=== PATIENT | female | born 1945 | race Caucasian/White ===

== ENCOUNTER 2016-08-13 15:52 | Emergency (ER) | payer OTHER ==
[~2016-08-13] VITALS: Ht 167.6 cm; Wt 83.5 kg
[~2016-08-13 15:52] MED LIST: LISI2.5T5 PO; MCRK20 PO; PLAVIX75 PO; SIMV20TA5 PO
[2016-08-13 15:58] VITALS: TEMP 37
[2016-08-13] MEDS ORDERED: SODIUM CHLORIDE 0.9% 500ML 500 ML IV STA (16:34)
[2016-08-13] MEDS ORDERED: SODIUM CHLORIDE 0.9% 1000ML 1,000 ML IV STA (16:34)
[2016-08-13 16:45] LABS: URINE APPEARANCE CLEAR (CLEAR); URINE BILIRUBIN NEG (NEG); URINE COLOR YELLOW; URINE NITRITE NEG (NEG); URINE PH 5.5 (4.5-7.5); URINE SPECIFIC GRAVITY 1.006 (1.000-1.030); UROBILINOGEN NEG (NEG)
[2016-08-13 16:49] LABS: MANUAL MICROSCOPIC REQUIRED? NO; REVIEW REQ? NO
[2016-08-13 16:52] LABS: BASO % 0.5 %; BASO ABS # 0.03 K/uL (0-0.2); COMPLETE YES; EOS % 2.2 %; HEMATOCRIT 41.4 % (37-47); IG% 0.2 %; LYMPH % 27.7 %; MEAN CELL VOLUME 88.5 fL (80-100); MEAN CORPUSCULAR HEMOGLOBIN 29.9 pg (25-34); MEAN CORPUSCULAR HGB CONC 33.8 g/dl (32-36); MEAN PLATELET VOLUME 9.2 fL (7.4-10.4); MONO % 5.5 %; NEUT % 63.9 %; PLATELET COUNT 216 K/uL (130-400); RED BLOOD COUNT 4.68 M/uL (4.2-5.4)
[2016-08-13 16:54] VITALS: O2SAT 95
[2016-08-13 17:09] LABS: CALCIUM 9.7 mg/dl (8.5-10.1)
[2016-08-13 17:34] LABS: ALT/SGPT 18 U/L (12-78); BLOOD UREA NITROGEN 13 mg/dl (7-18); BUN/CREATININE RATIO 13.5 (10-20); CARBON DIOXIDE 25 mmol/L (21-32); CHLORIDE 108 mmol/L (98-107); CREATININE 0.97 mg/dl (0.60-1.20); GLUCOSE 101 mg/dl (70-99); MAGNESIUM 1.9 mg/dl (1.8-2.4); SODIUM 142 mmol/L (136-145)
[2016-08-13 17:45] LABS: ALKALINE PHOSPHATASE 80 U/L (45-117); AST/SGOT 16 U/L (15-37)
--- NOTE | 2016-08-13 17:53 | DIAGNOSTIC IMAGING REPORT ---
HEAD CT NONCONTRAST CT DOSE: 1074.96 mGy.cm HISTORY: dizziness, right arm numbness TECHNIQUE: Multiaxial CT images of the head were performed without the use of intravenous contrast. Automated exposure control was utilized for this study. Comparison: Head CT 11/07/2015. Findings: The paranasal sinuses and mastoid air cells are clear. The calvarium and skull base are intact. There is no mass, hematoma, midline shift, acute infarct. White matter hypodensity is nonspecific but suggestive of advanced microvascular ischemic change. The ventricles and sulci demonstrate moderate age-related involutional changes. Impression: No significant change compared to the prior study. No acute intracranial abnormality. Atrophy and microvascular ischemic changes are again noted. Electronically signed by: Surjit Cortez M.D. 08/13/2016 5:52 PM Dictated Date/Time: 08/13/2016 5:49 PM
[2016-08-13 19:31] VITALS: Ht 167.6 cm; Wt 83.5 kg
[2016-08-13 21:21] VITALS: BP 183/129; PULSE 70; O2SAT 97
--- NOTE | 2016-08-13 21:29 | EMERGENCY ROOM VISIT NOTE ---
History Report prepared by Mimi: Jasmin Espinoza Under the Supervision of: Dr. Deo Rosas M.D. First contact with patient: 16:22 Chief Complaint: DIZZY Stated Complaint: CAN'T STAND UP-GETS DIZZY History of Present Illness The patient is a 71 year old female who presents to the Emergency Room with complaints of intermittent dizziness that started yesterday. The dizziness is worse when the patient goes from lying down to standing up. She has not taken anything to try to relieve the dizziness. She describes the dizziness as feeling like she is going to fall over and not like the room is spinning. Pt denies LOC, lightheadedness, headache, fevers, chills, trouble speaking, trouble understanding others, diaphoresis, visual changes or problems seeing, neck pain, chest pain, breathing difficulties, nausea, vomiting, abdominal pain , back pain, melena, hematochezia, urinary symptoms, numbness, new weakness, lymphadenopathy, rash, or other complaints. The patient's family states that the patient's speech is normal. 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 She has some residual right-sided weakness and numbness from that. The patient's states that when the patient had her previous episodes she was dizzy and experienced syncope. The patient had a pacemaker placed. Source of History: patient, family (son), spouse/significant other () Onset: yesterday Position: head Quality: other (dizziness) Timing: intermittent Modifying Factors (Worsening): movement (from lying down to standing up) Note: normal speech Review of Systems See HPI for pertinent positives and negatives. A total of ten systems were reviewed and were otherwise negative. Past Medical & Surgical Medical Problems: (1) Fx Gr Tuberos Humerus-Cl (2) Fx Humerus Nos-Closed (3) History of syncope (4) Hypertension Nos (5) Pacemaker (6) Symptomatic bradycardia (7) Vasovagal syncope Social History Problems: (1) History Of Tobacco Use Family History Hypertension Social History Smoking Status: Never Smoker Alcohol Use: occasionally Drug Use: none Marital Status: Housing Status: lives with significant other Occupation Status: retired Current/Historical Medications Scheduled Aspirin (Aspirin Ec), 81 MG PO HS Clopidogrel Bisulfate (Plavix), 1 TAB PO DAILY Lisinopril (Lisinopril), 2.5 MG PO DAILY Potassium Ext Rel (Klor-Con), 20 MEQ PO DAILY Simvastatin (Zocor), 20 MG PO QPM Scheduled PRN Acetaminophen Tab (Tylenol), 650 MG PO Q4H PRN for Pain Allergies Coded Allergies: No Known Allergies (Unverified , 08/13/16) Physical Exam Vital Signs Date Time Temp Pulse Resp B/P Pulse Ox O2 Delivery O2 Flow Rate FiO2 08/13/16 20:28 71 202/103 97 Room Air 78 198/111 70 183/129 08/13/16 18:46 70 20 161/88 96 Room Air 08/13/16 16:56 79 22 187/105 75 140/101 08/13/16 16:54 95 Room Air 08/13/16 16:16 79 08/13/16 15:58 37.0 79 16 194/106 94 Room Air Physical Exam GENERAL: Awake, alert, well appearing, no distress HENT: Normocephalic, atraumatic. TM's normal. Oropharynx unremarkable. EYES: PERRL. EOMI. No nystagmus. Normal conjunctiva. Sclera non-icteric. NECK: Supple. No nuchal rigidity. FROM. No JVD or bruit. RESPIRATORY: CTA CARDIAC: RRR. No murmur. ABDOMEN: Soft, non distended. No tenderness to palpation. No rebound or guarding. No masses. RECTAL: Deferred. MUSCULOSKELETAL: Unremarkable. No edema. No discoloration. Gross motor strength symmetric. NEURO: Cranial nerves 2-12 grossly intact. Normal sensorium. No sensory or motor deficits noted. Speech normal. Assessing drift in right arm is limited secondary to preexisting injury. Slight weakness appreciated in right leg ( which is chronic per patient and family). SKIN: No rash or jaundice noted. LYMPH: No adenopathy. Medical Decision & Procedures ER Provider Diagnostic Interpretation: Radiology results as stated below per my review and radiologist interpretation: HEAD CT NONCONTRAST Findings: The paranasal sinuses and mastoid air cells are clear. The calvarium and skull base are intact. There is no mass, hematoma, midline shift, acute infarct. White matter hypodensity is nonspecific but suggestive of advanced microvascular ischemic change. The ventricles and sulci demonstrate moderate age-related involutional changes. Impression: No significant change compared to the prior study. No acute intracranial abnormality. Atrophy and microvascular ischemic changes are again noted. Electronically signed by: Surjit Cortez M.D. 08/13/2016 5:52 PM Dictated Date/Time: 08/13/2016 5:49 PM Laboratory Results 08/13/16 16:40 Red Blood Count 4.68, Mean Corpuscular Volume 88.5, Mean Corpuscular Hemoglobin 29.9, Mean Corpuscular Hemoglobin Concent 33.8, Mean Platelet Volume 9.2, Neutrophils (%) (Auto) 63.9, Lymphocytes (%) (Auto) 27.7, Monocytes (%) (Auto) 5.5, Eosinophils (%) (Auto) 2.2, Basophils (%) (Auto) 0.5, Neutrophils # (Auto) 4.16, Lymphocytes # (Auto) 1.80, Monocytes # (Auto) 0.36, Eosinophils # (Auto) 0.14, Basophils # (Auto) 0.03 08/13/16 16:40 Test 08/13/16 16:29 08/13/16 16:40 Urine Color YELLOW Urine Appearance CLEAR (CLEAR) Urine pH 5.5 (4.5-7.5) Urine Specific Snook 1.006 (1.000-1.030) Urine Protein NEG (NEG) Urine Glucose (UA) NEG (NEG) Urine Ketones NEG (NEG) Urine Occult Blood NEG (NEG) Urine Nitrite NEG (NEG) Urine Bilirubin NEG (NEG) Urine Urobilinogen NEG (NEG) Urine Leukocyte Esterase NEG (NEG) White Blood Count 6.50 K/uL (4.8-10.8) Red Blood Count 4.68 M/uL (4.2-5.4) Hemoglobin 14.0 g/dL (12.0-16.0) Hematocrit 41.4 % (37-47) Mean Corpuscular Volume 88.5 fL (80-100) Mean Corpuscular Hemoglobin 29.9 pg (25-34) Mean Corpuscular Hemoglobin Concent 33.8 g/dl (32-36) Platelet Count 216 K/uL (130-400) Mean Platelet Volume 9.2 fL (7.4-10.4) Neutrophils (%) (Auto) 63.9 % Lymphocytes (%) (Auto) 27.7 % Monocytes (%) (Auto) 5.5 % Eosinophils (%) (Auto) 2.2 % Basophils (%) (Auto) 0.5 % Neutrophils # (Auto) 4.16 K/uL (1.4-6.5) Lymphocytes # (Auto) 1.80 K/uL (1.2-3.4) Monocytes # (Auto) 0.36 K/uL (0.11-0.59) Eosinophils # (Auto) 0.14 K/uL (0-0.5) Basophils # (Auto) 0.03 K/uL (0-0.2) RDW Standard Deviation 41.8 fL (36.4-46.3) RDW Coefficient of Variation 13.1 % (11.5-14.5) Immature Granulocyte % (Auto) 0.2 % Immature Granulocyte # (Auto) 0.01 K/uL (0.00-0.02) Prothrombin Time 11.0 SECONDS (9.0-12.0) Prothromb Time International Ratio 1.0 (0.9-1.1) Activated Partial Thromboplast Time 26.4 SECONDS (21.0-31.0) Partial Thromboplastin Ratio 1.0 Anion Gap 9.0 mmol/L (3-11) Estimated GFR () 68.6 Estimated GFR (Non- 59.2 BUN/Creatinine Ratio 13.5 (10-20) Calcium Level 9.7 mg/dl (8.5-10.1) Magnesium Level 1.9 mg/dl (1.8-2.4) Total Bilirubin 0.8 mg/dl (0.2-1) Direct Bilirubin 0.2 mg/dl (0-0.2) Aspartate Amino Transf (AST/SGOT) 16 U/L (15-37) Alanine Aminotransferase (ALT/SGPT) 18 U/L (12-78) Alkaline Phosphatase 80 U/L (45-117) Total Protein 7.4 gm/dl (6.4-8.2) Albumin 3.9 gm/dl (3.4-5.0) Lipase 138 U/L (73-393) Thyroid Stimulating Hormone (TSH) 2.510 uIu/ml (0.300-4.500) Laboratory results reviewed by me Medications Administered Medications (Trade) Dose Ordered Sig/Alysia Route Start Time Stop Time Status Last Admin Dose Admin Sodium Chloride 500 ml @ 999 mls/hr Q31M STAT IV 08/13/16 16:34 08/13/16 17:04 DC 08/13/16 16:34 999 MLS/HR Sodium Chloride (Nss 1000ml) 1,000 ml @ 125 mls/hr Q8H STAT IV 08/13/16 16:34 08/14/16 00:33 08/13/16 16:34 125 MLS/HR ECG Indication: weakness Rate (beats per minute): 75 Rhythm: normal sinus Findings: T-wave inversion (Lateral), no ectopy, other (LVH) Comparison ECG Date: 11/07/2015 Change: no significant change ED Course 1630: The patient was evaluated in room B11. A complete history and physical exam was performed. 1634: Ordered Sodium Chloride 1000 ml @ 125 mls/hr IV, Sodium Chloride 500 ml @ 999 mls/hr IV 2004: I reassessed the patient. She feels well and her CT was negative so we are going to do orthostatic testing on her. Medical Decision Prior records/ancillary studies reviewed. Triage Nursing notes reviewed and agree them. The patient's history was concerning for dizziness. Differential diagnosis: Etiologies such as benign positional vertigo, tumor, infection, hypoglycemia, electrolyte abnormalities, cardiac sources, intracerebral event, toxicologic, neurologic, as well as others were entertained. Physical examination: As above. No pathologic nystagmus. No focal findings. ER treatment provided: IV hydration On reassessment the patient felt well. Diagnostics interpretation by me: ECG: Normal sinus rhythm without ischemic change or evidence of dysrhythmia. Urinalysis is negative. The labs revealed a normal CBC and chemistry panel. The patient was evaluated. Initially she did not feel well to complete orthostatic testing but did not have any significant abnormalities of her vital signs. She has a history of lacunar infarcts. There is no pathologic nystagmus. She has no new weakness or numbness. She was hydrated and imaging was performed the patient felt well. She was able to get up without problems. Orthostatic testing only revealed hypertension. The patient was due to take her evening lisinopril. She did take this. The patient also had unremarkable imaging. She is taking aspirin and Plavix. There is no pathologic findings on physical examination. I had the patient ambulate and she did well. She feels well. I discussed conservative management and continuation of her aspirin and Plavix as well as blood pressure medications. The patient and family felt comfortable. The patient will record her blood pressure over the next few days and follow-up in the office. If she has any problems she will come back to the emergency Department immediately for reevaluation. At this point MRI was deferred. Her history doesn't point towards a clear vertigo either. It seems that she was simply weak but the exact etiology is not completely clear. By the evaluation outlined above emergent etiologies such as infection, hypoglycemia, electrolyte abnormalities, cardiac sources, intracerebral event, toxicologic, neurologic,as well as others were deemed relatively unlikely. The patient and family were informed about the findings as listed above. All questions were answered and they were very pleased with the treatment. Return instructions were outlined and the patient was discharged in stable condition. Outpatient prescription management: No change Referral: The patient was referred back to her primary care physician for follow-up in 3 days for a recheck of the current condition. The chart was completed utilizing [employer] Speech voice recognition software. Grammatical errors, random word insertions, pronoun errors, and incomplete sentences are an occasional consequence of this system due to software limitations, ambient noise, and hardware issues. Any formal questions or concerns about the content, text, or information contained within the body of this dictation should be directly addressed to the physician for clarification. Impression Primary Impression: Dizziness Scribe Attestation The scribe's documentation has been prepared under my direction and personally reviewed by me in its entirety. I confirm that the note above accurately reflects all work, treatment, procedures, and medical decision making performed by me. Departure Information Dispostion Home / Self-Care Referrals Shae Martinez M.D. (PCP) Patient Instructions My [facility]
[2016-10-02] MEDS ORDERED: AGG PO (13:54)
[2016-10-20] MEDS ORDERED: PLV75 PO (16:52)
[2016-10-20] MEDS ORDERED: ASPEC81 PO (16:54)
== END 2016-08-13 21:22 | disposition home or self-care (01) ==
LOC: C.EDB 15:54
DX: R42 Dizziness and giddiness (principal); I69.351 Hemiplegia and hemiparesis following cerebral infarction affecting right dominant side; Z95.0 Presence of cardiac pacemaker; I10 Essential (primary) hypertension; Z82.49 Family history of ischemic heart disease and other diseases of the circulatory system; Z79.82 Long term (current) use of aspirin; Z79.01 Long term (current) use of anticoagulants; Z79.899 Other long term (current) drug therapy

== ENCOUNTER 2016-09-30 15:14 | Inpatient (IN) | payer OTHER ==
[~2016-09-30] VITALS: Ht 162.6 cm; Wt 76.7 kg
[~2016-09-30 15:14] MED LIST changes: -MCRK20 PO
[2016-09-30] MEDS ORDERED: SODIUM CHLORIDE 0.9% 1000ML 1,000 ML IV SCH (15:26)
[2016-09-30 15:45] LABS: BASO % 0.6 %; BASO ABS # 0.04 K/uL (0-0.2); COMPLETE YES; EOS % 2.5 %; HEMATOCRIT 46.6 % (37-47); IG% 0.1 %; LYMPH % 28.1 %; LYMPH ABS # 1.91 K/uL (1.2-3.4); MEAN CELL VOLUME 87.4 fL (80-100); MEAN CORPUSCULAR HEMOGLOBIN 28.9 pg (25-34); MONO % 7.4 %; NEUT % 61.3 %; PLATELET COUNT 237 K/uL (130-400); RED BLOOD COUNT 5.33 M/uL (4.2-5.4)
--- NOTE | 2016-09-30 15:52 | EMERGENCY ROOM VISIT NOTE ---
History Report prepared by Mimi: Margy Cheek Under the Supervision of: Dr. Nikos Valles D.O. First contact with patient: 15:20 Chief Complaint: DIZZY Stated Complaint: RIGHT SIDE NUMB History of Present Illness The patient is a 71 year old female who presents to the Emergency Room with complaints of an episode of dizziness starting prior to arrival. She notes that the dizziness is worse when standing. The patient states that she was in the bathroom and couldn't make it out. She states that she is experiencing weakness and numbness in the right side and it has been worsening for the past month. She states that her had to bring in a wheel chair to get her out of the bathroom. The notes this occurred about an hour and a half to two hours ago. The states that she wasn't talking differently than normal. He states that prior to going into the bathroom she was fine, talking fine and walked into the bathroom on her own. She states she was in the ED with similar symptoms a month ago. The patient notes that she has had TIAs in the past. The patient denies having a full stroke that left her with weakness. The patient denies headache, nausea, and chest pain. The patient notes that she has a pacemaker. Source of History: patient Onset: prior to arrival Position: other (global) Quality: other (global) Timing: other (episode) Modifying Factors (Worsening): other (standing) Associated Symptoms: + weakness, + numbness, No headache, No chest pain, No nausea Note: The denies that the patient talked differently and the patient denies having a stroke that left her with weakness in the past. Review of Systems See HPI for pertinent positives & negatives. A total of 10 systems reviewed and were otherwise negative. Past Medical & Surgical Medical Problems: (1) CVA (cerebral vascular accident) (2) HLD (hyperlipidemia) (3) Leukoencephalopathy (4) Orthostatic hypotension (5) Pacemaker (6) Sinus node dysfunction Surgical Problems: (1) History of appendectomy (2) Hx of tonsillectomy Family History Hypertension Social History Smoking Status: Former Smoker Alcohol Use: occasionally Drug Use: none Marital Status: Housing Status: lives with significant other Occupation Status: retired Current/Historical Medications Scheduled Aspirin (Aspirin Ec), 81 MG PO HS Clopidogrel (Plavix), 75 MG PO DAILY Lisinopril (Lisinopril), 5 MG PO DAILY Potassium Ext Rel (Klor-Con), 20 MEQ PO DAILY Simvastatin (Zocor), 20 MG PO QPM Scheduled PRN Acetaminophen Tab (Tylenol), 650 MG PO Q4H PRN for Pain Allergies Coded Allergies: No Known Allergies (Unverified , 08/13/16) Physical Exam Vital Signs Date Time Temp Pulse Resp B/P (MAP) Pulse Ox O2 Delivery O2 Flow Rate FiO2 09/30/16 16:25 73 16 157/92 98 Room Air 09/30/16 15:51 77 20 182/110 99 Room Air 09/30/16 15:47 97 Room Air 09/30/16 15:28 76 09/30/16 15:16 36.9 83 18 121/72 94 Room Air Physical Exam GENERAL: Patient is awake, alert, and is mildly anxious, but comfortable. EYES: The conjunctivae are clear. The pupils are round and reactive. EARS, NOSE, MOUTH AND THROAT: The nose is without any evidence of any deformity. Mucous membranes are moist tongue is midline NECK: The neck is nontender and supple. No bruits noted to auscultation. RESPIRATORY: Normal respiratory effort is noted there is no evidence of wheezing rhonchi or rales CARDIOVASCULAR: Regular rate and rhythm noted there no murmurs rubs or gallops normal S1 normal S2 GASTROINTESTINAL: The abdomen is soft. Bowel sounds are present in all quadrants. Abdomen is nontender MUSCULOSKELETAL/EXTREMITIES: There is no evidence of gross deformity full range of motion is noted in the hips and shoulders SKIN: There is no obvious evidence of any rash. There are no petechiae, pallor or cyanosis noted. NEUROLOGIC: Patient is awake alert and oriented x3. GCS of 15. No facial droop noted. There was a drift in the right upper extremity, diminished merchandiser seasonal in the right upper extremity compared to the left. The patient was able to hold each leg off the bed for greater than 5 seconds, but could not hold right leg up against physician resistance. Medical Decision & Procedures ER Provider Diagnostic Interpretation: Radiology results as stated below per my review and radiologist interpretation: HEAD WITHOUT CONTRAST (CT) HISTORY: 71-year-old male presents with acute strokelike symptoms. TECHNIQUE: Multiple axial CT images of the head were obtained without contrast. COMPARISON: Head CT 08/13/2016. FINDINGS: No acute intracranial hemorrhage, midline shift, mass, large territorial ischemia or abnormal extra-axial collection. There is at least moderate diffuse cerebral edema with ex vacuo ventriculomegaly. Confluent areas of low-attenuation are present within the periventricular and deep white matter of the cerebral hemispheres bilaterally. Senescent calcifications are noted within the basal ganglia. Vascular calcifications are present at the level of the skull base. The calvarium is intact. The paranasal sinuses, mastoid air cells, and middle ear cavities are clear. IMPRESSION: 1. No acute intracranial abnormality. 2. Age-related changes of atrophy and chronic microvascular ischemic changes. Electronically signed by: Deondre Harman 09/30/2016 3:54 PM Dictated Date/Time: 09/30/2016 3:44 PM CHEST ONE VIEW PORTABLE CLINICAL HISTORY: Stroke COMPARISON STUDY: Chest radiograph November 07, 2015. FINDINGS: A dual lead left subclavian pacemaker is unchanged in position. Lung volumes are normal. Lungs are clear. There is no pneumothorax or pleural effusion. Cardiomediastinal silhouette is normal. Old deformity of the proximal right humerus is noted. IMPRESSION: No acute cardiopulmonary findings. Electronically signed by: Sreedhar Salas M.D. 09/30/2016 4:47 PM Dictated Date/Time: 09/30/2016 4:47 PM Laboratory Results 09/30/16 15:25 Red Blood Count 5.33, Mean Corpuscular Volume 87.4, Mean Corpuscular Hemoglobin 28.9, Mean Corpuscular Hemoglobin Concent 33.0, Mean Platelet Volume 9.0, Neutrophils (%) (Auto) 61.3, Lymphocytes (%) (Auto) 28.1, Monocytes (%) (Auto) 7.4, Eosinophils (%) (Auto) 2.5, Basophils (%) (Auto) 0.6, Neutrophils # (Auto) 4.17, Lymphocytes # (Auto) 1.91, Monocytes # (Auto) 0.50, Eosinophils # (Auto) 0.17, Basophils # (Auto) 0.04 09/30/16 15:25 Test 09/30/16 15:25 09/30/16 15:46 09/30/16 15:47 09/30/16 16:00 White Blood Count 6.80 K/uL (4.8-10.8) Red Blood Count 5.33 M/uL (4.2-5.4) Hemoglobin 15.4 g/dL (12.0-16.0) Hematocrit 46.6 % (37-47) Mean Corpuscular Volume 87.4 fL (80-100) Mean Corpuscular Hemoglobin 28.9 pg (25-34) Mean Corpuscular Hemoglobin Concent 33.0 g/dl (32-36) Platelet Count 237 K/uL (130-400) Mean Platelet Volume 9.0 fL (7.4-10.4) Neutrophils (%) (Auto) 61.3 % Lymphocytes (%) (Auto) 28.1 % Monocytes (%) (Auto) 7.4 % Eosinophils (%) (Auto) 2.5 % Basophils (%) (Auto) 0.6 % Neutrophils # (Auto) 4.17 K/uL (1.4-6.5) Lymphocytes # (Auto) 1.91 K/uL (1.2-3.4) Monocytes # (Auto) 0.50 K/uL (0.11-0.59) Eosinophils # (Auto) 0.17 K/uL (0-0.5) Basophils # (Auto) 0.04 K/uL (0-0.2) RDW Standard Deviation 42.0 fL (36.4-46.3) RDW Coefficient of Variation 13.0 % (11.5-14.5) Immature Granulocyte % (Auto) 0.1 % Immature Granulocyte # (Auto) 0.01 K/uL (0.00-0.02) Prothrombin Time 10.5 SECONDS (9.0-12.0) Prothromb Time International Ratio 1.0 (0.9-1.1) Activated Partial Thromboplast Time 27.7 SECONDS (21.0-31.0) Partial Thromboplastin Ratio 1.1 Anion Gap 5.0 mmol/L (3-11) Est Creatinine Clear Calc Drug Dose 57.3 ml/min Estimated GFR () 73.1 Estimated GFR (Non- 63.1 BUN/Creatinine Ratio 14.1 (10-20) Calcium Level 10.0 mg/dl (8.5-10.1) Total Bilirubin 0.6 mg/dl (0.2-1) Direct Bilirubin 0.2 mg/dl (0-0.2) Aspartate Amino Transf (AST/SGOT) 16 U/L (15-37) Alanine Aminotransferase (ALT/SGPT) 22 U/L (12-78) Alkaline Phosphatase 88 U/L (45-117) Total Creatine Kinase 140 U/L (26-192) Creatine Kinase MB 1.2 ng/ml (0.5-3.6) Creatine Kinase MB Ratio 0.9 (0-3.0) Troponin I < 0.015 ng/ml (0-0.045) Total Protein 8.2 gm/dl (6.4-8.2) Albumin 4.6 gm/dl (3.4-5.0) Bedside Prothrombin Time INR 1.0 (0.9-1.1) Bedside Glucose 90 mg/dl (70-90) Urine Color YELLOW Urine Appearance CLEAR (CLEAR) Urine pH 6.0 (4.5-7.5) Urine Specific [place] 1.010 (1.000-1.030) Urine Protein NEG (NEG) Urine Glucose (UA) NEG (NEG) Urine Ketones NEG (NEG) Urine Occult Blood NEG (NEG) Urine Nitrite NEG (NEG) Urine Bilirubin NEG (NEG) Urine Urobilinogen NEG (NEG) Urine Leukocyte Esterase NEG (NEG) Laboratory results per my review. Medications Administered Medications (Trade) Dose Ordered Sig/Alysia Route Start Time Stop Time Status Last Admin Dose Admin Sodium Chloride 1,000 ml @ 50 mls/hr Q20H IV 09/30/16 15:26 09/30/16 19:10 DC 09/30/16 15:55 50 MLS/HR ECG Indication: weakness Rate (beats per minute): 73 Rhythm: normal sinus Findings: T-wave inversion (diffuse), no ectopy Comparison ECG Date: 08/13/2016 Change: no significant change ED Course 1522: The patient was evaluated in room A9B. A complete history and physical examination were performed. 1526: Ordered NSS 1000 ml @ 50 mls/hr IV. 1603: I discussed the patient's case with Dr. Moise from [facility]. He states he will evaluate the patient. 1628: Dr. Moise called back after evaluating the patient's case and states that he agrees with a lunar infarct. He states that he agrees to not give TPA, but that she should be further evaluated for so many changes in her CT. 1643: I reevaluated the patient and discussed the results with her. 1645: I discussed the patient's case with Deborah. The patient will be evaluated for further management. Medical Decision Medication Reconciliation: I attest that I have personally reviewed the patient' s current medications list. Patient was found to have a slightly elevated blood pressure due to circumstances. I do not believe that the patient requires hypertension monitoring. Differential diagnosis: Etiologies such as metabolic, infection, hypo/hyperglycemia, electrolyte abnormalities, cardiac sources, intracerebral event, toxicologic, neurologic, as well as others were entertained. The patient is a 71-year-old female who presented to the emergency department for an evaluation of possible stroke. The patient had an episode which occurred prior to arrival where she was unable to move her right side. According to her family members she has a history of TIA. It sounds though her symptoms were very severe 1. but upon arrival to the hospital they appear to be significantly improved. This patient was made a stroke alert because of the acuity of presentation. The patient did not appear to have any acute hemorrhagic findings on CT the head but she was not a good candidate for TPA because of the degree of her symptoms at this time. I discussed his case with the stroke neurologist from [facility]. She was evaluated by them using the tele stroke camera. He made recommendations but agrees that the patient would not be a good candidate for TPA at this time. I discussed this case with the on-call [facility] hospitalist. They've agreed to evaluate the patient in the emergency department for further management and disposition. Consults Time Called: 1600 Consulting Physician: Dr. Moise- [facility] Returned Call: 1603 I discussed the patient's case with Dr. Moise from [facility]. He states he will evaluate the patient. Additional Consults: Time Called: 1631 Consulted Physician: Dr. Cabrera Returned Call: 1645 Additional Comments: I discussed the patient's case with Deborah. The patient will be evaluated for further management. Impression Primary Impression: CVA (cerebral vascular accident) Additional Impression: Right sided weakness Scribe Attestation The scribe's documentation has been prepared under my direction and personally reviewed by me in its entirety. I confirm that the note above accurately reflects all work, treatment, procedures, and medical decision making performed by me. Departure Information Dispostion Being Evaluated By Hospitalist Referrals No Doctor, Assigned (PCP) Patient Instructions [facility] Problem Qualifiers Primary Impression: CVA (cerebral vascular accident) CVA mechanism: unspecified Qualified Codes: I63.9 - Cerebral infarction, unspecified
--- NOTE | 2016-09-30 15:56 | DIAGNOSTIC IMAGING REPORT ---
HEAD WITHOUT CONTRAST (CT) HISTORY: 71-year-old male presents with acute strokelike symptoms. TECHNIQUE: Multiple axial CT images of the head were obtained without contrast. COMPARISON: Head CT 08/13/2016. FINDINGS: No acute intracranial hemorrhage, midline shift, mass, large territorial ischemia or abnormal extra-axial collection. There is at least moderate diffuse cerebral edema with ex vacuo ventriculomegaly. Confluent areas of low-attenuation are present within the periventricular and deep white matter of the cerebral hemispheres bilaterally. Senescent calcifications are noted within the basal ganglia. Vascular calcifications are present at the level of the skull base. The calvarium is intact. The paranasal sinuses, mastoid air cells, and middle ear cavities are clear. IMPRESSION: 1. No acute intracranial abnormality. 2. Age-related changes of atrophy and chronic microvascular ischemic changes. Electronically signed by: Deondre Harman 09/30/2016 3:54 PM Dictated Date/Time: 09/30/2016 3:44 PM
[2016-09-30 15:59] LABS: PARTIAL THROMBOPLASTIN RATIO 1.1; PROTHROMBIN TIME (PATIENT) 10.5 SECONDS (9.0-12.0)
[2016-09-30] MEDS ORDERED: CLOP1TAB15 PO (16:01)
[2016-09-30 16:05] LABS: BLOOD UREA NITROGEN 13 mg/dl (7-18); BUN/CREATININE RATIO 14.1 (10-20); CARBON DIOXIDE 29 mmol/L (21-32); CHLORIDE 105 mmol/L (98-107); CREATININE 0.92 mg/dl (0.60-1.20); GLUCOSE 92 mg/dl (70-99); POTASSIUM 4.1 mmol/L (3.5-5.1); SODIUM 139 mmol/L (136-145)
[2016-09-30 16:10] LABS: CKMB/CK RATIO 0.9 (0-3.0)
[2016-09-30] MEDS ORDERED: POTA20TA16 PO (16:43)
--- NOTE | 2016-09-30 16:48 | DIAGNOSTIC IMAGING REPORT ---
CHEST ONE VIEW PORTABLE CLINICAL HISTORY: Stroke COMPARISON STUDY: Chest radiograph November 07, 2015. FINDINGS: A dual lead left subclavian pacemaker is unchanged in position. Lung volumes are normal. Lungs are clear. There is no pneumothorax or pleural effusion. Cardiomediastinal silhouette is normal. Old deformity of the proximal right humerus is noted. IMPRESSION: No acute cardiopulmonary findings. Electronically signed by: Sreedhar Salas M.D. 09/30/2016 4:47 PM Dictated Date/Time: 09/30/2016 4:47 PM
[2016-09-30 16:59] LABS: MANUAL MICROSCOPIC REQUIRED? NO; REVIEW REQ? NO; URINE APPEARANCE CLEAR (CLEAR); URINE BILIRUBIN NEG (NEG); URINE COLOR YELLOW; URINE NITRITE NEG (NEG); UROBILINOGEN NEG (NEG); ZZURINE CULT IF INDIC CATH NO
[2016-09-30] MEDS ORDERED: ACETAMINOPHEN 325 MG TAB PO PRN (17:30)
[2016-09-30] MEDS ORDERED: ONDANSETRON INJ 2 MG/ML 2 ML VIAL IV PRN (17:30)
[2016-09-30] MEDS ORDERED: PHARMACIST DISCHARGE MED REC CONSULT PRN (17:30)
--- NOTE | 2016-09-30 18:05 | History and Physical ---
History & Physical Date & Time of Service: Sep 30, 2016 ~ 17:00 Chief Complaint: Dizziness Primary Care Physician: Shae Martinez M.D. History of Present Illness 71 year old female who presents to the ER with dizziness. Patient reports she was in the bathroom and when she stood up she felt very dizzy. She called for her for help. She reports the symptoms lasted for about 2 minutes and resolved on its own. There is also some questions whether or not patient said the right side of her body was numb but now she denies this. She has chronic right arm weakness from a shoulder injury and has chronic right leg weakness for the past few years. She was placed on Plavix 10/2015 for questionable TIA with the progressive right leg weakness. Patient reports the right leg weakness has continued to progress. She reports she barely walks. Family reports she does not like to participate in therapy. Patient denies acute worsening of the weakness today but rather a slow decline over the past several months. Patient denies lightheadedness, headache, or blurred vision. No speech or swallowing difficulties, denies facial droop. She denies chest pain and shortness of breath. No abdominal pain, nausea, vomiting, or diarrhea. She denies fever and chills. No urinary symptoms. In the ER, stroke alert was called. Patient was deemed not a candidate for TPA. [place] recommended switching patient to Aggrenox. Vitals are stable and labs are unremarkable. Past Medical/Surgical History Medical Problems: (1) CVA (cerebral vascular accident) Status: Chronic (2) HLD (hyperlipidemia) Status: Chronic (3) Leukoencephalopathy Status: Chronic (4) Orthostatic hypotension Status: Chronic (5) Pacemaker Status: Chronic (6) Sinus node dysfunction Status: Chronic Surgical Problems: (1) History of appendectomy Status: Chronic (2) Hx of tonsillectomy Status: Chronic Family History Hypertension Social History Smoking Status: Former Smoker Alcohol Use: none Marital Status: Allergies Coded Allergies: No Known Allergies (Unverified , 08/13/16) Home Medications Scheduled Aspirin (Aspirin Ec), 81 MG PO HS Clopidogrel (Plavix), 75 MG PO DAILY Lisinopril (Lisinopril), 5 MG PO DAILY Potassium Ext Rel (Klor-Con), 20 MEQ PO DAILY Simvastatin (Zocor), 20 MG PO QPM Scheduled PRN Acetaminophen Tab (Tylenol), 650 MG PO Q4H PRN for Pain Review of Systems ROS per HPI, all other systems reviewed and negative Physical Exam Vital Signs Date Time Temp Pulse Resp B/P (MAP) Pulse Ox O2 Delivery O2 Flow Rate FiO2 09/30/16 16:25 73 16 157/92 98 Room Air 09/30/16 15:51 77 20 182/110 99 Room Air 09/30/16 15:47 97 Room Air 09/30/16 15:28 76 09/30/16 15:16 36.9 83 18 121/72 94 Room Air General Appearance: no apparent distress Head: normocephalic Eyes: normal inspection, PERRL ENT: hearing grossly normal Neck: supple, no JVD Respiratory/Chest: lungs clear, normal breath sounds, no respiratory distress Cardiovascular: regular rate, rhythm, no edema, normal peripheral pulses Abdomen/GI: normal bowel sounds, non tender, soft Extremities/Musculoskelatal: normal inspection, no calf tenderness Neurologic/Psych: alert, normal mood/affect, oriented x 3, + pertinent finding (has some difficulty lifting left arm - patient reports this is from a shoudler injury; no other focal deficits noted) Skin: normal color, warm/dry Diagnostics Laboratory Results Results Past 24 Hours Test 09/30/16 15:25 09/30/16 15:46 09/30/16 15:47 09/30/16 16:00 Range/Units White Blood Count 6.80 4.8-10.8 K/uL Red Blood Count 5.33 4.2-5.4 M/uL Hemoglobin 15.4 12.0-16.0 g/dL Hematocrit 46.6 37-47 % Mean Corpuscular Volume 87.4 80-100 fL Mean Corpuscular Hemoglobin 28.9 25-34 pg Mean Corpuscular Hemoglobin Concent 33.0 32-36 g/dl Platelet Count 237 130-400 K/uL Mean Platelet Volume 9.0 7.4-10.4 fL Neutrophils (%) (Auto) 61.3 % Lymphocytes (%) (Auto) 28.1 % Monocytes (%) (Auto) 7.4 % Eosinophils (%) (Auto) 2.5 % Basophils (%) (Auto) 0.6 % Neutrophils # (Auto) 4.17 1.4-6.5 K/uL Lymphocytes # (Auto) 1.91 1.2-3.4 K/uL Monocytes # (Auto) 0.50 0.11-0.59 K/uL Eosinophils # (Auto) 0.17 0-0.5 K/uL Basophils # (Auto) 0.04 0-0.2 K/uL RDW Standard Deviation 42.0 36.4-46.3 fL RDW Coefficient of Variation 13.0 11.5-14.5 % Immature Granulocyte % (Auto) 0.1 % Immature Granulocyte # (Auto) 0.01 0.00-0.02 K/uL Prothrombin Time 10.5 9.0-12.0 SECONDS Prothromb Time International Ratio 1.0 0.9-1.1 Activated Partial Thromboplast Time 27.7 21.0-31.0 SECONDS Partial Thromboplastin Ratio 1.1 Sodium Level 139 136-145 mmol/L Potassium Level 4.1 3.5-5.1 mmol/L Chloride Level 105 98-107 mmol/L Carbon Dioxide Level 29 21-32 mmol/L Anion Gap 5.0 3-11 mmol/L Blood Urea Nitrogen 13 7-18 mg/dl Creatinine 0.92 0.60-1.20 mg/dl Est Creatinine Clear Calc Drug Dose 57.3 ml/min Estimated GFR () 73.1 Estimated GFR (Non- 63.1 BUN/Creatinine Ratio 14.1 10-20 Random Glucose 92 70-99 mg/dl Calcium Level 10.0 8.5-10.1 mg/dl Total Bilirubin 0.6 0.2-1 mg/dl Direct Bilirubin 0.2 0-0.2 mg/dl Aspartate Amino Transf (AST/SGOT) 16 15-37 U/L Alanine Aminotransferase (ALT/SGPT) 22 12-78 U/L Alkaline Phosphatase 88 45-117 U/L Total Creatine Kinase 140 26-192 U/L Creatine Kinase MB 1.2 0.5-3.6 ng/ml Creatine Kinase MB Ratio 0.9 0-3.0 Troponin I < 0.015 0-0.045 ng/ml Total Protein 8.2 6.4-8.2 gm/dl Albumin 4.6 3.4-5.0 gm/dl Bedside Prothrombin Time INR 1.0 0.9-1.1 Bedside Glucose 90 70-90 mg/dl Urine Color YELLOW Urine Appearance CLEAR CLEAR Urine pH 6.0 4.5-7.5 Urine Specific [place] 1.010 1.000-1.030 Urine Protein NEG NEG Urine Glucose (UA) NEG NEG Urine Ketones NEG NEG Urine Occult Blood NEG NEG Urine Nitrite NEG NEG Urine Bilirubin NEG NEG Urine Urobilinogen NEG NEG Urine Leukocyte Esterase NEG NEG Test 09/30/16 17:24 Range/Units Diagnostic Radiology HEAD CT IMPRESSION: 1. No acute intracranial abnormality. 2. Age-related changes of atrophy and chronic microvascular ischemic changes. CXR IMPRESSION: No acute cardiopulmonary findings. Impression Assessment and Plan DIZZINESS, RIGHT LEG WEAKNESS - admit to tele - patient presenting with dizziness after standing from toilet, resolved on its own after about 2 minutes; patient also has some right arm weakness that she reports is from a shoulder injury - weakness is unchanged from baseline; also has had progressive right leg weakness over the past several months - was placed on Plavix 10/2015 for ? TIA - stroke alert called - patient deemed not to be a candidate for TPA - dizziness seems to be orthostatic in nature - will check orthostatic BPs - ? CVA for right leg weakness however has been going on for the past several months and patient is not active - suspect rather due to deconditioning that CVA - if it is a CVA, would be considered ASA and Plavix failure so for now will change to Aggrenox - increase statin to Lipitor 80mg - brain MRI/MRA, neck MRA - if pacer is compatible - echo, carotid doppler - neuro checks - PT/OT - neuro consult, case discussed with Dr. Brooks HTN - will hold lisinopril to allow for permissive HTN due to possible CVA - may need to make adjustments pending orthostatic BPs SINUS NODE DYSFUNCTION, S/P PACER - pacer interrogation due to dizziness DVT PROPHYLAXIS - SCDs until CVA ruled out CODE STATUS - Patient is a full code as per my discussion with her. DISPO - In my clinical judgment this beneficiary meets acute admission criteria, established by [facility], that includes being hospitalized through two midnights. - PT/OT, patient may need short term placement for rehab Attending Note: Patient is a 71 yr female who presented for evaluation after having a transient episode of dizziness which she describes as "Room spinning". Denies fall, head trauma, headache, blurry vision. Reports chronic right sided weakness. Denies any new weakness. Denies chest pain, SOB, headache, blurry vision, speech problems, facial deformity. Physical Exam: Vitals signs as noted above General Appearance:Moderately built and nourished, no apparent distress Head: normocephalic, Atraumatic Eyes: normal inspection, EOMI, PERRL Neck: supple, Trachea midline Respiratory/Chest: Normal breath sounds, CTA Cardiovascular: S1, S2, No murmur Abdomen/GI:Soft, Non tender, Bowel sounds present Extremities/Musculoskelatal:normal inspection, decreased ROM of R arm. B/L LE 4/ 5 Neurologic/Psych:AAOX3, decreased ROM of R arm. B/L LE 4/5 Skin:normal color,warm Assessment and Plan: Dizziness:Likely vasovagal New CVA less likely CT head: no acute pathology Has a pacemaker. Plan for MRI if compatible Continue Aggrenox per [facility] input Neurology consulted Stroke work up as above I personally reviewed the record. Patient is interviewed and examined at bedside. Patient's care is coordinated with Ivett Valentine [employer]ING [employer]. Please refer to the documentation above for details of patient's presentation and for discussion of other issues. VTE Prophylaxis VTE Risk Assessment Done? Y/N: Yes Risk Level: Moderate
[2016-09-30 18:29] VITALS: BP 183/129; PULSE 74; TEMP 36.6; Ht 162.6 cm; Wt 76.7 kg
--- NOTE | 2016-09-30 21:07 | DIAGNOSTIC IMAGING REPORT ---
ULTRASOUND OF THE CAROTID ARTERIES CLINICAL HISTORY: Stroke COMPARISON STUDY: 06/27/2013 TECHNIQUE: Real-time, grayscale, and color Doppler sonography of the carotid arteries was performed. Imaging reviewed in the transverse and longitudinal planes. NASCET criteria was utilized for stenosis calcification. FINDINGS: There is marked atherosclerotic plaque present most pronounced on the right. The peak systolic velocity within the right internal carotid artery is 420 cm/sec. The systolic velocity ratio of right internal to common carotid artery is 9.3. The peak systolic velocity within the left internal carotid artery is 68 cm/sec. The systolic velocity ratio left internal to common carotid artery is 1. Antegrade flow is seen in the vertebral arteries. The external carotid arteries are patent. The examination was very difficult from a technical standpoint with poor visualization of the carotid bifurcations. IMPRESSION: 1. Very difficult study from a technical standpoint 2. Greater than 70% stenosis of the right internal carotid artery. Correlation with CT or MR angiography is recommended in follow-up. Electronically signed by: Michael Cavanaugh M.D. 09/30/2016 9:06 PM Dictated Date/Time: 09/30/2016 9:02 PM
[2016-09-30] MEDS ORDERED: ASPI81TA28 PO (21:18)
[2016-09-30] MEDS ORDERED: ACET325T96 PO (21:18)
[2016-09-30] MEDS: ATORVASTATIN 40 MG TAB PO SCH (21:30)
[2016-09-30] MEDS: DIPYRIDAMOLE/ASPIRIN CAP PO SCH (21:31)
[2016-10-01] VITALS (8 sets, daily range): BP systolic 116–174; BP diastolic 79–111; PULSE 61–88; TEMP 36.5–37; O2SAT 95–98
[2016-10-01 06:10] LABS: BASO % 0.4 %; BASO ABS # 0.03 K/uL (0-0.2); COMPLETE YES; EOS % 3.5 %; HEMATOCRIT 41.1 % (37-47); IG% 0.1 %; LYMPH % 42.1 %; LYMPH ABS # 2.86 K/uL (1.2-3.4); MEAN CELL VOLUME 87.8 fL (80-100); MEAN CORPUSCULAR HEMOGLOBIN 29.7 pg (25-34); MEAN CORPUSCULAR HGB CONC 33.8 g/dl (32-36); MEAN PLATELET VOLUME 9.3 fL (7.4-10.4); MONO % 8.4 %; NEUT % 45.5 %; PLATELET COUNT 206 K/uL (130-400); RED BLOOD COUNT 4.68 M/uL (4.2-5.4); WHITE BLOOD COUNT 6.79 K/uL (4.8-10.8)
[2016-10-01 06:30] LABS: ESTIMATED AVERAGE GLUCOSE 114 mg/dl; HA1C FLAG Normal (Normal)
--- NOTE | 2016-10-01 06:33 | Clinical Documentation Query ---
CLINICAL DOCUMENTATION QUERY 71 year old female who presents to the Emergency Room with complaints of an episode of dizziness. In your clinical opinion is this patient being managed for: ( ) Dizziness and progressive right leg weakness in setting of late effect of old CVA ( ) Dizziness due to Vasovagal attack ( ) Other explanation of clinical findings (Please Explain) ( ) Unable to determine (Please Define) ( ) Need to Discuss ( ) Not Agree The medical record reflects the following clinical findings, treatment, and risk factors. Clinical Indicators: Head CT negative for acute findings. Carotid US showed greater than 70% stenosis of the right internal carotid artery. Has hx of CVA per H&P. Treatment: Aggrenox, PT consult, Risk Factors: Hx of CVA, Please clarify and document your clinical opinion in the progress notes and discharge summary. Terms such as "probable", "suspected", "likely", "questionable", "possible", or "still to be ruled out" are acceptable. IF IN AGREEMENT, YOU MUST DOCUMENT ABOVE DIAGNOSTIC STATEMENT IN DAILY PROGRESS NOTES AND DISCHARGE SUMMARY. This document is not part of the patient's record. Thank You, Kvng Sanchez, JOVITA [phone]
[2016-10-01 06:42] LABS: BUN/CREATININE RATIO 15.3 (10-20); CALCIUM 9.6 mg/dl (8.5-10.1); CREATININE 0.92 mg/dl (0.60-1.20); POTASSIUM 3.7 mmol/L (3.5-5.1)
[2016-10-01 06:45] LABS: CHOLESTEROL/HDL RATIO 2.2
[2016-10-01] MEDS: DIPYRIDAMOLE/ASPIRIN CAP PO SCH ×2 (07:58→20:57)
[2016-10-01] MEDS: POTASSIUM CHLORIDE 20 MEQ TABCR PO SCH (07:58)
[2016-10-01] MEDS: ATORVASTATIN 40 MG TAB PO SCH (07:59)
[2016-10-01] MEDS ORDERED: GADAVIST IV PRN (13:00)
--- NOTE | 2016-10-01 13:07 | DIAGNOSTIC IMAGING REPORT ---
MRI OF THE BRAIN WITHOUT AND WITH IV CONTRAST CLINICAL HISTORY: CVA DIZZINESS, RIGHT ARM AND LEG NUMBNESS. COMPARISON STUDY: 06/26/2013 TECHNIQUE: MRI of the brain was performed from the vertex to the skull base utilizing various T1 and T2 weighted sequences. Following the IV administration of 7.5 mL of Gadavist contrast, additional enhanced images were obtained. FINDINGS: Sagittal T1, axial diffusion, proton density and T2 weighted axial, coronal FLAIR, and pre and post axial T1-weighted images were acquired. These were supplemented with post gadolinium coronal T1 weighted images. No intra or extra-axial mass lesions are visualized. Axial diffusion-weighted images reveal no evidence of acute or subacute infarction. There is mild ventricular dilatation, likely secondary to volume loss. Proton density T2-weighted and FLAIR images reveal extensive foci of increased T2 signal within the white matter, similar to the preceding study. Scattered tiny lacunar infarcts are again evident. There are no abnormal flow voids. There is no evidence of pathologic enhancement. IMPRESSION: 1. No evidence of intracranial mass 2. No evidence of acute or subacute infarction 3. Extensive foci of increased T2 signal within the white matter with scattered lacunar infarcts, likely a small vessel basis. 4. Ventricular dilatation, likely secondary to volume loss Electronically signed by: Michael Cavanaugh M.D. 10/01/2016 1:06 PM Dictated Date/Time: 10/01/2016 1:03 PM
--- NOTE | 2016-10-01 13:09 | DIAGNOSTIC IMAGING REPORT ---
MRA HEAD WITHOUT CONTRAST HISTORY:71 yearsFemalepresents with acute stroke like symptoms. Dizziness with right arm and leg numbness. Greater than 70% stenosis of the right ICA discussed on comparison Doppler study. COMPARISON: Carotid Doppler 09/30/2016. CT head 09/30/2016, CTA 06/27/2013. TECHNIQUE: MRA of the head was obtained without contrast utilizing 3-D [id number] sequencing with MIPS reformats. FINDINGS: The bilateral imaged internal carotid arteries are patent and terminate into normal and patent appearing M1 and A1 segments. The anterior commuting artery is also within normal limits. The left vertebral artery is congenitally diminutive. Basilar artery terminates into normal and patent appearing P1 segments. There is mild narrowing of the mid basilar artery which may be secondary to underlying atherosclerotic plaquing. There is no high-grade stenosis, aneurysm or proximal branch occlusion. IMPRESSION: 1. No high-grade stenosis, aneurysm or proximal branch occlusion identified within the intracranial arteries. 2. Mild low-grade narrowing of the mid basilar artery may be secondary to underlying atherosclerotic disease. The above report was generated using voice recognition software. It may contain grammatical, syntax or spelling errors. Electronically signed by: Deondre Harman 10/01/2016 1:07 PM Dictated Date/Time: 10/01/2016 12:57 PM
--- NOTE | 2016-10-01 13:17 | DIAGNOSTIC IMAGING REPORT ---
MRA NECK COMBO HISTORY:71 yearsFemalepresents with strokelike symptoms of right arm and right leg numbness. COMPARISON: MRA head and MRI brain of same day, carotid Doppler, 09/30/2016, CTA of the neck 06/27/2013. TECHNIQUE: MRA of the neck was obtained both with and without the use of 7.5 mL Gadavist IV contrast. FINDINGS: Band Presser localizer images demonstrate no gross abnormality of the thorax. Violation of the common carotid and proximal internal carotid arteries is mildly limited secondary to patient motion. There is medial retropharyngeal course of the bilateral common carotid arteries. There is high-grade approximate 70% narrowing of the origin of the right internal carotid artery (for example seen on image 77 of the axial [id number] images). There is approximately 50 % narrowing of the proximal left ICA, likely secondary to underlying atherosclerotic vascular disease. The right vertebral artery is dominant. Bilateral vertebral arteries are patent. IMPRESSION: 1. High-grade approximately 70% narrowing at the origin of the right internal carotid artery is likely secondary to underlying atherosclerotic vascular disease. Similar findings were seen on CTA of the neck dated 06/27/2013. 2. Approximately 50% narrowing at the origin of the left internal carotid artery. 3. Vertebrobasilar system appears to be within normal limits. The above report was generated using voice recognition software. It may contain grammatical, syntax or spelling errors. Electronically signed by: Deondre Harman 10/01/2016 1:16 PM Dictated Date/Time: 10/01/2016 1:07 PM
--- NOTE | 2016-10-01 13:46 | ECHOCARDIOGRAM REPORT ---
*NOTICE TO RECEIVING [employer] This information is strictly Confidential and protected under [place] law. [place] law prohibits you from making any further disclosure of this information unless further disclosure is expressly permitted by the written consent of the person to whom it pertains or is authorized by law. A general authorization for the release of medical or other information is not sufficient for this purpose. Hospital accepts no responsibility if the information is made available to any other person, INCLUDING THE PATIENT. Interpretation Summary * Name: KRYSTINA SCHNEIDER Study Date: 10/01/2016 08:12 AM BP: 172/96 mmHg * Patient Location: C.2E\S\E201\S\1 HR: 77 * : 1945 (M/d/yyyy) Gender: Female Height: 64 in * Age: 71 yrs Ethnicity: CA Weight: 170 lb * Ordering Physician: Ivett Valentine * Referring Physician: Self, Referred * Performed By: Sherly Trejo RDCS * * Reason For Study: CVA * BSA: 1.8 m2 * -- Conclusions -- * Left ventricular systolic function is normal. * Ejection Fraction = 65-70%. * The right ventricular systolic function is normal. * The left atrial size is normal. * Right atrial size is normal. * Grade I diastolic dysfunction, (abnormal relaxation pattern). * No significant valvular pathology Procedure Details * A complete two-dimensional transthoracic echocardiogram was performed (2D, M-mode, Doppler and color flow Doppler). Left Ventricle * The left ventricle is normal in size. * There is normal left ventricular wall thickness. * Ejection Fraction = 65-70%. * Left ventricular systolic function is normal. Right Ventricle * The right ventricle is normal size. * The right ventricular systolic function is normal. Atria * The left atrial size is normal. * Right atrial size is normal. Mitral Valve * The mitral valve is grossly normal. * Significant mitral regurgitation is absent. Tricuspid Valve * The tricuspid valve is not well visualized, but is grossly normal. * Significant tricuspid regurgitation is absent. Aortic Valve * The aortic valve is not well visualized. * The aortic valve opens well. * There is no significant aortic regurgitation. Pulmonic Valve * The pulmonic valve is not well visualized. Great Vessels * The aortic root and proximal ascending aorta are normal sized. Pericardium/Pleural * There is no pericardial effusion. Left Ventricular Diastolic Function * Grade I diastolic dysfunction, (abnormal relaxation pattern). MMode 2D Measurements and Calculations IVSd 1.1 cm LVIDd 3.1 cm LVIDs 1.9 cm LVPWd 1.2 cm IVS/LVPW 0.91 FS 39.2 % EDV(Teich) 37.1 ml ESV(Teich) 10.7 ml EF(Teich) 71.2 % EDV(cubed) 29.0 ml ESV(cubed) 6.5 ml EF(cubed) 77.6 % LV mass(C)d 107.0 grams LV mass(C)dI 58.6 grams/m\S\2 SV(Teich) 26.4 ml SI(Teich) 14.5 ml/m\S\2 SV(cubed) 22.5 ml SI(cubed) 12.3 ml/m\S\2 Ao root diam 3.1 cm Ao root area 7.6 cm\S\2 ACS 1.9 cm LA dimension 2.2 cm asc Aorta Diam 4.0 cm LA/Ao 0.71 LVOT diam 2.0 cm LVOT area 3.1 cm\S\2 LVAd ap4 23.3 cm\S\2 LVLd ap4 8.3 cm EDV(MOD-sp4) 53.1 ml EDV(sp4-el) 55.4 ml LVAs ap4 11.1 cm\S\2 LVLs ap4 6.5 cm ESV(MOD-sp4) 16.5 ml ESV(sp4-el) 16.0 ml EF(MOD-sp4) 69.0 % EF(sp4-el) 71.1 % LVAd ap2 19.7 cm\S\2 LVLd ap2 7.4 cm EDV(MOD-sp2) 45.5 ml EDV(sp2-el) 44.3 ml LVAs ap2 9.9 cm\S\2 LVLs ap2 5.4 cm ESV(MOD-sp2) 17.5 ml ESV(sp2-el) 15.4 ml EF(MOD-sp2) 61.4 % EF(sp2-el) 65.3 % LVLd %diff -12.24 % EDV(MOD-bp) 51.5 ml LVLs %diff -19.42 % ESV(MOD-bp) 18.1 ml EF(MOD-bp) 64.9 % SV(MOD-sp4) 36.6 ml SI(MOD-sp4) 20.1 ml/m\S\2 SV(MOD-sp2) 27.9 ml SI(MOD-sp2) 15.3 ml/m\S\2 SV(MOD-bp) 33.4 ml SI(MOD-bp) 18.3 ml/m\S\2 SV(sp4-el) 39.3 ml SI(sp4-el) 21.6 ml/m\S\2 SV(sp2-el) 29.0 ml SI(sp2-el) 15.9 ml/m\S\2 Doppler Measurements and Calculations MV E max jie 58.7 cm/sec MV A max jie 98.0 cm/sec MV E/A 0.60 MV dec time 0.35 sec Ao V2 max 154.7 cm/sec Ao max PG 9.6 mmHg Ao max PG (full) 4.0 mmHg CHAU(V,A) 2.4 cm\S\2 CHAU(V,D) 2.4 cm\S\2 LV V1 max PG 5.6 mmHg LV V1 max 118.1 cm/sec PA V2 max 67.9 cm/sec PA max PG 1.8 mmHg PA acc slope 577.7 cm/sec\S\2 PA acc time 0.11 sec TR max jie 243.0 cm/sec PA pr(Accel) 29.9 mmHg
--- NOTE | 2016-10-01 14:23 | Neurology Consultation ---
Neurology Consultation Date of Consultation: Oct 01, 2016. Attending Physician: Amelie Mcginnis M.D. Primary Care Physician: Shae Martinez M.D. Reason for Consultation: ?TIA History of Present Illness Source: patient, spouse Desi is a 71 year old female PMH orthostatic hypotension, pacemaker, sinus node dysfunction, DL, CVA who presents to the ER complaining of lightheaded with standing. She was in the bathroom and when she stood up she felt very dizzy her came in to help her and by the time she got to the bed she was at her baseline. He thinks it lasted about 2 minutes. He thinks she had right side of her body was numb and weak but she does not thinks so. She has chronic right arm weakness from a shoulder injury and has chronic right leg weakness for the past few years. She was placed on Plavix 10/2015 for questionable TIA with the progressive right leg weakness She was also taking aspirin. She has ongoing right leg weakness and does not ambulate much. She does want physical therapy. In the ER, stroke alert was called. Patient was deemed not a candidate for TPA. Lindsey recommended switching patient to Aggrenox. Vitals are stable and labs are unremarkable. Currently she is doing well and her thinks she is back to her baseline. She is sitting up in bed eating her lunch with no swallow difficulties. denies CP, SOB, abdominal pain, weakness, numbness tingling, increased right sided weakness, N, V, bowel or bladder issues. Past Medical/Surgical History Medical Problems: (1) Dizziness Status: Acute (2) TIA (transient ischemic attack) Status: Acute Social History Smoking Status: Former smoker Alcohol Use: none Marital Status: Housing Status: lives with significant other Allergies Coded Allergies: No Known Allergies (Unverified , 08/13/16) Current Inpatient Medications Current Inpatient Medications Medications (Trade) Dose Ordered Sig/Alysia Route Start Time Stop Time Status Last Admin Dose Admin Acetaminophen (Tylenol Tab) 650 mg Q4H PRN PO 09/30/16 17:30 10/30/16 17:29 Ondansetron HCl (Zofran Inj) 4 mg Q6H PRN IV 09/30/16 17:30 10/30/16 17:29 Miscellaneous Information (Pharmacist Discharge Med Rec Consult) 1 ea UD PRN N/A 09/30/16 17:30 10/30/16 17:29 Dipyridamole/ Aspirin (Aggrenox 200MG/ 25MG Cap) 1 cap BID PO 09/30/16 19:30 10/30/16 19:29 10/01/16 07:58 1 CAP Atorvastatin Calcium (Lipitor Tab) 80 mg QAM PO 09/30/16 19:30 10/30/16 19:29 10/01/16 07:59 80 MG Potassium Chloride (Klor-Con Tab) 20 meq DAILY PO 10/01/16 09:00 10/31/16 08:59 10/01/16 07:58 20 MEQ Gadobutrol (Gadavist) 7.5 mmol UD PRN IV 10/01/16 13:00 10/05/16 12:59 Physical Exam Vital Signs (Past 24 Hrs): Date Time Temp Pulse Resp B/P (MAP) Pulse Ox O2 Delivery O2 Flow Rate FiO2 10/01/16 12:00 Room Air 10/01/16 11:37 36.5 76 18 161/79 (106) 95 10/01/16 08:00 Room Air 10/01/16 07:38 37.0 77 18 172/96 (121) 96 10/01/16 04:31 36.6 63 18 157/103 (121) 98 Room Air 10/01/16 04:00 Room Air 10/01/16 00:02 37.0 61 18 167/93 (117) 95 Room Air 68 174/111 (132) 72 152/94 (113) 10/01/16 00:00 Room Air 09/30/16 20:00 Room Air 09/30/16 18:29 36.6 74 20 183/129 09/30/16 17:54 71 17 151/113 97 Room Air 09/30/16 16:25 73 16 157/92 98 Room Air 09/30/16 15:51 77 20 182/110 99 Room Air 09/30/16 15:47 97 Room Air 09/30/16 15:28 76 09/30/16 15:16 36.9 83 18 121/72 94 Room Air Physical Exam: Constitutional: appearance nourished, healthy and obese Ears, Nose, Mouth and Throat: mucous membranes moist, no injection and skin normal, eyes normal Cardiovascular: normal S-1 and S-2 and regular rate and rhythm Respiratory: clear to auscultation (CTA) and no rales, rhonchi or wheeze Musculoskeletal: no peripheral edema and good distal pulses Skin: no stigmata of neurocutaneous disease noted and normal and intact Eyes: extraocular muscles intact (EOMI) and pupils equal, round and reactive to light (PERRL) NEUROLOGIC EXAMINATION: Mental status: Alert and interactive Oriented to [place] [facility], lives in [facility] just 7. can say no ifs ands or buts, can not follow close eyes, stick out point to ceiling with right hand Oriented to person Speech fluent with no evidence of aphasia Cranial Nerves smile eye brow raise symmetric, tongue midline Reflexes: Deep tendon reflexes were symmetrical and graded 2/5. Plantar responses were flexor. Sensory: no deficit to cool, or vibration Coordination: finger to nose with out bipass Gait/Stance: Posture normal. Gait normal: with steady with steps, base, slow walking and tandem gait with a walker, able to walk backwards to bed. 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 triceps 4/5 right, unable to lift shoulder , hand beam press operator biceps triceps 5/5 left, hip flex 4+/5 R, 5/5 L Laboratory Results Past 24 Hours: 10/01/16 05:19 Red Blood Count 4.68, Mean Corpuscular Volume 87.8, Mean Corpuscular Hemoglobin 29.7, Mean Corpuscular Hemoglobin Concent 33.8, Mean Platelet Volume 9.3, Neutrophils (%) (Auto) 45.5, Lymphocytes (%) (Auto) 42.1, Monocytes (%) (Auto) 8.4, Eosinophils (%) (Auto) 3.5, Basophils (%) (Auto) 0.4, Neutrophils # (Auto) 3.08, Lymphocytes # (Auto) 2.86, Monocytes # (Auto) 0.57, Eosinophils # (Auto) 0.24, Basophils # (Auto) 0.03 10/01/16 05:19 Test 09/30/16 15:25 09/30/16 15:46 09/30/16 15:47 09/30/16 16:00 Prothrombin Time 10.5 SECONDS (9.0-12.0) Prothromb Time International Ratio 1.0 (0.9-1.1) Activated Partial Thromboplast Time 27.7 SECONDS (21.0-31.0) Partial Thromboplastin Ratio 1.1 Estimated Average Glucose 114 mg/dl Hemoglobin A1c 5.6 % (4.5-5.6) Total Bilirubin 0.6 mg/dl (0.2-1) Direct Bilirubin 0.2 mg/dl (0-0.2) Aspartate Amino Transf (AST/SGOT) 16 U/L (15-37) Alanine Aminotransferase (ALT/SGPT) 22 U/L (12-78) Alkaline Phosphatase 88 U/L (45-117) Total Creatine Kinase 140 U/L (26-192) Creatine Kinase MB 1.2 ng/ml (0.5-3.6) Creatine Kinase MB Ratio 0.9 (0-3.0) Troponin I < 0.015 ng/ml (0-0.045) Total Protein 8.2 gm/dl (6.4-8.2) Albumin 4.6 gm/dl (3.4-5.0) Bedside Prothrombin Time INR 1.0 (0.9-1.1) Bedside Glucose 90 mg/dl (70-90) Urine Color YELLOW Urine Appearance CLEAR (CLEAR) Urine pH 6.0 (4.5-7.5) Urine Specific [place] 1.010 (1.000-1.030) Urine Protein NEG (NEG) Urine Glucose (UA) NEG (NEG) Urine Ketones NEG (NEG) Urine Occult Blood NEG (NEG) Urine Nitrite NEG (NEG) Urine Bilirubin NEG (NEG) Urine Urobilinogen NEG (NEG) Urine Leukocyte Esterase NEG (NEG) Test 10/01/16 05:19 White Blood Count 6.79 K/uL (4.8-10.8) Red Blood Count 4.68 M/uL (4.2-5.4) Hemoglobin 13.9 g/dL (12.0-16.0) Hematocrit 41.1 % (37-47) Mean Corpuscular Volume 87.8 fL (80-100) Mean Corpuscular Hemoglobin 29.7 pg (25-34) Mean Corpuscular Hemoglobin Concent 33.8 g/dl (32-36) Platelet Count 206 K/uL (130-400) Mean Platelet Volume 9.3 fL (7.4-10.4) Neutrophils (%) (Auto) 45.5 % Lymphocytes (%) (Auto) 42.1 % Monocytes (%) (Auto) 8.4 % Eosinophils (%) (Auto) 3.5 % Basophils (%) (Auto) 0.4 % Neutrophils # (Auto) 3.08 K/uL (1.4-6.5) Lymphocytes # (Auto) 2.86 K/uL (1.2-3.4) Monocytes # (Auto) 0.57 K/uL (0.11-0.59) Eosinophils # (Auto) 0.24 K/uL (0-0.5) Basophils # (Auto) 0.03 K/uL (0-0.2) RDW Standard Deviation 42.0 fL (36.4-46.3) RDW Coefficient of Variation 13.1 % (11.5-14.5) Immature Granulocyte % (Auto) 0.1 % Immature Granulocyte # (Auto) 0.01 K/uL (0.00-0.02) Anion Gap 8.0 mmol/L (3-11) Est Creatinine Clear Calc Drug Dose 57.1 ml/min Estimated GFR () 73.1 Estimated GFR (Non- 63.1 BUN/Creatinine Ratio 15.3 (10-20) Calcium Level 9.6 mg/dl (8.5-10.1) Triglycerides Level 92 mg/dl (0-150) Cholesterol Level 166 mg/dl (0-200) HDL Cholesterol 75 mg/dl LDL Cholesterol, Calculated 73 mg/dl VLDL Cholesterol, Calculated 18 mg/dl Cholesterol/HDL Ratio 2.2 Imaging MRI brain with and without- No evidence of intracranial mass No evidence of acute or subacute infarction Extensive foci of increased T2 signal within the white matter with scattered lacunar infarcts, likely a small vessel basis. Ventricular dilatation, likely secondary to volume loss MRA brain -. No high-grade stenosis, aneurysm or proximal branch occlusion identified within the intracranial arteries. Mild low-grade narrowing of the mid basilar artery may be secondary to underlying atherosclerotic disease. MRA neck combo- . High-grade approximately 70% narrowing at the origin of the right internal carotid artery is likely secondary to underlying atherosclerotic vascular disease. Similar findings were seen on CTA of the neck dated 06/27/2013. Approximately 50% narrowing at the origin of the left internal carotid artery. Vertebrobasilar system appears to be within normal limits. carotid doppler- Very difficult study from a technical standpoint Greater than 70% stenosis of the right internal carotid artery. Correlation with CT or MR angiography is recommended in follow-up. Impression 71 year old light headed and increase in right sided weakness Plan 1. MRI brain - no new acute of subacute findings 2. carotid doppler 70 % right ICA which would not cause symptoms 3. orthostatic blood pressures in process 4 .PT/OT/ speech- she would benefit from PT as outpatient 5. ok to switch to aggrenox 250 mg BID but if insurance will not cover would stay on Plavix 75 mg and double the aspirin 81 mg which would be 162 mg. should check and be aware prior to switch 6. LDL <70 optimize HTN, DM 7. pacemaker interrogation done 8. possible TIA due to transient nature of the symptoms and evidence on imaging follow up in neurology in 2-3 weeks Nikia Stokes, DAN[facility] neurology I have seen and discussed above patient with Dr Deo Brooks, neurology I know this woman and agree wit the above assessment and plan She has a significant vascular dementia and now has a transient vertiginous event with transient less than one hour weakness of the right leg now resolved with a normal mri save for the chronic extensive leukoencephalopthy and an incidental and stable carotid stenosis ipsilateral to her deficits and thus of no significance I frankl doubt this was more than a minor tia and agree with a change of antiplatelet rx to aggrenox as long as this is economically defensible and there is no development of significant headaches or orthostasis If either issue emerges would simply raise her current asa dose to 162 mg of asa and combine it with plavis and stop the aggrenox Would advise that you give an rx to be filled for tuesday for the aggrenox at 225 bid and if not covered go with the double asa and plavix aas above Reviewed with Nikia Brooks MD
--- NOTE | 2016-10-01 17:04 | Progress Note ---
Medicine Progress Note Date & Time of Visit: Oct 01, 2016 at 16:38. Subjective Pt was seen and examined Lying in bed comfortable with no distress Pt said that she feels good she said that she is back to normal denies any chest pain, palpitation, dizziness and sob Objective Last 8 Hrs Date Time Temp Pulse Resp B/P (MAP) Pulse Ox O2 Delivery O2 Flow Rate FiO2 10/01/16 15:42 36.9 71 18 116/88 (97) 96 10/01/16 12:00 Room Air 10/01/16 11:37 36.5 76 18 161/79 (106) 95 Physical Exam: General- No acute distress Head- atraumatic Eyes- PERRL, EOMI ENT- oropharynx clear Neck- supple, no JVD Lungs- clear to auscultation Heart- regular rhythm Abdomen- normal bowel sounds, soft Extremities- no calf tenderness, hand strength and conditioning coach slightly decrease in the right side Neuro- alert, oriented x 3; PERRL, EOMI Skin- warm & dry Laboratory Results: Last 24 Hours Test 10/01/16 05:19 White Blood Count 6.79 K/uL Red Blood Count 4.68 M/uL Hemoglobin 13.9 g/dL Hematocrit 41.1 % Mean Corpuscular Volume 87.8 fL Mean Corpuscular Hemoglobin 29.7 pg Mean Corpuscular Hemoglobin Concent 33.8 g/dl Platelet Count 206 K/uL Mean Platelet Volume 9.3 fL Neutrophils (%) (Auto) 45.5 % Lymphocytes (%) (Auto) 42.1 % Monocytes (%) (Auto) 8.4 % Eosinophils (%) (Auto) 3.5 % Basophils (%) (Auto) 0.4 % Neutrophils # (Auto) 3.08 K/uL Lymphocytes # (Auto) 2.86 K/uL Monocytes # (Auto) 0.57 K/uL Eosinophils # (Auto) 0.24 K/uL Basophils # (Auto) 0.03 K/uL RDW Standard Deviation 42.0 fL RDW Coefficient of Variation 13.1 % Immature Granulocyte % (Auto) 0.1 % Immature Granulocyte # (Auto) 0.01 K/uL Sodium Level 143 mmol/L Potassium Level 3.7 mmol/L Chloride Level 109 mmol/L Carbon Dioxide Level 26 mmol/L Anion Gap 8.0 mmol/L Blood Urea Nitrogen 14 mg/dl Creatinine 0.92 mg/dl Est Creatinine Clear Calc Drug Dose 57.1 ml/min Estimated GFR () 73.1 Estimated GFR (Non- 63.1 BUN/Creatinine Ratio 15.3 Random Glucose 90 mg/dl Calcium Level 9.6 mg/dl Triglycerides Level 92 mg/dl Cholesterol Level 166 mg/dl HDL Cholesterol 75 mg/dl LDL Cholesterol, Calculated 73 mg/dl VLDL Cholesterol, Calculated 18 mg/dl Cholesterol/HDL Ratio 2.2 Assessment & Plan DIZZINESS, RIGHT LEG WEAKNESS - patient presenting with dizziness after standing from toilet, resolved after 2 minutes and progressive right leg weakness over the past several months - stroke alert called - patient deemed not to be a candidate for TPA - dizziness seems to be orthostatic in nature - CT head was negative - MRI of the head showed no evidence of intracranial mass. No evidence of acute or subacute infarction - MRA of brain showed no high-grade stenosis, aneurysm or proximal branch occlusion. Mild low-grade narrowing of the mid basilar artery - MRA of the neck showed high-grade approximately 70% narrowing in the right internal carotid artery and 50% narrowing in left internal carotid artery. --Echo showed: * Left ventricular systolic function is normal. * Ejection Fraction = 65-70%. * The right ventricular systolic function is normal. * The left atrial size is normal. * Right atrial size is normal. * Grade I diastolic dysfunction, (abnormal relaxation pattern). * No significant valvular pathology [facility] changed the plavix to aggrenox Neuro consulted and agreed with the recommendation to change the plavix to aggrenox 250 mg BID but if insurance will not cover would stay on Plavix 75 mg and increase the asa 81mg to 162 by taking 2 tabs. Follow up with neurology in 2 to 3 weeks as an outpatient Waiting insurance approval for placement HTN - continue holding lisinopril to allow for permissive HTN - Continue monitor BP SINUS NODE DYSFUNCTION, S/P PACER - pacer interrogation done DVT PROPHYLAXIS - On SCDs - Will add heparin subq CODE STATUS FULL CODE DISPO Waiting for approval for inpatient rehab Consultants: Neurology Current Inpatient Medications: Current Inpatient Medications Medications (Trade) Dose Ordered Sig/Alysia Route Start Time Stop Time Status Last Admin Dose Admin Acetaminophen (Tylenol Tab) 650 mg Q4H PRN PO 09/30/16 17:30 10/30/16 17:29 Ondansetron HCl (Zofran Inj) 4 mg Q6H PRN IV 09/30/16 17:30 10/30/16 17:29 Miscellaneous Information (Pharmacist Discharge Med Rec Consult) 1 ea UD PRN N/A 09/30/16 17:30 10/30/16 17:29 Dipyridamole/ Aspirin (Aggrenox 200MG/ 25MG Cap) 1 cap BID PO 09/30/16 19:30 10/30/16 19:29 10/01/16 07:58 1 CAP Atorvastatin Calcium (Lipitor Tab) 80 mg QAM PO 09/30/16 19:30 10/30/16 19:29 10/01/16 07:59 80 MG Potassium Chloride (Klor-Con Tab) 20 meq DAILY PO 10/01/16 09:00 10/31/16 08:59 10/01/16 07:58 20 MEQ Gadobutrol (Gadavist) 7.5 mmol UD PRN IV 10/01/16 13:00 10/05/16 12:59
[2016-10-02] VITALS (7 sets, daily range): BP systolic 110–182; BP diastolic 69–108; PULSE 63–81; TEMP 36.4–36.9; O2SAT 96–98
[2016-10-02] MEDS: ATORVASTATIN 40 MG TAB PO SCH (07:56)
[2016-10-02] MEDS: DIPYRIDAMOLE/ASPIRIN CAP PO SCH (07:56)
[2016-10-02] MEDS: POTASSIUM CHLORIDE 20 MEQ TABCR PO SCH (07:57)
--- NOTE | 2016-10-02 10:57 | Neurology Progress Notes ---
Neurology Progress Note Date of Service Oct 02, 2016. 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 Her BP however has been surgina bit and discharge has been held for observation and improvement in Bp control Objective Date Time Temp Pulse Resp B/P (MAP) Pulse Ox O2 Delivery O2 Flow Rate FiO2 10/02/16 08:16 36.9 63 18 177/108 (131) 96 10/02/16 08:00 72 150/102 (118) 73 141/80 (100) 81 113/69 (84) 10/02/16 08:00 Room Air 10/02/16 04:05 98 Room Air 10/02/16 03:00 36.6 68 18 182/108 (132) 98 Room Air 10/02/16 00:03 98 Room Air 10/01/16 22:55 36.5 79 20 153/105 (121) 96 Room Air 84 160/102 (121) 88 124/103 (110) 10/01/16 20:00 98 Room Air 10/01/16 18:57 36.9 69 18 169/103 (125) 98 Room Air 157/90 (112) 10/01/16 16:00 Room Air 10/01/16 15:42 36.9 71 18 116/88 (97) 96 10/01/16 12:00 Room Air 10/01/16 11:37 36.5 76 18 161/79 (106) 95 Exam: above exam show intact cranial nerves clear speech somewhat dull mentation ( baseline ) the mechanical weakness of the right shoulder and a broad based walker dependent gait with some truncal instablity when seated with hypoactive dtrs and downgoing toes good strength save for the right shoulder [proximally and at most mild distal leg and foot reduced vibratory sense not out of keeping for age Current Inpatient Medications Medications (Trade) Dose Ordered Sig/Alysia Route Start Time Stop Time Status Last Admin Dose Admin Acetaminophen (Tylenol Tab) 650 mg Q4H PRN PO 09/30/16 17:30 10/30/16 17:29 Ondansetron HCl (Zofran Inj) 4 mg Q6H PRN IV 09/30/16 17:30 10/30/16 17:29 Miscellaneous Information (Pharmacist Discharge Med Rec Consult) 1 ea UD PRN N/A 09/30/16 17:30 10/30/16 17:29 Dipyridamole/ Aspirin (Aggrenox 200MG/ 25MG Cap) 1 cap BID PO 09/30/16 19:30 10/30/16 19:29 10/02/16 07:56 1 CAP Atorvastatin Calcium (Lipitor Tab) 80 mg QAM PO 09/30/16 19:30 10/30/16 19:29 10/02/16 07:56 80 MG Potassium Chloride (Klor-Con Tab) 20 meq DAILY PO 10/01/16 09:00 10/31/16 08:59 10/02/16 07:57 20 MEQ Gadobutrol (Gadavist) 7.5 mmol UD PRN IV 10/01/16 13:00 10/05/16 12:59 Impression Possible very transient tia involving deep left hemisphere or possibly vb system in setting of 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 I have no issues with this as long as the medcation is covered adequately by insurance and it is not associated with significant induction of headaches or potentially some hypotension The alternative is to simply doube the asa and continue this with the plavix Discussed with Dr Mcginnis today and neurology will sign off Plan As noted above She may actually be going to [facility] emergency room but really her status to me seems baseline we can see back in neurlogy clinic in about a month for flollow up
--- NOTE | 2016-10-02 13:51 | Progress Note ---
Medicine Progress Note Date & Time of Visit: Oct 02, 2016 at 13:48. Subjective Pt was seen and examined Sitting at the edge of the bed with at bedside Pt said that she feels fine denies any chest pain, palpitation, dizziness and SOB Objective Last 8 Hrs Date Time Temp Pulse Resp B/P (MAP) Pulse Ox O2 Delivery O2 Flow Rate FiO2 10/02/16 12:00 Room Air 10/02/16 11:32 36.4 75 16 110/82 (91) 97 Room Air 10/02/16 08:16 36.9 63 18 177/108 (131) 96 10/02/16 08:00 72 150/102 (118) 73 141/80 (100) 81 113/69 (84) 10/02/16 08:00 Room Air Physical Exam: General- No acute distress Head- atraumatic Eyes- PERRL, EOMI ENT- oropharynx clear Neck- supple, no JVD Lungs- clear to auscultation Heart- regular rhythm Abdomen- normal bowel sounds, soft Extremities- no calf tenderness, hand occupational therapist home based slightly decrease in the right side Neuro- alert, oriented x 3; PERRL, EOMI Skin- warm & dry Assessment & Plan DIZZINESS, RIGHT LEG WEAKNESS - patient presenting with dizziness after standing from toilet, resolved after 2 minutes and progressive right leg weakness over the past several months - stroke alert called - patient deemed not to be a candidate for TPA - dizziness seems to be orthostatic in nature - CT head was negative - MRI of the head showed no evidence of intracranial mass. No evidence of acute or subacute infarction - MRA of brain showed no high-grade stenosis, aneurysm or proximal branch occlusion. Mild low-grade narrowing of the mid basilar artery - MRA of the neck showed high-grade approximately 70% narrowing in the right internal carotid artery and 50% narrowing in left internal carotid artery. --Echo showed: * Left ventricular systolic function is normal. * Ejection Fraction = 65-70%. * The right ventricular systolic function is normal. * The left atrial size is normal. * Right atrial size is normal. * Grade I diastolic dysfunction, (abnormal relaxation pattern). * No significant valvular pathology [facility] changed the plavix to aggrenox Neuro consulted and agreed with the recommendation to change the plavix to aggrenox 250 mg BID but if insurance will not cover would stay on Plavix 75 mg and increase the asa 81mg to 162 by taking 2 tabs. Follow up with neurology in 1 month as an outpatient Will go to rehab for inpatient therapy HTN - continue holding lisinopril to allow for permissive HTN - Continue monitor BP - resume BP med SINUS NODE DYSFUNCTION, S/P PACER - pacer interrogation done DVT PROPHYLAXIS - On SCDs - Will add heparin subq CODE STATUS FULL CODE DISPO Transfer today to rehab Consultants: Neurology Current Inpatient Medications: Current Inpatient Medications Medications (Trade) Dose Ordered Sig/Alysia Route Start Time Stop Time Status Last Admin Dose Admin Acetaminophen (Tylenol Tab) 650 mg Q4H PRN PO 09/30/16 17:30 10/30/16 17:29 Ondansetron HCl (Zofran Inj) 4 mg Q6H PRN IV 09/30/16 17:30 10/30/16 17:29 Miscellaneous Information (Pharmacist Discharge Med Rec Consult) 1 ea UD PRN N/A 09/30/16 17:30 10/30/16 17:29 Dipyridamole/ Aspirin (Aggrenox 200MG/ 25MG Cap) 1 cap BID PO 09/30/16 19:30 10/30/16 19:29 10/02/16 07:56 1 CAP Atorvastatin Calcium (Lipitor Tab) 80 mg QAM PO 09/30/16 19:30 10/30/16 19:29 10/02/16 07:56 80 MG Potassium Chloride (Klor-Con Tab) 20 meq DAILY PO 10/01/16 09:00 10/31/16 08:59 10/02/16 07:57 20 MEQ Gadobutrol (Gadavist) 7.5 mmol UD PRN IV 10/01/16 13:00 10/05/16 12:59
[2016-10-02] MEDS ORDERED: AGG PO (13:54)
--- NOTE | 2016-10-02 14:04 | Discharge Instructions ---
Discharge Instructions Date of Service Oct 02, 2016. Admission Reason for Admission: Dizziness Discharge Discharge Diagnosis / Problem: DIZZINESS, RIGHT LEG WEAKNESS POSSIBLE TIA, HYPERTENSION Discharge Goals Goal(s): Decrease discomfort, Improve function, Improve disease control Activity Recommendations Activity Limitations: resume your previous activity ( TOLERATED) . Instructions / Follow-Up Instructions / Follow-Up Discharge to [facility] for inpatient rehab Continue physical therapy Fall precaution Follow up with your physician once discharge from rehab Follow up with neurology once discharge from rehab Plavix changed to Aggrenox twice a day, but if insurance will not cover for it, stay on Plavix 75 mg and increase the aspirin 81mg to 162 by taking 2 tabs. Current Hospital Diet Patient's current hospital diet: AHA Diet (Heart Healthy) Discharge Diet Recommended Diet: AHA Diet (Heart Healthy) Pending Studies Studies pending at discharge: no Laboratory Results Hemoglobin A1c Test 09/30/16 15:25 Range/Units Estimated Average Glucose 114 mg/dl Hemoglobin A1c 5.6 4.5-5.6 % Lipid Panel Test 10/01/16 05:19 Range/Units Triglycerides Level 92 0-150 mg/dl Cholesterol Level 166 0-200 mg/dl HDL Cholesterol 75 mg/dl Cholesterol/HDL Ratio 2.2 LDL Cholesterol, Calculated 73 mg/dl Medical Emergencies . Who to Call and When: Medical Emergencies: If at any time you feel your situation is an emergency, please call 911 immediately. . Non-Emergent Contact Non-Emergency issues call your: Primary Care Provider Call Non-Emergent contact if: you have any medication questions . . "Provider Documentation" section prepared by Amelie Mcginnis. . VTE Core Measure Inpt VTE Proph given/why not?: SCD's
--- NOTE | 2016-10-05 23:59 | Discharge Summary ---
Discharge Summary Date of Service Oct 05, 2016. Discharge Summary Admission Date: Sep 30, 2016 at 17:20 Discharge Date: Oct 02, 2016 Discharge Disposition: Rehab Principal Diagnosis: RIGHT LEG WEAKNESS POSSIBLE TIA Secondary Diagnoses/Problems: Dizziness HTN SINUS NODE DYSFUNCTION, S/P PACER Procedures: MRI OF THE BRAIN WITHOUT AND WITH IV CONTRAST CLINICAL HISTORY: CVA DIZZINESS, RIGHT ARM AND LEG NUMBNESS. COMPARISON STUDY: 06/26/2013 TECHNIQUE: MRI of the brain was performed from the vertex to the skull base utilizing various T1 and T2 weighted sequences. Following the IV administration of 7.5 mL of Gadavist contrast, additional enhanced images were obtained. FINDINGS: Sagittal T1, axial diffusion, proton density and T2 weighted axial, coronal FLAIR, and pre and post axial T1-weighted images were acquired. These were supplemented with post gadolinium coronal T1 weighted images. No intra or extra-axial mass lesions are visualized. Axial diffusion-weighted images reveal no evidence of acute or subacute infarction. There is mild ventricular dilatation, likely secondary to volume loss. Proton density T2-weighted and FLAIR images reveal extensive foci of increased T2 signal within the white matter, similar to the preceding study. Scattered tiny lacunar infarcts are again evident. There are no abnormal flow voids. There is no evidence of pathologic enhancement. IMPRESSION: 1. No evidence of intracranial mass 2. No evidence of acute or subacute infarction 3. Extensive foci of increased T2 signal within the white matter with scattered lacunar infarcts, likely a small vessel basis. 4. Ventricular dilatation, likely secondary to volume loss Electronically signed by: Michael Cavanaugh M.D. 10/01/2016 1:06 PM Dictated Date/Time: 10/01/2016 1:03 PM MRA HEAD WITHOUT CONTRAST HISTORY:71 yearsFemalepresents with acute stroke like symptoms. Dizziness with right arm and leg numbness. Greater than 70% stenosis of the right ICA discussed on comparison Doppler study. COMPARISON: Carotid Doppler 09/30/2016. CT head 09/30/2016, CTA 06/27/2013. TECHNIQUE: MRA of the head was obtained without contrast utilizing 3-D [id number] sequencing with MIPS reformats. FINDINGS: The bilateral imaged internal carotid arteries are patent and terminate into normal and patent appearing M1 and A1 segments. The anterior commuting artery is also within normal limits. The left vertebral artery is congenitally diminutive. Basilar artery terminates into normal and patent appearing P1 segments. There is mild narrowing of the mid basilar artery which may be secondary to underlying atherosclerotic plaquing. There is no high-grade stenosis, aneurysm or proximal branch occlusion. IMPRESSION: 1. No high-grade stenosis, aneurysm or proximal branch occlusion identified within the intracranial arteries. 2. Mild low-grade narrowing of the mid basilar artery may be secondary to underlying atherosclerotic disease. The above report was generated using voice recognition software. It may contain grammatical, syntax or spelling errors. Electronically signed by: Deondre Harman 10/01/2016 1:07 PM Dictated Date/Time: 10/01/2016 12:57 PM MRA NECK COMBO HISTORY:71 yearsFemalepresents with strokelike symptoms of right arm and right leg numbness. COMPARISON: MRA head and MRI brain of same day, carotid Doppler, 09/30/2016, CTA of the neck 06/27/2013. TECHNIQUE: MRA of the neck was obtained both with and without the use of 7.5 mL Gadavist IV contrast. FINDINGS: Project Account Manager localizer images demonstrate no gross abnormality of the thorax. Violation of the common carotid and proximal internal carotid arteries is mildly limited secondary to patient motion. There is medial retropharyngeal course of the bilateral common carotid arteries. There is high-grade approximate 70% narrowing of the origin of the right internal carotid artery (for example seen on image 77 of the axial [id number] images). There is approximately 50 % narrowing of the proximal left ICA, likely secondary to underlying atherosclerotic vascular disease. The right vertebral artery is dominant. Bilateral vertebral arteries are patent. IMPRESSION: 1. High-grade approximately 70% narrowing at the origin of the right internal carotid artery is likely secondary to underlying atherosclerotic vascular disease. Similar findings were seen on CTA of the neck dated 06/27/2013. 2. Approximately 50% narrowing at the origin of the left internal carotid artery. 3. Vertebrobasilar system appears to be within normal limits. The above report was generated using voice recognition software. It may contain grammatical, syntax or spelling errors. Electronically signed by: Deondre Harman 10/01/2016 1:16 PM Dictated Date/Time: 10/01 [~ rep ct add3]] ULTRASOUND OF THE CAROTID ARTERIES CLINICAL HISTORY: Stroke COMPARISON STUDY: 06/27/2013 TECHNIQUE: Real-time, grayscale, and color Doppler sonography of the carotid arteries was performed. Imaging reviewed in the transverse and longitudinal planes. NASCET criteria was utilized for stenosis calcification. FINDINGS: There is marked atherosclerotic plaque present most pronounced on the right. The peak systolic velocity within the right internal carotid artery is 420 cm/sec. The systolic velocity ratio of right internal to common carotid artery is 9.3. The peak systolic velocity within the left internal carotid artery is 68 cm/sec. The systolic velocity ratio left internal to common carotid artery is 1. Antegrade flow is seen in the vertebral arteries. The external carotid arteries are patent. The examination was very difficult from a technical standpoint with poor visualization of the carotid bifurcations. IMPRESSION: 1. Very difficult study from a technical standpoint 2. Greater than 70% stenosis of the right internal carotid artery. Correlation with CT or MR angiography is recommended in follow-up. Electronically signed by: Michael Cavanaugh M.D. 09/30/2016 9:06 PM Dictated Date/Time: 09/30/2016 9:02 PM HEAD WITHOUT CONTRAST (CT) HISTORY: 71-year-old male presents with acute strokelike symptoms. TECHNIQUE: Multiple axial CT images of the head were obtained without contrast. COMPARISON: Head CT 08/13/2016. FINDINGS: No acute intracranial hemorrhage, midline shift, mass, large territorial ischemia or abnormal extra-axial collection. There is at least moderate diffuse cerebral edema with ex vacuo ventriculomegaly. Confluent areas of low-attenuation are present within the periventricular and deep white matter of the cerebral hemispheres bilaterally. Senescent calcifications are noted within the basal ganglia. Vascular calcifications are present at the level of the skull base. The calvarium is intact. The paranasal sinuses, mastoid air cells, and middle ear cavities are clear. IMPRESSION: 1. No acute intracranial abnormality. 2. Age-related changes of atrophy and chronic microvascular ischemic changes. Electronically signed by: Deondre Harman 09/30/2016 3:54 PM Dictated Date/Time: 09/30/2016 3:44 PM Consultations: Neurology Medication Reconciliation New Medications: Dipyridamole/Aspirin (Aggrenox 25-200 mg) 1 Cap Cap 1 CAP PO BID for 30 Days, #60 CAP Continued Medications: Acetaminophen Tab (Tylenol) 325 Mg Tab 650 MG PO Q4H PRN for Pain, TAB Aspirin (Aspirin Ec) 81 Mg Tab 81 MG PO HS Lisinopril (Lisinopril) 2.5 Mg Tab 5 MG PO DAILY, TAB Potassium Ext Rel (Klor-Con) 20 Meq Tabcr 20 MEQ PO DAILY, TAB Simvastatin (Zocor) 20 Mg Tab 20 MG PO QPM, TAB Discontinued Medications: Clopidogrel (Plavix) 75 Mg Tab 75 MG PO DAILY, TAB Admission Information HPI (per Admitting provider): 71 year old female who presents to the ER with dizziness. Patient reports she was in the bathroom and when she stood up she felt very dizzy. She called for her for help. She reports the symptoms lasted for about 2 minutes and resolved on its own. There is also some questions whether or not patient said the right side of her body was numb but now she denies this. She has chronic right arm weakness from a shoulder injury and has chronic right leg weakness for the past few years. She was placed on Plavix 10/2015 for questionable TIA with the progressive right leg weakness. Patient reports the right leg weakness has continued to progress. She reports she barely walks. Family reports she does not like to participate in therapy. Patient denies acute worsening of the weakness today but rather a slow decline over the past several months. Patient denies lightheadedness, headache, or blurred vision. No speech or swallowing difficulties, denies facial droop. She denies chest pain and shortness of breath. No abdominal pain, nausea, vomiting, or diarrhea. She denies fever and chills. No urinary symptoms. In the ER, stroke alert was called. Patient was deemed not a candidate for TPA. Lindsey recommended switching patient to Aggrenox. Vitals are stable and labs are unremarkable. Physical Exam (per Admitting): General Appearance: no apparent distress Head: normocephalic Eyes: normal inspection, PERRL ENT: hearing grossly normal Neck: supple, no JVD Respiratory/Chest: lungs clear, normal breath sounds, no respiratory distress Cardiovascular: regular rate, rhythm, no edema, normal peripheral pulses Abdomen/GI: normal bowel sounds, non tender, soft Extremities/Musculoskelatal: normal inspection, no calf tenderness Neurologic/Psych: alert, normal mood/affect, oriented x 3, + pertinent finding (has some difficulty lifting left arm - patient reports this is from a shoudler injury; no other focal deficits noted) Skin: normal color, warm/dry Hospital Course DIZZINESS, RIGHT LEG WEAKNESS - patient presenting with dizziness after standing from toilet, resolved after 2 minutes and progressive right leg weakness over the past several months - stroke alert called - patient deemed not to be a candidate for TPA - dizziness seems to be orthostatic in nature - CT head was negative - MRI of the head showed no evidence of intracranial mass. No evidence of acute or subacute infarction - MRA of brain showed no high-grade stenosis, aneurysm or proximal branch occlusion. Mild low-grade narrowing of the mid basilar artery - MRA of the neck showed high-grade approximately 70% narrowing in the right internal carotid artery and 50% narrowing in left internal carotid artery. --Echo showed: * Left ventricular systolic function is normal. * Ejection Fraction = 65-70%. * The right ventricular systolic function is normal. * The left atrial size is normal. * Right atrial size is normal. * Grade I diastolic dysfunction, (abnormal relaxation pattern). * No significant valvular pathology [facility] neurology changed the plavix to aggrenox Neuro consulted and agreed with the recommendation to change the plavix to aggrenox 250 mg BID but if insurance will not cover would stay on Plavix 75 mg and increase the asa 81mg to 162 by taking 2 tabs. Follow up with neurology in 1 month as an outpatient Will go to rehab for inpatient therapy HTN - continue holding lisinopril to allow for permissive HTN - Continue monitor BP - resume BP med SINUS NODE DYSFUNCTION, S/P PACER - pacer interrogation done DVT PROPHYLAXIS - On SCDs - Will add heparin subq CODE STATUS FULL CODE DISPO Transfer today to rehab Total time spent on discharge = 35 minutes This includes examination of the patient, discharge planning, medication reconciliation, and communication with other providers. Discharge Instructions Discharge Instructions Date of Service Oct 02, 2016. Admission Reason for Admission: Dizziness Discharge Discharge Diagnosis / Problem: DIZZINESS, RIGHT LEG WEAKNESS POSSIBLE TIA, HYPERTENSION Discharge Goals Goal(s): Decrease discomfort, Improve function, Improve disease control Activity Recommendations Activity Limitations: resume your previous activity ( TOLERATED) . Instructions / Follow-Up Instructions / Follow-Up Discharge to [facility] for inpatient rehab Continue physical therapy Fall precaution Follow up with your physician once discharge from rehab Follow up with neurology once discharge from rehab Plavix changed to Aggrenox twice a day, but if insurance will not cover for it, stay on Plavix 75 mg and increase the aspirin 81mg to 162 by taking 2 tabs. Current Hospital Diet Patient's current hospital diet: AHA Diet (Heart Healthy) Discharge Diet Recommended Diet: AHA Diet (Heart Healthy) Pending Studies Studies pending at discharge: no Laboratory Results Hemoglobin A1c Test 09/30/16 15:25 Range/Units Estimated Average Glucose 114 mg/dl Hemoglobin A1c 5.6 4.5-5.6 % Lipid Panel Test 10/01/16 05:19 Range/Units Triglycerides Level 92 0-150 mg/dl Cholesterol Level 166 0-200 mg/dl HDL Cholesterol 75 mg/dl Cholesterol/HDL Ratio 2.2 LDL Cholesterol, Calculated 73 mg/dl Medical Emergencies . Who to Call and When: Medical Emergencies: If at any time you feel your situation is an emergency, please call 911 immediately. . Non-Emergent Contact Non-Emergency issues call your: Primary Care Provider Call Non-Emergent contact if: you have any medication questions . . "Provider Documentation" section prepared by Amelie Mcginnis. . VTE Core Measure Inpt VTE Proph given/why not?: SCD's Additional Copies To Shae Martinez M.D. [facility]
[2016-10-20] MEDS ORDERED: PLV75 PO (16:52)
[2016-10-20] MEDS ORDERED: ASPEC81 PO (16:54)
== END 2016-10-02 15:26 | DRG 69 ==
LOC: C.EDB 15:17 → C.2E 17:20 → ENRESERV 17:29
PROVIDERS: ADMIT Internal Medicine; ATTEND Internal Medicine
DX: G45.9 Transient cerebral ischemic attack, unspecified (principal); I95.1 Orthostatic hypotension; I49.5 Sick sinus syndrome; E78.5 Hyperlipidemia, unspecified; I10 Essential (primary) hypertension; F01.50 Vascular dementia, unspecified severity, without behavioral disturbance, psychotic disturbance, mood disturbance, and anxiety; Z79.02 Long term (current) use of antithrombotics/antiplatelets; Z79.82 Long term (current) use of aspirin; Z79.899 Other long term (current) drug therapy; Z86.73 Personal history of transient ischemic attack (TIA), and cerebral infarction without residual deficits; Z95.0 Presence of cardiac pacemaker

== ENCOUNTER 2016-10-19 15:07 | Observation (INO) | payer OTHER ==
[~2016-10-19] VITALS: Ht 160 cm; Wt 76.5 kg
[~2016-10-19 15:07] MED LIST changes: +ACET325T96 PO; +AGG PO; +ASPI81TA28 PO; -PLAVIX75 PO; +POTA20TA16 PO
[2016-10-19] MEDS ORDERED: DIPYRIDAMOLE/ASPIRIN CAP PO STA (15:17)
[2016-10-19] MEDS ORDERED: SODIUM CHLORIDE 0.9% 1000ML 1,000 ML IV SCH (15:17)
--- NOTE | 2016-10-19 15:29 | EMERGENCY ROOM VISIT NOTE ---
History Report prepared by Mimi: Margy Cheek Under the Supervision of: Dr. Blaine Escamilla M.D. First contact with patient: 15:11 Stated Complaint: AMS History of Present Illness The patient is a 71 year old female who presents to the Emergency Room with complaints of an episode of altered mental status prior to arrival. The patient states she had a stroke 3 weeks ago and was sent to [facility] for rehabilitation. Per the nurse, the patient went home and today was found on the commode with a blank stare. The nurse states that she was unresponsive. The patient is reported to be at baseline and denies remembering what happened today. The patient notes that she did eat today. Source of History: patient, nursing staff Onset: prior to arrival Position: other (global) Quality: other (global) Timing: other (episode) Note: The patient denies remembering anything. Review of Systems See HPI for pertinent positives & negatives. A total of 10 systems reviewed and were otherwise negative. Past Medical & Surgical Medical Problems: (1) CVA (cerebral vascular accident) (2) HLD (hyperlipidemia) (3) Leukoencephalopathy (4) Orthostatic hypotension (5) Pacemaker (6) Sinus node dysfunction (7) Syncope Surgical Problems: (1) History of appendectomy (2) Hx of tonsillectomy Family History Hypertension Social History Smoking Status: Former Smoker Alcohol Use: occasionally Marital Status: Housing Status: lives with significant other Current/Historical Medications Scheduled Dipyridamole/Aspirin (Aggrenox 25-200 mg), 1 CAP PO BID Lisinopril (Lisinopril), 5 MG PO DAILY Potassium Ext Rel (Klor-Con), 20 MEQ PO DAILY Simvastatin (Zocor), 20 MG PO QPM Scheduled PRN Docusate Sodium (Docusate Sodium), 100 MG PO BID PRN for Constipation Magnesium Hydroxide (Milk of Magnesia 400 mg/5Ml), 30 ML PO DAILY PRN for Constipation Polyethylene (Miralax), 17 GM PO DAILY PRN for Constipation Sennosides-Docusate Sodium (Senna S), 1 TAB PO DAILY PRN for Constipation Allergies Coded Allergies: No Known Allergies (Unverified , 10/19/16) Physical Exam Vital Signs Date Time Temp Pulse Resp B/P (MAP) Pulse Ox O2 Delivery O2 Flow Rate FiO2 10/19/16 16:55 76 18 172/102 96 Room Air 10/19/16 15:40 37.2 86 16 162/100 96 Room Air 10/19/16 15:31 99 Room Air 10/19/16 15:21 80 Physical Exam GENERAL: Patient is a healthy-appearing well-nourished HEAD: Normocephalic atraumatic EYES: Ocular movements intact pupils equal and react to light OROPHARYNX mucous membranes are moist no exudates present no erythema or edema present NECK: Supple no nuchal rigidity CHEST: Good equal expansion LUNGS: Clear and equal to auscultation CARDIAC: Normal S1 and S2 ABDOMEN: Soft nontender no guarding BACK: No CVA tenderness EXTREMITIES: No pain upon palpation normal muscle strength in all groups no clubbing cyanosis or edema NEURO: Patient is following commands and answering questions appropriately. Alert and oriented x3 Cranial Nerves 2-12 grossly intact, 4/5 strength in right arm which is apparently her baseline Medical Decision & Procedures ER Provider Diagnostic Interpretation: Radiology results as stated below per my review and radiologist interpretation: CT SCAN OF THE BRAIN WITHOUT IV CONTRAST CLINICAL HISTORY: Strokelike symptoms. COMPARISON STUDY: CT of the brain dated 09/30/2016. MRI of the brain dated 10/01/2016. TECHNIQUE: Unenhanced axial CT scan of the brain is performed from the vertex to the skull base. The examination is degraded by suboptimal positioning within the CT gantry. CT DOSE: 1074.96 mGy.cm FINDINGS: Brain parenchyma: There are age-related involutional changes noting advanced confluent subcortical and periventricular microangiopathic change. There is no hemorrhage, mass effect, or evidence of acute territorial ischemia by CT criteria. Chronic lacunar infarcts are identified in the right thalamus and the left caudate head. Montes-white matter is preserved. No extra-axial fluid collection is seen. Ventricles, sulci, cisterns: Prominent secondary to involutional change. Intracranial vasculature: There is atherosclerotic calcification of the cavernous carotid and vertebral arteries. Calvarium: Unremarkable. Sinuses and mastoids: The visualized paranasal sinuses are clear. The mastoid air cells are well pneumatized. Orbits: The bony orbits are grossly intact. IMPRESSION: Senescent changes as above with no hemorrhage, mass effect, or evidence of acute territorial ischemia by CT criteria. Electronically signed by: Francisco Thacker M.D. 10/19/2016 4:04 PM Dictated Date/Time: 10/19/2016 4:02 PM SINGLE VIEW CHEST CLINICAL HISTORY: Strokelike symptoms. FINDINGS: An AP, portable, upright chest radiograph is compared to study dated 09/30/2016. The examination is degraded by portable technique and patient rotation. A 2-lead cardiac pacemaker is unchanged in position and partially obscures the left upper chest. The heart is top normal in size and there is atherosclerotic calcification of the thoracic aorta. The pulmonary vasculature is noncongested. There is mild chronic elevation of the right hemidiaphragm. Chronic interstitial thickening is noted. No airspace consolidation, large pleural effusion, or pneumothorax is seen. The skeletal structures are osteopenic. The bony thorax is grossly intact. IMPRESSION: No acute cardiopulmonary abnormality. Electronically signed by: Francisco Thcaker M.D. 10/19/2016 3:34 PM Dictated Date/Time: 10/19/2016 3:33 PM Laboratory Results 10/19/16 15:25 Red Blood Count 4.86, Mean Corpuscular Volume 88.7, Mean Corpuscular Hemoglobin 30.7, Mean Corpuscular Hemoglobin Concent 34.6, Mean Platelet Volume 9.0, Neutrophils (%) (Auto) 82.0, Lymphocytes (%) (Auto) 9.7, Monocytes (%) (Auto) 7.7, Eosinophils (%) (Auto) 0.2, Basophils (%) (Auto) 0.2, Neutrophils # (Auto) 6.62, Lymphocytes # (Auto) 0.78, Monocytes # (Auto) 0.62, Eosinophils # (Auto) 0.02, Basophils # (Auto) 0.02 10/19/16 15:25 Test 10/19/16 15:25 10/19/16 15:39 10/19/16 16:30 10/19/16 16:45 White Blood Count 8.08 K/uL (4.8-10.8) Red Blood Count 4.86 M/uL (4.2-5.4) Hemoglobin 14.9 g/dL (12.0-16.0) Hematocrit 43.1 % (37-47) Mean Corpuscular Volume 88.7 fL (80-100) Mean Corpuscular Hemoglobin 30.7 pg (25-34) Mean Corpuscular Hemoglobin Concent 34.6 g/dl (32-36) Platelet Count 206 K/uL (130-400) Mean Platelet Volume 9.0 fL (7.4-10.4) Neutrophils (%) (Auto) 82.0 % Lymphocytes (%) (Auto) 9.7 % Monocytes (%) (Auto) 7.7 % Eosinophils (%) (Auto) 0.2 % Basophils (%) (Auto) 0.2 % Neutrophils # (Auto) 6.62 K/uL (1.4-6.5) Lymphocytes # (Auto) 0.78 K/uL (1.2-3.4) Monocytes # (Auto) 0.62 K/uL (0.11-0.59) Eosinophils # (Auto) 0.02 K/uL (0-0.5) Basophils # (Auto) 0.02 K/uL (0-0.2) RDW Standard Deviation 43.0 fL (36.4-46.3) RDW Coefficient of Variation 13.2 % (11.5-14.5) Immature Granulocyte % (Auto) 0.2 % Immature Granulocyte # (Auto) 0.02 K/uL (0.00-0.02) Prothrombin Time 11.2 SECONDS (9.0-12.0) Prothromb Time International Ratio 1.0 (0.9-1.1) Activated Partial Thromboplast Time 26.5 SECONDS (21.0-31.0) Partial Thromboplastin Ratio 1.0 Anion Gap 6.0 mmol/L (3-11) Est Creatinine Clear Calc Drug Dose 52.0 ml/min Estimated GFR () 66.9 Estimated GFR (Non- 57.7 BUN/Creatinine Ratio 11.8 (10-20) Calcium Level 9.5 mg/dl (8.5-10.1) Total Creatine Kinase 147 U/L (26-192) Creatine Kinase MB 1.1 ng/ml (0.5-3.6) Creatine Kinase MB Ratio 0.7 (0-3.0) Troponin I < 0.015 ng/ml (0-0.045) Bedside Prothrombin Time INR 1.2 (0.9-1.1) Bedside Glucose 110 mg/dl (70-90) Urine WBC (Auto) 0 /hpf (0-5) Urine RBC (Auto) 0-4 /hpf (0-4) Urine Hyaline Casts (Auto) 1-5 /lpf (0-5) Urine Epithelial Cells (Auto) 10-20 /lpf (0-5) Urine Bacteria (Auto) NEG (NEG) Labs reviewed by ED physician. Medications Administered Medications (Trade) Dose Ordered Sig/Alysia Route Start Time Stop Time Status Last Admin Dose Admin Sodium Chloride 1,000 ml @ 50 mls/hr Q20H IV 10/19/16 15:17 11/18/16 15:16 10/19/16 16:30 50 MLS/HR ECG Indication: altered mental status Rate (beats per minute): 81 Rhythm: normal sinus Findings: T-wave inversion (Lateral), no acute ischemic change, no ectopy ED Course 1514: Past medical records reviewed. The patient was evaluated in room C4. A complete history and physical examination was performed. 151: Ordered NSS 1000 ml @ 50 mls/hr IV, Dipyridamole/ Aspirin 1 cap PO. 1644: Ordered Zofran Inj 4 mg IV. 1647: I discussed the patient's case with Dr. Martinez, he has agreed to evaluate the patient for further management and care. Medical Decision Differential diagnosis: Etiologies such as metabolic, infection, hypo/hyperglycemia, electrolyte abnormalities, cardiac sources, intracerebral event, toxicologic, neurologic, as well as others were entertained. This is a 71-year-old female who presents emergency department complaining of altered mental status. Patient's and son the patient was unresponsive home and unable to ambulate from the bathroom. Upon arrival to the emergency department the patient's symptoms had totally improved and she was now aware of her surroundings and where she was. For this reason a stroke alert was not initiated. The patient has no evidence of meningitis encephalitis on examination and is well in appearance. She was sent for CAT scan of the head which did not show any acute process. The patient does have a GCS of 14 and she is pleasantly confused. The patient was given normal saline bolus. I did discuss the case with the hospitalist service who agreed to admit the patient. Patient was in agreement with the treatment plan. Medication Reconcilliation Current Medication List: was personally reviewed by me Blood Pressure Screening Patient's blood pressure: Elevated blood pressure Blood pressure disposition: Referred to PCP Consults Time Called: 1644 Consulting Physician: Dr. Martinez Returned Call: 1647 I discussed the patient's case with Dr. Martinez, he has agreed to evaluate the patient for further management and care. Impression Primary Impression: Altered mental status Scribe Attestation The scribe's documentation has been prepared under my direction and personally reviewed by me in its entirety. I confirm that the note above accurately reflects all work, treatment, procedures, and medical decision making performed by me. Departure Information Dispostion Being Evaluated By Hospitalist Referrals Shae Martinez M.D. (PCP) Problem Qualifiers Primary Impression: Altered mental status Altered mental status type: transient alteration of awareness Qualified Codes : R40.4 - Transient alteration of awareness
[2016-10-19 15:32] LABS: BASO % 0.2 %; BASO ABS # 0.02 K/uL (0-0.2); COMPLETE YES; EOS % 0.2 %; HEMATOCRIT 43.1 % (37-47); IG% 0.2 %; LYMPH % 9.7 %; LYMPH ABS # 0.78 K/uL (1.2-3.4); MEAN CELL VOLUME 88.7 fL (80-100); MEAN CORPUSCULAR HEMOGLOBIN 30.7 pg (25-34); MEAN CORPUSCULAR HGB CONC 34.6 g/dl (32-36); MONO % 7.7 %; PLATELET COUNT 206 K/uL (130-400); RED BLOOD COUNT 4.86 M/uL (4.2-5.4); WHITE BLOOD COUNT 8.08 K/uL (4.8-10.8)
--- NOTE | 2016-10-19 15:35 | DIAGNOSTIC IMAGING REPORT ---
SINGLE VIEW CHEST CLINICAL HISTORY: Strokelike symptoms. FINDINGS: An AP, portable, upright chest radiograph is compared to study dated 09/30/2016. The examination is degraded by portable technique and patient rotation. A 2-lead cardiac pacemaker is unchanged in position and partially obscures the left upper chest. The heart is top normal in size and there is atherosclerotic calcification of the thoracic aorta. The pulmonary vasculature is noncongested. There is mild chronic elevation of the right hemidiaphragm. Chronic interstitial thickening is noted. No airspace consolidation, large pleural effusion, or pneumothorax is seen. The skeletal structures are osteopenic. The bony thorax is grossly intact. IMPRESSION: No acute cardiopulmonary abnormality. Electronically signed by: Francisco Thacker M.D. 10/19/2016 3:34 PM Dictated Date/Time: 10/19/2016 3:33 PM
[2016-10-19 15:40] LABS: PROTHROMBIN TIME (PATIENT) 11.2 SECONDS (9.0-12.0)
[2016-10-19 15:49] LABS: BLOOD UREA NITROGEN 12 mg/dl (7-18); BUN/CREATININE RATIO 11.8 (10-20); CALCIUM 9.5 mg/dl (8.5-10.1); CARBON DIOXIDE 27 mmol/L (21-32); CHLORIDE 103 mmol/L (98-107); CREATININE 0.99 mg/dl (0.60-1.20); GLUCOSE 119 mg/dl (70-99); POTASSIUM 4.2 mmol/L (3.5-5.1); SODIUM 136 mmol/L (136-145)
[2016-10-19 15:53] LABS: CKMB/CK RATIO 0.7 (0-3.0)
[2016-10-19] MEDS ORDERED: DOCU100C31 PO (15:54)
--- NOTE | 2016-10-19 16:05 | DIAGNOSTIC IMAGING REPORT ---
CT SCAN OF THE BRAIN WITHOUT IV CONTRAST CLINICAL HISTORY: Strokelike symptoms. COMPARISON STUDY: CT of the brain dated 09/30/2016. MRI of the brain dated 10/01/2016. TECHNIQUE: Unenhanced axial CT scan of the brain is performed from the vertex to the skull base. The examination is degraded by suboptimal positioning within the CT gantry. CT DOSE: 1074.96 mGy.cm FINDINGS: Brain parenchyma: There are age-related involutional changes noting advanced confluent subcortical and periventricular microangiopathic change. There is no hemorrhage, mass effect, or evidence of acute territorial ischemia by CT criteria. Chronic lacunar infarcts are identified in the right thalamus and the left caudate head. Montes-white matter is preserved. No extra-axial fluid collection is seen. Ventricles, sulci, cisterns: Prominent secondary to involutional change. Intracranial vasculature: There is atherosclerotic calcification of the cavernous carotid and vertebral arteries. Calvarium: Unremarkable. Sinuses and mastoids: The visualized paranasal sinuses are clear. The mastoid air cells are well pneumatized. Orbits: The bony orbits are grossly intact. IMPRESSION: Senescent changes as above with no hemorrhage, mass effect, or evidence of acute territorial ischemia by CT criteria. Electronically signed by: Francisco Thacker M.D. 10/19/2016 4:04 PM Dictated Date/Time: 10/19/2016 4:02 PM
[2016-10-19] MEDS ORDERED: ONDANSETRON INJ 2 MG/ML 2 ML VIAL IV STA (16:45)
[2016-10-19 16:54] LABS: URINE APPEARANCE CLEAR (CLEAR); URINE BILIRUBIN NEG (NEG); URINE COLOR YELLOW; URINE NITRITE NEG (NEG); URINE PH 5.5 (4.5-7.5); UROBILINOGEN NEG (NEG); ZZUR CULT IF INDIC CLEAN CATCH NO
[2016-10-19 16:57] LABS: MANUAL MICROSCOPIC REQUIRED? NO; REVIEW REQ? NO
[2016-10-19] MEDS ORDERED: ACETAMINOPHEN 325 MG TAB PO PRN (17:45)
[2016-10-19] MEDS ORDERED: ONDANSETRON INJ 2 MG/ML 2 ML VIAL IV PRN (17:45)
[2016-10-19] MEDS ORDERED: SENN-91 PO (17:51)
[2016-10-19] MEDS ORDERED: MRLP17X PO (17:51)
[2016-10-19] MEDS ORDERED: MAGNSUS73 PO (17:51)
--- NOTE | 2016-10-19 18:27 | History and Physical ---
History & Physical Date & Time of Service: Oct 19, 2016 at 17:52 Chief Complaint: [facility] [address] Primary Care Physician: Shae Martinez M.D. History of Present Illness Source: patient, family, hospital records This is a 71 y/o female with PMH of possible TIA's, hypertension, sinus node dysfunction s/p pacemaker, dyslipidemia, who presents to the ED with unresponsive episode. Back in 10/2015 patient was placed on Plavix for questionable TIA with progressive right leg weakness. Patient was recently hospitalized at [facility] from September 30- for right leg weakness/ possible TIA. Pt had presented with episode of dizziness upon standing which was thought to be orthostatic, and several months of progressive R leg weakness. Stroke alert done - was not tPA candidate. CT head and MRI were unremarkable. MRA brain showed no high grade stenosis, aneurysm, or proximal branch occlusion, did show mild low grade narrowing of mid basilar artery. MRA neck showed high grade approximately 70% narrowing of HEMANT and 50% narrowing in LICA. Echo showed EF 65-70%, grade 1 diastolic dysfunction, no significant valvular pathology. [facility] changed Plavix to Aggrenox 250 mg BID. Pt was seen by Dr. Brooks who agreed w/ the plan. Pt was d/c to [facility] then returned home 4 days ago. at bedside states patient was having more difficulty ambulating w/ her walker this morning, but was conversing normally. Had coffee only for breakfast which is typical for her. Then around 1:30 this afternoon patient was on chair in the restroom and her son was trying to get her up, but she was not grasping his arms and her eyes started to glaze over and close and she started slumping in the chair. Son thought she was passing out and laid her on the floor. She awoke after 1-2 minutes. She slowly began speaking and speech was slurred when she was first waking up. Son states her foot was twitching as she was waking up. He thinks this was because she did not want to be on the floor. No incontinence. 911 was called and patient was almost back to baseline when EMS arrived. The patient has no recollection of the event. She is oriented to person and place but not to date. Son states patient has baseline forgetfulness / disorientation to date, but this lack of recall is abnormal for her. Son feels that she is still slightly off from baseline. Patient's baseline right arm weakness (attributed to shoulder injury) and right leg weakness x 3.5 years (attributed to possible TIA) are unchanged from baseline. Son states she had prior syncopal episodes approximately 3 years ago before her pacemaker was placed. Pt reports dry cough which she states is relatively new. Family is unaware of cough but reports c/o sore throat yesterday. Patient denies fever, chills, VILLA, rhinorrhea, ear ache, dizziness, vision change, swallowing difficulty, no facial droop per her family, chest pain, palpitations, SOB, N/V/D , dysuria, frequency. states aspirin 81 mg was given over weekend as he could not get Aggrenox until yesterday, but pt did receive Aggrenox last night and this AM. Past Medical/Surgical History Medical Problems: (1) H/o possible TIA's Status: Chronic (2) HLD (hyperlipidemia) Status: Chronic (3) HTN (hypertension) Status: Chronic (4) Leukoencephalopathy Status: Chronic (5) Orthostatic hypotension Status: Chronic (6) Pacemaker Status: Chronic (7) Sinus node dysfunction Status: Chronic Surgical Problems: (1) History of appendectomy Status: Chronic (2) Hx of tonsillectomy Status: Chronic Family History Hypertension Social History Smoking Status: Former Smoker Alcohol Use: none Drug Use: none Marital Status: Housing status: lives with family ( and son ) Allergies Coded Allergies: No Known Allergies (Unverified , 10/19/16) Home Medications Scheduled Dipyridamole/Aspirin (Aggrenox 25-200 mg), 1 CAP PO BID Lisinopril (Lisinopril), 5 MG PO DAILY Potassium Ext Rel (Klor-Con), 20 MEQ PO DAILY Simvastatin (Zocor), 20 MG PO QPM Scheduled PRN Docusate Sodium (Docusate Sodium), 100 MG PO BID PRN for Constipation Magnesium Hydroxide (Milk of Magnesia 400 mg/5Ml), 30 ML PO DAILY PRN for Constipation Polyethylene (Miralax), 17 GM PO DAILY PRN for Constipation Sennosides-Docusate Sodium (Senna S), 1 TAB PO DAILY PRN for Constipation Review of Systems Ten systems reviewed and negative except as noted in HPI. Physical Exam Vital Signs Date Time Temp Pulse Resp B/P (MAP) Pulse Ox O2 Delivery O2 Flow Rate FiO2 10/19/16 16:55 76 18 172/102 96 Room Air 10/19/16 15:40 37.2 86 16 162/100 96 Room Air 10/19/16 15:31 99 Room Air 10/19/16 15:21 80 General Appearance: WD/WN, no apparent distress Head: normocephalic, atraumatic Eyes: normal inspection, PERRL, EOMI ENT: normal ENT inspection, hearing grossly normal, pharynx normal Neck: supple, trachea midline Respiratory/Chest: lungs clear, normal breath sounds, no respiratory distress, no accessory muscle use Cardiovascular: regular rate, rhythm, no murmur Abdomen/GI: normal bowel sounds, non tender, soft Extremities/Musculoskelatal: no calf tenderness, no pedal edema Neurologic/Psych: superintendent seed mill II-XII nml as tested, alert, normal mood/affect, + pertinent finding (oriented to person and place, disoriented to date. unable to recall today's events. chronic weakness right arm (motor 4/5) and leg (motor 4/5 ), no other motor or sensory deficit. no pronator drift. finger to nose intact bilaterally.) Skin: normal color, warm/dry Diagnostics Laboratory Results Results Past 24 Hours Test 10/19/16 15:25 10/19/16 15:39 10/19/16 16:30 10/19/16 16:45 Range/Units White Blood Count 8.08 4.8-10.8 K/uL Red Blood Count 4.86 4.2-5.4 M/uL Hemoglobin 14.9 12.0-16.0 g/dL Hematocrit 43.1 37-47 % Mean Corpuscular Volume 88.7 80-100 fL Mean Corpuscular Hemoglobin 30.7 25-34 pg Mean Corpuscular Hemoglobin Concent 34.6 32-36 g/dl Platelet Count 206 130-400 K/uL Mean Platelet Volume 9.0 7.4-10.4 fL Neutrophils (%) (Auto) 82.0 % Lymphocytes (%) (Auto) 9.7 % Monocytes (%) (Auto) 7.7 % Eosinophils (%) (Auto) 0.2 % Basophils (%) (Auto) 0.2 % Neutrophils # (Auto) 6.62 1.4-6.5 K/uL Lymphocytes # (Auto) 0.78 1.2-3.4 K/uL Monocytes # (Auto) 0.62 0.11-0.59 K/uL Eosinophils # (Auto) 0.02 0-0.5 K/uL Basophils # (Auto) 0.02 0-0.2 K/uL RDW Standard Deviation 43.0 36.4-46.3 fL RDW Coefficient of Variation 13.2 11.5-14.5 % Immature Granulocyte % (Auto) 0.2 % Immature Granulocyte # (Auto) 0.02 0.00-0.02 K/uL Prothrombin Time 11.2 9.0-12.0 SECONDS Prothromb Time International Ratio 1.0 0.9-1.1 Activated Partial Thromboplast Time 26.5 21.0-31.0 SECONDS Partial Thromboplastin Ratio 1.0 Sodium Level 136 136-145 mmol/L Potassium Level 4.2 3.5-5.1 mmol/L Chloride Level 103 98-107 mmol/L Carbon Dioxide Level 27 21-32 mmol/L Anion Gap 6.0 3-11 mmol/L Blood Urea Nitrogen 12 7-18 mg/dl Creatinine 0.99 0.60-1.20 mg/dl Est Creatinine Clear Calc Drug Dose 52.0 ml/min Estimated GFR () 66.9 Estimated GFR (Non- 57.7 BUN/Creatinine Ratio 11.8 10-20 Random Glucose 119 70-99 mg/dl Calcium Level 9.5 8.5-10.1 mg/dl Total Creatine Kinase 147 26-192 U/L Creatine Kinase MB 1.1 0.5-3.6 ng/ml Creatine Kinase MB Ratio 0.7 0-3.0 Troponin I < 0.015 0-0.045 ng/ml Bedside Prothrombin Time INR 1.2 0.9-1.1 Bedside Glucose 110 70-90 mg/dl Urine Color YELLOW Urine Appearance CLEAR CLEAR Urine pH 5.5 4.5-7.5 Urine Specific [place] 1.010 1.000-1.030 Urine Protein NEG NEG Urine Glucose (UA) NEG NEG Urine Ketones NEG NEG Urine Occult Blood TRACE NEG Urine Nitrite NEG NEG Urine Bilirubin NEG NEG Urine Urobilinogen NEG NEG Urine Leukocyte Esterase NEG NEG Urine WBC (Auto) 0 0-5 /hpf Urine RBC (Auto) 0-4 0-4 /hpf Urine Hyaline Casts (Auto) 1-5 0-5 /lpf Urine Epithelial Cells (Auto) 10-20 0-5 /lpf Urine Bacteria (Auto) NEG NEG Diagnostic Radiology SINGLE VIEW CHEST- per radiology IMPRESSION: No acute cardiopulmonary abnormality. CT SCAN OF THE BRAIN WITHOUT IV CONTRAST- per radiology IMPRESSION: Senescent changes as above with no hemorrhage, mass effect, or evidence of acute territorial ischemia by CT criteria. EKG poor data quality, NSR, nonspecific T wave abnormality, when compared to prior EKG, nonspecific T wave abnormality now evident in inferior leads- as per cardiology read. On my interpretation appears to have nonspecific T wave abnormality in anterolateral leads Impression Assessment and Plan UNRESPONSIVE EPISODE Possible syncope? orthostatic hypotension? (reported poor PO intake today), r/o arrhythmia, r/o seizure CT head- no acute findings Check orthostatic vitals and give IVF's Interrogate pacemaker; monitor on telemetry Check EEG Consult neurology- patient known to Dr. Brooks HISTORY OF POSSIBLE TIA'S Changed from Plavix to Aggrenox on recent admission for progressive R leg weakness/ possible TIA Workup on recent admission- CT head and MRI- unremarkable. MRA brain showed no high grade stenosis, aneurysm, or proximal branch occlusion, did show mild low grade narrowing of mid basilar artery. MRA neck showed high grade approximately 70% narrowing of HEMANT and 50% narrowing in LICA. Echo showed EF 65-70%, grade 1 diastolic dysfunction, no significant valvular pathology. Continue Aggrenox and statin HYPERTENSION BP elevated in ER to 160s-170s systolic Continue lisinopril SINUS NODE DYSFUNCTION S/P PACEMAKER Interrogate pacemaker AMBULATORY DYSFUNCTION Fall precautions PT/ OT evaluations DVT PROPHYLAXIS Heparin SQ CODE STATUS Full code per preference on recent admission DISPOSITION Observation to telemetry Lives with and son; Discharge planning consult requested Follows with Dr. Shae Martinez for primary care Patient seen in collaboration with Dr. Lluvia Martinez. Please see her addendum. VTE Prophylaxis VTE Risk Assessment Done? Y/N: Yes Risk Level: Moderate
[2016-10-19] MEDS ORDERED: IV FLUIDS COMPLETED PRN (18:30)
--- NOTE | 2016-10-19 18:46 | Progress Note ---
Progress Note Date of Service Oct 19, 2016. Progress Note Patient was seen and evaluated with [facility]. Patient comes in with possible unresponsive episode- syncope vs near syncope, witnessed event by /son. Denies any complaints at the time of my evaluation- no chest pain, palpitations , SOB. EXAM: Gen- AAO2, no distress Neck- No JVD Lungs- AEBE decreased, no wheezing Heart- S1, S2 Normal Abd- soft, non tender, non distended, BS present Ext- No edema Neuro-AAOX2, Cranial nerves intact, Chronic right upper/lower extremity weakness - power 4/5, left- 5/5 Labs/Imaging reviewed ASSESSMENT AND PLAN: UNRESPONSIVE EPISODE: Likely syncope , r/o seizure/orthostatic hypotension -From HPI , seems less likely to be TIA. -Work up- Tele monitoring, Pacemaker interrogation, Orthostats, EEG, CT head- in ER - no sig abnormalities. Had a thorough investigative work up for TIA this month during last admission, Aspirin was increased to 162 mg and plavix was changed to Aggrenox. -Patient is known to neurology and family requesting to see Dr Brooks. Consult placed HISTORY OF POSSIBLE TIA'S Changed from Plavix to Aggrenox on recent admission for progressive R leg weakness/ possible TIA Workup on recent admission- CT head and MRI- unremarkable. MRA brain showed no high grade stenosis, aneurysm, or proximal branch occlusion, did show mild low grade narrowing of mid basilar artery. MRA neck showed high grade approximately 70% narrowing of HEMANT and 50% narrowing in LICA. Echo showed EF 65-70%, grade 1 diastolic dysfunction, no significant valvular pathology. -This time seems to be less likely TIA -Continue Aggrenox and statin HYPERTENSION -Continue lisinopril SINUS NODE DYSFUNCTION S/P PACEMAKER -Interrogate pacemaker DEMENTIA Diagnosed x 1 year. Family can also see signs of dementia AMBULATORY DYSFUNCTION -Fall precautions -PT/ OT evaluations DVT PROPHYLAXIS -Heparin SQ CODE STATUS -Full code per preference on recent admission DISPOSITION -Observation to telemetry -Lives with and son; Discharge planning consult requested -Follows with Dr. Shae Martinez for primary care
[2016-10-19 18:58] VITALS: BP 134/79; PULSE 81; TEMP 37.2; O2SAT 95; Ht 160 cm; Wt 76.5 kg
[2016-10-19] MEDS ORDERED: COUGH DROP (SUGAR FREE) LOZ 24 LOZ/1 BOX ONE (19:10)
[2016-10-19] MEDS: SODIUM CHLORIDE 0.9% 1000ML 1,000 ML IV SCH (19:30)
[2016-10-19] MEDS ORDERED: COUGH DROP (SUGAR FREE) LOZ 24 LOZ/1 BOX PO PRN (19:30)
[2016-10-19] MEDS ORDERED: SIMVASTATIN 20 MG TAB PO SCH (21:00)
[2016-10-19] MEDS: DIPYRIDAMOLE/ASPIRIN CAP PO SCH (21:01)
[2016-10-19] MEDS: HEPARIN SOD 5000 UNIT/0.5 ML CARP SQ SCH (21:02)
[2016-10-19 22:58] VITALS: BP 171/77; PULSE 77; TEMP 38; O2SAT 93
[2016-10-20 04:48] VITALS: BP 121/74; PULSE 90; TEMP 37.2; O2SAT 98
[2016-10-20] MEDS: HEPARIN SOD 5000 UNIT/0.5 ML CARP SQ SCH ×2 (05:09→14:00)
[2016-10-20] MEDS: SODIUM CHLORIDE 0.9% 1000ML 1,000 ML IV SCH ×2 (05:24→14:23)
[2016-10-20 08:13] VITALS: BP 136/75; PULSE 72; TEMP 37; O2SAT 98
[2016-10-20] MEDS ORDERED: POTASSIUM CHLORIDE 20 MEQ TABCR PO SCH (09:00)
[2016-10-20] MEDS ORDERED: LISINOPRIL 5 MG TAB PO SCH (09:00)
[2016-10-20] MEDS: DIPYRIDAMOLE/ASPIRIN CAP PO SCH (10:19)
[2016-10-20 12:26] VITALS: BP 131/63; PULSE 74; TEMP 37.1; O2SAT 95
--- NOTE | 2016-10-20 14:01 | ELECTROENCEPHALOGRAPH REPORT ---
CLINICAL DIAGNOSIS: Unresponsiveness, question partial seizures. REQUESTING PHYSICIAN: Dr. Brooks. ELECTROENCEPHALOGRAM DIAGNOSIS: Essentially normal during wakefulness. DESCRIPTION OF TRACING: This EEG was done as a bedside recording and was of good technical quality with few or no muscle movement artifacts. Simultaneous video analysis of patient movement and behavior was obtained. Photic stimulation was performed, but drowsiness and light sleep were not seen and no hyperventilation was performed. Under these conditions, there is evidence for what appears to be a normal background rhythm in the alpha range of up to 10 Hz of maximum frequency and 30 microvolts of maximum amplitude. This is maximum posterior head regions bilaterally symmetrical. Polymorphic mid frequency theta activity is seen over all head regions without clear focal or regional predominance. Anterior head region maximum bilaterally symmetrical low voltage fast activity in the beta range is present. Photic stimulation evoked some minimal driving response without a photomyogenic or photoparoxysmal component. At no time during the waking tracing is there evidence for potentially epileptogenic activity in the form of polyspike or spike wave bursts, focal sharp waves or focal spikes. INTERPRETATION: This EEG is essentially normal during wakefulness without evidence for focal or generalized encephalopathy and without evidence for potentially epileptogenic activity. MTDD
[2016-10-20 15:56] VITALS: BP 136/77; PULSE 67; TEMP 36.9; O2SAT 98
--- NOTE | 2016-10-20 16:21 | Neurology Consultation ---
Neurology Consultation Date of Consultation: Oct 20, 2016. Attending Physician: Bailee Dia DO Primary Care Physician: Shae Martinez M.D. Reason for Consultation: syncope episode History of Present Illness Source: patient, spouse states this am she was having difficulty with ambulation. she went into the bathroom and her legs locked and she couldn't move around 1:30pm. Her got her to the chair. He went to call 911 and the son thought she passed out so he lowered her to the floor. She awoke after 1-2 minutes. She states she does not remember the event but she does remember the ride in the ambulance. she was not sweaty and her blood sugar was normal but her blood pressure was a little high. She denies fever, chills, VILLA, dizziness, vision change, swallowing difficulty, no facial droop per her family, chest pain, palpitations, SOB, N/V/D, states aspirin 81 mg was given over weekend as he could not get Aggrenox until yesterday, but pt did receive Aggrenox last night and this AM. Past Medical/Surgical History Medical Problems: (1) Altered mental status Status: Acute (2) Dizziness Status: Acute (3) TIA (transient ischemic attack) Status: Acute Social History Smoking Status: Former smoker Alcohol Use: none Drug Use: none Marital Status: Housing Status: lives with significant other Allergies Coded Allergies: No Known Allergies (Unverified , 10/19/16) Current Inpatient Medications Current Inpatient Medications Medications (Trade) Dose Ordered Sig/Alysia Route Start Time Stop Time Status Last Admin Dose Admin Sodium Chloride 1,000 ml @ 100 mls/hr Q10H IV 10/19/16 19:30 11/18/16 19:29 10/20/16 14:23 100 MLS/HR Acetaminophen (Tylenol Tab) 650 mg Q4H PRN PO 10/19/16 17:45 11/18/16 17:44 10/19/16 23:01 650 MG Ondansetron HCl (Zofran Inj) 4 mg Q6H PRN IV 10/19/16 17:45 11/18/16 17:44 Heparin Sodium (Porcine) (Heparin Sq 5000 Unit/0.5ml) 5,000 unit Q8 SQ 10/19/16 22:00 11/18/16 21:59 Dipyridamole/ Aspirin (Aggrenox 200MG/ 25MG Cap) 1 cap BID PO 10/19/16 21:00 11/18/16 20:59 10/20/16 10:19 1 CAP Lisinopril (Zestril Tab) 5 mg DAILY PO 10/20/16 09:00 11/19/16 08:59 10/20/16 10:20 5 MG Potassium Chloride (Klor-Con Tab) 20 meq DAILY PO 10/20/16 09:00 11/19/16 08:59 10/20/16 10:19 20 MEQ Simvastatin (Zocor Tab) 20 mg QPM PO 10/19/16 21:00 11/18/16 20:59 10/19/16 21:01 20 MG Miscellaneous (Iv Fluids Completed) 1 ea PRN PRN N/A 10/19/16 18:30 10/19/17 18:29 Menthol (Nice Dane) 1 dane PRN PRN PO 10/19/16 19:30 11/18/16 19:29 Physical Exam Vital Signs (Past 24 Hrs): Date Time Temp Pulse Resp B/P (MAP) Pulse Ox O2 Delivery O2 Flow Rate FiO2 10/20/16 12:26 37.1 74 18 131/63 (85) 95 10/20/16 12:09 Room Air 10/20/16 08:13 37.0 72 18 136/75 (95) 98 10/20/16 08:00 Room Air 10/20/16 04:48 37.2 90 18 121/74 (90) 98 Room Air 10/20/16 04:00 Room Air 10/20/16 00:00 Room Air 10/19/16 22:58 38.0 77 18 171/77 (108) 93 10/19/16 18:58 37.2 81 18 134/79 95 Room Air 10/19/16 18:35 78 16 125/82 96 10/19/16 16:55 76 18 172/102 96 Room Air Physical Exam: Constitutional: appearance nourished, healthy and obese Ears, Nose, Mouth and Throat: mucous membranes moist, no injection and skin normal, eyes normal Cardiovascular: normal S-1 and S-2 and regular rate and rhythm Respiratory: clear to auscultation (CTA) and no rales, rhonchi or wheeze Musculoskeletal: no peripheral edema and good distal pulses Skin: no stigmata of neurocutaneous disease noted and normal and intact Eyes: extraocular muscles intact (EOMI) and pupils equal, round and reactive to light (PERRL) NEUROLOGIC EXAMINATION: Mental status: Alert and interactive Oriented to full date and location Oriented to person Speech fluent with no evidence of aphasia Cranial Nerves smile and eye brow raise symmetric, tongue midline Reflexes: Deep tendon reflexes were symmetrical and graded 2/5. Plantar responses were flexor. Sensory: no deficit to light touch Coordination: finger to nose without bi pass Gait/Stance: Posture normal sitting in bedside chair able to stand and ambulate with walker and minimal assistance Motor: Negative for pronator drift of out stretched arms with eyes closed. Strength: biceps triceps hand certified orthotic fitter bilaterally 5/5, right frozen shoulder, hip flex plantar flex ext 5/5 Laboratory Results Past 24 Hours: Test 10/19/16 16:30 Urine Color YELLOW Urine Appearance CLEAR (CLEAR) Urine pH 5.5 (4.5-7.5) Urine Specific [place] 1.010 (1.000-1.030) Urine Protein NEG (NEG) Urine Glucose (UA) NEG (NEG) Urine Ketones NEG (NEG) Urine Occult Blood TRACE (NEG) Urine Nitrite NEG (NEG) Urine Bilirubin NEG (NEG) Urine Urobilinogen NEG (NEG) Urine Leukocyte Esterase NEG (NEG) Urine WBC (Auto) 0 /hpf (0-5) Urine RBC (Auto) 0-4 /hpf (0-4) Urine Hyaline Casts (Auto) 1-5 /lpf (0-5) Urine Epithelial Cells (Auto) 10-20 /lpf (0-5) Urine Bacteria (Auto) NEG (NEG) Imaging CT head- : Senescent changes as above with no hemorrhage, mass effect, or evidence of acute territorial ischemia by CT criteria. EEG- This EEG is essentially normal during wakefulness without evidence for focal or generalized encephalopathy and without evidence for potentially epileptogenic activity. Impression 71 year old female with syncope episode Plan 1. EEG with no seizure event 2. may have been either drop in blood pressure or low sugar reportedly did not eat for 12 hours which could be a combination of both 3. aggrenox was recommended by [facility] stroke team however the expense to family is too high to maintain. once the 2 week of aggrenox is completed would switch back to plavix 75mg daily and aspirin 162 mg daily 4. will see back in our clinic in one month if the appointment has not already been establish after discharge from [facility] 5. continue to optimize blood pressure and LDL < 70 I have seen and discussed above patient with Dr Deo Brooks, neurology I have seen this paient today with Nikia King and reviewed he above history and findings along with the labs imaging and eeg The event occurred after a prolonged fast and after entering her bathroom much like the last one acn was characterized by a freezing f her motor activity followed by some pallor and then syndcope and collapse without any clear cut convulsive movements or post event confusion and no incontinence or buccal or lingual lacerations. EEG normal. I suspect this was a hypotensive event ( pacer would have prevented tachy or at least bradycardia ) perhaps coupled with hypoglycemia. Current aggrenox rx is too expensive and will stop after current supply is out and start combination of asa and plavix 162 mg and 75 mg daily OK for discharge tonight if hospitalist team has no pressing issues and her pacemaker interrogation and orthostatic bp checks are acceptable. We erikl se hussein in the ofice as scheduled Deo Brooks MD
[2016-10-20] MEDS ORDERED: PLV75 PO (16:52)
[2016-10-20] MEDS ORDERED: ASPEC81 PO (16:54)
--- NOTE | 2016-10-20 17:01 | Discharge Instructions ---
Discharge Instructions Date of Service Oct 20, 2016. Admission Reason for Admission: Syncope Discharge Discharge Diagnosis / Problem: Syncope Discharge Goals Goal(s): Prevent Disease Progression Activity Recommendations Activity Limitations: per Instructions/Follow-up section . Instructions / Follow-Up Instructions / Follow-Up Please take all medications as prescribed below. Please note, you may continue to take the AGGRENOX for the next two weeks to finish out your current prescription. However, after that, it is recommended to start back on the PLAVIX and ASPIRIN 162MG dosing as directed. You have a follow-up appointment from this hospitalization set for 10/25 @ 12:45pm with Dr. Clara Houston in your primary care office. Please bring all paperwork from this hospitalization in with you when you go. It is recommended that you continue physical and occupational therapy services at home through the current Home Health agency working with you. Please follow-up with Neurology as recommended. It was a pleasure taking care of you! Call if you have any questions or problems. You can reach a [facility] hospitalist on duty at [facility] 24 hours a day by calling [phone]. Take care of yourself. Bailee Dia DO [facility] Hospitalist Current Hospital Diet Patient's current hospital diet: [facility] Diet (Heart Healthy) Discharge Diet Recommended Diet: [facility] Diet (Heart Healthy) Procedures Procedures Performed: EEG (10/20): INTERPRETATION: This EEG is essentially normal during wakefulness without evidence for focal or generalized encephalopathy and without evidence for potentially epileptogenic activity Pending Studies Studies pending at discharge: no Laboratory Results Hemoglobin A1c Test 09/30/16 15:25 Range/Units Estimated Average Glucose 114 mg/dl Hemoglobin A1c 5.6 4.5-5.6 % Lipid Panel Test 10/01/16 05:19 Range/Units Triglycerides Level 92 0-150 mg/dl Cholesterol Level 166 0-200 mg/dl HDL Cholesterol 75 mg/dl Cholesterol/HDL Ratio 2.2 LDL Cholesterol, Calculated 73 mg/dl Medical Emergencies . Who to Call and When: Medical Emergencies: If at any time you feel your situation is an emergency, please call 911 immediately. . Non-Emergent Contact Non-Emergency issues call your: Primary Care Provider . . "Provider Documentation" section prepared by Bailee Dia. . VTE Core Measure Inpt VTE Proph given/why not?: Unfractionated heparin SQ
[2016-10-20 18:14] VITALS: BP 136/77; PULSE 67; TEMP 36.9; O2SAT 98
--- NOTE | 2016-10-21 08:44 | Discharge Summary ---
Discharge Summary Date of Service Oct 20, 2016. Discharge Summary Admission Date: Oct 19, 2016 at 17:42 Discharge Date: Oct 20, 2016 Discharge Disposition: Home with services Principal Diagnosis: Syncope likely 2/2 hypoglycemia or transient low blood pressure Cerebrovascular disease Hypertension Sinus node dysfunction s/p pacemaker Ambulatory Dysfunction Mild cognitive insufficiency Procedures: EEG (10/19): INTERPRETATION: This EEG is essentially normal during wakefulness without evidence for focal or generalized encephalopathy and without evidence for potentially epileptogenic activity. Vaccinations: None. Consultations: Neurology Pending Studies/Follow-Up: see instructions below. Medication Reconciliation New Medications: Aspirin (Aspirin EC Low Dose) 81 Mg Ectab 162 MG PO QAM for 30 Days, #60 TAB 3 Refills Clopidogrel Bisulfate (Clopidogrel) 75 Mg Tab 75 MG PO QAM for 30 Days, #30 TAB 3 Refills Continued Medications: Docusate Sodium (Docusate Sodium) 100 Mg Cap 100 MG PO BID PRN for Constipation, CAP Lisinopril (Lisinopril) 2.5 Mg Tab 5 MG PO DAILY, TAB Magnesium Hydroxide (Milk of Magnesia 400 mg/5Ml) 1 [place] 30 ML PO DAILY PRN for Constipation Polyethylene (Miralax) 17 Gm Pow 17 GM PO DAILY PRN for Constipation Potassium Ext Rel (Klor-Con) 20 Meq Tabcr 20 MEQ PO DAILY, TAB Sennosides-Docusate Sodium (Senna S) 1 Tab Tab 1 TAB PO DAILY PRN for Constipation Simvastatin (Zocor) 20 Mg Tab 20 MG PO QPM, TAB Discontinued Medications: Dipyridamole/Aspirin (Aggrenox 25-200 mg) 1 Cap Cap 1 CAP PO BID for 30 Days, #60 CAP Admission Information HPI (per Admitting provider): This is a 71 y/o female with PMH of possible TIA's, hypertension, sinus node dysfunction s/p pacemaker, dyslipidemia, who presents to the ED with unresponsive episode. Back in 10/2015 patient was placed on Plavix for questionable TIA with progressive right leg weakness. Patient was recently hospitalized at [facility] from September 30- for right leg weakness/ possible TIA. Pt had presented with episode of dizziness upon standing which was thought to be orthostatic, and several months of progressive R leg weakness. Stroke alert done - was not tPA candidate. CT head and MRI were unremarkable. MRA brain showed no high grade stenosis, aneurysm, or proximal branch occlusion, did show mild low grade narrowing of mid basilar artery. MRA neck showed high grade approximately 70% narrowing of HEMANT and 50% narrowing in LICA. Echo showed EF 65-70%, grade 1 diastolic dysfunction, no significant valvular pathology. [place] neurology changed Plavix to Aggrenox 250 mg BID. Pt was seen by Dr. Brooks who agreed w/ the plan. Pt was d/c to [facility] then returned home 4 days ago. at bedside states patient was having more difficulty ambulating w/ her walker this morning, but was conversing normally. Had coffee only for breakfast which is typical for her. Then around 1:30 this afternoon patient was on chair in the restroom and her son was trying to get her up, but she was not grasping his arms and her eyes started to glaze over and close and she started slumping in the chair. Son thought she was passing out and laid her on the floor. She awoke after 1-2 minutes. She slowly began speaking and speech was slurred when she was first waking up. Son states her foot was twitching as she was waking up. He thinks this was because she did not want to be on the floor. No incontinence. 911 was called and patient was almost back to baseline when EMS arrived. The patient has no recollection of the event. She is oriented to person and place but not to date. Son states patient has baseline forgetfulness / disorientation to date, but this lack of recall is abnormal for her. Son feels that she is still slightly off from baseline. Patient's baseline right arm weakness (attributed to shoulder injury) and right leg weakness x 3.5 years (attributed to possible TIA) are unchanged from baseline. Son states she had prior syncopal episodes approximately 3 years ago before her pacemaker was placed. Pt reports dry cough which she states is relatively new. Family is unaware of cough but reports c/o sore throat yesterday. Patient denies fever, chills, VILLA, rhinorrhea, ear ache, dizziness, vision change, swallowing difficulty, no facial droop per her family, chest pain, palpitations, SOB, N/V/D , dysuria, frequency. states aspirin 81 mg was given over weekend as he could not get Aggrenox until yesterday, but pt did receive Aggrenox last night and this AM. Physical Exam (per Admitting): General Appearance: WD/WN, no apparent distress Head: normocephalic, atraumatic Eyes: normal inspection, PERRL, EOMI ENT: normal ENT inspection, hearing grossly normal, pharynx normal Neck: supple, trachea midline Respiratory/Chest: lungs clear, normal breath sounds, no respiratory distress, no accessory muscle use Cardiovascular: regular rate, rhythm, no murmur Abdomen/GI: normal bowel sounds, non tender, soft Extremities/Musculoskelatal: no calf tenderness, no pedal edema Neurologic/Psych: credit review officer II-XII nml as tested, alert, normal mood/affect, + pertinent finding (oriented to person and place, disoriented to date. unable to recall today's events. chronic weakness right arm (motor 4/5) and leg (motor 4/5 ), no other motor or sensory deficit. no pronator drift. finger to nose intact bilaterally.) Skin: normal color, warm/dry Hospital Course 71 yo F presents to the ER via EMS after a short period of unresponsiveness at home. She was very weak for 15-30 minutes and was unable to stand or easily get up into her wheelchair for this time before she lost consciousness in the bathroom of her home with her son present. She had not eaten for 24 hours. Initial workup in the ER was unremarkable, and even when EMS arrived the patient was feeling better. She has been asymptomatic since being admitted and her pacemaker interrogation revealed no arrythmias. She has had no significant events on telemetry. Her labwork is within normal limits. Neurology was consulted and an EEG was performed and was essentially normal during wakefulness without evidence for focal or generalized encephalopathy and without evidence for potentially epileptogenic activity. She was evaluated by OT who recommended returning home. Although PT was not able to formally evaluate her, the patient had been ambulating at baseline and without lightheadedness with positional change, and she has Home Health for PT and OT at home currently based on last admission for stroke. It should be noted that she did have positive orthostatic vitals signs with her BP going from 170 systolic to 140 with sitting and standing, respectively. She was encouraged to stay hydrated and eat breakfast and enough food throughout the day. I also encouraged the family to assist with this and encourage her to wait for a moment after standing prior to walking. She has been mentating at baseline, tolerating PO and physical exam is unremarkable with no focal neurologic deficits. Based on discussion with Neurology, she states that she cannot afford the Aggrenox any longer, and was switched back to Plavix and ASA 162. She was instructed to cont the current Aggrenox script until it runs out in two weeks prior to starting the Plavix/ASA combination. She and verbalized understanding with intent to comply. She was discharged in stable condition to home with home health for PT/OT. Total time spent on discharge = 60 minutes This includes examination of the patient, discharge planning, medication reconciliation, and communication with other providers. Discharge Instructions Discharge Instructions Date of Service Oct 20, 2016. Admission Reason for Admission: Syncope Discharge Discharge Diagnosis / Problem: Syncope Discharge Goals Goal(s): Prevent Disease Progression Activity Recommendations Activity Limitations: per Instructions/Follow-up section . Instructions / Follow-Up Instructions / Follow-Up Please take all medications as prescribed below. Please note, you may continue to take the AGGRENOX for the next two weeks to finish out your current prescription. However, after that, it is recommended to start back on the PLAVIX and ASPIRIN 162MG dosing as directed. You have a follow-up appointment from this hospitalization set for 10/25 @ 12:45pm with Dr. Clara Houston in your primary care office. Please bring all paperwork from this hospitalization in with you when you go. It is recommended that you continue physical and occupational therapy services at home through the current Home Health agency working with you. Please follow-up with Neurology as recommended. It was a pleasure taking care of you! Call if you have any questions or problems. You can reach a [facility] hospitalist on duty at [facility] 24 hours a day by calling [phone]. Take care of yourself. Bailee Dia, DO [facility] Additional Copies To Shae Martinez M.D.; Clara HOUSTON M.D.
[2016-10-21] MEDS ORDERED: ASPIRIN 81 MG ECTAB PO SCH (09:00)
[2016-10-21] MEDS ORDERED: CLOPIDOGREL BISULFATE 75 MG TAB PO SCH (09:00)
== END 2016-10-20 19:29 | disposition home or self-care (01) ==
LOC: EDBD 15:07 → C.EDC 15:09 → C.2T 17:42 → ENRESERV 17:55
PROVIDERS: ADMIT Internal Medicine; ATTEND Hospitalist
DX: R55 Syncope and collapse (principal); I10 Essential (primary) hypertension; F03.90 Unspecified dementia, unspecified severity, without behavioral disturbance, psychotic disturbance, mood disturbance, and anxiety; R26.9 Unspecified abnormalities of gait and mobility; E78.5 Hyperlipidemia, unspecified; Z95.0 Presence of cardiac pacemaker; Z86.73 Personal history of transient ischemic attack (TIA), and cerebral infarction without residual deficits; Z90.49 Acquired absence of other specified parts of digestive tract; Z87.891 Personal history of nicotine dependence; Z82.49 Family history of ischemic heart disease and other diseases of the circulatory system

== ENCOUNTER 2017-03-20 21:53 | Observation (INO) | payer OTHER ==
[~2017-03-20] VITALS: Ht 160 cm; Wt 77.0 kg
[~2017-03-20 21:53] MED LIST changes: -ACET325T96 PO; -AGG PO; +ASPEC81 PO; -ASPI81TA28 PO; +DOCU100C31 PO; +MAGNSUS73 PO; +MRLP17X PO; +PLV75 PO; +SENN-91 PO
[2017-03-20] MEDS ORDERED: SODIUM CHLORIDE 0.9% 1000ML 1,000 ML IV STA (22:03)
[2017-03-20] MEDS ORDERED: ONDANSETRON INJ 2 MG/ML 2 ML VIAL IV STA (22:05)
--- NOTE | 2017-03-20 22:31 | DIAGNOSTIC IMAGING REPORT ---
CHEST ONE VIEW PORTABLE CLINICAL HISTORY: Weakness COMPARISON STUDY: 10/19/2016 FINDINGS: The cardiac and mediastinal contours remain stable. There is borderline elevation right hemidiaphragm. There is a left subclavian dual-chamber central venous pacemaker present. As no failure. There is no focal pulmonary consolidation. There are no pleural effusions. There is an old proximal right humeral deformity.[ IMPRESSION: No active disease in the chest. Electronically signed by: Michael Cavanaugh M.D. 03/20/2017 10:30 PM Dictated Date/Time: 03/20/2017 10:29 PM
[2017-03-20 22:41] LABS: BASO % 0.6 %; BASO ABS # 0.04 K/uL (0-0.2); EOS % 1.7 %; EOS ABS # 0.12 K/uL (0-0.5); HEMATOCRIT 40.8 % (37-47); IG# 0.03 K/uL (0.00-0.02); LYMPH % 26.9 %; LYMPH ABS # 1.88 K/uL (1.2-3.4); MEAN CELL VOLUME 89.1 fL (80-100); MEAN CORPUSCULAR HEMOGLOBIN 30.6 pg (25-34); MEAN CORPUSCULAR HGB CONC 34.3 g/dl (32-36); MEAN PLATELET VOLUME 9.3 fL (7.4-10.4); MONO % 7.3 %; MONO ABS # 0.51 K/uL (0.11-0.59); NEUT % 63.1 %; NEUT ABS # 4.42 K/uL (1.4-6.5); PLATELET COUNT 202 K/uL (130-400); RED CELL DISTRIBUTION WIDTH CV 13.2 % (11.5-14.5); RED CELL DISTRIBUTION WIDTH SD 42.8 fL (36.4-46.3)
[2017-03-20] MEDS ORDERED: ASPI81TA28 PO (22:45)
[2017-03-20] MEDS ORDERED: CLOP1TAB15 PO (22:45)
[2017-03-20 22:52] LABS: INR 1.1 (0.9-1.1); PTT PATIENT 25.2 SECONDS (21.0-31.0)
[2017-03-20 22:57] LABS: ALBUMIN 3.9 gm/dl (3.4-5.0); ALT/SGPT 18 U/L (12-78); AST/SGOT 15 U/L (15-37); BLOOD UREA NITROGEN 13 mg/dl (7-18); CALCIUM 9.1 mg/dl (8.5-10.1); CARBON DIOXIDE 30 mmol/L (21-32); CREATININE 0.88 mg/dl (0.60-1.20); GLUCOSE 127 mg/dl (70-99); LIPASE 76 U/L (73-393); POTASSIUM 3.7 mmol/L (3.5-5.1); SODIUM 141 mmol/L (136-145)
[2017-03-20 23:09] LABS: ALKALINE PHOSPHATASE 85 U/L (45-117); TOTAL PROTEIN 7.6 gm/dl (6.4-8.2)
[2017-03-21] MEDS ORDERED: PHARMACIST DISCHARGE MED REC CONSULT PRN (02:15)
[2017-03-21] MEDS ORDERED: POLYETHYLENE (MIRALAX) 17 GM PACK PO PRN (02:15)
[2017-03-21] MEDS ORDERED: DOCUSATE SODIUM 100 MG CAP PO PRN (02:15)
[2017-03-21] MEDS ORDERED: MAGNESIUM HYDROXIDE SUSP 30 ML UDC PO PRN (02:15)
[2017-03-21] MEDS ORDERED: DOCUSATE SODIUM/SENNA 50/8.6MG TAB PO PRN (02:15)
[2017-03-21] MEDS ORDERED: IV FLUIDS COMPLETED PRN (02:30)
[2017-03-21 02:45] VITALS: BP 154/87; PULSE 81; TEMP 36.9; O2SAT 94; Ht 160 cm; Wt 77.0 kg
--- NOTE | 2017-03-21 03:04 | EMERGENCY ROOM VISIT NOTE ---
History Report prepared by Mimi: Jesse Ahumada Under the Supervision of: Dr. Deo Rosas M.D. First contact with patient: 21:56 Stated Complaint: DIZZY/VOMIT History of Present Illness The patient is a 72 year old female who presents to the Emergency Room with complaints of an episode of dizziness occurring an hour ago. Per nurse, the patient became dizzy with dinner tonight. She notes that the daughter stated that the patient appeared pale, unresponsive, and had sluggish pupils following her episode. She reports that the daughter also noted that the patient has had previous episodes of dizziness. The patient states that her dizzy spell did not last more than 5 minutes, and that she did not lose consciousness. She reports that she did not feel like the room was spinning but "did not feel right." The patient states that she threw up once at home. She also complains of chills. She notes that she no longer feels dizzy, but still feels mildly nauseous. She reports that she has not had episodes of dizziness prior to tonight. The patient states that she has a history of hypertension and has had her appendix removed. Pt denies LOC, headache, fevers, chills, diaphoresis, visual changes, neck pain, chest pain, breathing difficulties, abdominal pain, back pain, melena , hematochezia, urinary symptoms, numbness, weakness, lymphadenopathy, rash, diarrhea, or other complaints. Source of History: patient Onset: an hour ago Position: other (global) Quality: other (dizziness) Timing: other (an episode) Associated Symptoms: + nausea, + vomiting Review of Systems See HPI for pertinent positives and negatives. A total of ten systems were reviewed and were otherwise negative. Past Medical & Surgical Medical Problems: (1) Dizziness (2) H/o possible TIA's (3) HLD (hyperlipidemia) (4) HTN (hypertension) (5) Leukoencephalopathy (6) Orthostatic hypotension (7) Pacemaker (8) Sinus node dysfunction (9) Syncope Surgical Problems: (1) History of appendectomy (2) Hx of tonsillectomy Family History Hypertension Social History Smoking Status: Former Smoker Alcohol Use: occasionally Drug Use: none Marital Status: Housing Status: lives with significant other Current/Historical Medications Scheduled Aspirin (Aspirin Ec), 2 TAB PO DAILY Clopidogrel (Plavix), 75 MG PO QAM Lisinopril (Lisinopril), 5 MG PO DAILY Potassium Ext Rel (Klor-Con), 20 MEQ PO DAILY Simvastatin (Zocor), 20 MG PO QPM Scheduled PRN Docusate Sodium (Docusate Sodium), 100 MG PO BID PRN for Constipation Magnesium Hydroxide (Milk of Magnesia 400 mg/5Ml), 30 ML PO DAILY PRN for Constipation Polyethylene (Miralax), 17 GM PO DAILY PRN for Constipation Sennosides-Docusate Sodium (Senna S), 1 TAB PO DAILY PRN for Constipation Allergies Coded Allergies: No Known Allergies (Unverified , 03/20/17) Physical Exam Vital Signs Date Time Temp Pulse Resp B/P (MAP) Pulse Ox O2 Delivery O2 Flow Rate FiO2 03/21/17 01:02 83 20 137/68 92 Room Air 03/20/17 23:39 53 16 138/76 100 Room Air 03/20/17 22:37 77 20 131/85 97 Room Air 03/20/17 22:24 67 20 165/123 97 Room Air 71 151/122 77 131/85 03/20/17 22:21 66 03/20/17 22:15 97 Room Air 03/20/17 21:58 36.4 86 18 153/105 94 Room Air Physical Exam GENERAL: Awake, alert, well appearing, no distress HENT: Normocephalic, atraumatic. TM's normal. Oropharynx unremarkable. EYES: PERRL. EOMI. Normal conjunctiva. Sclera non-icteric. NECK: Supple. No nuchal rigidity. FROM. No JVD or bruit. RESPIRATORY: CTA CARDIAC: RRR. No murmur. ABDOMEN: Soft, non distended. No tenderness to palpation. No rebound or guarding. No masses. RECTAL: Deferred. MUSCULOSKELETAL: Unremarkable. No edema. No discoloration. Gross motor strength symmetric. NEURO: Cranial nerves 2-12 grossly intact. Normal sensorium. No sensory or motor deficits noted. Speech normal. No pronator drift. SKIN: No rash or jaundice noted. LYMPH: No adenopathy. Medical Decision & Procedures ER Provider Diagnostic Interpretation: Radiology results as stated below per my review and radiologist interpretation: CHEST ONE VIEW PORTABLE CLINICAL HISTORY: Weakness COMPARISON STUDY: 10/19/2016 FINDINGS: The cardiac and mediastinal contours remain stable. There is borderline elevation right hemidiaphragm. There is a left subclavian dual-chamber central venous pacemaker present. As no failure. There is no focal pulmonary consolidation. There are no pleural effusions. There is an old proximal right humeral deformity.[ IMPRESSION: No active disease in the chest. Electronically signed by: Michael Cavanaugh M.D. 03/20/2017 10:[address] HEAD Comparison with CT from 10/19/2016 No ICH, mass effect or edema. No evidence of acute cortical stroke. Periventricular small vessel ischemic change. No midline shift. Dilated ventricles can be seen with central parenchymal atrophy or normal pressure hydrocephalus in the right clinical setting. Diffuse parenchymal atrophy. Dense carotid siphon atherosclerotic calcifications. Visualized sinuses and mastoid air cells are clear. Radiologist: Milad Nash M.D. Laboratory Results 03/20/17 22:24 Red Blood Count 4.58, Mean Corpuscular Volume 89.1, Mean Corpuscular Hemoglobin 30.6, Mean Corpuscular Hemoglobin Concent 34.3, Mean Platelet Volume 9.3, Neutrophils (%) (Auto) 63.1, Lymphocytes (%) (Auto) 26.9, Monocytes (%) (Auto) 7.3, Eosinophils (%) (Auto) 1.7, Basophils (%) (Auto) 0.6, Neutrophils # (Auto) 4.42, Lymphocytes # (Auto) 1.88, Monocytes # (Auto) 0.51, Eosinophils # (Auto) 0.12, Basophils # (Auto) 0.04 03/20/17 22:24 Test 03/20/17 22:24 03/20/17 23:55 03/21/17 02:07 White Blood Count 7.00 K/uL (4.8-10.8) Red Blood Count 4.58 M/uL (4.2-5.4) Hemoglobin 14.0 g/dL (12.0-16.0) Hematocrit 40.8 % (37-47) Mean Corpuscular Volume 89.1 fL (80-100) Mean Corpuscular Hemoglobin 30.6 pg (25-34) Mean Corpuscular Hemoglobin Concent 34.3 g/dl (32-36) Platelet Count 202 K/uL (130-400) Mean Platelet Volume 9.3 fL (7.4-10.4) Neutrophils (%) (Auto) 63.1 % Lymphocytes (%) (Auto) 26.9 % Monocytes (%) (Auto) 7.3 % Eosinophils (%) (Auto) 1.7 % Basophils (%) (Auto) 0.6 % Neutrophils # (Auto) 4.42 K/uL (1.4-6.5) Lymphocytes # (Auto) 1.88 K/uL (1.2-3.4) Monocytes # (Auto) 0.51 K/uL (0.11-0.59) Eosinophils # (Auto) 0.12 K/uL (0-0.5) Basophils # (Auto) 0.04 K/uL (0-0.2) RDW Standard Deviation 42.8 fL (36.4-46.3) RDW Coefficient of Variation 13.2 % (11.5-14.5) Immature Granulocyte % (Auto) 0.4 % Immature Granulocyte # (Auto) 0.03 K/uL (0.00-0.02) Prothrombin Time 11.1 SECONDS (9.0-12.0) Prothromb Time International Ratio 1.1 (0.9-1.1) Activated Partial Thromboplast Time 25.2 SECONDS (21.0-31.0) Partial Thromboplastin Ratio 1.0 Anion Gap 6.0 mmol/L (3-11) Estimated GFR () 76.6 Estimated GFR (Non- 66.1 BUN/Creatinine Ratio 15.0 (10-20) Calcium Level 9.1 mg/dl (8.5-10.1) Magnesium Level 2.2 mg/dl (1.8-2.4) Total Bilirubin 0.4 mg/dl (0.2-1) Direct Bilirubin 0.1 mg/dl (0-0.2) Aspartate Amino Transf (AST/SGOT) 15 U/L (15-37) Alanine Aminotransferase (ALT/SGPT) 18 U/L (12-78) Alkaline Phosphatase 85 U/L (45-117) Troponin I < 0.015 ng/ml (0-0.045) Total Protein 7.6 gm/dl (6.4-8.2) Albumin 3.9 gm/dl (3.4-5.0) Lipase 76 U/L (73-393) Thyroid Stimulating Hormone (TSH) 4.220 uIu/ml (0.300-4.500) Urine Color DK YELLOW Urine Appearance CLEAR (CLEAR) Urine pH 5.0 (4.5-7.5) Urine Specific [place] 1.027 (1.000-1.030) Urine Protein NEG (NEG) Urine Glucose (UA) NEG (NEG) Urine Ketones NEG (NEG) Urine Occult Blood TRACE (NEG) Urine Nitrite NEG (NEG) Urine Bilirubin NEG (NEG) Urine Urobilinogen NEG (NEG) Urine Leukocyte Esterase NEG (NEG) Urine WBC (Auto) 1-5 /hpf (0-5) Urine RBC (Auto) 5-10 /hpf (0-4) Urine Hyaline Casts (Auto) 5-10 /lpf (0-5) Urine Epithelial Cells (Auto) 20-30 /lpf (0-5) Urine Bacteria (Auto) NEG (NEG) Laboratory results reviewed by me Medications Administered Medications (Trade) Dose Ordered Sig/Alysia Route Start Time Stop Time Status Last Admin Dose Admin Sodium Chloride 1,000 ml @ 125 mls/hr Q8H STAT IV 03/20/17 22:03 03/21/17 02:27 DC 03/20/17 22:31 125 MLS/HR Ondansetron HCl (Zofran Inj) 4 mg NOW STAT IV 03/20/17 22:05 03/20/17 22:06 DC 03/20/17 22:31 4 MG ECG Indication: other (dizziness) Rate (beats per minute): 66 Rhythm: normal sinus Findings: other (LVH, anterior lateral T wave inversions) Comparison ECG Date: 10/19/2016 Change: no significant change ED Course 2158: The patient was evaluated in room A3. A complete history and physical exam was performed. 2205: Zofran Inj 4mg IV 0024: I reevaluated and updated the patient. The patient's family would like her to be admitted to [facility] even thought she has a [facility] physician. They would like to change services. I spoke to the hospitalist from [facility] and the hospitalist from the [facility], and the hospitalist from [facility] will see her. 0202: Upon reexamination, the patient was stable. I discussed the test results and treatment plan with her. The patient will be evaluated for further management. Medical Decision Prior records/ancillary studies reviewed and summarized above. Nursing notes reviewed and agree them. Additional history obtained from family. The patient's history was concerning for altered mental status/near syncope. Differential diagnosis: Etiologies such as dysrhythmia, seizure, infection, hypoglycemia, electrolyte abnormalities, cardiac sources, intracerebral event, toxicologic, neurologic, as well as others were entertained. Physical examination: As above. Nonfocal ER treatment provided: IV Lock Normal saline hydration at 125 an hour Zofran 4 mg IV On reassessment the patient felt better. Diagnostics interpretation by me: ECG: No change from prior. The labs revealed an unremarkable CBC and chem Panel. Trace blood noted on urinalysis. No bacteria. Imaging studies: X-ray and CT scan as above The patient had an episode that may be consistent with near syncope or possible seizure. Family requested that the patient be admitted to the [facility] hospitalist service as they were concerned about the significant duration and alteration in her mental state. It is possible that she had a brief seizure and was post ictal. The exact etiology is still unknown. Consultation: A consultation was placed with the hospitalist. The case was discussed and diagnostics were reviewed. The patient was evaluated in the ER for further treatment. Medication Reconcilliation Current Medication List: was personally reviewed by me Blood Pressure Screening Patient's blood pressure: Elevated blood pressure Referred to hospitalist. Consults Time Called: 0200 Consulting Physician: Dr. Hoffman - [facility]ist, [facility] Returned Call: [phone] Discussed the patient's case. The patient will be evaluated for further treatment and disposition. Impression Primary Impression: Altered mental status Additional Impression: Dizziness Scribe Attestation The scribe's documentation has been prepared under my direction and personally reviewed by me in its entirety. I confirm that the note above accurately reflects all work, treatment, procedures, and medical decision making performed by me. Departure Information Dispostion Being Evaluated By Hospitalist Referrals Shae Martinez M.D. (PCP) Problem Qualifiers
--- NOTE | 2017-03-21 05:40 | History and Physical ---
History & Physical Date & Time of Service: Mar 21, 2017 at 04:58 Chief Complaint: Dizziness Primary Care Physician: Shae Martinez M.D. History of Present Illness Source: patient This is a 72 y/o F who presents with an episode of dizziness/weakness. Her son and are with her tonight. They state that about 3 hours ago, while she was having dinner, she seem to get weak and dizzy, almost slumping over, but they were able to support her before to prevent any falls or injuries. These episodes have taken place a few times in the last few years. She has been evaluated multiple times for TIAs. She also has a pacemaker that was implanted with the thought of cardiac cause of dizziness. However, she has still had these episodes. She reports being unaware of the episode as its happening. This episode lasted about 15 mins. Family reports that she was slowly recovering over the last couple of hours and is now back to baseline. She was supposed to be on Aggrenox, however, due to cost is currently on ASA 162 and Plavix 75 mg She currently denies any dizziness or weakness. Denies any concurrent URI symptoms Denies symptoms of dizziness with positional changes Denies chest pain, shortness of breath She does have long standing Right arm weakness and RLE weakness (son describes this as her dragging her right foot while walking)- uses walker. Past Medical/Surgical History Medical Problems: (1) H/o possible TIA's Status: Chronic (2) HLD (hyperlipidemia) Status: Chronic (3) HTN (hypertension) Status: Chronic (4) Leukoencephalopathy Status: Chronic (5) Orthostatic hypotension Status: Chronic (6) Pacemaker Status: Chronic (7) Sinus node dysfunction Status: Chronic Surgical Problems: (1) History of appendectomy Status: Chronic (2) Hx of tonsillectomy Status: Chronic Family History Hypertension Social History Smoking Status: Former Smoker Drug Use: none Marital Status: Housing status: lives with family Allergies Coded Allergies: No Known Allergies (Unverified , 03/20/17) Home Medications Scheduled Aspirin (Aspirin Ec), 2 TAB PO DAILY Clopidogrel (Plavix), 75 MG PO QAM Lisinopril (Lisinopril), 5 MG PO DAILY Potassium Ext Rel (Klor-Con), 20 MEQ PO DAILY Simvastatin (Zocor), 20 MG PO QPM Scheduled PRN Docusate Sodium (Docusate Sodium), 100 MG PO BID PRN for Constipation Magnesium Hydroxide (Milk of Magnesia 400 mg/5Ml), 30 ML PO DAILY PRN for Constipation Polyethylene (Miralax), 17 GM PO DAILY PRN for Constipation Sennosides-Docusate Sodium (Senna S), 1 TAB PO DAILY PRN for Constipation Review of Systems Constitutional: No fever, No chills, No sweats Eyes: No worsening of vision ENT: No hearing loss Respiratory: No cough, No sputum, No wheezing, No shortness of breath, No dyspnea on exertion, No dyspnea at rest Cardiovascular: No chest pain, No edema Abdomen: No pain, No nausea, No vomiting Musculoskeletal: No joint pain, No muscle pain Genitourinary - Female: No dysuria, No urinary frequency, No urinary urgency Neurologic: + weakness, + balance problems Physical Exam Vital Signs Date Time Temp Pulse Resp B/P (MAP) Pulse Ox O2 Delivery O2 Flow Rate FiO2 03/21/17 04:00 Room Air 03/21/17 02:45 36.9 81 18 154/87 94 Room Air 03/21/17 02:17 70 20 156/74 95 Room Air 03/21/17 01:02 83 20 137/68 92 Room Air 03/20/17 23:39 53 16 138/76 100 Room Air 03/20/17 22:37 77 20 131/85 97 Room Air 03/20/17 22:24 67 20 165/123 97 Room Air 71 151/122 77 131/85 03/20/17 22:21 66 03/20/17 22:15 97 Room Air 03/20/17 21:58 36.4 86 18 153/105 94 Room Air General Appearance: no apparent distress Eyes: PERRL, EOMI ENT: hearing grossly normal Neck: supple, thyroid normal Respiratory/Chest: lungs clear, normal breath sounds, no respiratory distress, no accessory muscle use Cardiovascular: regular rate, rhythm, no edema, normal peripheral pulses Abdomen/GI: normal bowel sounds, non tender, soft Extremities/Musculoskelatal: no calf tenderness, no pedal edema Neurologic/Psych: blackener II-XII nml as tested, alert, oriented x 3, + motor weakness (RUE (preexisting, unable to abduct arm, strength 4/5, sensation intact )), + pertinent finding (no pronator drift, no nystagmus, normal [id number]) Diagnostics Laboratory Results Results Past 24 Hours Test 03/20/17 22:24 03/20/17 23:55 03/21/17 02:07 Range/Units White Blood Count 7.00 4.8-10.8 K/uL Red Blood Count 4.58 4.2-5.4 M/uL Hemoglobin 14.0 12.0-16.0 g/dL Hematocrit 40.8 37-47 % Mean Corpuscular Volume 89.1 80-100 fL Mean Corpuscular Hemoglobin 30.6 25-34 pg Mean Corpuscular Hemoglobin Concent 34.3 32-36 g/dl Platelet Count 202 130-400 K/uL Mean Platelet Volume 9.3 7.4-10.4 fL Neutrophils (%) (Auto) 63.1 % Lymphocytes (%) (Auto) 26.9 % Monocytes (%) (Auto) 7.3 % Eosinophils (%) (Auto) 1.7 % Basophils (%) (Auto) 0.6 % Neutrophils # (Auto) 4.42 1.4-6.5 K/uL Lymphocytes # (Auto) 1.88 1.2-3.4 K/uL Monocytes # (Auto) 0.51 0.11-0.59 K/uL Eosinophils # (Auto) 0.12 0-0.5 K/uL Basophils # (Auto) 0.04 0-0.2 K/uL RDW Standard Deviation 42.8 36.4-46.3 fL RDW Coefficient of Variation 13.2 11.5-14.5 % Immature Granulocyte % (Auto) 0.4 % Immature Granulocyte # (Auto) 0.03 0.00-0.02 K/uL Prothrombin Time 11.1 9.0-12.0 SECONDS Prothromb Time International Ratio 1.1 0.9-1.1 Activated Partial Thromboplast Time 25.2 21.0-31.0 SECONDS Partial Thromboplastin Ratio 1.0 Sodium Level 141 136-145 mmol/L Potassium Level 3.7 3.5-5.1 mmol/L Chloride Level 105 98-107 mmol/L Carbon Dioxide Level 30 21-32 mmol/L Anion Gap 6.0 3-11 mmol/L Blood Urea Nitrogen 13 7-18 mg/dl Creatinine 0.88 0.60-1.20 mg/dl Estimated GFR () 76.6 Estimated GFR (Non- 66.1 BUN/Creatinine Ratio 15.0 10-20 Random Glucose 127 70-99 mg/dl Calcium Level 9.1 8.5-10.1 mg/dl Magnesium Level 2.2 1.8-2.4 mg/dl Total Bilirubin 0.4 0.2-1 mg/dl Direct Bilirubin 0.1 0-0.2 mg/dl Aspartate Amino Transf (AST/SGOT) 15 15-37 U/L Alanine Aminotransferase (ALT/SGPT) 18 12-78 U/L Alkaline Phosphatase 85 45-117 U/L Troponin I < 0.015 0-0.045 ng/ml Total Protein 7.6 6.4-8.2 gm/dl Albumin 3.9 3.4-5.0 gm/dl Lipase 76 73-393 U/L Thyroid Stimulating Hormone (TSH) 4.220 0.300-4.500 uIu/ml Urine Color DK YELLOW Urine Appearance CLEAR CLEAR Urine pH 5.0 4.5-7.5 Urine Specific [place] 1.027 1.000-1.030 Urine Protein NEG NEG Urine Glucose (UA) NEG NEG Urine Ketones NEG NEG Urine Occult Blood TRACE NEG Urine Nitrite NEG NEG Urine Bilirubin NEG NEG Urine Urobilinogen NEG NEG Urine Leukocyte Esterase NEG NEG Urine WBC (Auto) 1-5 0-5 /hpf Urine RBC (Auto) 5-10 0-4 /hpf Urine Hyaline Casts (Auto) 5-10 0-5 /lpf Urine Epithelial Cells (Auto) 20-30 0-5 /lpf Urine Bacteria (Auto) NEG NEG Impression Assessment and Plan This is a a 71 y/o F with recurring episode of dizziness/weakness concerning for TIA vs. Seizure. Dizziness - TIA vs. Seizure Neuro Consult continue asa 162 mg, Simvastatin, Plavix 75 mg Orthostatic b/p- supposedly chronic, repeat EEG Pt/Ot Negative head CT this admission. MRI, MRA, Echo from previous admission in September : - MRI of the head showed no evidence of intracranial mass. No evidence of acute or subacute infarction. Extensive foci of increased T2 signal within the white matter with scattered lacunar infarcts, likely a small vessel basis. - MRA of brain showed no high-grade stenosis, aneurysm or proximal branch occlusion. Mild low-grade narrowing of the mid basilar artery - MRA of the neck showed high-grade approximately 70% narrowing in the right internal carotid artery and 50% narrowing in left internal carotid artery. - Echo showed: * Left ventricular systolic function is normal. * Ejection Fraction = 65-70%. * The right ventricular systolic function is normal. * The left atrial size is normal. * Right atrial size is normal. * Grade I diastolic dysfunction, (abnormal relaxation pattern). * No significant valvular pathology Given multiple evals recently, will defer to Neuro as to further imaging. No new deficits HTN Continue Lisinopril S/A node Dysfunction s/p Pacer - pacer interrogation DVT proph Lovenox 40 mg qam Code: Full Resident Physician Supervision Note: I was present with Dr. Coon during the history and exam. I discussed the case with the resident and agree with the findings and plan as documented in the note. Any exceptions or clarifications are listed here: 72 y/o F with recurrent episodes of dizziness - suffered additional episode and was near-syncopal - she has a known history of carotid stenosis - had full TIA workup a few months ago OE AAO x 2 S1,2 R CTAB NT, ND Pt has limited R arm mobility which is chronic but did not have any additional deficits P: Symptoms would be atypical for a TIA although this is a consideration considering imaging and carotid disease - seizure is also in differential as is an arrhythmia - unclear if her pacer was interrogated in the ER and the attending had departed - we may need to pursue this prior to DC We would defer to neuro on additional imaging considering recent workup She is already on ASA, Plavix, Statin Tx Documented By: Eddie Hoffman Level of Care Telemetry Advanced Directives Existing Living Will: No Existing Power of Propeller Layout Worker: No VTE Prophylaxis VTE Risk Assessment Done? Y/N: Yes Risk Level: Moderate
--- NOTE | 2017-03-21 05:42 | DIAGNOSTIC IMAGING REPORT ---
HEAD WITHOUT CONTRAST (CT) CLINICAL HISTORY: 72 years-old Female presenting with EVALUATE WEAKNESS. TECHNIQUE: Multidetector CT imaging of the head was performed without the use of intravenous contrast. IV contrast: None. A dose lowering technique was used consistent with the principles of ALARA (as low as reasonably achievable). COMPARISON: 10/19/2016. CT DOSE (mGy.cm): The estimated cumulative dose is 537.48 mGy.cm. 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 Proportional ventricular and sulcal prominence, likely age-related parenchymal volume loss. However, there is effacement of sulci with gyral crowding at the vertex. Slightly decreased callosal angle is noted, which measures 95 degrees. Periventricular and subcortical white matter hypoattenuation, nonspecific but likely indicative of chronic small vessel ischemic change. No mass effect or midline shift. No hemorrhage or acute territorial infarct. No extra-axial fluid collection. Paranasal sinuses and mastoid air cells clear. Calvarium intact. IMPRESSION: 1. Findings could suggest normal pressure hydrocephalus. 2. Chronic small vessel ischemic change. No acute intracranial abnormality. Electronically signed by: Brian Hoyt M.D. 03/21/2017 5:40 AM Dictated Date/Time: 03/21/2017 5:36 AM
[2017-03-21 07:19] VITALS: BP 114/78; PULSE 66; TEMP 37; O2SAT 96
[2017-03-21] MEDS: LISINOPRIL 5 MG TAB PO SCH (08:18)
[2017-03-21] MEDS: ASPIRIN 81 MG ECTAB PO SCH (08:18)
[2017-03-21] MEDS: CLOPIDOGREL BISULFATE 75 MG TAB PO SCH (08:18)
[2017-03-21] MEDS: ENOXAPARIN 40 MG/0.4 ML SYR SQ SCH (08:19)
[2017-03-21] MEDS: POTASSIUM CHLORIDE 20 MEQ TABCR PO SCH (08:19)
[2017-03-21 08:44] LABS: HEMOGLOBIN A1C 5.6 % (4.5-5.6)
[2017-03-21 12:27] VITALS: BP 95/64; PULSE 62; TEMP 36.9; O2SAT 96
--- NOTE | 2017-03-21 13:31 | Neurology Consultation ---
Neurology Consultation Date of Consultation: Mar 21, 2017. Attending Physician: Bismark Calvillo M.D. Primary Care Physician: Shae Martinez M.D. Reason for Consultation: Patient is a 72-year-old, who was asked to see the request of Dr. Hoffman, for neurologic consultation regarding near syncope, weakness, and lightheadedness. History of Present Illness Source: patient, family, caregiver, hospital records Patient had episode of syncope some more around 2012 and it was noted that she had a dysrhythmia and a pacemaker was placed. It was felt that she may have had a stroke around that time as well but I do not have any records for this. In June of 2013, the patient had an episode of syncope. She went to the ground and was found days in awake on the floor. There was no seizure activity. MRI of the brain showed extensive old small vessel ischemic disease and old bilateral lacunar type infarcts. She was diagnosed with syncope and felt that there was not a stroke. However she was on aspirin and Plavix. Aggrenox was attempted but she did not like this and insurance would not pay for it. In September of 2016, the patient had a couple of admissions for episodes. In early September she was dizzy for a couple of minutes. MRI of the brain was unremarkable and carotid ultrasound showed a 70% stenosis on the right. It was diagnosed as possible TIA versus other. In late September the patient had an episode where she had some difficulty walking and passed out. She had no recall of this incident. She was sweaty and there was a possible low BS G at the time. Her blood pressure was described as "slightly high". An EEG was unremarkable. MRI of the brain showed old extensive ischemia unchanged from the previous study of 2013. There was hydrocephalus ex vacuo noted. MR angiography of the head was unremarkable except for a mid basilar narrowing. MR angiography of the neck showed a 70% stenosis in the right internal carotid artery and 50% stenosis in the left internal carotid artery. Hypotension was considered the diagnosis plus or minus some mild hypoglycemia. The patient was doing fairly well until the evening of March 20. Around 5 or 530 in the afternoon, while eating dinner she was becoming less responsive feeling a little bit lightheaded and weak. She recalls this. She did not have vertigo or vision problems. She did not feel that she had any new weakness or numbness and had no vision or speech problems. They kept her upright instead of laying her down and she was taken to the emergency room when she was not getting better. She felt the worst of it lasted an hour so. She arrived at 2158 hours with a blood pressure of 153/105, pulse 86, respiratory rate 18, temperature 36.4, O2 saturation 94%. Neuro exam was described as unremarkable. She was much improved in the ER with her symptoms. Chest x-ray was unremarkable. CT scan of the head showed no acute changes but enlarged ventricles with possibility of ventricles out of proportion to the amount of atrophy (normal pressure hydrocephalus). CBC, Chem profile, lipid profile, TSH were unremarkable. In the emergency room, blood pressure supine was 165/123. Standing was 131/85. The patient has had no further spells or symptoms. She tells me that she has ongoing incontinence of urine, balance problems, or falls. She has no numbness of her limbs. Her right arm is chronically weak because of a shoulder injury. She feels the right leg is weak from a previous small stroke. Past Medical/Surgical History Medical Problems: (1) Altered mental status Status: Acute (2) Altered mental status Status: Acute (3) Dizziness Status: Acute (4) TIA (transient ischemic attack) Status: Acute Hypertension - patient tells me that she has had hypertension for a year. Her [id number], who is present today in the room, says she has had over 10 years but has not been treated. dyslipidemia Pacemaker for sinus node dysfunction Extensive chronic small vessel ischemic disease with possible mild vascular dementia. Internal Carotid stenosis bilaterally, 70% right and 50% left Midbasilar narrowing as well seen on MR angiography in the summer. Post appendectomy and tonsillectomy. Family History Mother in her 60s of possible stroke. Father age 91 of uncertain causes. Social History Patient quit cigarette smoking in her 30s. She does not consume alcohol. 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 Smoking Status: Former smoker Smokeless Tobacco Use: No Alcohol Use: none Drug Use: none Marital Status: Housing Status: lives with significant other Occupation Status: retired Allergies Coded Allergies: No Known Allergies (Unverified , 03/20/17) Current Inpatient Medications Current Inpatient Medications Medications (Trade) Dose Ordered Sig/Alysia Route Start Time Stop Time Status Last Admin Dose Admin Miscellaneous Information (Pharmacist Discharge Med Rec Consult) 1 ea UD PRN N/A 03/21/17 02:15 04/20/17 02:14 Aspirin (Ecotrin Tab) 162 mg DAILY PO 03/21/17 09:00 04/20/17 08:59 03/21/17 08:18 162 MG Clopidogrel Bisulfate (plAVix TAB) 75 mg QAM PO 03/21/17 09:00 04/20/17 08:59 03/21/17 08:18 75 MG Docusate Sodium (coLACE CAP) 100 mg BID PRN PO 03/21/17 02:15 04/20/17 02:14 Lisinopril (Zestril Tab) 5 mg DAILY PO 03/21/17 09:00 04/20/17 08:59 03/21/17 08:18 5 MG Magnesium Hydroxide (Milk Of Magnesia Susp) 30 ml DAILY PRN PO 03/21/17 02:15 04/20/17 02:14 Polyethylene (Miralax Powder Packet) 17 gm DAILY PRN PO 03/21/17 02:15 04/20/17 02:14 Potassium Chloride (Klor-Con Tab) 20 meq DAILY PO 03/21/17 09:00 04/20/17 08:59 03/21/17 08:19 20 MEQ Senna/Docusate Sodium (Senokot S Tab) 1 tab DAILY PRN PO 03/21/17 02:15 04/20/17 02:14 Simvastatin (Zocor Tab) 20 mg QPM PO 03/21/17 21:00 04/20/17 20:59 Miscellaneous (Iv Fluids Completed) 1 ea PRN PRN N/A 03/21/17 02:30 03/21/18 02:29 Enoxaparin Sodium (Lovenox Inj) 40 mg QAM SQ 03/21/17 09:00 04/20/17 08:59 03/21/17 08:19 40 MG Review of Systems Constitutional: No weakness, No fatigue Eyes: No worsening of vision, No diplopia ENT: No hearing loss, No tinnitus, No trouble swallowing Respiratory: No cough, No shortness of breath Cardiovascular: No chest pain, No palpitations Abdomen: No pain, No nausea Musculoskeletal: No joint pain, No muscle pain Genitourinary - Female: No dysuria, No urinary incontinence Neurologic: + memory loss, No weakness, No numbness/tingling, No vertigo, No balance problems Psychiatric: No depression symptoms, No anxiety Endocrine: No fatigue Hematologic / Lymphatic: No abnormal bleeding/bruising Integumentary: No rash Allergic / Immunologic: No hives Physical Exam Vital Signs (Past 24 Hrs): Date Time Temp Pulse Resp B/P (MAP) Pulse Ox O2 Delivery O2 Flow Rate FiO2 03/21/17 07:19 37.0 66 16 114/78 (90) 96 03/21/17 04:00 Room Air 03/21/17 02:45 36.9 81 18 154/87 94 Room Air 03/21/17 02:17 70 20 156/74 95 Room Air 03/21/17 01:02 83 20 137/68 92 Room Air 03/20/17 23:39 53 16 138/76 100 Room Air 03/20/17 22:37 77 20 131/85 97 Room Air 03/20/17 22:24 67 20 165/123 97 Room Air 71 151/122 77 131/85 03/20/17 22:21 66 03/20/17 22:15 97 Room Air 03/20/17 21:58 36.4 86 18 153/105 94 Room Air Patient is right-handed. The patient is awake and alert. Speech is normal without aphasia or dysarthria. Mentation and thought processes are reasonable although she does have some short and long-term memory problems of a mild nature. Mood is normal and affect is appropriate.. Some grooming is appropriate and she is pleasant and cooperative. The discs are sharp with positive venous pulsations. There are no exudates, hemorrhages, or blood vessel changes seen. Pupils are 4mm bilaterally and reactive to light. Extraocular eye muscles are intact without nystagmus. Visual acuity and visual levi seem normal grossly to confrontation. There are no deficits to sensation of the face bilaterally. Corneal reflexes are positive bilaterally. Facial strength and symmetry is normal bilaterally. Hearing seems intact grossly to voice and finger rub. Palate moves well without asymmetry. There is normal sternocleidomastoid and trapezius strength bilaterally. Tongue is midline with good strength bilaterally. Neck is with full range of motion without discomfort. There are no cervical bruits. There are no cranial or ocular bruits. Heart is without murmur. Cervical, thoracic, and lumbar spine are nontender to palpation. Gait is not tested but stance sitting up in bed is normal. With outstretched arms there is no drift, although she has shoulder weakness on the right. There are no resting, postural, or action tremors. There is no ataxia with [id number] testing. There is good facility in the hands. There are no abnormal involuntary movements noted. Motor strength is 5/5 diffusely in the arms bilaterally including biceps, brachioradialis, wrist flexors and extensors, education intern, and intrinsic hand muscles. The right deltoid is weak because of shoulder pain. Motor strength is 5/5 diffusely in the legs bilaterally including hip flexors, quadriceps, hamstring, gastrocnemius, tibialis anterior, tibialis posterior, and peroneii muscles bilaterally. Toe extensors are normal and there is good bulk in the extensor digitorum brevis muscle bilaterally. The limbs have good tone without rigidity or spasticity, and there is no atrophy noted. Muscle bulk is normal, there is no tenderness, no myotonia noted to percussion, and no fasciculations seen. Sensory examination is intact to pin and touch throughout all four limbs. Reflexes are 2/4 in the biceps, triceps, brachioradialis, quadriceps, and Achilles tendons bilaterally. Toes are downgoing with plantar stimulation bilaterally. Peripheral pulses are present and of normal quality distally in all four limbs. There is no peripheral edema noted. Laboratory Results Past 24 Hours: 03/20/17 22:24 Red Blood Count 4.58, Mean Corpuscular Volume 89.1, Mean Corpuscular Hemoglobin 30.6, Mean Corpuscular Hemoglobin Concent 34.3, Mean Platelet Volume 9.3, Neutrophils (%) (Auto) 63.1, Lymphocytes (%) (Auto) 26.9, Monocytes (%) (Auto) 7.3, Eosinophils (%) (Auto) 1.7, Basophils (%) (Auto) 0.6, Neutrophils # (Auto) 4.42, Lymphocytes # (Auto) 1.88, Monocytes # (Auto) 0.51, Eosinophils # (Auto) 0.12, Basophils # (Auto) 0.04 03/20/17 22:24 Test 03/20/17 22:24 03/20/17 23:55 03/21/17 06:47 White Blood Count 7.00 K/uL (4.8-10.8) Red Blood Count 4.58 M/uL (4.2-5.4) Hemoglobin 14.0 g/dL (12.0-16.0) Hematocrit 40.8 % (37-47) Mean Corpuscular Volume 89.1 fL (80-100) Mean Corpuscular Hemoglobin 30.6 pg (25-34) Mean Corpuscular Hemoglobin Concent 34.3 g/dl (32-36) Platelet Count 202 K/uL (130-400) Mean Platelet Volume 9.3 fL (7.4-10.4) Neutrophils (%) (Auto) 63.1 % Lymphocytes (%) (Auto) 26.9 % Monocytes (%) (Auto) 7.3 % Eosinophils (%) (Auto) 1.7 % Basophils (%) (Auto) 0.6 % Neutrophils # (Auto) 4.42 K/uL (1.4-6.5) Lymphocytes # (Auto) 1.88 K/uL (1.2-3.4) Monocytes # (Auto) 0.51 K/uL (0.11-0.59) Eosinophils # (Auto) 0.12 K/uL (0-0.5) Basophils # (Auto) 0.04 K/uL (0-0.2) RDW Standard Deviation 42.8 fL (36.4-46.3) RDW Coefficient of Variation 13.2 % (11.5-14.5) Immature Granulocyte % (Auto) 0.4 % Immature Granulocyte # (Auto) 0.03 K/uL (0.00-0.02) Prothrombin Time 11.1 SECONDS (9.0-12.0) Prothromb Time International Ratio 1.1 (0.9-1.1) Activated Partial Thromboplast Time 25.2 SECONDS (21.0-31.0) Partial Thromboplastin Ratio 1.0 Anion Gap 6.0 mmol/L (3-11) Estimated GFR () 76.6 Estimated GFR (Non- 66.1 BUN/Creatinine Ratio 15.0 (10-20) Calcium Level 9.1 mg/dl (8.5-10.1) Magnesium Level 2.2 mg/dl (1.8-2.4) Total Bilirubin 0.4 mg/dl (0.2-1) Direct Bilirubin 0.1 mg/dl (0-0.2) Aspartate Amino Transf (AST/SGOT) 15 U/L (15-37) Alanine Aminotransferase (ALT/SGPT) 18 U/L (12-78) Alkaline Phosphatase 85 U/L (45-117) Total Protein 7.6 gm/dl (6.4-8.2) Albumin 3.9 gm/dl (3.4-5.0) Lipase 76 U/L (73-393) Thyroid Stimulating Hormone (TSH) 4.220 uIu/ml (0.300-4.500) Urine Color DK YELLOW Urine Appearance CLEAR (CLEAR) Urine pH 5.0 (4.5-7.5) Urine Specific [place] 1.027 (1.000-1.030) Urine Protein NEG (NEG) Urine Glucose (UA) NEG (NEG) Urine Ketones NEG (NEG) Urine Occult Blood TRACE (NEG) Urine Nitrite NEG (NEG) Urine Bilirubin NEG (NEG) Urine Urobilinogen NEG (NEG) Urine Leukocyte Esterase NEG (NEG) Urine WBC (Auto) 1-5 /hpf (0-5) Urine RBC (Auto) 5-10 /hpf (0-4) Urine Hyaline Casts (Auto) 5-10 /lpf (0-5) Urine Epithelial Cells (Auto) 20-30 /lpf (0-5) Urine Bacteria (Auto) NEG (NEG) Estimated Average Glucose 114 mg/dl Hemoglobin A1c 5.6 % (4.5-5.6) Troponin I < 0.015 ng/ml (0-0.045) Triglycerides Level 71 mg/dl (0-150) Cholesterol Level 172 mg/dl (0-200) HDL Cholesterol 79 mg/dl LDL Cholesterol, Calculated 79 mg/dl VLDL Cholesterol, Calculated 14 mg/dl Cholesterol/HDL Ratio 2.2 Impression 1. Recent episode March 20 of near syncope as well as weakness, and episodes in the past of syncope I believe these episodes are most likely associated with orthostasis or hypotension in the central nervous system. She had significant orthostatic hypotension in the emergency room. This is on top of a background of chronic hypertension. She was hypertensive when she came into the emergency room. There is no evidence to suggest a stroke or TIA this admission. In addition there is no evidence to suggest a seizure either. 2. Chronic hypertension not adequately controlled. 3. Chronic cerebral ischemia This is extensive and associated with significant atrophy. This Is creating hydrocephalus ex vacuo. I do not believe this patient has normal pressure hydrocephalus. This ski me is due to her hypertension and she is being treated with aspirin and Plavix. 4. Bilateral carotid stenosis, right internal carotid artery at 70% and left internal carotid artery and 50%, by MR angiography 6 months ago. She also has a mid basilar stenosis. 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 Suspect mild vascular dementia. Plan 1. MRI of the brain and compared to the previous study 2. CT angiography of the head and neck , compared to the angiography 3. Focus on hydration to prevent orthostasis 4. At the same time adequately treat hypertension without over correction. This will be difficult in this patient. 5. Physical therapy 6. Continue with aspirin and Plavix for now. Additional recommendation will be made after the above tests I spoke with Dr. Calvillo regarding this case including differential diagnosis and treatment options. I spent a total of 90 minutes with the patient including record and failed review, discussion of the case with the patient and her family members at bedside and discussion with Dr. Calvillo.
--- NOTE | 2017-03-21 14:13 | Progress Note ---
Subjective Date of Service: Mar 21, 2017. Subjective pt states she feels back to her baseline, family was concerned due to the patient having syncope and some persistent symptoms. Neurology does not feel this is cardiogenic or seizures. There has been some concerns about cerebral artery insufficiency with carotid and basilar artery disease. Neurology is recommending re evaluation of cerebral circulation. Problem List Medical Problems: (1) Altered mental status Status: Acute (2) Altered mental status Status: Acute (3) Dizziness Status: Acute (4) TIA (transient ischemic attack) Status: Acute Review of Systems Constitutional: + weakness, No fever, No chills, No fatigue Respiratory: No cough, No shortness of breath Cardiac: No chest pain, No edema Abdomen: No pain, No nausea, No vomiting Musculoskeletal: No joint pain, No muscle pain Neurologic: + memory loss, No weakness, No numbness/tingling Psychiatric: No depression symptoms, No anxiety Objective Vital Signs Date Time Temp Pulse Resp B/P (MAP) Pulse Ox O2 Delivery O2 Flow Rate FiO2 03/21/17 12:27 36.9 62 16 95/64 (74) 96 Room Air 03/21/17 12:00 Room Air 03/21/17 08:00 Room Air 03/21/17 07:19 37.0 66 16 114/78 (90) 96 03/21/17 04:00 Room Air 03/21/17 02:45 36.9 81 18 154/87 94 Room Air 03/21/17 02:17 70 20 156/74 95 Room Air 03/21/17 01:02 83 20 137/68 92 Room Air 03/20/17 23:39 53 16 138/76 100 Room Air 03/20/17 22:37 77 20 131/85 97 Room Air 03/20/17 22:24 67 20 165/123 97 Room Air 71 151/122 77 131/85 03/20/17 22:21 66 03/20/17 22:15 97 Room Air 03/20/17 21:58 36.4 86 18 153/105 94 Room Air Physical Exam General Appearance: WD/WN, + mild distress Eyes: normal inspection, sclerae normal Respiratory/Chest: chest non-tender, lungs clear, normal breath sounds Cardiovascular: regular rate, rhythm, no murmur Abdomen: normal bowel sounds, non tender, soft Extremities: no pedal edema, no calf tenderness Neurologic/Psychiatric: alert, oriented x 3 Laboratory Results Last 24 Hours Test 03/20/17 22:24 03/20/17 23:55 03/21/17 06:47 White Blood Count 7.00 K/uL Red Blood Count 4.58 M/uL Hemoglobin 14.0 g/dL Hematocrit 40.8 % Mean Corpuscular Volume 89.1 fL Mean Corpuscular Hemoglobin 30.6 pg Mean Corpuscular Hemoglobin Concent 34.3 g/dl Platelet Count 202 K/uL Mean Platelet Volume 9.3 fL Neutrophils (%) (Auto) 63.1 % Lymphocytes (%) (Auto) 26.9 % Monocytes (%) (Auto) 7.3 % Eosinophils (%) (Auto) 1.7 % Basophils (%) (Auto) 0.6 % Neutrophils # (Auto) 4.42 K/uL Lymphocytes # (Auto) 1.88 K/uL Monocytes # (Auto) 0.51 K/uL Eosinophils # (Auto) 0.12 K/uL Basophils # (Auto) 0.04 K/uL RDW Standard Deviation 42.8 fL RDW Coefficient of Variation 13.2 % Immature Granulocyte % (Auto) 0.4 % Immature Granulocyte # (Auto) 0.03 K/uL Prothrombin Time 11.1 SECONDS Prothromb Time International Ratio 1.1 Activated Partial Thromboplast Time 25.2 SECONDS Partial Thromboplastin Ratio 1.0 Sodium Level 141 mmol/L Potassium Level 3.7 mmol/L Chloride Level 105 mmol/L Carbon Dioxide Level 30 mmol/L Anion Gap 6.0 mmol/L Blood Urea Nitrogen 13 mg/dl Creatinine 0.88 mg/dl Estimated GFR () 76.6 Estimated GFR (Non- 66.1 BUN/Creatinine Ratio 15.0 Random Glucose 127 mg/dl Calcium Level 9.1 mg/dl Magnesium Level 2.2 mg/dl Total Bilirubin 0.4 mg/dl Direct Bilirubin 0.1 mg/dl Aspartate Amino Transf (AST/SGOT) 15 U/L Alanine Aminotransferase (ALT/SGPT) 18 U/L Alkaline Phosphatase 85 U/L Troponin I < 0.015 ng/ml < 0.015 ng/ml Total Protein 7.6 gm/dl Albumin 3.9 gm/dl Lipase 76 U/L Thyroid Stimulating Hormone (TSH) 4.220 uIu/ml Urine Color DK YELLOW Urine Appearance CLEAR Urine pH 5.0 Urine Specific [place] 1.027 Urine Protein NEG Urine Glucose (UA) NEG Urine Ketones NEG Urine Occult Blood TRACE Urine Nitrite NEG Urine Bilirubin NEG Urine Urobilinogen NEG Urine Leukocyte Esterase NEG Urine WBC (Auto) 1-5 /hpf Urine RBC (Auto) 5-10 /hpf Urine Hyaline Casts (Auto) 5-10 /lpf Urine Epithelial Cells (Auto) 20-30 /lpf Urine Bacteria (Auto) NEG Estimated Average Glucose 114 mg/dl Hemoglobin A1c 5.6 % Triglycerides Level 71 mg/dl Cholesterol Level 172 mg/dl HDL Cholesterol 79 mg/dl LDL Cholesterol, Calculated 79 mg/dl VLDL Cholesterol, Calculated 14 mg/dl Cholesterol/HDL Ratio 2.2 Assessment and Plan This is a a 71 y/o F with recurring episode of dizziness/weakness/syncope now with concern for vertebrobasilar artery insufficiency Dizziness - hypoperfusion Neuro Consult recommends re imaging with CTA and MRI continue asa 162 mg, Simvastatin, Plavix 75 mg, did not tolerate Aggrenox in the past Orthostatic b/p- supposedly chronic, makes targeted bp control difficult Pt/Ot, Negative head CT this admission. previosu MRA of the neck showed high-grade approximately 70% narrowing in the right internal carotid artery and 50% narrowing in left internal carotid artery. previous Echo systolic function is normal, no valve issues no foramen HTN , very labile, will continue Lisinopril may need some permissive hypertension to avoid orthostasis hypoperfusion S/A node Dysfunction s/p Pacer, pacer interrogation no significant issues with pacemaker or recorded arrhythmia DVT proph Lovenox 40 mg qam Full code
--- NOTE | 2017-03-21 15:25 | DIAGNOSTIC IMAGING REPORT ---
NECK ANGIO WITH CONTRAST CLINICAL HISTORY: 72 years-old Female presenting with dizziness, concern for basilar artery insufficiency. TECHNIQUE: Multidetector CT angiography of the neck was performed after the administration of intravenous contrast. 3-D volumetric and/or maximum intensity projection (MIP) images were subsequently reconstructed for review. IV contrast: 120 mL of Optiray 320. A dose lowering technique was used consistent with the principles of ALARA (as low as reasonably achievable). Stenosis measurements were based on NASCET-like criteria. COMPARISON: CTA neck from 06/27/2013, carotid Doppler ultrasound from 09/30/2016, and MRA neck from 10/01/2016. CT DOSE (mGy.cm): The estimated cumulative dose is 490.19 mGy.cm. FINDINGS: Heating Unit Mechanic topogram: Left subclavian pacer with leads to the right atrium and right ventricular apex. Three-vessel aortic arch with atherosclerosis. Major branch vessels remain patent. Atherosclerosis of the bilateral common carotid arteries, which takes a retropharyngeal course. Calcified and noncalcified plaque narrows the lumens of the common carotid arteries less than 25%. More significant atherosclerotic plaque is evident at the bilateral carotid bulbs, right greater than left. 1.7 mm minimum diameter at the proximal right internal carotid artery in comparison to normal distal diameter of 3.9 mm (over 50% stenosis). The remainder of the course of the right internal carotid artery is tortuous with atherosclerotic plaque without a second site of significant narrowing. The proximal left ICA demonstrates less than 50% stenosis of the lumen. The remainder the course of the left ICA is tortuous though patent. Calcified atherosclerotic plaque of the bilateral cavernous segments of the internal carotid arteries, which does not significantly narrow the lumina. Evaluation of the origin of the left vertebral artery is limited given adjacent collateral venous opacification. Right vertebral artery origin widely patent. Dominant right vertebral artery. Bilateral posterior inferior cerebellar arteries patent. Basilar artery patent. Anterior inferior cerebellar arteries poorly visualized. Right superior cerebellar artery and bilateral posterior cerebral arteries patent. Left superior cerebellar artery either hypoplastic or with a variant proximal origin (series 2 image 294). Evaluation of posterior commuting artery is limited due to early venous opacification. Limited intracranial evaluation within normal limits. Lung apices clear. Soft tissues of the neck grossly normal. IMPRESSION: 1. No significant evidence to suggest basilar insufficiency. Vertebrobasilar system widely patent. 2. Extensive atherosclerotic disease with over 50% stenosis of the proximal right internal carotid artery at the carotid bulb origin. Less significant sites of stenosis as above. This has not significantly changed from prior exams. Electronically signed by: Brian Hoyt M.D. 03/21/2017 3:24 PM Dictated Date/Time: 03/21/2017 3:16 PM
[2017-03-21 15:38] VITALS: BP 119/82; PULSE 68; TEMP 36.7; O2SAT 96
[2017-03-21 19:12] VITALS: BP_SYST 114; BP_SYST 116; BP_SYST 93; BP_DIAS 62; BP_DIAS 66; BP_DIAS 72; PULSE 68; TEMP 36.7; O2SAT 97
[2017-03-22 00:06] VITALS: BP 145/84; PULSE 60; TEMP 37.1; O2SAT 93
[2017-03-22 04:00] VITALS: BP_SYST 123; BP_SYST 127; BP_SYST 142; BP_DIAS 82; BP_DIAS 83; BP_DIAS 88; PULSE 62; PULSE 72; PULSE 73; TEMP 36.8; O2SAT 97
[2017-03-22] MEDS: SIMVASTATIN 20 MG TAB PO SCH ×2 (04:01→20:17)
[2017-03-22 06:47] LABS: BASO % 0.4 %; BASO ABS # 0.02 K/uL (0-0.2); EOS % 4.1 %; EOS ABS # 0.22 K/uL (0-0.5); HEMATOCRIT 38.5 % (37-47); HEMOGLOBIN 13.1 g/dL (12.0-16.0); IG# 0.01 K/uL (0.00-0.02); LYMPH % 39.9 %; LYMPH ABS # 2.14 K/uL (1.2-3.4); MEAN CELL VOLUME 88.9 fL (80-100); MEAN CORPUSCULAR HEMOGLOBIN 30.3 pg (25-34); MEAN PLATELET VOLUME 9.1 fL (7.4-10.4); MONO % 9.7 %; MONO ABS # 0.52 K/uL (0.11-0.59); NEUT % 45.7 %; NEUT ABS # 2.45 K/uL (1.4-6.5); PLATELET COUNT 183 K/uL (130-400); RED CELL DISTRIBUTION WIDTH CV 13.2 % (11.5-14.5); WHITE BLOOD COUNT 5.36 K/uL (4.8-10.8)
[2017-03-22 07:18] LABS: CALCIUM 8.7 mg/dl (8.5-10.1); CREATININE 0.81 mg/dl (0.60-1.20); POTASSIUM 3.5 mmol/L (3.5-5.1)
[2017-03-22 08:00] VITALS: BP 126/79; PULSE 60; TEMP 36.5; O2SAT 94
[2017-03-22] MEDS: CLOPIDOGREL BISULFATE 75 MG TAB PO SCH (08:34)
[2017-03-22] MEDS: ASPIRIN 81 MG ECTAB PO SCH (08:34)
[2017-03-22] MEDS: POTASSIUM CHLORIDE 20 MEQ TABCR PO SCH (08:34)
[2017-03-22] MEDS: ENOXAPARIN 40 MG/0.4 ML SYR SQ SCH (08:34)
[2017-03-22] MEDS: LISINOPRIL 5 MG TAB PO SCH (08:34)
[2017-03-22 11:05] VITALS: BP_SYST 108; BP_SYST 117; BP_SYST 118; BP_DIAS 73; BP_DIAS 76; BP_DIAS 78; PULSE 68; PULSE 72; PULSE 76; TEMP 36.7; O2SAT 98
--- NOTE | 2017-03-22 12:30 | EEG Procedure Note ---
EEG Procedure Note Date of Service Mar 22, 2017. Start / End Times Start Time: 9:45 AM End Time: 10:05 AM Referring Physician Pricila Keenan MD History This is a 72-year-old female who presents with syncope. EEG for further evaluation of possible seizure etiology. Home Medication List Scheduled Aspirin (Aspirin Ec), 2 TAB PO DAILY Clopidogrel (Plavix), 75 MG PO QAM Lisinopril (Lisinopril), 5 MG PO DAILY Potassium Ext Rel (Klor-Con), 20 MEQ PO DAILY Simvastatin (Zocor), 20 MG PO QPM Scheduled PRN Docusate Sodium (Docusate Sodium), 100 MG PO BID PRN for Constipation Magnesium Hydroxide (Milk of Magnesia 400 mg/5Ml), 30 ML PO DAILY PRN for Constipation Polyethylene (Miralax), 17 GM PO DAILY PRN for Constipation Sennosides-Docusate Sodium (Senna S), 1 TAB PO DAILY PRN for Constipation Inpatient Medication List Current Inpatient Medications Medications (Trade) Dose Ordered Sig/Alysia Route Start Time Stop Time Status Last Admin Dose Admin Miscellaneous Information (Pharmacist Discharge Med Rec Consult) 1 ea UD PRN N/A 03/21/17 02:15 04/20/17 02:14 Aspirin (Ecotrin Tab) 162 mg DAILY PO 03/21/17 09:00 04/20/17 08:59 03/22/17 08:34 162 MG Clopidogrel Bisulfate (plAVix TAB) 75 mg QAM PO 03/21/17 09:00 04/20/17 08:59 03/22/17 08:34 75 MG Docusate Sodium (coLACE CAP) 100 mg BID PRN PO 03/21/17 02:15 04/20/17 02:14 Lisinopril (Zestril Tab) 5 mg DAILY PO 03/21/17 09:00 04/20/17 08:59 03/22/17 08:34 5 MG Magnesium Hydroxide (Milk Of Magnesia Susp) 30 ml DAILY PRN PO 03/21/17 02:15 04/20/17 02:14 Polyethylene (Miralax Powder Packet) 17 gm DAILY PRN PO 03/21/17 02:15 04/20/17 02:14 Potassium Chloride (Klor-Con Tab) 20 meq DAILY PO 03/21/17 09:00 04/20/17 08:59 03/22/17 08:34 20 MEQ Senna/Docusate Sodium (Senokot S Tab) 1 tab DAILY PRN PO 03/21/17 02:15 04/20/17 02:14 Simvastatin (Zocor Tab) 20 mg QPM PO 03/21/17 21:00 04/20/17 20:59 03/22/17 04:01 20 MG Miscellaneous (Iv Fluids Completed) 1 ea PRN PRN N/A 03/21/17 02:30 03/21/18 02:29 Enoxaparin Sodium (Lovenox Inj) 40 mg QAM SQ 03/21/17 09:00 04/20/17 08:59 03/22/17 08:34 40 MG Description This is a 21 electrode EEG with a single channel dedicated to limited EKG. The electrodes were placed in accordance with the International 10-20 system. At the start of the recording the patient was in an awake state. Background was well organized and composed of symmetric mixed alpha and beta frequencies. There was a symmetric well-formed moderate amplitude 8-9 Hz posterior dominant rhythm that was reactive to eye opening and closure. Hyperventilation was not done. Intermittent photic stimulation at various frequencies produced no abnormalities. There was no state changes or sleep transients. Interpretation This is a normal awake only routine EEG. There was no electrographic seizures or epileptiform discharges. Clinical Correlation A normal EEG does not rule out epilepsy if there is a strong clinical suspicion.
--- NOTE | 2017-03-22 14:37 | DIAGNOSTIC IMAGING REPORT ---
MRI OF THE BRAIN WITHOUT IV CONTRAST CLINICAL HISTORY: Dizziness. COMPARISON STUDY: CT of the brain dated 03/20/2017. TECHNIQUE: MRI of the brain was performed utilizing various T1 and T2-weighted sequences in the axial, sagittal, and coronal planes. IV contrast was not administered for this examination. The Examination is degraded by motion artifact. 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 There is no hemorrhage or mass effect. There is no restricted diffusion to suggest acute ischemia. Montes-white matter differentiation is preserved. No extra-axial fluid collection is seen. The cerebellar tonsils are normal in configuration. Ventricles, sulci, and cisterns: Prominent secondary to involutional change. Pituitary and sella: Unremarkable. Intracranial vasculature: Normal flow voids are maintained at the skull base. Orbits: The bony orbits are grossly intact. Orbital contents are normal in appearance. Sinuses and mastoids: Clear. Calvarium: Unremarkable. Cervical cord: Partially visualized cervical spinal cord is normal in morphology and signal intensity. IMPRESSION: Senescent changes as above with no acute intracranial abnormality. Electronically signed by: Francisco Thacker M.D. 03/22/2017 2:36 PM Dictated Date/Time: 03/22/2017 2:33 PM
[2017-03-22 15:24] VITALS: BP 127/84; PULSE 83; TEMP 36.6; O2SAT 96
--- NOTE | 2017-03-22 16:03 | Hospitalist Progress Note ---
Hospitalist Progress Note Date of Service Mar 22, 2017. (Chela Haines ., LESLIE-C) Subjective Pt evaluation today including: conversation w/ patient, conversation w/ family (at bedside), physical exam, chart review, lab review, review of inpatient medication list Pain: None PO Intake: Tolerating PO diet Voiding: no voiding problems The patient reports feeling well. She has not has had any dizziness or lightheadedness yet today but has not been up much. She does admit that she felt very unsteady while walking with PT yesterday. The patient denies fevers, chills, sweats, chest pain, palpitations, claudication, cough, wheezing, shortness of breath, nausea, vomiting, abdominal pain, dysuria, hematuria, urinary retention, paralysis, weakness, numbness and tingling. Additional Comments: See HPI for pertinent positives and negatives. All other systems reviewed and negative. (Chela Haines ., PA-C) Objective Vital Signs Date Time Temp Pulse Resp B/P (MAP) Pulse Ox O2 Delivery O2 Flow Rate FiO2 03/22/17 15:24 36.6 83 20 127/84 (98) 96 Room Air 03/22/17 11:05 36.7 76 20 117/78 (91) 98 Room Air 68 108/73 (85) 72 118/76 (90) 03/22/17 08:00 36.5 60 18 126/79 (95) 94 Room Air 03/22/17 08:00 Room Air 03/22/17 04:00 Room Air 03/22/17 04:00 36.8 62 18 142/83 (102) 97 Room Air 72 123/82 (96) 73 127/88 (101) 03/22/17 00:06 37.1 60 19 145/84 (104) 93 Room Air 03/22/17 00:00 Room Air 03/21/17 20:00 Room Air 03/21/17 19:12 36.7 68 18 116/66 (83) 97 Room Air 114/72 (86) 93/62 (72) 03/21/17 16:00 Room Air (Chela Haines ., LESLIE-C) Physical Exam Notes: General appearance: Well-developed, well-nourished, no apparent distress Head: Normocephalic, atraumatic Eyes: Normal inspection, PERRL, EOMI ENT: Normal ENT inspection, hearing grossly normal, pharynx normal Neck: Supple, no JVD, trachea midline Respiratory/Chest: Lungs clear to auscultation, normal breath sounds, no respiratory distress Cardiovascular: Regular rate & rhythm, no gallop, no murmur Abdomen/GI: Normal bowel sounds, non-tender, soft Extremities/Musculoskeletal: Normal inspection, no calf tenderness, no pedal edema Neurological/Psych: Alert, normal mood/affect, oriented x 3 Skin: Normal color, warm/dry, no rash (Chela Haines ., DANNYC) Laboratory Results Last 24 Hours Test 03/21/17 15:48 03/22/17 06:20 Troponin I < 0.015 ng/ml White Blood Count 5.36 K/uL Red Blood Count 4.33 M/uL Hemoglobin 13.1 g/dL Hematocrit 38.5 % Mean Corpuscular Volume 88.9 fL Mean Corpuscular Hemoglobin 30.3 pg Mean Corpuscular Hemoglobin Concent 34.0 g/dl Platelet Count 183 K/uL Mean Platelet Volume 9.1 fL Neutrophils (%) (Auto) 45.7 % Lymphocytes (%) (Auto) 39.9 % Monocytes (%) (Auto) 9.7 % Eosinophils (%) (Auto) 4.1 % Basophils (%) (Auto) 0.4 % Neutrophils # (Auto) 2.45 K/uL Lymphocytes # (Auto) 2.14 K/uL Monocytes # (Auto) 0.52 K/uL Eosinophils # (Auto) 0.22 K/uL Basophils # (Auto) 0.02 K/uL RDW Standard Deviation 43.0 fL RDW Coefficient of Variation 13.2 % Immature Granulocyte % (Auto) 0.2 % Immature Granulocyte # (Auto) 0.01 K/uL Sodium Level 139 mmol/L Potassium Level 3.5 mmol/L Chloride Level 108 mmol/L Carbon Dioxide Level 26 mmol/L Anion Gap 5.0 mmol/L Blood Urea Nitrogen 15 mg/dl Creatinine 0.81 mg/dl Est Creatinine Clear Calc Drug Dose 62.3 ml/min Estimated GFR () 84.7 Estimated GFR (Non- 73.1 BUN/Creatinine Ratio 18.4 Random Glucose 90 mg/dl Calcium Level 8.7 mg/dl (Chela Haines PA-C) Assessment and Plan 72 y/o female with a history of CAD, HTN, HLD who presents with near syncope, dizziness and lightheadedness. Dizziness/lightheadedness, near syncope--ongoing. Pt has h/o intermittent syncope and near syncopal episodes -Admitted to telemetry. No acute events overnight. Pt in paced rhythm with HR in 60s. -Neuro consulted, appreciate recs: Reimage head and neck with MRI and CTA. -MRI negative for acute abnormalities -Neck CTA stable from previous study. No evidence of basilar insufficiency. More than 50% stenosis of proximal right ICA. -Head CT negative -EEG negative for seizure activity -Pt w/orthostatic hypotension, most likely cause of dizziness given other negative neuro workup CAD -Continue ASA 162 mg PO qd, Plavix 75 mg PO qd, lisinopril and Zocor HTN--stable for now although has been very labile this admission and w/ orthostasis -Continue lisinopril 5 mg PO qd HLD -Continue Zocor 20 mg PO qd SA node Dysfunction s/p Pacer--stable -Pacer interrogation shows no significant issues with pacemaker or recorded arrhythmia DVT prophylaxis -Enoxaparin 40 mg SC q24h Code Status -Level I, FULL RESUSCITATION STATUS Dispo -PT/OT evaluate and treat. Recommend rehab -Case management following (Chela Haines ., PA-C) LESLIE Physician Supervision Note: I interviewed and examined the patient. Discussed with Chela Haines PAC and agree with findings and plan as documented in the note. Any exceptions or clarifications are listed here: None Patient remains in her usual state since time of admission however she performed poorly with physical therapy evaluation and recommendations for rehabilitation is being made repeat imaging of her brain does not show any progression of stenosis of her carotid system and no comment on stenosis of her basilic artery system. Neurology still feels this is likely a perfusion related problem due to changes in blood pressure. Her blood pressure remains in the 110 120/80-90 range she is alone longer orthostatic. Her neurology exam shows her to have slight memory impairment otherwise is nonfocal her cardiac exam is regular her lungs are clear Syncopal event of undetermined origin but now with need for rehabilitation. The best. From neurology is this is a orthostatic blood pressure issue related to hypoperfusion she's had no evidence of seizure no progression of MRI changes no progression of angiography changes therefore we would recommend continued control for blood pressure good hydration and once regressed to rehabilitation to return home if stable Documented By: Bismark Calvillo (Bismark Calvillo M.D.)
[2017-03-22 19:50] VITALS: BP_SYST 108; BP_SYST 139; BP_SYST 147; BP_DIAS 73; BP_DIAS 84; BP_DIAS 85; PULSE 62; PULSE 75; PULSE 80; TEMP 36.7; O2SAT 98
[2017-03-23] VITALS (9 sets, daily range): BP systolic 112–155; BP diastolic 68–87; PULSE 63–89; TEMP 36.4–36.8; O2SAT 94–100
[2017-03-23 07:03] LABS: BASO % 0.9 %; BASO ABS # 0.05 K/uL (0-0.2); EOS % 4.7 %; EOS ABS # 0.26 K/uL (0-0.5); HEMATOCRIT 36.6 % (37-47); HEMOGLOBIN 12.3 g/dL (12.0-16.0); IG# 0.01 K/uL (0.00-0.02); LYMPH % 43.7 %; MEAN CELL VOLUME 89.1 fL (80-100); MEAN CORPUSCULAR HEMOGLOBIN 29.9 pg (25-34); MEAN CORPUSCULAR HGB CONC 33.6 g/dl (32-36); MONO % 8.6 %; MONO ABS # 0.47 K/uL (0.11-0.59); NEUT % 41.9 %; PLATELET COUNT 174 K/uL (130-400); RED CELL DISTRIBUTION WIDTH CV 13.1 % (11.5-14.5); RED CELL DISTRIBUTION WIDTH SD 42.2 fL (36.4-46.3); WHITE BLOOD COUNT 5.49 K/uL (4.8-10.8)
[2017-03-23 07:38] LABS: CALCIUM 8.8 mg/dl (8.5-10.1); CREATININE 0.79 mg/dl (0.60-1.20); POTASSIUM 3.6 mmol/L (3.5-5.1)
[2017-03-23] MEDS: LISINOPRIL 5 MG TAB PO SCH (08:47)
[2017-03-23] MEDS: POTASSIUM CHLORIDE 20 MEQ TABCR PO SCH (08:47)
[2017-03-23] MEDS: ENOXAPARIN 40 MG/0.4 ML SYR SQ SCH (08:47)
[2017-03-23] MEDS: CLOPIDOGREL BISULFATE 75 MG TAB PO SCH (08:47)
[2017-03-23] MEDS: ASPIRIN 81 MG ECTAB PO SCH (08:47)
--- NOTE | 2017-03-23 14:24 | Hospitalist Progress Note ---
Hospitalist Progress Note Date of Service Mar 23, 2017. (Chela Haines .[place]) Subjective Pt evaluation today including: conversation w/ patient, physical exam, chart review, lab review, review of inpatient medication list Pain: None PO Intake: Tolerating PO diet Voiding: incontinence The patient reports feeling well. She denies any dizziness or lightheadedness today. She does complain of urinary incontinence today but is otherwise feeling well and denies other complaints. The patient denies fevers, chills, sweats, chest pain, palpitations, claudication, cough, wheezing, shortness of breath, nausea, vomiting, abdominal pain, dysuria, hematuria, urinary retention, paralysis, weakness, numbness and tingling. Additional Comments: See HPI for pertinent positives and negatives. All other systems reviewed and negative. (Chela Haines PA-C) Objective Vital Signs Date Time Temp Pulse Resp B/P (MAP) Pulse Ox O2 Delivery O2 Flow Rate FiO2 03/23/17 12:00 Room Air 03/23/17 11:39 36.4 69 16 130/83 (99) 100 Room Air 03/23/17 08:00 Room Air 03/23/17 07:57 36.8 63 20 139/85 (103) 94 Room Air 73 140/87 (104) 82 124/85 (98) 03/23/17 04:00 Room Air 03/23/17 03:15 36.7 68 18 153/84 (107) 95 Room Air 74 155/83 (107) 83 122/79 (93) 03/23/17 00:41 36.8 68 18 128/79 (95) 96 Room Air 03/23/17 00:01 Room Air 03/22/17 19:50 36.7 62 22 108/73 (85) 98 Room Air 75 147/85 (105) 80 139/84 (102) 03/22/17 15:24 36.6 83 20 127/84 (98) 96 Room Air (Chela Haines PA-C) Physical Exam Notes: General appearance: Well-developed, well-nourished, no apparent distress Head: Normocephalic, atraumatic Eyes: Normal inspection, PERRL, EOMI ENT: Normal ENT inspection, hearing grossly normal, pharynx normal Neck: Supple, no JVD, trachea midline Respiratory/Chest: Lungs clear to auscultation, normal breath sounds, no respiratory distress Cardiovascular: Regular rate & rhythm, no gallop, no murmur Abdomen/GI: Normal bowel sounds, non-tender, soft Extremities/Musculoskeletal: Normal inspection, no calf tenderness, no pedal edema Neurological/Psych: Alert, normal mood/affect, oriented x 3 Skin: Normal color, warm/dry, no rash (Chela Haines .LESLIE-C) Laboratory Results Last 24 Hours Test 03/23/17 06:47 White Blood Count 5.49 K/uL Red Blood Count 4.11 M/uL Hemoglobin 12.3 g/dL Hematocrit 36.6 % Mean Corpuscular Volume 89.1 fL Mean Corpuscular Hemoglobin 29.9 pg Mean Corpuscular Hemoglobin Concent 33.6 g/dl Platelet Count 174 K/uL Mean Platelet Volume 9.0 fL Neutrophils (%) (Auto) 41.9 % Lymphocytes (%) (Auto) 43.7 % Monocytes (%) (Auto) 8.6 % Eosinophils (%) (Auto) 4.7 % Basophils (%) (Auto) 0.9 % Neutrophils # (Auto) 2.30 K/uL Lymphocytes # (Auto) 2.40 K/uL Monocytes # (Auto) 0.47 K/uL Eosinophils # (Auto) 0.26 K/uL Basophils # (Auto) 0.05 K/uL RDW Standard Deviation 42.2 fL RDW Coefficient of Variation 13.1 % Immature Granulocyte % (Auto) 0.2 % Immature Granulocyte # (Auto) 0.01 K/uL Sodium Level 141 mmol/L Potassium Level 3.6 mmol/L Chloride Level 108 mmol/L Carbon Dioxide Level 27 mmol/L Anion Gap 6.0 mmol/L Blood Urea Nitrogen 15 mg/dl Creatinine 0.79 mg/dl Est Creatinine Clear Calc Drug Dose 64.0 ml/min Estimated GFR () 87.3 Estimated GFR (Non- 75.3 BUN/Creatinine Ratio 19.0 Random Glucose 84 mg/dl Calcium Level 8.8 mg/dl (Chela Haines ., PA-C) Assessment and Plan 72 y/o female with a history of CAD, HTN, HLD who presents with near syncope, dizziness and lightheadedness. Dizziness/lightheadedness, near syncope--ongoing. Pt has h/o intermittent syncope and near syncopal episodes -Admitted to telemetry. No acute events overnight. Pt in paced rhythm with HR in 60s. -Neuro consulted, appreciate recs: Reimage head and neck with MRI and CTA. -MRI negative for acute abnormalities -Neck CTA stable from previous study. No evidence of basilar insufficiency. More than 50% stenosis of proximal right ICA. -Head CT negative -EEG negative for seizure activity -Pt w/orthostatic hypotension, most likely cause of dizziness given other negative neuro workup CAD -Continue ASA 162 mg PO qd, Plavix 75 mg PO qd, lisinopril and Zocor HTN--stable, currently with orthostatic changes but no hypotension -Continue lisinopril 5 mg PO qd HLD -Continue Zocor 20 mg PO qd SA node Dysfunction s/p Pacer--stable -Pacer interrogation shows no significant issues with pacemaker or recorded arrhythmia DVT prophylaxis -Enoxaparin 40 mg SC q24h Code Status -Level I, FULL RESUSCITATION STATUS Dispo -PT/OT evaluate and treat. Recommend rehab -Case management following. No insurance auth needed, medically stable for discharge. Awaiting [facility] acceptance Continued [facility] stay due to: home environment unsafe for pt (awaiting placement) (Chela Haines ., PA-C) PA Physician Supervision Note: I interviewed and examined the patient. Discussed with Chela Haines PAC and agree with findings and plan as documented in the note. Any exceptions or clarifications are listed here: None Patient feels back to baseline but performed poorly with physical therapyand recommendations for rehabilitation is underway Neurology still feels this is likely a perfusion related problem due to changes in blood pressure, no new issues seen on MRI or CTA BP is 130's over 80's cardiac exam is regular her lungs are clear Syncopal event of undetermined origin but now with need for rehabilitation. neurology feels is this is a blood pressure issue related to hypoperfusion she' s had no evidence of seizure no progression of MRI changes no progression of angiography changes. Recommend continued control for blood pressure good hydration and rehabilitation Documented By: Bismark Calvillo (Bismark Calvillo M.D.) (Bismark Calvillo M.D.)
[2017-03-23] MEDS: SIMVASTATIN 20 MG TAB PO SCH (19:35)
[2017-03-24 00:21] VITALS: BP_SYST 142; BP_SYST 145; BP_SYST 149; BP_DIAS 107; BP_DIAS 86; BP_DIAS 89; PULSE 67; PULSE 76; TEMP 36.9; O2SAT 96
[2017-03-24 03:49] VITALS: BP 130/81; PULSE 65; TEMP 36.7; O2SAT 94
[2017-03-24 06:10] LABS: BASO % 0.8 %; BASO ABS # 0.05 K/uL (0-0.2); EOS % 3.8 %; EOS ABS # 0.24 K/uL (0-0.5); HEMOGLOBIN 12.6 g/dL (12.0-16.0); IG# 0.02 K/uL (0.00-0.02); LYMPH % 39.4 %; LYMPH ABS # 2.52 K/uL (1.2-3.4); MEAN CELL VOLUME 88.7 fL (80-100); MEAN CORPUSCULAR HEMOGLOBIN 30.2 pg (25-34); MEAN CORPUSCULAR HGB CONC 34.1 g/dl (32-36); MEAN PLATELET VOLUME 9.1 fL (7.4-10.4); MONO % 7.8 %; NEUT % 47.9 %; NEUT ABS # 3.06 K/uL (1.4-6.5); PLATELET COUNT 179 K/uL (130-400); RED CELL DISTRIBUTION WIDTH CV 13.1 % (11.5-14.5); RED CELL DISTRIBUTION WIDTH SD 42.4 fL (36.4-46.3); WHITE BLOOD COUNT 6.39 K/uL (4.8-10.8)
[2017-03-24 06:49] LABS: CALCIUM 8.9 mg/dl (8.5-10.1); CREATININE 0.8 mg/dl (0.60-1.20)
[2017-03-24] MEDS: CLOPIDOGREL BISULFATE 75 MG TAB PO SCH (07:20)
[2017-03-24] MEDS: ASPIRIN 81 MG ECTAB PO SCH (07:20)
[2017-03-24] MEDS: POTASSIUM CHLORIDE 20 MEQ TABCR PO SCH (07:21)
[2017-03-24] MEDS: ENOXAPARIN 40 MG/0.4 ML SYR SQ SCH (07:21)
[2017-03-24] MEDS: LISINOPRIL 5 MG TAB PO SCH (07:21)
[2017-03-24 07:59] VITALS: BP 130/83; PULSE 66; TEMP 36.7; O2SAT 93
--- NOTE | 2017-03-24 08:49 | Neurology Progress Notes ---
Neurology Progress Note Date of Service Mar 24, 2017. Subjective Patient feels well, with no further issues. She has no headache, dizziness, vision problems, or weakness. Nursing reports no further spells. MRI of the brain showed no acute changes. There is extensive small vessel ischemic disease and significant atrophy in general. There is likely hydrocephalus ex vacuo and no evidence to suggest normal pressure hydrocephalus. I have reviewed this with Dr. Salas, radiologist. CT angiography showed less than 50 percent stenosis in the left internal carotid artery origin and slightly greater than 50 percent stenosis in the right internal carotid artery. There was no basilar system narrowing. EEG was normal during the wakeful state. Blood pressure is somewhat better since admission and she is not orthostatic today. Objective Date Time Temp Pulse Resp B/P (MAP) Pulse Ox O2 Delivery O2 Flow Rate FiO2 03/24/17 07:59 36.7 66 18 130/83 (99) 93 Room Air 03/24/17 04:00 Room Air 03/24/17 03:49 36.7 65 17 130/81 (97) 94 Room Air 03/24/17 00:21 36.9 67 18 142/89 (106) 96 Room Air 76 149/86 (107) 76 145/107 (120) 03/24/17 00:00 Room Air 03/23/17 20:00 Room Air 03/23/17 18:42 112/76 (88) 03/23/17 18:40 116/83 (94) 03/23/17 18:38 36.4 65 20 137/78 (97) 98 Room Air 03/23/17 16:00 Room Air 03/23/17 15:07 36.4 64 22 113/75 (88) 98 Room Air 03/23/17 12:00 Room Air 03/23/17 11:39 36.4 69 16 130/83 (99) 100 Room Air Last 24 Hours Test 03/24/17 05:48 03/24/17 07:07 White Blood Count 6.39 K/uL Red Blood Count 4.17 M/uL Hemoglobin 12.6 g/dL Hematocrit 37.0 % Mean Corpuscular Volume 88.7 fL Mean Corpuscular Hemoglobin 30.2 pg Mean Corpuscular Hemoglobin Concent 34.1 g/dl Platelet Count 179 K/uL Mean Platelet Volume 9.1 fL Neutrophils (%) (Auto) 47.9 % Lymphocytes (%) (Auto) 39.4 % Monocytes (%) (Auto) 7.8 % Eosinophils (%) (Auto) 3.8 % Basophils (%) (Auto) 0.8 % Neutrophils # (Auto) 3.06 K/uL Lymphocytes # (Auto) 2.52 K/uL Monocytes # (Auto) 0.50 K/uL Eosinophils # (Auto) 0.24 K/uL Basophils # (Auto) 0.05 K/uL RDW Standard Deviation 42.4 fL RDW Coefficient of Variation 13.1 % Immature Granulocyte % (Auto) 0.3 % Immature Granulocyte # (Auto) 0.02 K/uL Sodium Level 139 mmol/L Potassium Level mmol/L 3.7 mmol/L Chloride Level 106 mmol/L Carbon Dioxide Level 27 mmol/L Anion Gap 6.0 mmol/L Blood Urea Nitrogen 18 mg/dl Creatinine 0.80 mg/dl Est Creatinine Clear Calc Drug Dose 63.2 ml/min Estimated GFR () 86.0 Estimated GFR (Non- 74.2 BUN/Creatinine Ratio 22.3 Random Glucose 86 mg/dl Calcium Level 8.9 mg/dl Imaging: MRI OF THE BRAIN WITHOUT IV CONTRAST CLINICAL HISTORY: Dizziness. COMPARISON STUDY: CT of the brain dated 03/20/2017. TECHNIQUE: MRI of the brain was performed utilizing various T1 and T2-weighted sequences in the axial, sagittal, and coronal planes. IV contrast was not administered for this examination. The Examination is degraded by motion artifact. 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 There is no hemorrhage or mass effect. There is no restricted diffusion to suggest acute ischemia. Montes-white matter differentiation is preserved. No extra-axial fluid collection is seen. The cerebellar tonsils are normal in configuration. Ventricles, sulci, and cisterns: Prominent secondary to involutional change. Pituitary and sella: Unremarkable. Intracranial vasculature: Normal flow voids are maintained at the skull base. Orbits: The bony orbits are grossly intact. Orbital contents are normal in appearance. Sinuses and mastoids: Clear. Calvarium: Unremarkable. Cervical cord: Partially visualized cervical spinal cord is normal in morphology and signal intensity. IMPRESSION: Senescent changes as above with no acute intracranial abnormality. Electronically signed by: Francisco Thacker M.D. 03/22/2017 2:36 PM NECK ANGIO WITH CONTRAST CLINICAL HISTORY: 72 years-old Female presenting with dizziness, concern for basilar artery insufficiency. TECHNIQUE: Multidetector CT angiography of the neck was performed after the administration of intravenous contrast. 3-D volumetric and/or maximum intensity projection (MIP) images were subsequently reconstructed for review. IV contrast: 120 mL of Optiray 320. A dose lowering technique was used consistent with the principles of ALARA (as low as reasonably achievable). Stenosis measurements were based on NASCET-like criteria. COMPARISON: CTA neck from 06/27/2013, carotid Doppler ultrasound from 09/30/2016, and MRA neck from 10/01/2016. CT DOSE (mGy.cm): The estimated cumulative dose is 490.19 mGy.cm. FINDINGS: [employer] topogram: Left subclavian pacer with leads to the right atrium and right ventricular apex. Three-vessel aortic arch with atherosclerosis. Major branch vessels remain patent. Atherosclerosis of the bilateral common carotid arteries, which takes a retropharyngeal course. Calcified and noncalcified plaque narrows the lumens of the common carotid arteries less than 25%. More significant atherosclerotic plaque is evident at the bilateral carotid bulbs, right greater than left. 1.7 mm minimum diameter at the proximal right internal carotid artery in comparison to normal distal diameter of 3.9 mm (over 50% stenosis). The remainder of the course of the right internal carotid artery is tortuous with atherosclerotic plaque without a second site of significant narrowing. The proximal left ICA demonstrates less than 50% stenosis of the lumen. The remainder the course of the left ICA is tortuous though patent. Calcified atherosclerotic plaque of the bilateral cavernous segments of the internal carotid arteries, which does not significantly narrow the lumina. Evaluation of the origin of the left vertebral artery is limited given adjacent collateral venous opacification. Right vertebral artery origin widely patent. Dominant right vertebral artery. Bilateral posterior inferior cerebellar arteries patent. Basilar artery patent. Anterior inferior cerebellar arteries poorly visualized. Right superior cerebellar artery and bilateral posterior cerebral arteries patent. Left superior cerebellar artery either hypoplastic or with a variant proximal origin (series 2 image 294). Evaluation of posterior commuting artery is limited due to early venous opacification. Limited intracranial evaluation within normal limits. Lung apices clear. Soft tissues of the neck grossly normal. IMPRESSION: 1. No significant evidence to suggest basilar insufficiency. Vertebrobasilar system widely patent. 2. Extensive atherosclerotic disease with over 50% stenosis of the proximal right internal carotid artery at the carotid bulb origin. Less significant sites of stenosis as above. This has not significantly changed from prior exams. Electronically signed by: Brian Hoyt M.D. 03/21/2017 3:24 PM Exam: She is awake and alert. Speech is without aphasia dysarthric. Mood and affect seem normal appropriate. Thought processes are as per usual. She is moving her limbs well her stance is normal sitting in the chair. There are no abnormal involuntary movements. Extraocular eye muscles are intact without nystagmus. There is no facial droop. Current Inpatient Medications Medications (Trade) Dose Ordered Sig/Alysia Route Start Time Stop Time Status Last Admin Dose Admin Aspirin (Ecotrin Tab) 162 mg DAILY PO 03/21/17 09:00 04/20/17 08:59 03/24/17 07:20 162 MG Clopidogrel Bisulfate (plAVix TAB) 75 mg QAM PO 03/21/17 09:00 04/20/17 08:59 03/24/17 07:20 75 MG Docusate Sodium (coLACE CAP) 100 mg BID PRN PO 03/21/17 02:15 04/20/17 02:14 Lisinopril (Zestril Tab) 5 mg DAILY PO 03/21/17 09:00 04/20/17 08:59 03/24/17 07:21 5 MG Magnesium Hydroxide (Milk Of Magnesia Susp) 30 ml DAILY PRN PO 03/21/17 02:15 04/20/17 02:14 Polyethylene (Miralax Powder Packet) 17 gm DAILY PRN PO 03/21/17 02:15 04/20/17 02:14 Potassium Chloride (Klor-Con Tab) 20 meq DAILY PO 03/21/17 09:00 04/20/17 08:59 03/24/17 07:21 20 MEQ Senna/Docusate Sodium (Senokot S Tab) 1 tab DAILY PRN PO 03/21/17 02:15 04/20/17 02:14 Simvastatin (Zocor Tab) 20 mg QPM PO 03/21/17 21:00 04/20/17 20:59 03/23/17 19:35 20 MG Miscellaneous (Iv Fluids Completed) 1 ea PRN PRN N/A 03/21/17 02:30 03/21/18 02:29 Enoxaparin Sodium (Lovenox Inj) 40 mg QAM SQ 03/21/17 09:00 04/20/17 08:59 03/24/17 07:21 40 MG Amlodipine Besylate (Norvasc Tab) 5 mg QAM PO 03/24/17 09:00 04/23/17 08:59 UNV Impression 1. Recent episode March 20 of near syncope as well as weakness, and episodes in the past of syncope I believe these episodes are most likely associated with orthostasis or hypotension in the central nervous system. She had significant orthostatic hypotension in the emergency room. This is on top of a background of chronic hypertension. She was hypertensive when she came into the emergency room. There is no evidence to suggest a stroke or TIA this admission clinically or by MRI. In addition there is no evidence to suggest a seizure either. 2. Chronic hypertension not adequately controlled. 3. Chronic cerebral ischemia This is extensive and associated with significant atrophy. This Is creating hydrocephalus ex vacuo. I do not believe this patient has normal pressure hydrocephalus. The chronic cerebral ischemia is due to her hypertension and she is being treated with aspirin and Plavix. 4. Bilateral carotid stenosis. By CT angiography, right internal carotid artery at >50% and left internal carotid artery <50% Unlike previous studies, current CT angiography shows no significant basilar artery stenosis. I still believe that vertebral basilar insufficiency is responsible for her symptoms 5. Suspect mild vascular dementia. Plan 1. Focus on hydration to prevent orthostasis 2. At the same time adequately treat hypertension without over correction. This will be difficult in this patient. 3. Physical therapy. I agree with rehabilitation hospital stay. 4. Continue with aspirin and Plavix for now. I have no further neurologic testing or treatment recommendations to make in this patient. Please contact me if I can be of further assistance. Otherwise I could follow her as an outpatient, if desired.
[2017-03-24] MEDS ORDERED: AMLODIPINE BESYLATE 5 MG TAB PO SCH (09:00)
[2017-03-24] MEDS ORDERED: NRV5 PO (09:20)
--- NOTE | 2017-03-24 09:30 | Discharge Instructions ---
Discharge Instructions Date of Service Mar 24, 2017. Admission Reason for Admission: Dizziness Discharge Discharge Diagnosis / Problem: Orthostasis Discharge Goals Goal(s): Decrease discomfort, Improve function, Increase independence, Improve disease control Activity Recommendations Activity Level: Assistance Required (with walker) Therapies: Physical Therapy, Occupational Therapy Lifting Limitations: none Exercise/Sports Limitations: none Shower/Bathe: no limitations (with assistance) . Additional Information Patient informed of condition: Yes Advance Directives: No DNR: No Level of Care: Acute Rehab Communicable Disease: No Prognosis: Stable Fried Catheter: No Instructions / Follow-Up Instructions / Follow-Up You were admitted to [facility] with orthostasis and diagnosed with the same. During your stay here you were treated with intravenous fluids, seen by cardiology and your pacemaker was checked which was functioning as it should be. An MRI of the brain was completed which did not show any new findings. An EEG (electroencephalogram) was done to make sure you were not having any seizure like activity and this was negative. You were started on a new antihypertensives medication called Norvasc 5 mg daily. Continue to drink plenty of water daily to prevent dehydration which will cause your blood pressure to decrease too much. Medications: Continue taking your medications as above. Continue taking Norvasc 5 mg daily as directed for blood pressure along with your other antihypertensives Therapy: Continue physical and occupational therapy. Use a walker with ambulation Follow up: Follow up with your Primary Care Provider within 1 week. Follow up with cardiology within 2 weeks. Current Hospital Diet Patient's current hospital diet: AHA Diet (Heart Healthy) Discharge Diet Recommended Diet: AHA Diet (Heart Healthy) Procedures Procedures Performed: MRI brain EEG Pending Studies Studies pending at discharge: no Laboratory Results Hemoglobin A1c Test 03/21/17 06:47 Range/Units Estimated Average Glucose 114 mg/dl Hemoglobin A1c 5.6 4.5-5.6 % Lipid Panel Test 03/21/17 06:47 Range/Units Triglycerides Level 71 0-150 mg/dl Cholesterol Level 172 0-200 mg/dl HDL Cholesterol 79 mg/dl Cholesterol/HDL Ratio 2.2 LDL Cholesterol, Calculated 79 mg/dl Medical Emergencies . Who to Call and When: Medical Emergencies: If at any time you feel your situation is an emergency, please call 911 immediately. . Non-Emergent Contact Non-Emergency issues call your: Primary Care Provider Call Non-Emergent contact if: you have a fever, temperature is above 100.5, your pain is not controlled, your pain is worsening, your pain is unusual for you, your pain is concerning you, you have any medication questions other concerns with your health. Call 911 or go directly to the Emergency Department if you experience any of the following: Chest pain, chest tightness, shortness of breath, abdominal pain , lightheadedness, dizziness, gastrointestinal bleeding, or have any other concerns regarding your health. . Past History Medical & Surgical History: (1) Dizziness (2) Orthostatic hypotension (3) Pacemaker (4) HTN (hypertension) (5) HLD (hyperlipidemia) . "Provider Documentation" section prepared by Rashmi Busch. . Core Measure Problem Core Measures: None
--- NOTE | 2017-03-24 09:31 | Discharge Summary ---
Discharge Summary Date of Service Mar 24, 2017. Discharge Summary Admission Date: Mar 21, 2017 at 02:13 Discharge Date: Mar 24, 2017 Discharge Disposition: Rehab Principal Diagnosis: Orthostasis due to dehydration Problems/Secondary Diagnoses: CAD HTN HLD Dizziness/lightheadedness, near syncope SA node Dysfunction s/p Pacer--stable Procedures: HEAD WITHOUT CONTRAST (CT) 03/20/17 IMPRESSION: 1. Findings could suggest normal pressure hydrocephalus. 2. Chronic small vessel ischemic change. No acute intracranial abnormality. CHEST ONE VIEW PORTABLE 03/20/17 IMPRESSION: No active disease in the chest. NECK ANGIO WITH CONTRAST 03/21/17 IMPRESSION: 1. No significant evidence to suggest basilar insufficiency. Vertebrobasilar system widely patent. 2. Extensive atherosclerotic disease with over 50% stenosis of the proximal right internal carotid artery at the carotid bulb origin. Less significant sites of stenosis as above. This has not significantly changed from prior exams. MRI OF THE BRAIN WITHOUT IV CONTRAST 03/22/17 FINDINGS: Brain parenchyma: There are age-related involutional changes noting advanced confluent subcortical and periventricular microangiopathic disease. There is no hemorrhage or mass effect. There is no restricted diffusion to suggest acute ischemia. Montes-white matter differentiation is preserved. No extra-axial fluid collection is seen. The cerebellar tonsils are normal in configuration. Ventricles, sulci, and cisterns: Prominent secondary to involutional change. Pituitary and sella: Unremarkable. Intracranial vasculature: Normal flow voids are maintained at the skull base. Orbits: The bony orbits are grossly intact. Orbital contents are normal in appearance. Sinuses and mastoids: Clear. Calvarium: Unremarkable. Cervical cord: Partially visualized cervical spinal cord is normal in morphology and signal intensity. IMPRESSION: Senescent changes as above with no acute intracranial abnormality. Consultations: Neurology Medication Reconciliation New Medications: Amlodipine Besylate (Amlodipine Besylate) 5 Mg Tab 5 MG PO QAM for 30 Days, #30 TAB Continued Medications: Aspirin (Aspirin Ec) 81 Mg Tab 2 TAB PO DAILY Clopidogrel (Plavix) 75 Mg Tab 75 MG PO QAM, TAB Docusate Sodium (Docusate Sodium) 100 Mg Cap 100 MG PO BID PRN for Constipation, CAP Lisinopril (Lisinopril) 2.5 Mg Tab 5 MG PO DAILY, TAB Magnesium Hydroxide (Milk of Magnesia 400 mg/5Ml) 1 Terra Terra 30 ML PO DAILY PRN for Constipation Polyethylene (Miralax) 17 Gm Pow 17 GM PO DAILY PRN for Constipation Potassium Ext Rel (Klor-Con) 20 Meq Tabcr 20 MEQ PO DAILY, TAB Sennosides-Docusate Sodium (Senna S) 1 Tab Tab 1 TAB PO DAILY PRN for Constipation Simvastatin (Zocor) 20 Mg Tab 20 MG PO QPM, TAB Discharge Exam The patient was seen and examined this morning. Patient reports feeling well. She denies any acute complaints. Patient is planned discharge later today. She reports sleeping well overnight with holding, last bowel movement was yesterday. ROS: Constitutional: No fever, sweats or chills Eyes: No diplopia, no worsening or blurred vision ENT: normal hearing, no trouble swallowing Respiratory: No cough, sputum, dyspnea at rest or on exertion Cardiovascular: No chest pain, tightness or palpitations Abdomen: No pain, nausea, vomiting, diarrhea or constipation Musculoskeletal: No joint pain, calf pain, swelling Neurologic: No weakness, numbness/tingling, or balance problems Skin: No rash or itch PE: General: awake, alert, no apparent distress Head: Normocephalic, atraumatic ENT: PERRL, EOMI, no pharyngeal exudate, mucous membranes moist Chest: Clear to auscultation, on room air, no adventitious breath sounds Cardiac: Regular rate and rhythm, no murmur, no JVD, normal peripheral pulses, good capillary refill Abdominal: NABS x 4 quadrants, soft, nontender to palpation, no rebound, guarding or tenderness Extremities: Normal inspection, no peripheral edema or erythema, calfs nontender to palpation Psych: Normal mood and affect Neuro: AAO x 3, speech is clear, no peripheral sensory deficits Hospital Course History of Present Illness Source: patient This is a 72 y/o F who presents with an episode of dizziness/weakness. Her son and are with her tonight. They state that about 3 hours ago, while she was having dinner, she seem to get weak and dizzy, almost slumping over, but they were able to support her before to prevent any falls or injuries. These episodes have taken place a few times in the last few years. She has been evaluated multiple times for TIAs. She also has a pacemaker that was implanted with the thought of cardiac cause of dizziness. However, she has still had these episodes. She reports being unaware of the episode as its happening. This episode lasted about 15 mins. Family reports that she was slowly recovering over the last couple of hours and is now back to baseline. She was supposed to be on Aggrenox, however, due to cost is currently on ASA 162 and Plavix 75 mg She currently denies any dizziness or weakness. Denies any concurrent URI symptoms Denies symptoms of dizziness with positional changes Denies chest pain, shortness of breath She does have long standing Right arm weakness and RLE weakness (son describes this as her dragging her right foot while walking)- uses walker. Physical Exam General Appearance: no apparent distress Eyes: PERRL, EOMI ENT: hearing grossly normal Neck: supple, thyroid normal Respiratory/Chest: lungs clear, normal breath sounds, no respiratory distress, no accessory muscle use Cardiovascular: regular rate, rhythm, no edema, normal peripheral pulses Abdomen/GI: normal bowel sounds, non tender, soft Extremities/Musculoskelatal: no calf tenderness, no pedal edema Neurologic/Psych: resource efficiency manager II-XII nml as tested, alert, oriented x 3, + motor weakness (RUE (preexisting, unable to abduct arm, strength 4/5, sensation intact )), + pertinent finding (no pronator drift, no nystagmus, normal [id number]) Hospital course: 72 y/o female with a history of CAD, HTN, HLD who presents with near syncope, dizziness and lightheadedness. Dizziness/lightheadedness, near syncope- resolved - Pt has h/o intermittent syncope and near syncopal episodes - Admitted to telemetry. No acute events overnight. Pt in paced rhythm with HR in 60s. - Neuro consulted, appreciate recs: Reimage head and neck with MRI and CTA: - MRI negative for acute abnormalities - Neck CTA stable from previous study. No evidence of basilar insufficiency. More than 50% stenosis of proximal right ICA. - Head CT negative - EEG negative for seizure activity - Pt w/orthostatic hypotension, most likely cause of dizziness given other negative neuro workup - Pacemaker interrogation did not demonstrate dysfunction CAD - Continue ASA 162 mg PO qd, Plavix 75 mg PO qd, lisinopril and Zocor HTN--stable - Orthostatics improved with hydration - Continue lisinopril 5 mg PO qd - Added Norvasc 5 mg daily for improvement in blood pressure HLD - Continue Zocor 20 mg PO qd SA node Dysfunction s/p Pacer--stable - Pacer interrogation shows no dysfunction of the device itself or recorded arrhythmia DVT ppx: lovenox subq Code Status: FULL Dispo: From home, discharge to [facility] today PA Physician Supervision Note: I interviewed and examined the patient. Discussed with Shlely Busch PAC and agree with findings and plan as documented in the note. Any exceptions or clarifications are listed here: None Patient presented with syncope which has previously been worked up significantly without cough. Her pacemaker was interrogated she had cerebral imaging and vascular imaging neurology consultation. All showed no new problems or malfunctions. Her events are attributed to orthostatic hypotension. Patient was encouraged to remain hydrated, she however required assistance in ambulation and qualified for rehabilitation Her vital signs are slight elevation of blood pressure, her heart was regular lungs were clear and neurology exam is nonfocal with the exception of some pre- existing weakness of her right shoulder. Patient is transferred to [facility] with attention to her orthostasis as amlodipine was added to her antihypertensive regimen here she will follow-up with Dr. Morgan as the family is switching healthcare providers from the [facility] service Documented By: Bismark Calvillo Total Time Spent: Greater than 30 minutes This includes examination of the patient, discharge planning, medication reconciliation, and communication with other providers. Discharge Instructions Please refer to the electronic Patient Visit Report (Discharge Instructions) for additional information. Follow-Up Follow up with your Primary Care Provider within 1 week. Follow up with cardiology within 2 weeks. Additional Copies To Shahid Ken M.D.
[2017-03-24 10:33] VITALS: BP 130/83; PULSE 66; TEMP 36.7; O2SAT 93
== END 2017-03-24 12:05 ==
LOC: EDBD 21:53 → C.EDA 21:54 → INTOOBSV 03-21 02:13 → C.2T 03-21 02:13 → ENRESERV 03-21 02:18
PROVIDERS: ADMIT Student in an Organized Health Care Education/Training Program; ATTEND Internal Medicine
DX: I95.1 Orthostatic hypotension (principal); E86.0 Dehydration; I25.10 Atherosclerotic heart disease of native coronary artery without angina pectoris; E78.5 Hyperlipidemia, unspecified; I10 Essential (primary) hypertension; Z95.0 Presence of cardiac pacemaker; Z87.891 Personal history of nicotine dependence; I65.23 Occlusion and stenosis of bilateral carotid arteries; Z79.82 Long term (current) use of aspirin; Z79.02 Long term (current) use of antithrombotics/antiplatelets; Z79.899 Other long term (current) drug therapy; F01.50 Vascular dementia, unspecified severity, without behavioral disturbance, psychotic disturbance, mood disturbance, and anxiety; Z86.73 Personal history of transient ischemic attack (TIA), and cerebral infarction without residual deficits

== ENCOUNTER → 2017-07-25 | Outpatient (CLI) | payer OTHER ==
[~2017-07-25] MED LIST changes: -ASPEC81 PO; +ASPI81TA28 PO; +CLOP1TAB15 PO; +LISI-1116 PO; -LISI2.5T5 PO; +NRV5 PO; -PLV75 PO; +POTA-639 PO; -POTA20TA16 PO
--- NOTE | 2017-07-25 16:36 | DIAGNOSTIC IMAGING REPORT ---
R HUMERUS MIN 2 VIEWS ROUTINE CLINICAL HISTORY: PAIN IN JOINT pain COMPARISON: Right shoulder images obtained on the chest film dated 03/20/2017 images obtained on a chest DISCUSSION: Old fracture right humeral neck. Moderate degenerative change acromioclavicular joint. No additional acute abnormality of the humerus. There is no evidence for soft tissue swelling. IMPRESSION: No acute process. Old fracture right humeral neck. The above report was generated using voice recognition software. It may contain grammatical, syntax or spelling errors. Electronically signed by: Oscar Lauren M.D. 07/25/2017 4:35 PM Dictated Date/Time: 07/25/2017 4:34 PM
--- NOTE | 2017-07-25 16:37 | DIAGNOSTIC IMAGING REPORT ---
R SHOULDER MIN 2 VIEWS ROUTINE CLINICAL HISTORY: PAIN IN JOINT pain COMPARISON: Chest series 03/20/2017 DISCUSSION: Old fracture right humeral neck. Moderate degenerative change, clinically joint. Several benign soft tissue calcifications. There is no evidence for soft tissue swelling. IMPRESSION: Old fracture right humeral neck. No acute bony abnormality. The above report was generated using voice recognition software. It may contain grammatical, syntax or spelling errors. Electronically signed by: Oscar Lauren M.D. 07/25/2017 4:36 PM Dictated Date/Time: 07/25/2017 4:35 PM
--- NOTE | 2017-07-25 16:39 | DIAGNOSTIC IMAGING REPORT ---
R PELVIS/UNILATERAL HIP 2-3VIEWS CLINICAL HISTORY: RIGHT SIDE HIP PAIN pain COMPARISON: None. DISCUSSION: Examination of the pelvis and right hip shows presence of moderate degenerative change of the hips bilaterally. There is mild calcific trochanteric bursitis bilaterally. There is no evidence for fracture or dislocation. There is no evidence for soft tissue swelling. IMPRESSION: Moderate degenerative changes bilaterally including mild calcific trochanteric bursitis. The above report was generated using voice recognition software. It may contain grammatical, syntax or spelling errors. Electronically signed by: Oscar Lauren M.D. 07/25/2017 4:38 PM Dictated Date/Time: 07/25/2017 4:37 PM
--- NOTE | 2017-07-25 16:42 | DIAGNOSTIC IMAGING REPORT ---
R KNEE 1 OR 2 VIEWS ROUTINE CLINICAL HISTORY: PAIN IN JOINT pain COMPARISON: None. DISCUSSION: Mild degenerative change medial joint compartment. The lateral joint compartments and patellofemoral joints are generally unremarkable. No significant soft tissue edema. IMPRESSION: Mild degenerative narrowing medial joint compartment right knee. The above report was generated using voice recognition software. It may contain grammatical, syntax or spelling errors. Electronically signed by: Oscar Lauren M.D. 07/25/2017 4:41 PM Dictated Date/Time: 07/25/2017 4:41 PM
== END | disposition home or self-care (01) ==
LOC: C.RAD 15:35
PROVIDERS: ATTEND Physician Assistant Medical
DX: M25.561 Pain in right knee (principal); M25.511 Pain in right shoulder

== ENCOUNTER 2018-06-07 19:36 | Inpatient (IN) ==
[2018-06-07 20:19] LABS: Basophils # (auto) 0.02 K/uL (0-0.2); Basophils % (auto) 0.2 %; Eosinophils # (auto) 0.17 K/uL (0-0.5); Eosinophils % (auto) 1.9 %; Hematocrit (blood only) 44.6 % (37-47); Hemoglobin 15.4 g/dL (12.0-16.0); Immature Granulocytes # (auto) 0.01 K/uL (0.00-0.02); Immature Granulocytes % (auto) 0.1 %; Lymphocytes # (auto) 1.28 K/uL (1.2-3.4); Lymphocytes % (auto) 14.3 %; Mean Corpuscular Hgb Conc 34.5 g/dL (32-36); Mean Corpuscular Volume 88.3 fL (80-100); Mean Platelet Volume 9.4 fL (7.4-10.4); Monocytes # (auto) 0.49 K/uL (0.11-0.59); Monocytes % (auto) 5.5 %; Neutrophils # (auto) 6.97 K/uL (1.4-6.5); Platelet Count 215 K/uL (130-400); RDW Coefficient of Variation 13.1 % (11.5-14.5); RDW Standard Deviation 42.3 fL (36.4-46.3); Red Blood Count 5.05 M/uL (4.2-5.4); White Blood Count 8.94 K/uL (4.8-10.8)
[2018-06-07 20:32] LABS: Partial Thromboplastin Time 27.9 Seconds (21.0-31.0); Prothrombin Time 10.5 Seconds (9.0-12.0)
--- NOTE | 2018-06-07 20:35 | Emergency Department Note ---
Entered by Miko Pillai acting as a scribe for Nikos Valles DO History of Present Illness General Chief complaint: Leg Weakness, Bilateral Time Seen by Provider: 06/07/18 19:38 Source: patient and EMS History of Present Illness Provider complaint: Weakness Onset (ago): day(s) 1 Location: lower extremity and right Pain Consistency: + constant Relieved By: + none Exacerbated By: + none Associated symptoms: + other (No abdominal pain); no chest pain, no headaches a nd no shortness of breath The patient is a 73 year old female who presents to the Emergency Room with complaints of constant right sided lower extremity weakness that she noticed yesterday when she tried to get out of bed. Nothing makes the symptoms worse nor does anything make it better. Since this time she has not tried walking and denies any chest pain, headaches, shortness of breath, abdominal pain, nausea, vomiting, or diarrhea. She does have a history of a stroke, for which she was treated here for, that occurred 5-6 years ago. She has not done any exertional activity recently. Home Medications Home Medications Medication Instructions Recorded Confirmed Type amlodipine 5 mg PO QAM 06/07/18 06/07/18 History aspirin 162 mg PO QAM 06/07/18 06/07/18 History atorvastatin 40 mg PO HS 06/07/18 06/07/18 History clopidogrel 75 mg PO QAM 06/07/18 06/07/18 History losartan 12.5 mg PO QAM 06/07/18 06/07/18 History potassium chloride 20 meq PO QAM 06/07/18 06/07/18 History sennosides-docusate sodium [Senna 1 tab PO BID PRN 06/07/18 06/07/18 History with Docusate Sodium] Allergies Allergy/AdvReac Type Severity Reaction Status Date / Time No Known Allergies Allergy Unverified 06/07/18 23:43 Past Med/Surg History Medical History Orthostatic hypotension (Chronic) Sinus node dysfunction (Chronic) Pacemaker (Chronic) Leukoencephalopathy (Chronic) HLD (hyperlipidemia) (Chronic) HTN (hypertension) (Chronic) Syncope Dizziness CVA (cerebral vascular accident) Surgical History History of appendectomy (Chronic) Hx of tonsillectomy (Chronic) Family History Other Family history non-contributory Social History Preferred Language: Nigerien Feels Safe at Home: Yes Smoking Status: Former smoker Review of Systems See HPI for pertinent positives & negatives. and A total of 10 systems reviewed and were otherwise negative Physical Exam Vital Signs Vital Signs - 24 hr 06/07/18 19:36 06/07/18 21:46 06/07/18 22:00 Temperature 36.9 C Temperature Source Oral Sepsis Recent Fever Within 48 Hours No Sepsis New/Unexplained Change in Mental Status No Sepsis Action Taken by Nursing No Action Required Pulse Rate 92 H 80 80 Pulse Rate [Left Radial] Pulse Rhythm Regular Respiratory Rate 18 22 18 Respiratory Effort / Characteristics Non-Labored Spontaneous Respiratory Depth Normal Respiratory Pattern Regular Blood Pressure 170/108 H 144/77 H 145/86 H Blood Pressure [Left Arm] Blood Pressure Mean 128 99 105 Blood Pressure Mean [Left Arm] Blood Pressure Position [Left Arm] Pulse Oximetry 97 95 95 Oxygen Delivery Method Room Air Room Air Room Air 06/07/18 22:31 06/08/18 00:00 Temperature Temperature Source Sepsis Recent Fever Within 48 Hours Sepsis New/Unexplained Change in Mental Status Sepsis Action Taken by Nursing Pulse Rate 78 Pulse Rate [Left Radial] 78 Pulse Rhythm Respiratory Rate 22 18 Respiratory Effort / Characteristics Respiratory Depth Normal Respiratory Pattern Blood Pressure 140/99 Blood Pressure [Left Arm] 140/89 Blood Pressure Mean 112 Blood Pressure Mean [Left Arm] 106 Blood Pressure Position [Left Arm] Lying Pulse Oximetry 95 96 Oxygen Delivery Method Room Air Room Air GENERAL: Patient is awake and alert. She is somewhat anxious appearing but appears to be comfortable. EYES: The conjunctivae are clear. The pupils are round and reactive. EARS, NOSE, MOUTH AND THROAT: The nose is without any evidence of any deformity. Mucous membranes are moist tongue is midline NECK: The neck is nontender and supple. RESPIRATORY: Normal respiratory effort is noted there is no evidence of wheezing rhonchi or rales CARDIOVASCULAR: Regular rate and rhythm noted there no murmurs rubs or gallops normal S1 normal S2 GASTROINTESTINAL: The abdomen is soft. Bowel sounds are present in all quadrants. Abdomen is nontender MUSCULOSKELETAL/EXTREMITIES: There is no evidence of gross deformity full range of motion is noted in the hips and shoulders SKIN: There is no obvious evidence of any rash. Pedal edema was noted bilaterally. NEUROLOGIC: Patient is awake alert and oriented to person place but not time. Strength was symmetric but diminished. There is no drift in the upper extremities. No facial droop is noted. Course 194: Past medical records reviewed. The patient was evaluated in room C02B, and a complete history and physical examination were performed. 2023: I spoke to the patient's family to find out more information on the patient. They told me that they think she is having more generalized weakness rather than it being localized to just the right side. 2057: I reevaluated the patient and went over the plan moving forward. She refused a CT scan. 2331: I updated the patient and she is going to try to ambulate. 8: I spoke to Dr. Grey Perrin [facility] Hospitalist about the patient's case and she is going to accept her for further evaluation. Consultations Consultation #1: I spoke to Dr. Grey Perrin [facility] Hospitalist about the patient's case and she is going to accept her for further evaluation. Time: 00:38 Medical Decision Making Differential Diagnosis Differential Diagnosis includes but is not limited to dehydration, stroke, anemia, hypoglycemia, hyponatremia, hypernatremia, urinary tract infection, pneumonia, bronchitis, sepsis, gastroenteritis, additional abdominal pathology, metabolic abnormalities and infections. Medical Records Attestation: I reviewed the patient's medical records. Home Medications Current Medication List: was personally reviewed by me Laboratory Data Attestation: I reviewed the patient's lab results. Result diagrams: 06/07/18 20:05 06/07/18 20:05 Lab Results 06/07/18 06/07/18 06/07/18 Range/Units 20:05 20:05 20:05 WBC 8.94 (4.8-10.8) K/uL RBC 5.05 (4.2-5.4) M/uL Hgb 15.4 (12.0-16.0) g/dL Hct 44.6 (37-47) % MCV 88.3 (80-100) fL MCH 30.5 (25-34) pg MCHC 34.5 (32-36) g/dL RDW Std Deviation 42.3 (36.4-46.3) fL RDW Coeff of [place] 13.1 (11.5-14.5) % Plt Count 215 (130-400) K/uL MPV 9.4 (7.4-10.4) fL Immature Gran % (Auto) 0.1 % Neut % (Auto) 78.0 % Lymph % (Auto) 14.3 % [place] % (Auto) 5.5 % Eos % (Auto) 1.9 % Baso % (Auto) 0.2 % Immature Gran # (Auto) 0.01 (0.00-0.02) K/uL Neut # (Auto) 6.97 H (1.4-6.5) K/uL Lymph # (Auto) 1.28 (1.2-3.4) K/uL [place] # (Auto) 0.49 (0.11-0.59) K/uL Eos # (Auto) 0.17 (0-0.5) K/uL Baso # (Auto) 0.02 (0-0.2) K/uL PT 10.5 (9.0-12.0) Seconds INR 1.0 (0.9-1.1) APTT 27.9 (21.0-31.0) Seconds PTT Ratio 1.0 Sodium 137 (136-145) mmol/L Potassium 3.6 (3.5-5.1) mmol/L Chloride 103 (98-107) mmol/L Carbon Dioxide 27 (21-32) mmol/L Anion Gap 7.0 (3-11) BUN 13 (7-18) mg/dl Creatinine 0.93 (0.6-1.2) mg/dl Est Cr Clr Drug Dosing 57.3 ml/min Est GFR ( Amer) 71.2 Est GFR (Non-Af Amer) 61.4 BUN/Creatinine Ratio 14.3 (10-20) Glucose 143 H (70-99) mg/dl Calcium 9.5 (8.5-10.1) mg/dl Magnesium 1.8 (1.8-2.4) mg/dl Total Bilirubin 1.1 H (0.2-1) mg/dl AST 20 (15-37) U/L ALT 23 (12-78) U/L Alkaline Phosphatase 133 H (45-117) U/L Troponin I < 0.015 (0-0.045) ng/ml Total Protein 8.5 H (6.4-8.2) gm/dl Albumin 4.0 (3.4-5.0) gm/dl Globulin 4.4 H (2.5-4.0) gm/dl Albumin/Globulin Ratio 0.9 (0.9-2) Urine Color Urine Appearance (Clear) Urine pH (4.5-7.5) Ur Specific [place] (1.000-1.030) Urine Protein (Negative) Urine Glucose (UA) (Negative) Urine Ketones (Negative) Urine Blood (Negative) Urine Nitrite (Negative) Urine Bilirubin (Negative) Urine Urobilinogen (Negative) Ur Leukocyte Esterase (Negative) Urine WBC (Auto) (0-5) /hpf Urine RBC (Auto) (0-4) /hpf U Hyaline Cast (Auto) (0-5) /lpf U Epithel Cells (Auto) (0-5) /lpf Urine Bacteria (Auto) (Negative) 06/07/18 Range/Units 23:00 WBC (4.8-10.8) K/uL RBC (4.2-5.4) M/uL Hgb (12.0-16.0) g/dL Hct (37-47) % MCV (80-100) fL MCH (25-34) pg MCHC (32-36) g/dL RDW Std Deviation (36.4-46.3) fL RDW Coeff of [place] (11.5-14.5) % Plt Count (130-400) K/uL MPV (7.4-10.4) fL Immature Gran % (Auto) % Neut % (Auto) % Lymph % (Auto) % [place] % (Auto) % Eos % (Auto) % Baso % (Auto) % Immature Gran # (Auto) (0.00-0.02) K/uL Neut # (Auto) (1.4-6.5) K/uL Lymph # (Auto) (1.2-3.4) K/uL [place] # (Auto) (0.11-0.59) K/uL Eos # (Auto) (0-0.5) K/uL Baso # (Auto) (0-0.2) K/uL PT (9.0-12.0) Seconds INR (0.9-1.1) APTT (21.0-31.0) Seconds PTT Ratio Sodium (136-145) mmol/L Potassium (3.5-5.1) mmol/L Chloride (98-107) mmol/L Carbon Dioxide (21-32) mmol/L Anion Gap (3-11) BUN (7-18) mg/dl Creatinine (0.6-1.2) mg/dl Est Cr Clr Drug Dosing ml/min Est GFR ( Amer) Est GFR (Non-Af Amer) BUN/Creatinine Ratio (10-20) Glucose (70-99) mg/dl Calcium (8.5-10.1) mg/dl Magnesium (1.8-2.4) mg/dl Total Bilirubin (0.2-1) mg/dl AST (15-37) U/L ALT (12-78) U/L Alkaline Phosphatase (45-117) U/L Troponin I (0-0.045) ng/ml Total Protein (6.4-8.2) gm/dl Albumin (3.4-5.0) gm/dl Globulin (2.5-4.0) gm/dl Albumin/Globulin Ratio (0.9-2) Urine Color Yellow Urine Appearance Clear (Clear) Urine pH 5.0 (4.5-7.5) Ur Specific [place] 1.012 (1.000-1.030) Urine Protein Negative (Negative) Urine Glucose (UA) Negative (Negative) Urine Ketones Negative (Negative) Urine Blood 1+ H (Negative) Urine Nitrite Negative (Negative) Urine Bilirubin Negative (Negative) Urine Urobilinogen Negative (Negative) Ur Leukocyte Esterase Negative (Negative) Urine WBC (Auto) 0 (0-5) /hpf Urine RBC (Auto) 0-4 (0-4) /hpf U Hyaline Cast (Auto) 1-5 (0-5) /lpf U Epithel Cells (Auto) 20-30 H (0-5) /lpf Urine Bacteria (Auto) Negative (Negative) Imaging Data Radiologist's Impression: Radiology results as stated below per my review and the radiologist's interpretation: XR chest 1V portable CLINICAL HISTORY: 73 years-old Female presenting with weakness. TECHNIQUE: Portable upright AP view of the chest was obtained. COMPARISON: 08/22/2017. FINDINGS: Left subclavian pacer with leads to the right atrium and right ventricular apex. Coronary artery calcification may be present. Atherosclerosis of aortic arch. Cardiac silhouette mildly enlarged, unchanged. Pulmonary vasculature unchanged. No focal opacity. No large effusion or pneumothorax. Degenerative changes of the thoracic spine. Chronic fracture deformity of the right humeral neck. IMPRESSION: 1. Cardiomegaly. No other convincing evidence of acute cardiopulmonary disease. Electronically signed by: Brian Hoyt M.D. 06/07/2018 9:[address] head/brain wo con CLINICAL HISTORY: 73 years-old Female presenting with Stroke evaluation . TECHNIQUE: Multidetector CT imaging of the head was performed without the use of intravenous contrast. IV contrast: None. One or more dose lowering techniques were used consistent with the principles of ALARA (as low as reasonably achievable), including automatic exposure control, mA or kV adjustment to individual patient size, and/or use of iterative reconstruction. COMPARISON: 03/20/2017. CT DOSE (mGy.cm): The estimated cumulative dose is 537.48 mGy.cm. FINDINGS: Acquisition Manager topogram: Unremarkable. Proportional ventricular and sulcal prominence with the exception of the vertex, where there is persistent sulcal effacement and gyral crowding. This is unchanged in severity. No hemorrhage. Periventricular and subcortical white matter hypoattenuation, nonspecific but likely indicative of chronic small vessel ischemic change. No acute territorial infarct. No mass effect or midline shift. No extra-axial fluid collection. Paranasal sinuses and mastoid air cells clear. Calvarium intact. IMPRESSION: 1. Unchanged sulcal effacement and gyral crowding at the vertex since the prior exam in 2017. This pattern can be seen in the setting of normal pressure hy drocephalus. 2. Chronic small vessel ischemic change. No acute intracranial pathology. Electronically signed by: Brian Hoyt M.D. 06/07/2018 8:51 PM ECG Data Attestation: I personally reviewed and interpreted this ECG as follows: Indication: weakness Rate (beats per minute): 82 Rhythm: normal sinus Findings: + T-wave inversion (Diffuse); no PAC and no PVC Comparison ECG Date: from (08/22/17) Change: no significant change Blood Pressure Blood Pressure Findings: Elevated blood pressure Blood Pressure Disposition: further management by hospitalist MORGAN Barrow The patient is a 73-year-old female who presented to the emergency department for an evaluation of weakness. Additional history is obtained from the prehospital personnel. They state that the patient's symptoms began approximately 24 hours ago. The patient reportedly had a drift in her right upper and right lower extremity for prehospital personnel however the patient appears to have symmetric strength on my evaluation. Her gait is very tenuous and she does appear to have right-sided weakness in her lower extremity when trying to ambulate. I discussed the patient's laboratory and radiographic studies with her and her family members. She was reevaluated multiple times. At this time no definite source for her weakness could be found however the patient's significant other feels that she is not safe for discharge at this [facility]. For this reason I discussed her case with the emergency department classification case manager. We are not able to have the patient placed for inpatient rehab at this time. Given the patient's overall condition I did discuss her case with the on- call [facility] hospitalist. They have agreed to evaluate patient in the emergency department for further management and disposition. Impression & Plan Weakness Discharge Plan Visit Data Chief Complaint: Leg Weakness, Bilateral ED Provider: Nikos Valles Discharge Problem: Weakness Patient Disposition: Being Evaluated by Hospitalist Forms Stand Alone Forms: My [facility] Prescriptions Prescriptions: No Action atorvastatin 40 mg tablet 40 mg PO HS RF: 0 clopidogrel 75 mg tablet 75 mg PO QAM RF: 0 amlodipine 5 mg tablet 5 mg PO QAM RF: 0 potassium chloride 20 mEq tablet,ER particles/crystals 20 meq PO QAM RF: 0 losartan 25 mg tablet 12.5 mg PO QAM RF: 0 aspirin 81 mg Tablet,Delayed Release (Dr/Ec) 162 mg PO QAM RF: 0 sennosides-docusate sodium [Senna with Docusate Sodium] 8.6-50 mg Tablet 1 tab PO BID PRN (Reason: Constipation) RF: 0 Referrals Referrals: Ignacio Ken MD [Primary Care Provider] - The scribe's documentation has been prepared under my direction and personally reviewed by me in its entirety. I confirm that the note above accurately reflects all work, treatment, procedures, and medical decision making performed by me.
[2018-06-07 20:46] LABS: Alanine Aminotransferase 23 U/L (12-78); Aspartate Aminotransferase 20 U/L (15-37); BUN Creatinine Ratio 14.3 (10-20); Blood Urea Nitrogen 13 mg/dl (7-18); Calcium 9.5 mg/dl (8.5-10.1); Carbon Dioxide 27 mmol/L (21-32); Chloride 103 mmol/L (98-107); Creatinine Clr Calc Pharmacy 57.3 ml/min; Est GFR (African American) 71.2; Est GFR (Non-African American) 61.4; Glucose 143 mg/dl (70-99); Magnesium 1.8 mg/dl (1.8-2.4); Potassium 3.6 mmol/L (3.5-5.1); Sodium 137 mmol/L (136-145)
[2018-06-07 20:50] LABS: Albumin Globulin Ratio 0.9 (0.9-2); Alkaline Phosphatase 133 U/L (45-117); Bilirubin,Total 1.1 mg/dl (0.2-1); Globulin 4.4 gm/dl (2.5-4.0); Total Protein 8.5 gm/dl (6.4-8.2); Troponin I < 0.015 ng/ml (0-0.045)
--- NOTE | 2018-06-07 20:52 | CT Scan Report ---
CT head/brain wo con CLINICAL HISTORY: 73 years-old Female presenting with Stroke evaluation . TECHNIQUE: Multidetector CT imaging of the head was performed without the use of intravenous contrast . IV contrast: None. One or more dose lowering techniques were used consistent with the principles of ALARA (as low as reasonably achievable), including automatic exposure control, mA or kV adjustment t o individual patient size, and/or use of iterative reconstruction. COMPARISON: 03/20/2017. CT DOSE (mGy.cm): The estimated cumulative dose is 537.48 mGy.cm. FINDINGS: Ski Top Trimmer topogram: Unremarkable. Proportional ventricular and sulcal prominence with the exception of the vertex, where there is persi stent sulcal effacement and gyral crowding. This is unchanged in severity. No hemorrhage. Periventric ular and subcortical white matter hypoattenuation, nonspecific but likely indicative of chronic small vessel ischemic change. No acute territorial infarct. No mass effect or midline shift. No extra-axia l fluid collection. Paranasal sinuses and mastoid air cells clear. Calvarium intact. IMPRESSION: 1. Unchanged sulcal effacement and gyral crowding at the vertex since the prior exam in 2017. This p attern can be seen in the setting of normal pressure hydrocephalus. 2. Chronic small vessel ischemic change. No acute intracranial pathology. Electronically signed by: Brian Hoyt M.D. 06/07/2018 8:51 PM
--- NOTE | 2018-06-07 21:17 | XRay Report ---
XR chest 1V portable CLINICAL HISTORY: 73 years-old Female presenting with weakness. TECHNIQUE: Portable upright AP view of the chest was obtained. COMPARISON: 08/22/2017. FINDINGS: Left subclavian pacer with leads to the right atrium and right ventricular apex. Coronary artery calc ification may be present. Atherosclerosis of aortic arch. Cardiac silhouette mildly enlarged, unchang ed. Pulmonary vasculature unchanged. No focal opacity. No large effusion or pneumothorax. Degenerativ e changes of the thoracic spine. Chronic fracture deformity of the right humeral neck. IMPRESSION: 1. Cardiomegaly. No other convincing evidence of acute cardiopulmonary disease. Electronically signed by: Brian Hoyt M.D. 06/07/2018 9:16 PM
[2018-06-07 23:13] LABS: Bacteria Urine Automated Negative (Negative); Bilirubin Urine Negative (Negative); Blood Urine 1+ (Negative); Color Urine Yellow; Epithelial Cell Urine Auto 20-30 /lpf (0-5); Glucose Urine UA Negative (Negative); Ketones Urine Negative (Negative); Leukocyte Esterase Urine Negative (Negative); Nitrite Urine Negative (Negative); Protein Urine Negative (Negative); RBC Urine Automated 0-4 /hpf (0-4); Specific Gravity Urine 1.012 (1.000-1.030); Urobilinogen Urine Negative (Negative); WBC Urine Automated 0 /hpf (0-5)
[2018-06-07 23:18] LABS: Appearance Urine Clear (Clear)
[2018-06-08] MEDS ORDERED: DOCUSATE SODIUM/SENNA 50/8.6MG TAB PO PRN (03:38)
[2018-06-08] MEDS ORDERED: ACETAMINOPHEN 325 MG TAB PO PRN (03:38)
--- NOTE | 2018-06-08 03:54 | History & Physical Report ---
Date of Service June 08, 2018 Assessment & Plan (1) Weakness: Unclear etiology of bilateral LE weakness. Presently with weakness and drift in RUE which patient reports to be at baseline. Weakness in LLE mild. ?CT findings suggestive of NPH - patient with ambulatory dysfunction and some co nfusion. No bowel or bladder involvement, no reported incontinence. -Admit to medical floor with telemetry -Neuro checks per protocol -Check CTA head and neck -Neurology consultation - assistance appreciated. ?Additional workup for possible NPH? -PT/OT and case management consult. Placement at a rehabilitation facility is requested by family -Continue ASA, Plavix, Atorvastatin (2) HTN (hypertension): Blood pressure well controlled at present -Continue Amlodipine daily -Continue Losartan -Monitor (3) HLD (hyperlipidemia): Chronic -Continue Atorvastatin 40mg po daily (4) Abnormal LFTs: Mildly elevated bili and AP -Check RUQUS for possible obstruction -Repeat LFTs in AM (5) H/O: CVA (cerebrovascular accident): Residual deficit in RUE -Continue ASA, Plavix and Statin -PT/OT and Case management for possible placement F/E/N- [place]. Electrolytes WNL. Heart healthy diet as tolerated. Ppx - SCDs. Code - Full Dispo - Obs to medical floor History of Present Illness Chief Complaint: weakness Primary Care Provider: Shahid Ken MD Patient is a 73yo female with history of prior CVA with right sided deficit, HTN, HLP, Sinus node dysfunction s/p pacemaker placement presenting with weakness. She reports that yesterday AM her "legs didn't work". She was unable to walk. Symptoms lasted all day. Both legs felt clumsy and heavy. Denies VILLA, visual changes, neck pain, dizziness, syncope, numbness, tingling, focal weakness, facial droop, slurred speech. Presently she feels well with no complaints CT Head performed in the ER unchanged from 2017. ?sucal effacement and gyral crowding possibly suggestive of NPH Allergies Allergy/AdvReac Type Severity Reaction Status Date / Time No Known Allergies Allergy Unverified 06/07/18 23:43 Home Medications Home Medications Medication Instructions Recorded Confirmed Type amlodipine 5 mg PO QAM 06/07/18 06/07/18 History aspirin 162 mg PO QAM 06/07/18 06/07/18 History atorvastatin 40 mg PO HS 06/07/18 06/07/18 History clopidogrel 75 mg PO QAM 06/07/18 06/07/18 History losartan 12.5 mg PO QAM 06/07/18 06/07/18 History potassium chloride 20 meq PO QAM 06/07/18 06/07/18 History sennosides-docusate sodium [Senna 1 tab PO BID PRN 06/07/18 06/07/18 History with Docusate Sodium] Past Med/Surg History Medical History Orthostatic hypotension (Chronic) Sinus node dysfunction (Chronic) Pacemaker (Chronic) Leukoencephalopathy (Chronic) HLD (hyperlipidemia) (Chronic) HTN (hypertension) (Chronic) Syncope Dizziness CVA (cerebral vascular accident) Surgical History History of appendectomy (Chronic) Hx of tonsillectomy (Chronic) Family History Other Family history non-contributory Social History Preferred Language: Lebanese Feels Safe at Home: Yes Smoking Status: Former smoker Hx Alcohol Use: No Hx Substance Use: No Review of Systems All systems reviewed & are unremarkable except as noted in HPI & below Physical Exam Vital Signs (Past 24 Hours): Last Vital Signs Temp 37.2 C 06/08/18 03:51 Pulse 89 06/08/18 03:51 Resp 20 06/08/18 03:51 BP 148/91 H 06/08/18 03:51 Pulse Ox 95 06/08/18 03:51 Physical Exam: General: patient resting comfortably, NAD, non-toxic in appearance, AA&O to self and situation, unclear on location (stated we were in [facility] and unclear on date) Skin: warm, dry, intact, no rashes or lesions HEENT: NC/AT, PERRL, EOMI, anicteric sclera, conjunctiva without injection, external ear normal to inspection and nontender, nares patent, moist mucus membranes, dentition intact, no oropharyngeal lesions, neck supple, trachea midline, no LAD, no thyromegaly, no JVD Heart: +S1/S2, regular, no m/r/g Lungs: equal air entry bilaterally, no rales/rhonchi/wheezes Abd: +BS, soft, NT/ND, no masses/organomegaly/ascites Ext: warm, 2+ pulses in UE/LE bilaterally, no clubbing/cyanosis or edema Neuro: AA&O to self and situation, speech clear and fluent, no facial droop, CN II-XII grossly intact, sensation to light touch intact in UE/LE bilaterally, MS diminished in RUE 3+, mildly diminished in LLE, 4/5, gait reported to be unsteady (i did not personally assess gait) Results & Data Laboratory Results Lab Results 06/07/18 06/07/18 06/07/18 Range/Units 20:05 20:05 20:05 WBC 8.94 (4.8-10.8) K/uL RBC 5.05 (4.2-5.4) M/uL Hgb 15.4 (12.0-16.0) g/dL Hct 44.6 (37-47) % MCV 88.3 (80-100) fL MCH 30.5 (25-34) pg MCHC 34.5 (32-36) g/dL RDW Std Deviation 42.3 (36.4-46.3) fL RDW Coeff of [place] 13.1 (11.5-14.5) % Plt Count 215 (130-400) K/uL MPV 9.4 (7.4-10.4) fL Immature Gran % (Auto) 0.1 % Neut % (Auto) 78.0 % Lymph % (Auto) 14.3 % [place] % (Auto) 5.5 % Eos % (Auto) 1.9 % Baso % (Auto) 0.2 % Immature Gran # (Auto) 0.01 (0.00-0.02) K/uL Neut # (Auto) 6.97 H (1.4-6.5) K/uL Lymph # (Auto) 1.28 (1.2-3.4) K/uL [place] # (Auto) 0.49 (0.11-0.59) K/uL Eos # (Auto) 0.17 (0-0.5) K/uL Baso # (Auto) 0.02 (0-0.2) K/uL PT 10.5 (9.0-12.0) Seconds INR 1.0 (0.9-1.1) APTT 27.9 (21.0-31.0) Seconds PTT Ratio 1.0 Sodium 137 (136-145) mmol/L Potassium 3.6 (3.5-5.1) mmol/L Chloride 103 (98-107) mmol/L Carbon Dioxide 27 (21-32) mmol/L Anion Gap 7.0 (3-11) BUN 13 (7-18) mg/dl Creatinine 0.93 (0.6-1.2) mg/dl Est Cr Clr Drug Dosing 57.3 ml/min Est GFR ( Amer) 71.2 Est GFR (Non-Af Amer) 61.4 BUN/Creatinine Ratio 14.3 (10-20) Glucose 143 H (70-99) mg/dl Calcium 9.5 (8.5-10.1) mg/dl Magnesium 1.8 (1.8-2.4) mg/dl Total Bilirubin 1.1 H (0.2-1) mg/dl AST 20 (15-37) U/L ALT 23 (12-78) U/L Alkaline Phosphatase 133 H (45-117) U/L Troponin I < 0.015 (0-0.045) ng/ml Total Protein 8.5 H (6.4-8.2) gm/dl Albumin 4.0 (3.4-5.0) gm/dl Globulin 4.4 H (2.5-4.0) gm/dl Albumin/Globulin Ratio 0.9 (0.9-2) Urine Color Urine Appearance (Clear) Urine pH (4.5-7.5) Ur Specific [place] (1.000-1.030) Urine Protein (Negative) Urine Glucose (UA) (Negative) Urine Ketones (Negative) Urine Blood (Negative) Urine Nitrite (Negative) Urine Bilirubin (Negative) Urine Urobilinogen (Negative) Ur Leukocyte Esterase (Negative) Urine WBC (Auto) (0-5) /hpf Urine RBC (Auto) (0-4) /hpf U Hyaline Cast (Auto) (0-5) /lpf U Epithel Cells (Auto) (0-5) /lpf Urine Bacteria (Auto) (Negative) 06/07/18 Range/Units 23:00 WBC (4.8-10.8) K/uL RBC (4.2-5.4) M/uL Hgb (12.0-16.0) g/dL Hct (37-47) % MCV (80-100) fL MCH (25-34) pg MCHC (32-36) g/dL RDW Std Deviation (36.4-46.3) fL RDW Coeff of [place] (11.5-14.5) % Plt Count (130-400) K/uL MPV (7.4-10.4) fL Immature Gran % (Auto) % Neut % (Auto) % Lymph % (Auto) % [place] % (Auto) % Eos % (Auto) % Baso % (Auto) % Immature Gran # (Auto) (0.00-0.02) K/uL Neut # (Auto) (1.4-6.5) K/uL Lymph # (Auto) (1.2-3.4) K/uL [place] # (Auto) (0.11-0.59) K/uL Eos # (Auto) (0-0.5) K/uL Baso # (Auto) (0-0.2) K/uL PT (9.0-12.0) Seconds INR (0.9-1.1) APTT (21.0-31.0) Seconds PTT Ratio Sodium (136-145) mmol/L Potassium (3.5-5.1) mmol/L Chloride (98-107) mmol/L Carbon Dioxide (21-32) mmol/L Anion Gap (3-11) BUN (7-18) mg/dl Creatinine (0.6-1.2) mg/dl Est Cr Clr Drug Dosing ml/min Est GFR ( Amer) Est GFR (Non-Af Amer) BUN/Creatinine Ratio (10-20) Glucose (70-99) mg/dl Calcium (8.5-10.1) mg/dl Magnesium (1.8-2.4) mg/dl Total Bilirubin (0.2-1) mg/dl AST (15-37) U/L ALT (12-78) U/L Alkaline Phosphatase (45-117) U/L Troponin I (0-0.045) ng/ml Total Protein (6.4-8.2) gm/dl Albumin (3.4-5.0) gm/dl Globulin (2.5-4.0) gm/dl Albumin/Globulin Ratio (0.9-2) Urine Color Yellow Urine Appearance Clear (Clear) Urine pH 5.0 (4.5-7.5) Ur Specific [place] 1.012 (1.000-1.030) Urine Protein Negative (Negative) Urine Glucose (UA) Negative (Negative) Urine Ketones Negative (Negative) Urine Blood 1+ H (Negative) Urine Nitrite Negative (Negative) Urine Bilirubin Negative (Negative) Urine Urobilinogen Negative (Negative) Ur Leukocyte Esterase Negative (Negative) Urine WBC (Auto) 0 (0-5) /hpf Urine RBC (Auto) 0-4 (0-4) /hpf U Hyaline Cast (Auto) 1-5 (0-5) /lpf U Epithel Cells (Auto) 20-30 H (0-5) /lpf Urine Bacteria (Auto) Negative (Negative) Diagnostic Findings CT head/brain wo con CLINICAL HISTORY: 73 years-old Female presenting with Stroke evaluation . TECHNIQUE: Multidetector CT imaging of the head was performed without the use of intravenous contrast. IV contrast: None. One or more dose lowering techniques were used consistent with the principles of ALARA (as low as reasonably achievable), including automatic exposure control, mA or kV adjustment to individual patient size, and/or use of iterative reconstruction. COMPARISON: 03/20/2017. CT DOSE (mGy.cm): The estimated cumulative dose is 537.48 mGy.cm. FINDINGS: [place] Cutter topogram: Unremarkable. Proportional ventricular and sulcal prominence with the exception of the vertex, where there is persistent sulcal effacement and gyral crowding. This is unchanged in severity. No hemorrhage. Periventricular and subcortical white matter hypoattenuation, nonspecific but likely indicative of chronic small vessel ischemic change. No acute territorial infarct. No mass effect or midline shift. No extra-axial fluid collection. Paranasal sinuses and mastoid air cells clear. Calvarium intact. IMPRESSION: 1. Unchanged sulcal effacement and gyral crowding at the vertex since the prior exam in 2016. This pattern can be seen in the setting of normal pressure hydrocephalus. 2. Chronic small vessel ischemic change. No acute intracranial pathology. Electronically signed by: Brian Hoyt M.D. 06/07/2018 8:51 PM Dictated: [id number]/[id number] Transcribed: 03/13/19 2048 XR chest 1V portable CLINICAL HISTORY: 73 years-old Female presenting with weakness. TECHNIQUE: Portable upright AP view of the chest was obtained. COMPARISON: 08/22/2017. FINDINGS: Left subclavian pacer with leads to the right atrium and right ventricular apex. Coronary artery calcification may be present. Atherosclerosis of aortic arch. Cardiac silhouette mildly enlarged, unchanged. Pulmonary vasculature unchanged. No focal opacity. No large effusion or pneumothorax. Degenerative changes of the thoracic spine. Chronic fracture deformity of the right humeral neck. IMPRESSION: 1. Cardiomegaly. No other convincing evidence of acute cardiopulmonary disease. Electronically signed by: Brian Hoyt M.D. 06/07/2018 9:16 PM Dictated: 06/07/[id number] Transcribed: 06/07/182114 ECG Additional Comments: NSR at 82bpm, normal axis and intervals, ST changes present in lateral leads, unchanged from July 2017 Code Status & VTE Plan Code Status FULL VTE Prophylaxis Plan VTE Prophylaxis will be ordered: Yes Critical Care Time Critical Care Time: No (1) HTN (hypertension) Hypertension type: essential hypertension Qualified Code(s): I10 - Essential (primary) hypertension (2) HLD (hyperlipidemia) Hyperlipidemia type: unspecified Qualified Code(s): E78.5 - Hyperlipidemia, unspecified
[2018-06-08 04:18] LABS: Phosphorus 3.1 mg/dl (2.5-4.9)
[2018-06-08] MEDS ORDERED: OPTIRAY 320 125ml IV PRN (04:24)
--- NOTE | 2018-06-08 06:49 | CT Scan Report ---
CT angio neck with con CLINICAL HISTORY: weakness COMPARISON STUDY: 12/01/2017 TECHNIQUE: CT angiography was performed from the aortic arch to the skull base. MIP imaging was perfo rmed. The patient was scanned in a dynamic helical fashion during intravenous administration of 119 c c of Optiray 320. A dose lowering technique was utilized adhering to the principles of ALARA. CT DOSE: Technique: CT angiogram of the carotid and vertebral arteries was obtained using intravenous contrast and 3-D reconstruction. NASCET criteria was utilized. Findings: There are moderate atheromatous changes within the right common carotid. The right common carotid has a medial retropharyngeal course. There are extensive calcific atheromatous changes at the level of t he carotid bulb which makes stenosis estimation difficult. There is an estimated 80% diameter stenosi s. Mild to moderate atheromatous changes are also present within the carotid siphon and cavernous car otid. Atheromatous changes are present within the left common carotid with medial deviation with a retropha ryngeal course. There is extensive calcific plaque at the carotid bifurcation with an estimated 60% d iameter stenosis. Atheromatous changes are present within the carotid siphon and cavernous carotid. There is a dominant right vertebral artery. There are mild diffuse atheromatous changes present withi n the vertebrals. There is moderate multifocal basilar artery narrowing. IMPRESSION: 1. Moderately severe bilateral atheromatous changes. 2. Estimated 80% diameter stenosis of the proximal right internal carotid 3. Estimated 60% diameter stenosis of the proximal left internal carotid 4. Mild to moderate multifocal basilar atheromatous change. Electronically signed by: Michael Cavanaugh M.D. 06/08/2018 6:48 AM
--- NOTE | 2018-06-08 06:51 | CT Scan Report ---
CT angio head w con CLINICAL HISTORY: weakness TECHNIQUE: CT angiography of the head was performed in a dynamic helical fashion during intravenous a dministration of 119 cc of Optiray 320. MIP imaging was performed. A dose lowering technique was util ized adhering to the principles of ALARA. CT DOSE: 533.44 mGy.cm COMPARISON STUDY: Noncontrast head CT dated 03/20/2017 FINDINGS: There are mild diffuse atheromatous changes present within the cavernous carotids. There ar e no lesion suspicious for aneurysm. There is no major intracranial branch occlusion. There are no pa thologically enhancing masses. The dural sinuses appear patent. There is mild to moderate atheromatou s changes within the basilar artery. IMPRESSION: 1. No evidence of major intracranial branch occlusion 2. No evidence of aneurysm Electronically signed by: Michael Cavanaugh M.D. 06/08/2018 6:50 AM
[2018-06-08] MEDS: CLOPIDOGREL BISULFATE 75 MG TAB PO SCH (08:46)
[2018-06-08] MEDS: ASPIRIN 81 MG ECTAB PO SCH (08:46)
[2018-06-08] MEDS: AMLODIPINE BESYLATE 5 MG TAB PO SCH (08:47)
[2018-06-08] MEDS: LOSARTAN POTASSIUM 25 MG TAB PO SCH (08:47)
[2018-06-08] MEDS: POTASSIUM CHLORIDE 20 MEQ TABCR PO SCH (08:47)
[2018-06-08] MEDS ORDERED: MICONAZOLE NITRATE POWDER 43 GM ONE (08:55)
[2018-06-08] MEDS ORDERED: MICONAZOLE NITRATE POWDER 43 GM EXT PRN (08:58)
[2018-06-08] MEDS: ATORVASTATIN 40 MG TAB PO SCH (21:23)
[2018-06-09] MEDS: LOSARTAN POTASSIUM 25 MG TAB PO SCH (09:33)
[2018-06-09] MEDS: ASPIRIN 81 MG ECTAB PO SCH (09:33)
[2018-06-09] MEDS: CLOPIDOGREL BISULFATE 75 MG TAB PO SCH (09:34)
[2018-06-09] MEDS: POTASSIUM CHLORIDE 20 MEQ TABCR PO SCH (09:34)
[2018-06-09] MEDS: AMLODIPINE BESYLATE 5 MG TAB PO SCH (09:34)
--- NOTE | 2018-06-09 11:12 | Neurology Consultation ---
Date of Consultation June 09, 2018 Assessment & Plan (1) Weakness: Patient has bilateral lower extremity weakness right greater than left leg and some proximal right upper extremity weakness (which I believe is a shoulder problem). She has difficulty getting to a standing position and her gait is poor needing a walker. She does have urinary incontinence but also has stool incontinence. She has cognitive problems . I am not certain of the time frame but it seems like all of these issues have been going on for at least 2 years. I do not have a feel for the progression because of her ability to give history. She has seen Dr. Brooks who has followed her as an outpatient regularly. He would have a better idea of her progression. Because of her clinical symptoms and the CT head findings, the diagnosis of normal pressure hydrocephalus has been entertained. Certainly she fits this criteria clinically, but cerebral vascular disease could imitate this and the enlarged ventricles may be simply hydrocephalus ex vacuo. I do not believe she has had a new stroke. 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 I am uncertain if the ventricles are enlarged out of proportion to the amount of atrophy. (3) Carotid stenosis: Patient has bilateral right greater than left carotid stenosis, approximately 80 percent on the right and 60 percent on the left. Although this seems slightly worse than the previous study of February 2017 that study was MR angiography and is not directly comparable. The numbers are close however. She has been on both aspirin and Plavix the chronically. Recommendations: 1. In order to answer the question of normal pressure hydrocephalus versus hydrocephalus ex vacuo, it might be beneficial for to have the following studies. - 1st another MRI of the brain to compared to the previous study of February 2017. - if this is inconclusive, then I would recommend a radionucleotide cisternogram 2. I do not believe she needs to be sent to a vascular surgeon for surgical consideration regarding her carotid stenosis. I would keep her on both aspirin and Plavix as she has been doing. 3. Physical and occupational therapy. She may benefit from a rehabilitation hospital stay also. 4. Otherwise, she should follow up with Dr. Deo Brooks CT has been following her regularly as an outpatient. Overall, I spent a total of 60 minutes with this case including review of records, review of CT scan films, direct evaluation the patient at bedside, and discussion of the case with the patient, staff, and Dr. Strickland, including differential diagnosis and treatment options. History of Present Illness Reason for Consultation: Patient is a 73-year-old, was asked to see the request of Dr. Strickland, for neurologic consultation regarding weakness abnormal CT scan of the head. Requesting Physician: Dr. Strickland. Attending Physician: Deion Hernandez MD, PhD, [facility] History of Present Illness Patient apparently has been seeing Dr. Deo Brooks as an outpatient for many years and has seen as recently as 2 months ago according to the patient. He has diagnosed in her recent note that she has right-sided weakness and bilateral leg weakness. She has a history of known bilateral carotid stenosis right greater than left side, hypertension, and chronic cerebral vascular disease/leukoencephalopathy with dementia/cognitive problems. She has been on both aspirin and Plavix because single antiplatelet medication resulted in more episodes of right-sided weakness. Patient has been using a walker to ambulate for at least a couple of years. An MRI of the brain in February of 2017 showed generalized atrophy, moderate small vessel ischemia, and enlarged ventricles the considered to be related to the amount of atrophy. Patient says she has had incontinence of urine a for the last 2 years. She feels her memory is unaffected. She feels that both legs are weak although the right could be worse than the left. She feels that her right arm at the shoulder has been weak for the last 2 years. Patient arrived to the emergency room June 07 at 1936 with a temperature 36.9, pulse 92, respiratory rate 18, blood pressure 170/108, and O2 saturation 97 percent. Her exam neurologically was largely unremarkable on the felt that her strength was unremarkable. A CT scan of the head was felt to be unchanged compared to the previous CT scan of the head of February 2017 with the atrophy and ventriculomegaly. Now they are questioning normal pressure hydrocephalus. CBC and Chem profile were largely unremarkable although the glucose is 143 and alk-phos 133. Urinalysis was unremarkable. Chest x-ray was remarkable for some old cardiomegaly. CT angiography of the neck showed 80 percent right internal carotid artery stenosis. There was 60 percent stenosis of the left internal carotid artery at the origin. 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 in February of 2017 CT angiography showed 70 percent on the right and 50 percent on the left. She has been on aspirin and Plavix all this time. CT angiography of the head was unremarkable. Allergies Allergy/AdvReac Type Severity Reaction Status Date / Time No Known Allergies Allergy Unverified 06/07/18 23:43 Home Medications Home Medications Medication Instructions Recorded Confirmed Type amlodipine 5 mg PO QAM 06/07/18 06/07/18 History aspirin 162 mg PO QAM 06/07/18 06/07/18 History atorvastatin 40 mg PO HS 06/07/18 06/07/18 History clopidogrel 75 mg PO QAM 06/07/18 06/07/18 History losartan 12.5 mg PO QAM 06/07/18 06/07/18 History potassium chloride 20 meq PO QAM 06/07/18 06/07/18 History sennosides-docusate sodium [Senna 1 tab PO BID PRN 06/07/18 06/07/18 History with Docusate Sodium] Patient History Medical History Orthostatic hypotension (Chronic) Sinus node dysfunction (Chronic) Pacemaker (Chronic) Leukoencephalopathy (Chronic) HLD (hyperlipidemia) (Chronic) HTN (hypertension) (Chronic) Syncope Dizziness CVA (cerebral vascular accident) Surgical History History of appendectomy (Chronic) Hx of tonsillectomy (Chronic) Family History Mother Heart disease Father Heart disease Other Family history non-contributory Social History Communication Ability: Effective Beliefs That Will Affect Care: None Current Living Situation: Spouse Current Living Situation Comment: Lives at home with Deo Olmos Other Information That Helps Us Care for You: No Feels Safe at Home: Yes Smoking Status: Former smoker Hx Alcohol Use: No Hx Substance Use: No Review of Systems Constitutional: no fever and no fatigue Eyes: no diplopia, no eye pain and no worsening vision Ear, Nose, Mouth, Throat: no ear pain, no tinnitus, no hearing loss and no dysphagia Respiratory: no cough and no dyspnea Cardiovascular: no chest pain, no dyspnea and no palpitations Gastrointestinal: no abdominal pain, no nausea and no vomiting Genitourinary (Female): + urinary frequency and + urinary incontinence; no dysuria Musculoskeletal: + muscle weakness; no back pain, no neck pain, no radicular pain, no myalgia and no muscle atrophy Integumentary: no rash and no lesions Neurologic: + gait abnormality, + localized weakness and + memory loss; no falls, no generalized weakness, no tingling, no numbness, no tremor(s), no abnormal movements, no dizziness, no headache(s), no abnormal speech, no behavioral changes and no confusion Psychiatric: no depression, no abnormal sleep pattern, no anxiety, no difficulty concentrating, no confusion and no hallucinations Endocrine: no fatigue and no flushing Hematologic / Lymphatic: no easy bleeding and no easy bruising Allergy / Immunological: no urticaria Physical Exam Vital Signs (Past 24 Hours): Last Vital Signs Temp 36.3 C L 06/09/18 07:39 Pulse 66 06/09/18 07:39 Resp 16 06/09/18 07:39 BP 138/82 06/09/18 07:39 Pulse Ox 95 06/09/18 07:39 Physical Exam: The patient is right-handed. The patient is awake, alert, and attentive. Speech is normal without any aphasia or dysarthria. Mentation and thought processes are slow and her long and short- term memory is poor. She knew the day and the fact that she did a hospital but she did not know the month or the year and thought she was in clear field. She is confused with right versus left. Mood is normal and affect is appropriate. The discs are sharp with positive venous pulsations bilaterally. There are no exudates, hemorrhages, or blood vessel changes seen. Pupils are 3 mm bilaterally and reactive to light. Extraocular eye muscles are intact without nystagmus. Visual acuity and visual levi seem normal grossly to confrontation. There are no deficits to sensation in the face in all 3 distributions of the fifth cranial nerve bilaterally. Corneal reflexes are positive bilaterally. Facial strength and symmetry was normal bilaterally. Hearing seems intact grossly to voice and finger rub bilaterally. Palate moves well without asymmetry. There is normal sternocleidomastoid and trapezius (shoulder shrug) strength bilaterally. Tongue is midline with good strength bilaterally. Neck has a full range of motion without discomfort. There are no cervical bruits bilaterally. There are no cranial or ocular bruits. Heart is without murmur. There is a regular rhythm and rate. Cervical, thoracic, and lumbar spine are nontender to palpation. Gait is difficult to test. Stance standing at the bedside is reasonable eyes open but she is very tenuous with steps. It was very hard for her to go from a sitting to a standing position without help. With outstretched arms there is no drift. There are no resting, postural, or action tremors. There is no ataxia with finger to nose testing. There is good facility in the hands. No other abnormal involuntary movements are noted. Motor strength is 3/5 proximally on the right with a week deltoid and shoulder weakness. Biceps, triceps and more distally is closer to 5/5. Left upper extremity is closer to 5/5 diffusely. Leg strength is 4/5 diffusely on the right and 4+ to 5/5 diffusely on the left. The limbs have good tone without rigidity or spasticity. There is no atrophy noted in the muscles. Muscle bulk is normal, there is no tenderness to palpation, no myotonia to percussion, and no fasciculations seen. Sensory examination is intact to touch and pin throughout all 4 limbs diffusely. Reflexes are 2/4 in the biceps, triceps, brachioradialis, quadriceps, and Achilles tendons bilaterally. Toes are downgoing with plantar stimulation bilaterally. Peripheral pulses are present and of normal quality distally in all 4 limbs. There is no peripheral edema noted in the limbs. Results & Data Diagnostic Findings [place], [place] [phone] CT Scan Report Patient: KRYSTINA OLMOS Date: 06/07/18 MR#: [id number] [address] [facility] Acct ID:[id number]: Date: [address] [place] [address] Zip: [place] [address] Age: 73Location: ED Sex: F Room/Bed: Att Phy: Diagnosis: LEG [place] Phy: Shahid Ken MDService Date: 06/07/18 [facility] Phy: Interpreting Phy: Brian Hoyt MD Admit Phy: Ordering Phy: Nikos Valles, cc: ~ CT head/brain wo con CLINICAL HISTORY: 73 years-old Female presenting with Stroke evaluation . TECHNIQUE: Multidetector CT imaging of the head was performed without the use of intravenous contrast. IV contrast: None. One or more dose lowering techniques were used consistent with the principles of ALARA (as low as reasonably achievable), including automatic exposure control, mA or kV adjustment to individual patient size, and/or use of iterative reconstruction. COMPARISON: 03/20/2017. CT DOSE (mGy.cm): The estimated cumulative dose is 537.48 mGy.cm. 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 Proportional ventricular and sulcal prominence with the exception of the vertex, where there is persistent sulcal effacement and gyral crowding. This is unchanged in severity. No hemorrhage. Periventricular and subcortical white matter hypoattenuation, nonspecific but likely indicative of chronic small vessel ischemic change. No acute territorial infarct. No mass effect or midline shift. No extra-axial fluid collection. Paranasal sinuses and mastoid air cells clear. Calvarium intact. IMPRESSION: 1. Unchanged sulcal effacement and gyral crowding at the vertex since the prior exam in 2016. This pattern can be seen in the setting of normal pressure hydrocephalus. 2. Chronic small vessel ischemic change. No acute intracranial pathology. Electronically signed by: Brian Hoyt M.D. 06/07/2018 8:51 PM
--- NOTE | 2018-06-09 16:22 | Ultrasound Report ---
ULTRASOUND RIGHT GROIN NONVASCULAR CLINICAL HISTORY: Palpable lump in the right groin. COMPARISON STUDY: No priors. FINDINGS: Real-time, grayscale, and color flow sonography of the soft tissues of the right groin is p erformed at the indicated site of interest. There are prominent benign-appearing right inguinal lymph nodes. The largest measures 2.4 x 0.7 x 0.7 cm. These maintain fatty surya. IMPRESSION: There are prominent benign-appearing right internal lymph nodes as above. These may be on a reactive basis and clinical correlation will be required. Electronically signed by: Francisco Thacker M.D. 06/09/2018 4:21 PM
[2018-06-09] MEDS: ATORVASTATIN 40 MG TAB PO SCH (20:14)
--- NOTE | 2018-06-09 23:52 | Hospitalist Progress Note ---
Date of Service June 09, 2018 Assessment & Plan (1) Weakness: Unclear etiology of bilateral LE weakness. Presently with weakness and drift in RUE which patient reports to be at baseline. Weakness in LLE mild. ?CT findings suggestive of NPH - patient with ambulatory dysfunction and some co nfusion. No bowel or bladder involvement, no reported incontinence. -Admit to medical floor with telemetry -will transfer to Med/surg -Neuro checks per protocol - CTA head and neck: neg -Neurology consultation - assistance appreciated. -PT/OT and case management consult. Placement at a rehabilitation facility is requested by family -Continue ASA, Plavix, Atorvastatin (2) HTN (hypertension): Blood pressure well controlled at present -Continue Amlodipine daily -Continue Losartan -Monitor (3) HLD (hyperlipidemia): Chronic -Continue Atorvastatin 40mg po daily (4) Abnormal LFTs: Mildly elevated bili and AP -Repeat LFTs in AM (5) Soft tissue abscess of inguinal region: Will obtain imaging of right groin. Will consult gen surgery (6) H/O: CVA (cerebrovascular accident): Residual deficit in RUE -Continue ASA, Plavix and Statin -PT/OT and Case management for possible placement F/E/N- Heplock. Electrolytes WNL. Heart healthy diet as tolerated. Ppx - SCDs. Code - Full spent 25 minutes in management of patient. Subjective Patient has dementia and is a poor historian. She does not have any complaints today. Discussed with nurse, Patient appears to have an abscess in the right groin. Review of Systems Unobtainable due to mental health condition Physical Exam Vital Signs (Past 24 Hours): Last Vital Signs Temp 36.6 C 06/09/18 22:58 Pulse 61 06/09/18 22:58 Resp 16 06/09/18 22:58 BP 116/78 06/09/18 22:58 Pulse Ox 91 06/09/18 22:58 Physical Exam: General: patient resting comfortably, NAD, non-toxic in appearance, AA&O to self and situation, unclear on location Skin: warm, dry, intact, no rashes or lesions HEENT: NC/AT, PERRL, EOMI, anicteric sclera, conjunctiva without injection, external ear normal to inspection and nontender, nares patent, moist mucus membranes, dentition intact, no oropharyngeal lesions, neck supple, trachea midline, no LAD, no thyromegaly, no JVD Heart: +S1/S2, regular, no m/r/g Lungs: equal air entry bilaterally, no rales/rhonchi/wheezes Abd: +BS, soft, NT/ND, no masses/organomegaly/ascites Ext: warm, 2+ pulses in UE/LE bilaterally, no clubbing/cyanosis or edema Neuro: AA&O to self and situation, speech clear and fluent, no facial droop, CN II-XII grossly intact, sensation to light touch intact in UE/LE bilaterally, MS diminished in RUE 3+, mildly diminished in LLE, 4/5 (1) HLD (hyperlipidemia) Hyperlipidemia type: unspecified Qualified Code(s): E78.5 - Hyperlipidemia, unspecified (2) HTN (hypertension) Hypertension type: essential hypertension Qualified Code(s): I10 - Essential (primary) hypertension
[2018-06-10 07:02] LABS: Bilirubin Direct 0.2 mg/dl (0-0.2); Bilirubin,Total 0.5 mg/dl (0.2-1); Total Protein 6.4 gm/dl (6.4-8.2)
[2018-06-10] MEDS: ASPIRIN 81 MG ECTAB PO SCH (07:45)
[2018-06-10] MEDS: LOSARTAN POTASSIUM 25 MG TAB PO SCH (07:45)
[2018-06-10] MEDS: POTASSIUM CHLORIDE 20 MEQ TABCR PO SCH (07:45)
[2018-06-10] MEDS: CLOPIDOGREL BISULFATE 75 MG TAB PO SCH (07:46)
[2018-06-10] MEDS: AMLODIPINE BESYLATE 5 MG TAB PO SCH (07:46)
--- NOTE | 2018-06-10 09:50 | Neurology Progress Note ---
Date of Service June 10, 2018 Assessment & Plan (1) Weakness: Patient has bilateral lower extremity weakness right greater than left leg and some proximal right upper extremity weakness (which I believe is a shoulder problem). She has difficulty getting to a standing position and her gait is poor needing a walker. She does have urinary incontinence but also has stool incontinence. She has cognitive problems . I am not certain of the time frame but it seems like all of these issues have been going on for at least 2 years. I do not have a feel for the progression because of her ability to give history. She has seen Dr. Brooks who has followed her as an outpatient regularly. He w ould have a better idea of her progression. Because of her clinical symptoms and the CT head findings, the diagnosis of normal pressure hydrocephalus has been entertained. Certainly she fits this cr iteria clinically, but cerebral vascular disease could imitate this and the enlarged ventricles may be simply hydrocephalus ex vacuo. I do not believe she has had a new stroke. 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 I am uncertain if the ventricles are enlarged out of proportion to the amount of atrophy. (3) Carotid stenosis: Patient has bilateral right greater than left carotid stenosis, approximately 80 percent on the right and 60 percent on the left. Although this seems slightly worse than the previous study of February 2017 that study was MR angiography and is not directly comparable. The numbers are close however. She has been on both aspirin and Plavix the chronically. Recommendations: 1. In order to answer the question of normal pressure hydrocephalus versus hydrocephalus ex vacuo, it might be beneficial for to have the following studies. - 1st obtain another MRI of the brain to compared to the previous study of February 2017. - if this is inconclusive, then I would recommend a radionucleotide cisternogram 2. I do not believe she needs to be sent to a vascular surgeon for surgical consideration regarding her carotid stenosis. I would keep her on both aspirin and Plavix as she has been doing. 3. Physical and occupational therapy. She may benefit from a rehabilitation hospital stay also. 4. Otherwise, she should follow up with Dr. Deo Brooks, since he has been following her regularly as an outpatient. Overall, I spent a total of 25 minutes with this case including review of records, direct evaluation the patient at bedside, and discussion of the case with the patient and staff, including differential diagnosis and treatment options. Subjective Patient has no complaint of pain or dizziness. She is seeing well and has no headaches. Her arms and legs are the same as before. Blood pressure is 130/85 Physical Exam Vital Signs (Past 24 Hours): Last Vital Signs Temp 36.5 C 06/10/18 07:18 Pulse 69 06/10/18 07:18 Resp 18 06/10/18 07:18 BP 130/85 06/10/18 07:18 Pulse Ox 93 06/10/18 07:18 Physical Exam: She is awake and alert. Speech is without aphasia or dysarthria. Thought processes are fairly intact and she knows her name in age. She knows she is in the hospital but does not not know month or the year. There is no facial droop extraocular eye muscles are intact without nystagmus. Coordination is normal in the arms but and she has severe shoulder weakness on the right as before. Gait is narrow based and she needs a walker for support. She will move her left leg and drag her right as she walks along.
[2018-06-10] MEDS ORDERED: LIDOCAINE HCL 1% 20 ML VIAL ONE (10:58)
--- NOTE | 2018-06-10 12:56 | Surgery Consultation ---
Date of Consultation June 10, 2018 Assessment & Plan (1) Soft tissue abscess of inguinal region: can perform simple incision/drainage/packing of abcess at bedside pt agreeable will perform later today. History of Present Illness Attending Physician: Isidro Strickland History of Present Illness pt admitted with ambulatory issues and being worked up by neurology for possible neurologic issues has had left groin pain for approx 2 weeks. noted now to have a small abcess Allergies Allergy/AdvReac Type Severity Reaction Status Date / Time No Known Allergies Allergy Unverified 06/07/18 23:43 Home Medications Home Medications Medication Instructions Recorded Confirmed Type amlodipine 5 mg PO QAM 06/07/18 06/07/18 History aspirin 162 mg PO QAM 06/07/18 06/07/18 History atorvastatin 40 mg PO HS 06/07/18 06/07/18 History clopidogrel 75 mg PO QAM 06/07/18 06/07/18 History losartan 12.5 mg PO QAM 06/07/18 06/07/18 History potassium chloride 20 meq PO QAM 06/07/18 06/07/18 History sennosides-docusate sodium [Senna 1 tab PO BID PRN 06/07/18 06/07/18 History with Docusate Sodium] Patient History Medical History Orthostatic hypotension (Chronic) Sinus node dysfunction (Chronic) Pacemaker (Chronic) Leukoencephalopathy (Chronic) HLD (hyperlipidemia) (Chronic) HTN (hypertension) (Chronic) Syncope Dizziness CVA (cerebral vascular accident) Surgical History History of appendectomy (Chronic) Hx of tonsillectomy (Chronic) Social History Communication Ability: Effective Beliefs That Will Affect Care: None Current Living Situation: Spouse Current Living Situation Comment: Lives at home with Deo Olmos Other Information That Helps Us Care for You: No Feels Safe at Home: Yes Smoking Status: Former smoker Hx Alcohol Use: No Hx Substance Use: No Physical Exam Vital Signs (Past 24 Hours): Last Vital Signs Temp 36.5 C 06/10/18 07:18 Pulse 69 06/10/18 07:18 Resp 18 06/10/18 07:18 BP 130/85 06/10/18 07:18 Pulse Ox 93 06/10/18 07:18 Physical Exam: alert. hx of dementia but currently oriented Heent: RUBÉN. EOMI. abd: soft. nt. nd ext: +3 cm abcess on right groin. very tender. warm/red
--- NOTE | 2018-06-10 17:14 | Operative Report ---
Post Operative Report Pre & Post Diagnosis pre: inguinal abcess post op: same Procedure incision and drainage of right groin abcess Surgeon Charles Mariano, DO Rotor Plate Washer n/a Estimated Blood Loss 10 Findings Consistent with Post-Op Diagnosis Specimens none Description of Procedure After informed consent was obtained at the bedside the patient's right groin was sterilely prepped and draped in usual fashion. I used lidocaine to infiltrate the skin around the area of the abscess. I used an 11 blade scalpel to make a linear incision directly over it. I carried this down bluntly. I used a hemostat to spread the incision. I obtained a small amount of pus and sebaceous material. I did not get as much as I expected. I was only able to express a small amount of pus and blood. Wound was then packed with quarter inch plain packing and a sterile dressing was placed. The patient tolerated the procedure well. I attest to the content of the Intraoperative Record and any orders documented therein. Any exceptions are noted below.
[2018-06-10] MEDS: ATORVASTATIN 40 MG TAB PO SCH (20:47)
[2018-06-10] MEDS: CEFAZOLIN 2000MG 2,000 MG/15 ML SYR IV SCH (22:04)
[2018-06-11] MEDS: CEFAZOLIN 2000MG 2,000 MG/15 ML SYR IV SCH ×3 (05:47→20:23)
[2018-06-11] MEDS: AMLODIPINE BESYLATE 5 MG TAB PO SCH (09:05)
[2018-06-11] MEDS: POTASSIUM CHLORIDE 20 MEQ TABCR PO SCH (09:06)
[2018-06-11] MEDS: ASPIRIN 81 MG ECTAB PO SCH (09:06)
[2018-06-11] MEDS: CLOPIDOGREL BISULFATE 75 MG TAB PO SCH (09:06)
[2018-06-11] MEDS: LOSARTAN POTASSIUM 25 MG TAB PO SCH (09:07)
--- NOTE | 2018-06-11 12:53 | Cardiology Progress Note ---
Date of Service June 11, 2018 Patient's chart was reviewed she has an pacemaker. She is a prior MRI is documented in the medical record without any issues. Her device can be programmed to DO mode at a rate of 60 bpm.[employer] been notified to reprogram her device. After the MRI her device will be needTo be reassessed and program back to its baseline parameters. This was discussed with the hospitalist service. Physical Exam Vital Signs (Past 24 Hours): Last Vital Signs Temp 36.4 C L 06/11/18 08:00 Pulse 73 06/11/18 08:00 Resp 18 06/11/18 08:00 BP 136/82 06/11/18 08:00 Pulse Ox 94 06/11/18 08:00
--- NOTE | 2018-06-11 15:24 | Magnetic Resonance Report ---
MRI OF THE BRAIN WITHOUT CONTRAST CLINICAL HISTORY: weakness COMPARISON STUDY: 03/22/2017 FINDINGS: Sagittal T1, axial diffusion, proton density and T2 weighted axial, coronal FLAIR, and axial T1-weigh vanessa images were acquired. No intra or extra-axial mass lesions are visualized Axial diffusion-weighted images reveal no evidence of acute or subacute infarction. There is persistent ventricular dilatation, unchanged from the prior study and likely secondary to vo lume loss. Proton density T2-weighted and FLAIR images reveal moderately extensive confluent foci of increased T 2 signal within the periventricular white matter. There are old thalamic lacunar infarcts. There are no abnormal flow voids. IMPRESSION: 1. No acute intracranial findings 2. No evidence of acute or subacute infarction 3. Stable volume loss and secondary ventricular dilatation 4. Extensive white matter disease likely on a small vessel basis 5. Old thalamic lacunar infarcts Electronically signed by: Michael Cavanaugh M.D. 06/11/2018 3:22 PM
[2018-06-11] MEDS: ATORVASTATIN 40 MG TAB PO SCH (20:20)
--- NOTE | 2018-06-12 01:54 | Hospitalist Progress Note ---
Date of Service June 11, 2018 Assessment & Plan (1) Weakness: Unclear etiology of bilateral LE weakness. Presently with weakness and drift in RUE which patient reports to be at baseline. Weakness in LLE mild. ?CT findings suggestive of NPH - patient with ambulatory dysfunction and some co nfusion. No bowel or bladder involvement, no reported incontinence. -Admit to medical floor with telemetry -will transfer to Med/surg -Neuro checks per protocol - CTA head and neck: neg -Neurology consultation - assistance appreciated. MRI showed: Stable volume loss and secondary ventricular dilatation Extensive white matter disease likely on a small vessel basis -PT/OT and case management consult. Placement at a rehabilitation facility is requested by family -Continue ASA, Plavix, Atorvastatin (2) HTN (hypertension): Blood pressure well controlled at present -Continue Amlodipine daily -Continue Losartan -Monitor (3) HLD (hyperlipidemia): Chronic -Continue Atorvastatin 40mg po daily (4) Abnormal LFTs: Mildly elevated bili and AP -Repeat LFTs were better. No need for further imaging. (5) Soft tissue abscess of inguinal region: Will obtain imaging of right groin. S/P incision and drainage. Will await discharge instructions. Patient should f/u with surgery or wound care as lesion is packed. (6) H/O: CVA (cerebrovascular accident): Residual deficit in RUE -Continue ASA, Plavix and Statin -PT/OT and Case management for possible placement MRI of brain was essentially negative except for what is stated above. F/E/N- Heplock. Electrolytes WNL. Heart healthy diet as tolerated. Ppx - SCDs. Code - Full spent 25 minutes in management of patient. Subjective Patient has dementia and is a poor historian. She does not have any complaints today. Updated family. Unable to obtain ROS due to mental condition. Physical Exam Vital Signs (Past 24 Hours): Last Vital Signs Temp 36.6 C 06/11/18 23:00 Pulse 66 06/11/18 23:00 Resp 18 06/11/18 23:00 BP 115/74 06/11/18 23:00 Pulse Ox 96 06/11/18 23:00 Physical Exam: General: patient resting comfortably, NAD, non-toxic in appearance, AA&O to self and situation Skin: warm, dry, intact, no rashes or lesions HEENT: NC/AT, PERRL, EOMI, anicteric sclera, conjunctiva without injection, external ear normal to inspection and nontender, nares patent, moist mucus membranes, dentition intact, no oropharyngeal lesions, neck supple, trachea midline, no LAD, no thyromegaly, no JVD Heart: +S1/S2, regular, no m/r/g Lungs: equal air entry bilaterally, no rales/rhonchi/wheezes Abd: +BS, soft, NT/ND, no masses/organomegaly/ascites Ext: warm, 2+ pulses in UE/LE bilaterally, no clubbing/cyanosis or edema, R groin: erythema, indurated Neuro: AA&O to self and situation, speech clear and fluent, no facial droop, CN II-XII grossly intact, sensation to light touch intact in UE/LE bilaterally, MS diminished in RUE 3+, mildly diminished in LLE, 4/5 (1) HTN (hypertension) Hypertension type: essential hypertension Qualified Code(s): I10 - Essential (primary) hypertension (2) HLD (hyperlipidemia) Hyperlipidemia type: unspecified Qualified Code(s): E78.5 - Hyperlipidemia, unspecified
--- NOTE | 2018-06-12 01:54 | Hospitalist Progress Note ---
Date of Service June 10, 2018 Assessment & Plan (1) Weakness: Unclear etiology of bilateral LE weakness. Presently with weakness and drift in RUE which patient reports to be at baseline. Weakness in LLE mild. ?CT findings suggestive of NPH - patient with ambulatory dysfunction and some co nfusion. No bowel or bladder involvement, no reported incontinence. -Admit to medical floor with telemetry -will transfer to Med/surg -Neuro checks per protocol - CTA head and neck: neg -Neurology consultation - assistance appreciated. -PT/OT and case management consult. Placement at a rehabilitation facility is requested by family -Continue ASA, Plavix, Atorvastatin (2) HTN (hypertension): Blood pressure well controlled at present -Continue Amlodipine daily -Continue Losartan -Monitor (3) HLD (hyperlipidemia): Chronic -Continue Atorvastatin 40mg po daily (4) Abnormal LFTs: Mildly elevated bili and AP -Repeat LFTs in AM (5) Soft tissue abscess of inguinal region: Will obtain imaging of right groin. Will consult gen surgery Awaiting input (6) H/O: CVA (cerebrovascular accident): Residual deficit in RUE -Continue ASA, Plavix and Statin -PT/OT and Case management for possible placement will obtain an MRI of brain. F/E/N- Heplock. Electrolytes WNL. Heart healthy diet as tolerated. Ppx - SCDs. Code - Full spent 25 minutes in management of patient. Subjective Patient has dementia and is a poor historian. She does not have any complaints today. Updated family. Physical Exam Vital Signs (Past 24 Hours): Last Vital Signs Temp 36.5 C 06/10/18 15:35 Pulse 61 06/10/18 15:35 Resp 18 06/10/18 15:35 BP 132/85 06/10/18 15:35 Pulse Ox 96 06/10/18 15:35 Physical Exam: General: patient resting comfortably, NAD, non-toxic in appearance, AA&O to self and situation, unclear on location (stated we were in [facility] and unclear on date) Skin: warm, dry, intact, no rashes or lesions HEENT: NC/AT, PERRL, EOMI, anicteric sclera, conjunctiva without injection, external ear normal to inspection and nontender, nares patent, moist mucus membranes, dentition intact, no oropharyngeal lesions, neck supple, trachea midline, no LAD, no thyromegaly, no JVD Heart: +S1/S2, regular, no m/r/g Lungs: equal air entry bilaterally, no rales/rhonchi/wheezes Abd: +BS, soft, NT/ND, no masses/organomegaly/ascites Ext: warm, 2+ pulses in UE/LE bilaterally, no clubbing/cyanosis or edema, R groin: erythema, indurated Neuro: AA&O to self and situation, speech clear and fluent, no facial droop, CN II-XII grossly intact, sensation to light touch intact in UE/LE bilaterally, MS diminished in RUE 3+, mildly diminished in LLE, 4/5 (1) HLD (hyperlipidemia) Hyperlipidemia type: unspecified Qualified Code(s): E78.5 - Hyperlipidemia, unspecified (2) HTN (hypertension) Hypertension type: essential hypertension Qualified Code(s): I10 - Essential (primary) hypertension
[2018-06-12] MEDS: CEFAZOLIN 2000MG 2,000 MG/15 ML SYR IV SCH ×3 (06:09→21:24)
--- NOTE | 2018-06-12 07:35 | Surgery Progress Note ---
Date of Service June 12, 2018 Assessment & Plan (1) Soft tissue abscess of inguinal region: daily packing change cont abx seen with Dr. Mariano Subjective groin pain improved Physical Exam Vital Signs (Past 24 Hours): Last Vital Signs Temp 36.6 C 06/11/18 23:00 Pulse 66 06/11/18 23:00 Resp 18 06/11/18 23:00 BP 115/74 06/11/18 23:00 Pulse Ox 96 06/11/18 23:00 Musculoskeletal: left groin packing in place, less erythema, some induration as above. pt feeling better. much less red/tender continue local wound care and antibiotics
[2018-06-12] MEDS: LOSARTAN POTASSIUM 25 MG TAB PO SCH (08:16)
[2018-06-12] MEDS: AMLODIPINE BESYLATE 5 MG TAB PO SCH (08:16)
[2018-06-12] MEDS: CLOPIDOGREL BISULFATE 75 MG TAB PO SCH (08:16)
[2018-06-12] MEDS: ASPIRIN 81 MG ECTAB PO SCH (08:16)
[2018-06-12] MEDS: POTASSIUM CHLORIDE 20 MEQ TABCR PO SCH (08:16)
--- NOTE | 2018-06-12 17:18 | Hospitalist Progress Note ---
Date of Service June 12, 2018 Assessment & Plan (1) Weakness: Unclear etiology of bilateral LE weakness. Weakness in LLE mild. MRI brain on 06/11 showed stable volume loss and secondary ventricular dilatation & extensive white matter disease likely on a small vessel basis. - Neurology consultation - assistance appreciated. - PT/OT and case management consult. Placement at a rehabilitation facility is requested by family. - Continue ASA, Plavix, & atorvastatin (2) HTN (hypertension): Blood pressure well controlled in past 24 hours. - Continue amlodipine & losartan -Monitor BP (3) HLD (hyperlipidemia): Chronic. - Continue Atorvastatin 40mg po daily (4) Abnormal LFTs: Initially mildly elevated bili and AP. - Repeat LFTs were better. - No need for further imaging. (5) Soft tissue abscess of inguinal region: Groin abscess first noted on 06/09. S/p incision and drainage with Dr. Mariano on 06/10 with minimal pus found. No cultures sent. - Daily dressing changes needed - Continue cefazolin per Dr. Mariano; will do 7 days past I&D (6) H/O: CVA (cerebrovascular accident): Residual deficit in RUE. - Continue ASA, Plavix and statin - PT/OT and Case management for possible placement (7) DVT prophylaxis: Heparin 5000 units BID Subjective 73yo F w/ hx of dementia who presented for lower extremity weakness, without acute process noted on MRI. This morning, she is doing very well. No major concerns this morning. Reports no fevers/chills, chest pain, shortness of breath, abdominal pain, nausea, or vomiting. Weakness is stable. Physical Exam Vital Signs (Past 24 Hours): Last Vital Signs Temp 36.5 C 06/12/18 14:25 Pulse 66 06/12/18 14:25 Resp 15 06/12/18 14:25 BP 119/76 06/12/18 14:25 Pulse Ox 94 06/12/18 14:25 Constitutional: WD/WN, vitals as above Eyes: EOM intact bilaterally; no conjunctival abnormality ENMT: external ear and nose normal, oropharynx normal Neck: trachea midline, no thyromegaly normal visual inspection Respiratory: normal respiratory effort, lungs clear to auscultation no respiratory distress Cardiovascular: RRR, no murmur, no edema Gastrointestinal (Abdomen): Inspection/Auscultation: abdomen normal to inspection; abdomen not distended Musculoskeletal: Extremities: + abnormal strength (4/5) Skin: no rashes, warm and dry Neurologic: moves all extremities and awake Psychiatric: Orientation: alert, oriented to person and cooperative (1) HTN (hypertension) Hypertension type: essential hypertension Qualified Code(s): I10 - Essential (primary) hypertension (2) HLD (hyperlipidemia) Hyperlipidemia type: unspecified Qualified Code(s): E78.5 - Hyperlipidemia, unspecified
[2018-06-12] MEDS: ATORVASTATIN 40 MG TAB PO SCH (21:24)
[2018-06-12] MEDS: HEPARIN SOD 5,000 UNIT/0.5 ML VIAL SQ SCH (21:30)
[2018-06-13] MEDS: CEFAZOLIN 2000MG 2,000 MG/15 ML SYR IV SCH ×2 (06:06→12:51)
[2018-06-13 07:26] VITALS: BP 126/85; TEMP 97.5; O2SAT 94
[2018-06-13 08:05] LABS: BUN Creatinine Ratio 21.5 (10-20); Calcium 9.1 mg/dl (8.5-10.1); Creatinine Clr Calc Pharmacy 69.2 ml/min; Est GFR (African American) 90.8; Est GFR (Non-African American) 78.4; Potassium 3.8 mmol/L (3.5-5.1)
[2018-06-13] MEDS: HEPARIN SOD 5,000 UNIT/0.5 ML VIAL SQ SCH (09:15)
[2018-06-13] MEDS: AMLODIPINE BESYLATE 5 MG TAB PO SCH (09:16)
[2018-06-13] MEDS: CLOPIDOGREL BISULFATE 75 MG TAB PO SCH (09:16)
[2018-06-13] MEDS: LOSARTAN POTASSIUM 25 MG TAB PO SCH (09:16)
[2018-06-13] MEDS: ASPIRIN 81 MG ECTAB PO SCH (09:16)
[2018-06-13] MEDS: POTASSIUM CHLORIDE 20 MEQ TABCR PO SCH (09:16)
--- NOTE | 2018-06-13 11:48 | Surgery Progress Note ---
Date of Service June 13, 2018 Assessment & Plan (1) Soft tissue abscess of inguinal region: daily packing change can switch to po abx Subjective no complaints from right groin I&D Physical Exam Vital Signs (Past 24 Hours): Last Vital Signs Temp 36.4 C L 06/13/18 07:26 Pulse 64 06/13/18 07:26 Resp 18 06/13/18 07:26 BP 126/85 06/13/18 07:26 Pulse Ox 94 06/13/18 07:26 Skin: right groin packing in place, induration resolving
[2018-06-13 14:34] VITALS: PULSE 66
--- NOTE | 2018-06-13 18:27 | Discharge Summary ---
Date of Service June 13, 2018 Admission HPI Per Admitting Provider Patient is a 73yo female with history of prior CVA with right sided deficit, HTN, HLP, Sinus node dysfunction s/p pacemaker placement presenting with weakness. She reports that yesterday AM her "legs didn't work". She was unable to walk. Symptoms lasted all day. Both legs felt clumsy and heavy. Denies VILLA, visual changes, neck pain, dizziness, syncope, numbness, tingling, focal weakness, facial droop, slurred speech. Presently she feels well with no complaints CT Head performed in the ER unchanged from 2017. ?sucal effacement and gyral crowding possibly suggestive of NPH Principal Diagnosis Multifactorial weakness Discharge Exam Constitutional WD/WN, vitals as above Eyes EOM intact bilaterally; no conjunctival abnormality ENMT external ear and nose normal, oropharynx normal Neck trachea midline, no thyromegaly normal visual inspection Respiratory normal respiratory effort, lungs clear to auscultation no respiratory distress Cardiovascular RRR, no murmur, no edema Gastrointestinal (Abdomen) Inspection/Auscultation: abdomen normal to inspection; abdomen not distended Musculoskeletal Extremities: + abnormal strength (4/5) Skin no rashes, warm and dry Neurologic moves all extremities and awake Psychiatric Orientation: alert, oriented to person and cooperative Discharge Data Allergies Allergy/AdvReac Type Severity Reaction Status Date / Time No Known Allergies Allergy Unverified 06/07/18 23:43 Consultations 06/08/18 00:34 ED Decision to Admit Stat 06/08/18 03:38 Consult Case Management - Discharge Planning Routine 06/08/18 13:33 Consult Neurology Routine 06/09/18 14:15 Consult Neurology Routine 06/09/18 15:07 Consult General Surgery Routine 06/11/18 10:08 Consult Cardiology Routine Ordered Studies 06/07/18 19:45 CT head/brain wo con Stat 06/08/18 03:38 CT angio head w con Urgent CT angio neck with con Urgent 06/09/18 15:04 US extremity nonvascular Routine 06/11/18 19:19 MR brain wo con Routine Hospital Course (1) Weakness: No clear etiology of bilateral LE weakness. Weakness in LLE mild. Likely multifactorial from prior CVA, small vessel disease, age, and deconditioning. MRI brain on 06/11 showed stable volume loss and secondary ventricular dilatation & extensive white matter disease likely on a small vessel basis. - Neurology consultation - assistance appreciated. - PT/OT and case management consult. Placement at a rehabilitation facility is requested by family. - Continued ASA, Plavix, & atorvastatin (2) HTN (hypertension): Blood pressure well controlled in past 24 hours. - Continued amlodipine & losartan (3) HLD (hyperlipidemia): Chronic. - Continue Atorvastatin 40mg po daily (4) Abnormal LFTs: Initially mildly elevated bili and AP. - Repeat LFTs were better. - No need for further imaging. (5) Soft tissue abscess of inguinal region: Groin abscess first noted on 06/09. S/p incision and drainage with Dr. Mariano on 06/10 with minimal pus found. No cultures sent. - Daily dressing changes needed - Continue cefazolin per Dr. Mariano; will do 7 days past I&D - On discharge, needs 4 more days of Keflex. (6) H/O: CVA (cerebrovascular accident): Residual deficit in RUE. - Continue ASA, Plavix and statin (7) DVT prophylaxis: Heparin 5000 units BID Total Time Total Time Spent Total Time Spent (In Minutes): 40 Total Time Includes: Examination of the Patient, Discharge Planning and Medication Reconciliation Discharge Plan Discharge Items Patient Disposition: Transfer Inpatient Rehab Fac Reason For Visit: WEAKNESS Discharge Diagnosis: Weakness Discharge Goals: Decrease discomfort and Improve function Activity: Resume your previous activity Non-emergency contact: Primary Care Provider Call non-emergency contact if: you have any medication questions, your pain is not controlled and your temperature is above 100.5 Follow-up/Referrals: Ignacio Ken MD [Primary Care Provider] - Deo Brooks MD [Physician] - (Follow up in 2-3 weeks.) Diet: Heart Healthy Add Provider Instructions: Ms. Olmos was admitted for weakness. Stroke was ruled out with MRI. Neurology felt this was deconditioning and didn't think further testing was needed. She has carotid stenosis, but neurology did not feel she needed CEA or vascular surgery evaluation. She had a right groin abscess that had I&D with Dr. Mariano on 06/10. No cultures sent. Will continue oral Keflex x 4 more days. For wound: Continue daily 1/4" packing changes to right groin wound for 2-3 more days, can shower while or before packing is removed, can f/u Dr. Mariano as needed. Prescriptions: New cephalexin [Keflex] 500 mg capsule 500 mg PO QID 4 Days Qty: 16 RF: 0 Continued atorvastatin 40 mg tablet 40 mg PO HS RF: 0 clopidogrel 75 mg tablet 75 mg PO QAM RF: 0 amlodipine 5 mg tablet 5 mg PO QAM RF: 0 potassium chloride 20 mEq tablet,ER particles/crystals 20 meq PO QAM RF: 0 losartan 25 mg tablet 12.5 mg PO QAM RF: 0 aspirin 81 mg Tablet,Delayed Release (Dr/Ec) 162 mg PO QAM RF: 0 sennosides-docusate sodium [Senna with Docusate Sodium] 8.6-50 mg Tablet 1 tab PO BID PRN (Reason: Constipation) RF: 0 Stand-Alone Forms: [facility] Discharge Orders: Discharge Order (Routine); Ordered 06/13/18 Ordered By: Daniel Silvestre Skilled Items Patient informed of condition?: Yes DNR: No Discharge Level of Care: Acute rehab Communicable Disease: No Discharge Prognosis: Stable Admission Data Admit Date/Time: 06/09/18 14:19 Attending Provider: Daniel Silvestre Admit Provider: Vianney Edmonds Primary Care Provider: Ignacio Ken Other Providers: Vianney Edmonds ; Elpidio Morgan III ; Steven Hinkle ; Charles Mariano ; IRB Approved Study,Jasiel Hi ; Daniel Silvestre Service: Medical Other Interventions: Discharge Summary Assessment (RN) Last Done: 06/13/18 14:32 DC Date/Time DO NOT enter until pt leaves facility: 06/13/18 15:27
== END 2018-06-13 15:27 | DRG 948 ==
LOC: ED 19:36 → 4E 19:36 → SUATTDRO 06-08 02:39 → 4E 06-08 03:01 → SUATTDRO 06-09 14:19

== ENCOUNTER 2018-10-21 21:45 | Inpatient (IN) ==
[2018-10-21 22:12] LABS: Basophils # (auto) 0.04 K/uL (0-0.2); Basophils % (auto) 0.5 %; Eosinophils # (auto) 0.56 K/uL (0-0.5); Eosinophils % (auto) 6.7 %; Hematocrit (blood only) 41.1 % (37-47); Hemoglobin 14.4 g/dL (12.0-16.0); Immature Granulocytes # (auto) 0.01 K/uL (0.00-0.02); Immature Granulocytes % (auto) 0.1 %; Lymphocytes # (auto) 2.78 K/uL (1.2-3.4); Lymphocytes % (auto) 33.3 %; Mean Platelet Volume 9.4 fL (7.4-10.4); Monocytes # (auto) 0.69 K/uL (0.11-0.59); Monocytes % (auto) 8.3 %; Neutrophils # (auto) 4.27 K/uL (1.4-6.5); Neutrophils % (auto) 51.1 %; Platelet Count 228 K/uL (130-400); RDW Coefficient of Variation 13.2 % (11.5-14.5); RDW Standard Deviation 41.5 fL (36.4-46.3); Red Blood Count 4.78 M/uL (4.2-5.4); White Blood Count 8.35 K/uL (4.8-10.8)
[2018-10-21] MEDS ORDERED: OPTIRAY 320 125ml IV PRN (22:18)
--- NOTE | 2018-10-21 22:19 | CT Scan Report ---
HEAD CT NONCONTRAST CT DOSE: HISTORY: Truck symptoms. Stroke evaluation TECHNIQUE: Multiaxial CT images of the head were performed without the use of intravenous contrast. A utomated exposure control was utilized for this study. A dose lowering technique was utilized adheri ng to the principles of ALARA. Comparison: Head CT 09/13/2018. Findings: The paranasal sinuses and mastoid air cells are clear. The calvarium and skull base are int act. There is no mass, hematoma, midline shift, acute infarct. Extensive white matter hypodensity is nonspecific but suggestive of microvascular ischemic change. This remains unchanged. The ventricles a nd sulci demonstrate mild age-related involutional changes. Old basal ganglia and right thalamus lacu emir infarcts are again noted. Impression: No significant change compared to the prior study. No acute intracranial abnormality. Electronically signed by: Surjit Cortez M.D. 10/21/2018 10:17 PM
[2018-10-21 22:21] LABS: Alanine Aminotransferase 19 U/L (12-78); Aspartate Aminotransferase 20 U/L (15-37); BUN Creatinine Ratio 12.1 (10-20); Blood Urea Nitrogen 11 mg/dl (7-18); Calcium 9.3 mg/dl (8.5-10.1); Carbon Dioxide 25 mmol/L (21-32); Chloride 103 mmol/L (98-107); Creatinine Clr Calc Pharmacy 45.2 ml/min; Est GFR (African American) 71.2; Est GFR (Non-African American) 61.4; Glucose 107 mg/dl (70-99); Magnesium 1.9 mg/dl (1.8-2.4); Potassium 3.6 mmol/L (3.5-5.1); Sodium 137 mmol/L (136-145)
[2018-10-21 22:26] LABS: Albumin Globulin Ratio 1.1 (0.9-2); Alkaline Phosphatase 110 U/L (45-117); Bilirubin,Total 0.8 mg/dl (0.2-1); Globulin 3.7 gm/dl (2.5-4.0); Total Protein 7.7 gm/dl (6.4-8.2); Troponin I < 0.015 ng/ml (0-0.045)
[2018-10-21 22:27] LABS: Appearance Urine Clear (Clear); Bilirubin Urine Negative (Negative); Blood Urine Negative (Negative); Color Urine Yellow; Glucose Urine UA Negative (Negative); Ketones Urine Negative (Negative); Leukocyte Esterase Urine Negative (Negative); Nitrite Urine Negative (Negative); Protein Urine Negative (Negative); Specific Gravity Urine 1.011 (1.000-1.030); Urobilinogen Urine Negative (Negative)
--- NOTE | 2018-10-21 22:32 | CT Scan Report ---
HEAD & NECK CTA HISTORY: aphasia TECHNIQUE: Multiaxial CT images of the head were performed following the intravenous administration o f contrast to evaluate the major cerebral vessels. Multiaxial CT images of the neck were also perform ed following the intravenous administration of contrast to evaluate the major cervical vessels. Maxim um intensity projection images were also obtained. A dose lowering technique was utilized adhering to the principles of ALARA. COMPARISON: Head and neck CTA 09/13/2018. FINDINGS: Hypoplastic distal left vertebral artery. No significant stenosis or occlusion within the basilar art dionne. The left REROLLER HAND is fed primarily through the left posterior communicating artery. The right REROLLER HAND is fed through the hypoplastic right P1 segment and right posterior communicating artery. This remains u nchanged and is likely developmental. No significant stenosis or occlusion within the bilateral MCA's or ACAs. The superior sagittal sinus is not well opacified resulting in suboptimal evaluation. No de finite thrombosis within the remaining dural venous sinuses. Moderate calcified plaque within the oni ateral carotid siphons without significant stenosis. No aneurysms identified. Calcified plaque at the origins of the great vessels at the aortic arch without significant stenosis . There is approximately 20 % focal stenosis at the origin of the right subclavian artery. There is l ess than 20% stenosis within the mid bilateral common carotid arteries due to the calcified plaque. T here is severe calcified plaque within the bilateral carotid bifurcations. This results in approximat familia 70% narrowing at the origin of the left internal carotid artery and high-grade stenosis of up to 90% narrowing within the origin of the right internal carotid artery. This remains unchanged compared to the prior studies. The left vertebral artery is hypoplastic in comparison to the right. There is mild focal stenosis at the origin of the bilateral vertebral arteries due to the calcified plaque. Th e remaining vertebral arteries are patent. IMPRESSION: 1. Overall, no significant change compared to prior study. 2. No high-grade stenosis, occlusion, or aneurysm within the [place] of Case. 3. High-grade stenosis at the proximal right internal carotid artery of up to 90% due to the calcifie d plaque. 4. Approximately 70% stenosis at the origin of the left internal carotid artery. Electronically signed by: Surjit Cortez M.D. 10/21/2018 10:30 PM
[2018-10-21 22:55] LABS: INR 1.1 (0.9-1.1); Partial Thromboplastin Ratio 0.9; Partial Thromboplastin Time 25.7 Seconds (21.0-31.0); Prothrombin Time 11.4 Seconds (9.0-12.0)
[2018-10-21] MEDS ORDERED: SODIUM CHLORIDE 0.9% 1000ML 500 ML IV ONE (22:55)
--- NOTE | 2018-10-22 01:09 | History & Physical Report ---
Date of Service October 22, 2018 Assessment & Plan (1) H/O: CVA (cerebrovascular accident): 73-year-old female with a history of hypertension, hyperlipidemia, CVA with right-sided deficits, carotid stenosis presents with acute episode of unresponsiveness lasting 30 minutes. Altered mental status Stroke alert commenced in emergency room, no acute findings found on head CT Stable findings on CTA/head and necksignificant carotid stenosis Neurology consulted, appreciate recommendations Patient has been evaluated by both [facility] and [facility] for carotid stenosis, no planned surgical procedure at this time Continuing aspirin, clopidogrel, atorvastatin Holding amlodipine and losartan at this time for permissive hypertension Keep n.p.o. except for medications Check A1c, lipid panel per protocol PT/OT, discharge planninglives at home with her son and Hypertension Holding blood pressure medication Hyperlipidemia Continue atorvastatin DVT prophylaxis Lovenox CODE STATUS Full (2) HLD (hyperlipidemia): (3) HTN (hypertension): (4) Pacemaker: (5) Carotid artery stenosis: History of Present Illness Primary Care Provider: Shahid Ken MD 73-year-old female with a history of CVA with right-sided deficits, bilateral carotid stenosis (90% occlusion of the right internal carotid, 75% occlusion of the left internal carotid) presents with altered mental status. She is accompanied by her son and who states that during dinner tonight, around 8:30 PM, the patient blanked out and was unresponsive. During this time, the patient's eyes were open and there was no signs of focal neuro deficitsno facial droop and no weakness. The episode of unresponsiveness lasted about 30 minutes. The patient became more alert in the ambulance in route to the hospital. Family states that she has baseline cognitive dysfunction which includes confusion and speech issues. They do say that she has these unresponsive episodes, but they did not do not normally last this long. The patient was recently seen by [facility] vascular surgery with recommendations for carotid endarterectomy. She sought a second opinion from susan who recommended more conservative, nonsurgical plan. Patient is followed by her neurologist, Dr. Brooks and her loan funder, Dr. Mckenzie. In the ED, the patient is able to answer my questions and is alert to person and place. Allergies Allergy/AdvReac Type Severity Reaction Status Date / Time No Known Allergies Allergy Verified 10/21/18 22:23 Home Medications Home Medications Medication Instructions Recorded Confirmed Type aspirin 162 mg PO QAM 06/07/18 10/21/18 History atorvastatin 40 mg PO HS 06/07/18 10/21/18 History clopidogrel 75 mg PO QAM 06/07/18 10/21/18 History losartan 12.5 mg PO QAM 06/07/18 10/21/18 History sennosides-docusate sodium [Senna 1 tab PO BID PRN 06/07/18 10/21/18 History with Docusate Sodium] amlodipine 5 mg PO QAM 07/31/18 10/21/18 History potassium chloride ER 20 mEq 20 meq PO DAILY #90 tab 08/23/18 10/21/18 History tablet,extended release ergocalciferol (vitamin D2) 50,000 50,000 units PO WEEKLY #8 cap 10/04/18 10/21/18 Rx unit capsule Past Med/Surg History Medical History Difficulty walking Hypokalemia Right sided weakness Vitamin D deficiency Carotid stenosis H/O: CVA (cerebrovascular accident) Weakness (Acute) Orthostatic hypotension (Chronic) Sinus node dysfunction (Chronic) Pacemaker (Chronic) Leukoencephalopathy (Chronic) HLD (hyperlipidemia) (Chronic) HTN (hypertension) (Chronic) Syncope Dizziness CVA (cerebral vascular accident) Surgical History History of appendectomy (Chronic) Hx of tonsillectomy (Chronic) Family History Mother Heart disease Father Heart disease Other Family history non-contributory Social History Preferred Language: B[place] Communication Ability: Effective Manager Animal Required: No Beliefs That Will Affect Care: None Current Living Situation: Spouse and Family Current Living Situation Comment: pt lives with and son Feels Safe at Home: Yes Safety Concerns: Feels Safe At This Time Smoking Status: Former smoker Second Hand Exposure: No Hx Alcohol Use: No Hx Substance Use: No Review of Systems Review of Systems: All systems reviewed & are unremarkable except as noted in HPI & below Physical Exam Constitutional: WD/WN, vitals as above Eyes: PERRL, conjunctivae normal, anicteric sclerae ENMT: external ear and nose normal, oropharynx normal Neck: trachea midline, no thyromegaly Respiratory: normal respiratory effort, lungs clear to auscultation Cardiovascular: RRR, no murmur, no edema Gastrointestinal (Abdomen): normal bowel sounds, soft, nontender, no hepatosplenomegaly Musculoskeletal: no cyanosis or clubbing, extremities motor strength 5/5 Skin: no rashes, warm and dry Neurologic: normal touch/pain/proprioception, CN's II-XI intact bilaterally and awake Speech / Cognition: normal speech and no expressive aphasia Motor/Sensory: no tremor and normal movement Psychiatric: A+Ox3, euthymic affect Results & Data Vital Signs (Past 12 Hours) Vital Signs Temp Pulse Pulse Resp BP BP Pulse Ox 10/22/18 01:00 77 18 138/86 92 10/22/18 00:31 75 21 123/70 94 10/22/18 00:03 79 22 143/78 H 94 10/21/18 23:20 79 16 121/79 96 10/21/18 22:40 85 20 94 10/21/18 22:35 85 23 94/77 L 94 10/21/18 22:30 82 22 95 10/21/18 22:21 85 21 96 10/21/18 22:19 85 14 154/85 H 96 10/21/18 22:18 86 23 10/21/18 22:04 37.2 C 80 17 141/82 H 95 10/21/18 22:00 81 20 10/21/18 21:56 84 29 H 10/21/18 21:50 81 25 H 141/82 H Diagnostic Findings [place], [place] [phone] CT Scan Report Patient: KRYSTINA SCHNEIDER Date: 10/21/18 MR#: [id number]: [address] [facility] Acct ID:[id number]: Date: [address] [place] [address] Zip: [place] [address] Age: 73Location: ED Sex: F Room/Bed: Att Phy: Diagnosis: AMS Paola Phy: Shahid Ken, MDService Date: 10/21/18 Fam Phy: Interpreting Phy: Surjit Cortez MD Admit Phy: Ordering Phy: Bismark Fernandez MD cc: ~ HEAD CT NONCONTRAST CT DOSE: HISTORY: Truck symptoms. Stroke evaluation TECHNIQUE: Multiaxial CT images of the head were performed without the use of intravenous contrast. Automated exposure control was utilized for this study. A dose lowering technique was utilized adhering to the principles of ALARA. Comparison: Head CT 09/13/2018. Findings: The paranasal sinuses and mastoid air cells are clear. The calvarium and skull base are intact. There is no mass, hematoma, midline shift, acute infarct. Extensive white matter hypodensity is nonspecific but suggestive of microvascular ischemic change. This remains unchanged. The ventricles and sulci demonstrate mild age-related involutional changes. Old basal ganglia and right thalamus lacunar infarcts are again noted. Impression: No significant change compared to the prior study. No acute intracranial abnormality. Electronically signed by: Surjit Cortez M.D. 10/21/2018 10:17 PM Dictated: 10/21/182211 Transcribed: 10/21/182211 CT Scan Report Patient: KRYSTINA SCHNEIDER Date: 10/21/18 MR#: [id number]: [address] [facility] Acct ID:[id number]: Date: [address] [place] [address] Zip: [place] [address] Age: 73Location: ED Sex: F Room/Bed: Att Phy: Diagnosis: AMS Paola Phy: Shahid Ken MDService Date: 10/21/18 Fam Phy: Interpreting Phy: Surjit Cortez MD Admit Phy: Ordering Phy: Bismark Fernandez MD cc: ~ HEAD & NECK CTA HISTORY: aphasia TECHNIQUE: Multiaxial CT images of the head were performed following the intravenous administration of contrast to evaluate the major cerebral vessels. Multiaxial CT images of the neck were also performed following the intravenous administration of contrast to evaluate the major cervical vessels. Maximum intensity projection images were also obtained. A dose lowering technique was utilized adhering to the principles of ALARA. COMPARISON: Head and neck CTA 09/13/2018. FINDINGS: Hypoplastic distal left vertebral artery. No significant stenosis or occlusion within the basilar artery. The left FIN[employer]CIAL CENTER MANAGER is fed primarily through the left posterior communicating artery. The right [employer] C[employer] MANAGER is fed through the hypoplastic right P1 segment and right posterior communicating artery. This remains unchanged and is likely developmental. No significant stenosis or occlusion within the bilateral MCA's or ACAs. The superior sagittal sinus is not well opacified resulting in suboptimal evaluation. No definite thrombosis within the remaining dural venous sinuses. Moderate calcified plaque within the bilateral carotid siphons without significant stenosis. No aneurysms identified. Calcified plaque at the origins of the great vessels at the aortic arch without significant stenosis. There is approximately 20 % focal stenosis at the origin of the right subclavian artery. There is less than 20% stenosis within the mid bilateral common carotid arteries due to the calcified plaque. There is severe calcified plaque within the bilateral carotid bifurcations. This results in alexandre roximately 70% narrowing at the origin of the left internal carotid artery and high-grade stenosis of up to 90% narrowing within the origin of the right internal carotid artery. This remains unchanged compared to the prior studies. The left vertebral artery is hypoplastic in comparison to the right. There is mild focal stenosis at the origin of the bilateral vertebral arteries due to the calcified plaque. The remaining vertebral arteries are patent. IMPRESSION: 1. Overall, no significant change compared to prior study. 2. No high-grade stenosis, occlusion, or aneurysm within the [place] of [place]. 3. High-grade stenosis at the proximal right internal carotid artery of up to 90% due to the calcified plaque. 4. Approximately 70% stenosis at the origin of the left internal carotid artery. Electronically signed by: Surjit Cortez M.D. 10/21/2018 10:30 PM Dictated: 10/21/182218 Transcribed: 10/21/182218 Code Status & VTE Plan Code Status Full code VTE Prophylaxis Plan VTE Prophylaxis will be ordered: Yes Supervising Physician Co-Signing Physician Notes Attending addendum: I have physically seen this patient, have supervised the medical residents activities, and agree with the H&P unless as otherwise noted. Assessment and Plan: Altered mental status/history CVA 5 years previously/Stroke Alert- CT head negative for acute event. CTA head neck shows stable HEMANT 90%, and LICA 75-80%, today, as compared to 06/13/2018 and 09/13/2018. Continue aspirin, clopidogrel and atorvastatin. Permissive hypertension. N.p.o. except essential medications. Hemoglobin A1c and fasting lipid panel. Stroke without TPA protocol. No MRI due to presence of pacer. Follows with cardiology Dr. Mckenzie and neurology Dr. Brooks. Consult vascular surgery. Remaining orders and notations as noted. PG Care Time/CCT Total # of Minutes Spent Total Time Spent with Patient: Total time spent is greater than 50% in coordination of care (as documented) at patient's floor/unit and/or counseling patient: Resident Activity Tracking Resident Involvement: Resident Care Provided Care Provided: Adult [facility] Medicine (1) Carotid artery stenosis Laterality: right Qualified Code(s): I65.21 - Occlusion and stenosis of right carotid artery (2) HLD (hyperlipidemia) Hyperlipidemia type: unspecified Qualified Code(s): E78.5 - Hyperlipidemia, unspecified (3) HTN (hypertension) Hypertension type: essential hypertension Qualified Code(s): I10 - Essential (primary) hypertension
--- NOTE | 2018-10-22 01:36 | Emergency Department Note ---
Entered by Silvia Wang acting as a scribe for Bismark Fernandez MD History of Present Illness General Chief complaint: Altered Mental Status Stated complaint: AMS Source: patient History of Present Illness Onset (ago): hour(s) 2 Location: head Pain Consistency: + now resolved and + other (episode) Quality: + other (aphasia) Associated symptoms: + confusion (patient denies; EMS reports at baseline) and + other (negative current trouble finding words; negative slurring words; negative abdominal pain; negative numbness or tingling on one side of body); no chest pain, no fever/chills, no headaches and no weakness The patient is a 73 year old female who presents to the Emergency Room with complaints of a now mostly resolved episode of aphasia that occurred about 2 hours prior to arrival. Per the nurse she spoke to EMS, the patient stopped talking while at dinner and was not responding to her family. The patient states that she does not remember this episode, but states that she does not feel like she can talk normally currently. She cannot exactly describe how she is having difficulty speaking. She denies trouble finding her words, confusion, and slurring her words. The patient denies headache, chest pain, abdominal pain, fever, and numbness, tingling, and weakness in one side of her body. The patient states that she takes aspirin and plavix regularly. She has had a prior stroke. Home Medications Home Medications Medication Instructions Recorded Confirmed Type aspirin 162 mg PO QAM 06/07/18 10/21/18 History atorvastatin 40 mg PO HS 06/07/18 10/21/18 History clopidogrel 75 mg PO QAM 06/07/18 10/21/18 History losartan 12.5 mg PO QAM 06/07/18 10/21/18 History sennosides-docusate sodium [Senna 1 tab PO BID PRN 06/07/18 10/21/18 History with Docusate Sodium] amlodipine 5 mg PO QAM 07/31/18 10/21/18 History potassium chloride ER 20 mEq 20 meq PO DAILY #90 tab 08/23/18 10/21/18 History tablet,extended release ergocalciferol (vitamin D2) 50,000 50,000 units PO WEEKLY #8 cap 10/04/18 10/21/18 Rx unit capsule Allergies Allergy/AdvReac Type Severity Reaction Status Date / Time No Known Allergies Allergy Verified 10/21/18 22:23 Past Med/Surg History Medical History Difficulty walking Hypokalemia Right sided weakness Vitamin D deficiency Carotid stenosis H/O: CVA (cerebrovascular accident) Weakness (Acute) Orthostatic hypotension (Chronic) Sinus node dysfunction (Chronic) Pacemaker (Chronic) Leukoencephalopathy (Chronic) HLD (hyperlipidemia) (Chronic) HTN (hypertension) (Chronic) Syncope Dizziness CVA (cerebral vascular accident) Surgical History History of appendectomy (Chronic) Hx of tonsillectomy (Chronic) Family History Mother Heart disease Father Heart disease Other Family history non-contributory Social History Preferred Language: Swazi Communication Ability: Effective Beliefs That Will Affect Care: None Current Living Situation: Spouse Current Living Situation Comment: Lives at home with Deo Olmos Feels Safe at Home: Yes Smoking Status: Never smoker Second Hand Exposure: No Hx Alcohol Use: No Hx Substance Use: No Review of Systems See HPI for pertinent positives & negatives. and A total of 10 systems reviewed and were otherwise negative Physical Exam Vital Signs Vital Signs - 24 hr 10/21/18 21:50 10/21/18 21:56 10/21/18 22:00 Temperature Temperature Source Sepsis Recent Fever Within 48 Hours Sepsis New/Unexplained Change in Mental Status Sepsis Action Taken by Nursing Pulse Rate 81 84 81 Pulse Rate [Right] Pulse Rate from SpO2 Sensor Pulse Rhythm [Right] Pulse Strength [Right] Respiratory Rate 25 H 29 H 20 Respiratory Effort / Characteristics Respiratory Depth Blood Pressure 141/82 H Blood Pressure [Right Arm] Blood Pressure Mean 101 Blood Pressure Mean [Right Arm] Pulse Oximetry Oxygen Delivery Method 10/21/18 22:04 10/21/18 22:18 10/21/18 22:19 Temperature 37.2 C Temperature Source Oral Sepsis Recent Fever Within 48 Hours No Sepsis New/Unexplained Change in Mental Status No Sepsis Action Taken by Nursing No Action Required Pulse Rate 80 86 85 Pulse Rate [Right] Pulse Rate from SpO2 Sensor 85 Pulse Rhythm [Right] Pulse Strength [Right] Respiratory Rate 17 23 14 Respiratory Effort / Characteristics Non-Labored Spontaneous Respiratory Depth Normal Blood Pressure 141/82 H 154/85 H Blood Pressure [Right Arm] Blood Pressure Mean 101 108 Blood Pressure Mean [Right Arm] Pulse Oximetry 95 96 Oxygen Delivery Method Room Air 10/21/18 22:21 10/21/18 22:30 10/21/18 22:35 Temperature Temperature Source Sepsis Recent Fever Within 48 Hours Sepsis New/Unexplained Change in Mental Status Sepsis Action Taken by Nursing Pulse Rate 85 82 85 Pulse Rate [Right] Pulse Rate from SpO2 Sensor 85 82 85 Pulse Rhythm [Right] Pulse Strength [Right] Respiratory Rate 21 22 23 Respiratory Effort / Characteristics Respiratory Depth Blood Pressure 94/77 L Blood Pressure [Right Arm] Blood Pressure Mean 82 Blood Pressure Mean [Right Arm] Pulse Oximetry 96 95 94 Oxygen Delivery Method 10/21/18 22:40 10/21/18 23:20 10/22/18 00:03 Temperature Temperature Source Sepsis Recent Fever Within 48 Hours Sepsis New/Unexplained Change in Mental Status Sepsis Action Taken by Nursing Pulse Rate 85 79 Pulse Rate [Right] 79 Pulse Rate from SpO2 Sensor 85 79 Pulse Rhythm [Right] Regular Pulse Strength [Right] Normal Respiratory Rate 20 16 22 Respiratory Effort / Characteristics Non-Labored Spontaneous Respiratory Depth Normal Blood Pressure 143/78 H Blood Pressure [Right Arm] 121/79 Blood Pressure Mean 99 Blood Pressure Mean [Right Arm] 93 Pulse Oximetry 94 96 94 Oxygen Delivery Method Room Air Room Air Room Air 10/22/18 00:31 10/22/18 01:00 Temperature Temperature Source Sepsis Recent Fever Within 48 Hours Sepsis New/Unexplained Change in Mental Status Sepsis Action Taken by Nursing Pulse Rate 75 77 Pulse Rate [Right] Pulse Rate from SpO2 Sensor 76 76 Pulse Rhythm [Right] Pulse Strength [Right] Respiratory Rate 21 18 Respiratory Effort / Characteristics Respiratory Depth Blood Pressure 123/70 138/86 Blood Pressure [Right Arm] Blood Pressure Mean 87 103 Blood Pressure Mean [Right Arm] Pulse Oximetry 94 92 Oxygen Delivery Method Room Air Room Air Constitutional: Vital signs reviewed. Eyes: Pupils are equal round reactive to light. Conjunctiva are noninjected. ENT: Pharynx is clear without erythema or exudate. Mucous membranes are moist. Neck supple without meningeal signs. Respiratory: Clear to auscultation bilaterally. Breath sounds are equal bilaterally. Cardiovascular: Regular rate and rhythm. No rubs or gallops. GI: Soft, nondistended and nontender. Bowel sounds are present. Musculoskeletal: No peripheral edema. No lower extremity tenderness. Integumentary: No cyanosis. Neurological: The patient is awake and alert. Some diminished strength in the right arm and left leg. Speech slightly hesitant. Psychiatric: Normal affect. Course 2158: Past medical records reviewed. The patient was evaluated in room A2. A complete history and physical exam was performed. 2214: I discussed the case with Dr. Miller Stroke Neurology who states that he will evaluate the patient. 2229: Upon reevaluation, the patient is now able to lift her right arm and left leg without difficulty. I discussed the case with the patient's son who states that for the past 3 days the patient has had some halting of speech and has been slow to respond. The patient's son states that about one week ago the patient had difficulty walking. Per the patient's son, tonight at around [id number] the patient became confused, and was keeping food in her mouth without chewing it or spitting it out. He states that during this time the patient would not speak. The patient's son states that about 30 minutes later EMS arrived and as soon as the patient got in the ambulance, her son heard her start to speak. He states that the patient saw another vascular surgeon in [place] and decided that the risk of the carotid endarterectomy was not worth it. The patient's son states that the patient can have MRIs and has had one since her pacemaker was placed. 2255: The patient is currently being evaluated by neurology. Her blood pressure is 97/77. 2331: I reassessed the patient who states that she still feels hesitant in her speech. Dr. Miller Stroke Neurology evaluated the patient and states that he believes that this is a new stroke. He noted drift on the patient's left side and facial droop. Dr. Thurston recommends hospitalization for the patient to receive an MRI and EEG. Dr. Thurston states that the patient is not a good tPA candidate because her son reported difficulty walking one week ago and difficulty talking several days ago. Dr. Thurston believes that the patient would be at a high risk of bleeding from tPA due to her history of microvascular disease. The patient's blood pressure is now normal. 2333: Upon reevaluation, the patient states that she is agreeable to further evaluation in the hospital. She states that she took her aspirin and plavix today. 2345: Dr. [facility] Hospitalist was made aware of the patient. Administered Medications Ioversol (Optiray 320 125ml) 119 ml IV ONCE PRN PRN Reason: Interaction Checking Stop: 10/25/18 22:17 Last Admin: 10/21/18 22:18 Dose: 119 ml Documented by: [id number] Discontinued Medications Sodium Chloride (Nss 1000ml) 500 mls @ 999 mls/hr IV .Q31M ONE Stop: 10/21/18 23:25 Last Infusion: 10/22/18 00:15 Dose: 0 mls/hr Documented by: [id number] Admin: 10/21/18 23:21 Dose: 999 mls/hr Documented by: [id number] Medical Decision Making Differential Diagnosis Differential diagnoses include CVA, TIA, intracranial mass, carotid stenosis, encephalopathy, UTI, and others were considered. Medical Records Attestation: I reviewed the patient's medical records. The patient was seen in the ED in August 2018 for altered mental status. She was diagnosed with GERD and leukocytosis at this time. Multiple CTS of the chest, head, and neck as well as angiograms were obtained. There was a question of normal pressure hydrocephalus as well as stenosis in the right ICA. The patient's vascular surgery note from October 04 shows a plan for a right carotid endarterectomy. Home Medications Current Medication List: was personally reviewed by me Laboratory Data Attestation: I reviewed the patient's lab results. Result diagrams: 10/21/18 21:30 10/21/18 21:30 Lab Results 10/21/18 10/21/18 10/21/18 Range/Units 21:30 21:30 21:30 WBC 8.35 (4.8-10.8) K/uL RBC 4.78 (4.2-5.4) M/uL Hgb 14.4 (12.0-16.0) g/dL Hct 41.1 (37-47) % MCV 86.0 (80-100) fL MCH 30.1 (25-34) pg MCHC 35.0 (32-36) g/dL RDW Std Deviation 41.5 (36.4-46.3) fL RDW Coeff of [place] 13.2 (11.5-14.5) % Plt Count 228 (130-400) K/uL MPV 9.4 (7.4-10.4) fL Immature Gran % (Auto) 0.1 % Neut % (Auto) 51.1 % Lymph % (Auto) 33.3 % [place] % (Auto) 8.3 % Eos % (Auto) 6.7 % Baso % (Auto) 0.5 % Immature Gran # (Auto) 0.01 (0.00-0.02) K/uL Neut # (Auto) 4.27 (1.4-6.5) K/uL Lymph # (Auto) 2.78 (1.2-3.4) K/uL [place] # (Auto) 0.69 H (0.11-0.59) K/uL Eos # (Auto) 0.56 H (0-0.5) K/uL Baso # (Auto) 0.04 (0-0.2) K/uL PT Cancelled INR Cancelled APTT Cancelled PTT Ratio Cancelled Sodium 137 (136-145) mmol/L Potassium 3.6 (3.5-5.1) mmol/L Chloride 103 (98-107) mmol/L Carbon Dioxide 25 (21-32) mmol/L Anion Gap 9.0 (3-11) BUN 11 (7-18) mg/dl Creatinine 0.93 (0.6-1.2) mg/dl Est Cr Clr Drug Dosing 45.2 ml/min Est GFR ( Amer) 71.2 Est GFR (Non-Af Amer) 61.4 BUN/Creatinine Ratio 12.1 (10-20) Glucose 107 H (70-99) mg/dl Calcium 9.3 (8.5-10.1) mg/dl Magnesium 1.9 (1.8-2.4) mg/dl Total Bilirubin 0.8 (0.2-1) mg/dl AST 20 (15-37) U/L ALT 19 (12-78) U/L Alkaline Phosphatase 110 (45-117) U/L Troponin I < 0.015 (0-0.045) ng/ml Total Protein 7.7 (6.4-8.2) gm/dl Albumin 4.0 (3.4-5.0) gm/dl Globulin 3.7 (2.5-4.0) gm/dl Albumin/Globulin Ratio 1.1 (0.9-2) Urine Color Urine Appearance (Clear) Urine pH (4.5-7.5) Ur Specific [place] (1.000-1.030) Urine Protein (Negative) Urine Glucose (UA) (Negative) Urine Ketones (Negative) Urine Blood (Negative) Urine Nitrite (Negative) Urine Bilirubin (Negative) Urine Urobilinogen (Negative) Ur Leukocyte Esterase (Negative) Blood Type Antibody Screen 10/21/18 10/21/18 10/21/18 Range/Units 22:00 22:25 22:27 WBC (4.8-10.8) K/uL RBC (4.2-5.4) M/uL Hgb (12.0-16.0) g/dL Hct (37-47) % MCV (80-100) fL MCH (25-34) pg MCHC (32-36) g/dL RDW Std Deviation (36.4-46.3) fL RDW Coeff of [place] (11.5-14.5) % Plt Count (130-400) K/uL MPV (7.4-10.4) fL Immature Gran % (Auto) % Neut % (Auto) % Lymph % (Auto) % [place] % (Auto) % Eos % (Auto) % Baso % (Auto) % Immature Gran # (Auto) (0.00-0.02) K/uL Neut # (Auto) (1.4-6.5) K/uL Lymph # (Auto) (1.2-3.4) K/uL [place] # (Auto) (0.11-0.59) K/uL Eos # (Auto) (0-0.5) K/uL Baso # (Auto) (0-0.2) K/uL PT 11.4 INR 1.1 APTT 25.7 PTT Ratio 0.9 Sodium (136-145) mmol/L Potassium (3.5-5.1) mmol/L Chloride (98-107) mmol/L Carbon Dioxide (21-32) mmol/L Anion Gap (3-11) BUN (7-18) mg/dl Creatinine (0.6-1.2) mg/dl Est Cr Clr Drug Dosing ml/min Est GFR ( Amer) Est GFR (Non-Af Amer) BUN/Creatinine Ratio (10-20) Glucose (70-99) mg/dl Calcium (8.5-10.1) mg/dl Magnesium (1.8-2.4) mg/dl Total Bilirubin (0.2-1) mg/dl AST (15-37) U/L ALT (12-78) U/L Alkaline Phosphatase (45-117) U/L Troponin I (0-0.045) ng/ml Total Protein (6.4-8.2) gm/dl Albumin (3.4-5.0) gm/dl Globulin (2.5-4.0) gm/dl Albumin/Globulin Ratio (0.9-2) Urine Color Yellow Urine Appearance Clear (Clear) Urine pH 5.0 (4.5-7.5) Ur Specific [place] 1.011 (1.000-1.030) Urine Protein Negative (Negative) Urine Glucose (UA) Negative (Negative) Urine Ketones Negative (Negative) Urine Blood Negative (Negative) Urine Nitrite Negative (Negative) Urine Bilirubin Negative (Negative) Urine Urobilinogen Negative (Negative) Ur Leukocyte Esterase Negative (Negative) Blood Type AB Positive Antibody Screen NEGATIVE Imaging Data Attestation: I personally reviewed and interpreted this imaging study as follows: My Impression: CHEST X-RAY: No acute cardiopulmonary process. Pacemaker noted with leads in place. Radiologist's Impression: Radiology results as stated below per my review and the radiologist's interpretation: HEAD & NECK CTA HISTORY: aphasia TECHNIQUE: Multiaxial CT images of the head were performed following the intravenous administration of contrast to evaluate the major cerebral vessels. Multiaxial CT images of the neck were also performed following the intravenous administration of contrast to evaluate the major cervical vessels. Maximum intensity projection images were also obtained. A dose lowering technique was utilized adhering to the principles of ALARA. COMPARISON: Head and neck CTA 09/13/2018. FINDINGS: Hypoplastic distal left vertebral artery. No significant stenosis or occlusion within the basilar artery. The left HISTOLOGICAL ILLUSTRATOR is fed primarily through the left post erior communicating artery. The right HISTOLOGICAL ILLUSTRATOR is fed through the hypoplastic right P1 segment and right posterior communicating artery. This remains unchanged and is likely developmental. No significant stenosis or occlusion within the bilateral MCA's or ACAs. The superior sagittal sinus is not well opacified resulting in suboptimal evaluation. No definite thrombosis within the remaining dural venous sinuses. Moderate calcified plaque within the bilateral carotid siphons without significant stenosis. No aneurysms identified. Calcified plaque at the origins of the great vessels at the aortic arch without significant stenosis. There is approximately 20 % focal stenosis at the origin of the right subclavian artery. There is less than 20% stenosis within the mid bilateral common carotid arteries due to the calcified plaque. There is severe calcified plaque within the bilateral carotid bifurcations. This results in approximately 70% narrowing at the origin of the left internal carotid artery and high-grade stenosis of up to 90% narrowing within the origin of the right internal carotid artery. This remains unchanged compared to the prior studies. The left vertebral artery is hypoplastic in comparison to the right. There is mild focal stenosis at the origin of the bilateral vertebral arteries due to the calcified plaque. The remaining vertebral arteries are patent. IMPRESSION: 1. Overall, no significant change compared to prior study. 2. No high-grade stenosis, occlusion, or aneurysm within the [place] of [place]. 3. High-grade stenosis at the proximal right internal carotid artery of up to 90% due to the calcified plaque. 4. Approximately 70% stenosis at the origin of the left internal carotid artery. Electronically signed by: Surjit Cortez M.D. 10/21/2018 10:[address]AST CT DOSE: HISTORY: Truck symptoms. Stroke evaluation TECHNIQUE: Multiaxial CT images of the head were performed without the use of intravenous contrast. Automated exposure control was utilized for this study. A dose lowering technique was utilized adhering to the principles of ALARA. Comparison: Head CT 09/13/2018. Findings: The paranasal sinuses and mastoid air cells are clear. The calvarium and skull base are intact. There is no mass, hematoma, midline shift, acute infarct. Extensive white matter hypodensity is nonspecific but suggestive of microvascular ischemic change. This remains unchanged. The ventricles and sulci demonstrate mild age-related involutional changes. Old basal ganglia and right thalamus lacunar infarcts are again noted. Impression: No significant change compared to the prior study. No acute intracranial abnormality. Electronically signed by: Surjit Cortez M.D. 10/21/2018 10:17 PM ECG Data Attestation: I personally reviewed and interpreted this ECG as follows: Indication: other (stroke-like symptoms) Rate (beats per minute): 80 Rhythm: normal sinus Findings: + T-wave inversion (anteriorly and inferiorly); no PVC Comparison ECG Date: from (09/13/18) Change: no significant change Blood Pressure Blood Pressure Findings: Normal blood pressure MDM Narrative I did evaluate the patient as noted above. I did obtain history from the patient as well as the nurse. I later obtain history from her son who came to the ED. Patient is presenting with change in mental status with difficulty speaking starting 2 hours ago per the nurse. I immediately called a stroke alert. On examination the patient has some mixed findings. Her speech is sli ghtly hesitant but she has no slurring or signs of aphasia. She is alert and oriented to person and place but not date. She has some weakness to the left leg as well as the right arm but she states the right arm weakness is normal for her. I do not notice any facial droop. IV access was established. The patient was placed on a continuous monitoring engineer. I did order a stat CT of the head and CT angiogram of the head neck. I did review the images myself as well as the radiology report as described above. There is no evidence of acute CVA on head CT. She does have persistent stenosis of the carotid arteries and vertebral artery is noted above. I did speak to the stroke neurologist from [facility]. He did evaluate the patient via telemedicine. I did order and personally review the patient's 12-lead EKG as described above. She does have some T wave inversions which are old. I did order and personally reviewed the images of the patient's chest x-ray as described above. There is no evidence of acute cardiopulmonary process per my interpretation. I did order a urine analysis. She does not have a UTI. I did order and review the patient's blood work as noted in the electronic medical record. CBC is unremarkable. Electrolytes are unremarkable. I did reexamine her several times. She did have changes in her neuro logical symptoms. She had normal strength on reexamination of her legs and had improvement of her right arm weakness. When the neurologist evaluated her he noted some left-sided drift and a left facial droop. He did feel that the patient did have an acute stroke but did not recommend IV TPA. This was partly due to the time course of her symptoms as her son later that she has had some difficulty with your speech for the past 3 days and difficulty walking for the past week. Also he was concerned that she was high risk for bleeding due to her significant microvascular disease. He did recommend hospitalization for MRI and EEG. She did have an episode of hypotension here which quickly resolved. She was given normal saline IV but her hypotension resolved prior to her getting a bolus. The case was discussed with the hospitalist and transplant case manager. Impression & Plan Acute cerebrovascular accident (CVA), Carotid artery stenosis Discharge Plan Visit Data Chief Complaint: Altered Mental Status Stated Complaint: AMS ED Provider: Bismark Fernandez Discharge Problem: Acute cerebrovascular accident (CVA), Carotid artery stenosis Patient Disposition: Being Evaluated by Hospitalist Forms Stand Alone Forms: My [facility] Prescriptions Prescriptions: No Action ergocalciferol (vitamin D2) 50,000 unit capsule 50,000 units PO WEEKLY Qty: 8 RF: 4 potassium chloride 20 mEq tablet extended release 20 meq PO DAILY Qty: 90 RF: 0 atorvastatin 40 mg tablet 40 mg PO HS RF: 0 clopidogrel 75 mg tablet 75 mg PO QAM RF: 0 losartan 25 mg tablet 12.5 mg PO QAM RF: 0 aspirin 81 mg Tablet,Delayed Release (Dr/Ec) 162 mg PO QAM RF: 0 sennosides-docusate sodium [Senna with Docusate Sodium] 8.6-50 mg Tablet 1 tab PO BID PRN (Reason: Constipation) RF: 0 amlodipine 5 mg tablet 5 mg PO QAM RF: 0 Referrals Referrals: Ignacio Ken MD [Primary Care Provider] - Discharge Problem: Carotid artery stenosis Qualifiers: Laterality: right Qualified Code(s): I65.21 - Occlusion and stenosis of right carotid artery The scribe's documentation has been prepared under my direction and personally reviewed by me in its entirety. I confirm that the note above accurately reflects all work, treatment, procedures, and medical decision making performed by me.
[2018-10-22] MEDS ORDERED: PHARMACIST DISCHARGE MED REC CONSULT PRN (01:56)
[2018-10-22 07:01] LABS: Basophils # (auto) 0.04 K/uL (0-0.2); Basophils % (auto) 0.4 %; Eosinophils # (auto) 0.45 K/uL (0-0.5); Eosinophils % (auto) 4.8 %; Hematocrit (blood only) 38.9 % (37-47); Hemoglobin 13.4 g/dL (12.0-16.0); Immature Granulocytes # (auto) 0.02 K/uL (0.00-0.02); Immature Granulocytes % (auto) 0.2 %; Lymphocytes % (auto) 25.5 %; Mean Corpuscular Hgb Conc 34.4 g/dL (32-36); Mean Corpuscular Volume 85.7 fL (80-100); Mean Platelet Volume 9.1 fL (7.4-10.4); Monocytes # (auto) 0.63 K/uL (0.11-0.59); Monocytes % (auto) 6.7 %; Neutrophils # (auto) 5.88 K/uL (1.4-6.5); Neutrophils % (auto) 62.4 %; Platelet Count 190 K/uL (130-400); RDW Coefficient of Variation 13.3 % (11.5-14.5); RDW Standard Deviation 41.8 fL (36.4-46.3); Red Blood Count 4.54 M/uL (4.2-5.4); White Blood Count 9.42 K/uL (4.8-10.8)
[2018-10-22 07:18] LABS: INR 1.1 (0.9-1.1); Prothrombin Time 10.9 Seconds (9.0-12.0)
[2018-10-22 07:40] LABS: BUN Creatinine Ratio 12.6 (10-20); Calcium 9.2 mg/dl (8.5-10.1); Creatinine Clr Calc Pharmacy 63.7 ml/min; Est GFR (African American) 92.3; Est GFR (Non-African American) 79.6; Potassium 3.7 mmol/L (3.5-5.1)
--- NOTE | 2018-10-22 07:48 | XRay Report ---
XR chest 1V portable HISTORY: Altered mental status. COMPARISON: Chest 09/13/2018. FINDINGS: No pneumothorax. No pleural effusions. Punctate calcified calyceal within the right lung ba se. Otherwise, the lungs are clear. The heart is normal in size. Left-sided dual-chamber pacemaker. IMPRESSION: No acute process. Electronically signed by: Surjit Cortez M.D. 10/22/2018 7:47 AM
[2018-10-22] MEDS: CLOPIDOGREL BISULFATE 75 MG TAB PO SCH (09:04)
[2018-10-22] MEDS: ASPIRIN 81 MG ECTAB PO SCH (09:04)
[2018-10-22] MEDS: ENOXAPARIN INJ 40 MG/0.4 ML SYR SQ SCH (09:04)
--- NOTE | 2018-10-22 14:31 | Hospitalist Progress Note ---
Date of Service October 22, 2018 Assessment & Plan (1) H/O: CVA (cerebrovascular accident): with encephalopathy Stroke alert commenced in emergency room, no acute findings found on head CT Stable findings on CTA/head and necksignificant carotid stenosis Neurology consulted, appreciate recommendations Patient has been evaluated by both [facility] and [facility] for carotid stenosis in the past, no planned surgical procedure at this time Continuing aspirin, clopidogrel, atorvastatin Holding amlodipine and losartan at this time for permissive hypertension lipids wnl, a1c pending PT/OT, discharge planninglives at home with her son and (2) HLD (hyperlipidemia): continue statin (3) HTN (hypertension): hold blood pressure medicine for now, blood pressure stable (4) Pacemaker: (5) Carotid artery stenosis: IMPRESSION: 1. Overall, no significant change compared to prior study. 2. No high-grade stenosis, occlusion, or aneurysm within the [place] of [place]. 3. High-grade stenosis at the proximal right internal carotid artery of up to 90% due to the calcified plaque. 4. Approximately 70% stenosis at the origin of the left internal carotid artery. Carotid artery stenosis known and in the past patient her providers have opted for conservative treatment rather than surgery. Will defer to neurology on whether to consult with vascular surgery. She sees Dr. Brooks outpatient (6) DVT prophylaxis: Lovenox Subjective Ms. Olmos is alert and oriented to person and place. She has no complaints at this time Review of Systems Review of Systems: All systems reviewed & are unremarkable except as noted in HPI & below Physical Exam Physical Exam: General: no distress Eyes: normal inspection, PERLL Respiratory: chest non tender, clear to auscultation, normal breath sounds, no respiratory distress, no accessory muscle use Cardiac: regular rate and rhythm, no rub or gallop, no murmur, no edema, no jvd GI/: active bowel sounds, no abd pain or tenderness, soft, non distended Extremities: normal range of motion, normal strength, non tender Neuro/Psych: alert and oriented to person and place, normal mood and affect, left arm persistently drifting so that she is holding it raised above her head, right arm weakness, unable to follow some commands such as to smile, stick out her tongue or raise her legs. She was unable to keep up with my finger while testing EOEM and I'm not sure if she was unable or unwilling to look at my finger in her upper left vision. Skin: normal color, dry Results & Data Vital Signs (Past 12 Hours) Vital Signs Temp Pulse Pulse Resp BP Pulse Ox 10/22/18 11:41 37.1 C 70 18 129/82 95 10/22/18 09:59 73 10/22/18 07:43 36.6 C 68 17 113/65 93 10/22/18 03:23 36.6 C 80 16 112/76 97 PG Care Time/CCT Total # of Minutes Spent Total Time Spent with Patient: Total time spent is greater than 50% in coordination of care (as documented) at patient's floor/unit and/or counseling patient: (1) Carotid artery stenosis Laterality: right Qualified Code(s): I65.21 - Occlusion and stenosis of right carotid artery (2) HLD (hyperlipidemia) Hyperlipidemia type: unspecified Qualified Code(s): E78.5 - Hyperlipidemia, unspecified (3) HTN (hypertension) Hypertension type: essential hypertension Qualified Code(s): I10 - Essential (primary) hypertension
--- NOTE | 2018-10-22 16:17 | Consultation Report ---
DATE OF CONSULTATION: 10/22/2018 REASON FOR CONSULTATION: Episode of altered consciousness. HISTORY OF PRESENT ILLNESS: The patient is a 73-year-old with a history of stroke with right-sided deficits, bilateral carotid stenosis on the right 90% and the left 70-75%, presented with altered mental status. She was in her usual state of health. Apparently, after dinner around 8:30, she became dizzy, which she has difficulty describing, but remained according to her, awake, could not speak and could not move her limbs. The reported event was that the patient's eyes were open, no focal neurologic deficit, no facial droop or weakness lasting 30 minutes. She became more alert in the ambulance en route. There is baseline cognitive dysfunction. She by report has had prior unresponsive episode, but she denies that. She has recently been evaluated by 2 vascular professionals, one recommending an endarterectomy, another recommending medical management of carotid stenosis. There is a history of dementia, there is report of ventriculomegaly, but I do not believe she is thought to have normal pressure hydrocephalus. LABORATORY DATA: White count, H and H and platelet count are normal. Coags normal. Chemistry profile, noncontributory, unremarkable. Urinalysis, trace ketones, 1+ blood, 20-[address] of the head noncontrast shows bilateral chronic ischemic changes. CTA of the head is unremarkable. There is a 90% stenosis of the right internal carotid and 70% of the left. Electrocardiogram: Normal sinus rhythm. PAST MEDICAL HISTORY: Hypertension, hyperlipidemia, stroke with right-sided deficits, carotid stenosis. Vitamin D deficiency, orthostatic hypotension, sinus node dysfunction, pacemaker, leukoencephalopathy, hyperlipidemia, hypertension, syncope. PAST SURGICAL HISTORY: Appendectomy, tonsillectomy. FAMILY HISTORY: Heart disease. SOCIAL HISTORY: Nonsmoker, nondrinker. Lives with family. ALLERGIES: No allergies. MEDICATIONS PRIOR TO ADMISSION: Aspirin, atorvastatin, Plavix, losartan, amlodipine, potassium, vitamin D2. PHYSICAL EXAMINATION: GENERAL: The patient is awake, alert, in no distress. Normal speech and language. Affect appropriate. Oriented to hospital, person, not month or year. She knows who the president is. There is some right/left confusion and some finger agnosia. NECK: There are no carotid bruits. HEART: No heart murmurs. Heart is regular. VITAL SIGNS: 129/82, 70, 18, 37.1, 95%. NEUROLOGICAL: Her pupils are equal. Optic nerves are difficult to visualize. There may be aleft superior quadrantanopsia. There is no radha facial asymmetry. Her strength is limited on the right secondary to right shoulder pathology, but grossly appeared normal with equal rapid alternating movements. Reflexes are increased in the left upper. Toes are bilaterally upgoing. No clear sensory abnormality is noted. IMPRESSION: Episode of unresponsiveness, lasting 30 minutes, the patient reports preserved alertness, but is poor historitan,. Diffential includes sz (episode however protracted and pt states she was alert, global hypoperfusion, posterior circ TIA, PLAN: MRI would be helpful, but apparently cannot be performed. Recommend EEG checking for orthostatic hypotension. It appears that the patient can have an MRI that she may have an MRI compatible pacemaker, she has had an MRI in May of 2018. Radiology will need to determine if the pacer compatible, I think it would be extremely helpful in that regard if there was a new infarct, localization of which might suggest one of the carotids to be symptomatic. There are some subtle signs of a right hemispheric process on exam. Would not change antiplatelet therapy at present unless new infarct. We will follow with you. MARIELA
--- NOTE | 2018-10-22 17:44 | Magnetic Resonance Report ---
MRI OF THE BRAIN WITHOUT IV CONTRAST CLINICAL HISTORY: Seizure. COMPARISON STUDY: CT of the brain dated 10/21/2018. TECHNIQUE: MRI of the brain was performed utilizing various T1 and T2-weighted sequences in the axial , sagittal, and coronal planes. IV contrast was not administered for this examination. Examination is degraded by motion artifact. FINDINGS: Brain parenchyma: There is a 1 cm focus of restricted diffusion identified within the posterior right harper radiata consistent with an acute to subacute lacunar infarct. No additional foci of restricte d diffusion are identified There is age-related involutional change noting advanced confluent subcort ical and periventricular microangiopathic disease. Chronic lacunar infarcts identified in the right t halamus common the left basal ganglia, and the left caudate head. There is no hemorrhage or mass effe ct. Montes-white matter differentiation is preserved. No extra-axial fluid collection is seen. The cere bellar tonsils are normal in configuration. Ventricles, sulci, and cisterns: Prominent secondary to involutional change. Pituitary and sella: Unremarkable. Intracranial vasculature: Normal flow voids are maintained at the skull base. Orbits: The bony orbits are grossly intact. Orbital contents are normal in appearance. Sinuses and mastoids: Clear. Calvarium: Unremarkable. Cervical cord: Partially visualized cervical spinal cord is normal in morphology and signal intensity . IMPRESSION: 1. There is a 1 cm focus of restricted diffusion identified within the right harper radiata consisten t with an acute to subacute lacunar infarct. 2. No additional foci of acute ischemia are identified. 3. There is no hemorrhage or mass effect. 4. Advanced small vessel ischemic change as above. Electronically signed by: Francisco Thacker M.D. 10/22/2018 5:43 PM
[2018-10-22] MEDS: ATORVASTATIN 40 MG TAB PO SCH (19:37)
[2018-10-23 06:09] LABS: Estimated Average Glucose 117 mg/dl; Hemoglobin A1C 5.7 % (4.5-5.6)
[2018-10-23 07:00] LABS: Basophils # (auto) 0.04 K/uL (0-0.2); Basophils % (auto) 0.6 %; Eosinophils # (auto) 0.63 K/uL (0-0.5); Hematocrit (blood only) 36.6 % (37-47); Hemoglobin 12.6 g/dL (12.0-16.0); Immature Granulocytes # (auto) 0.02 K/uL (0.00-0.02); Immature Granulocytes % (auto) 0.3 %; Lymphocytes # (auto) 2.22 K/uL (1.2-3.4); Lymphocytes % (auto) 35.3 %; Mean Corpuscular Hgb Conc 34.4 g/dL (32-36); Mean Corpuscular Volume 86.9 fL (80-100); Mean Platelet Volume 9.2 fL (7.4-10.4); Monocytes # (auto) 0.48 K/uL (0.11-0.59); Monocytes % (auto) 7.6 %; Neutrophils % (auto) 46.2 %; Platelet Count 174 K/uL (130-400); RDW Coefficient of Variation 13.1 % (11.5-14.5); RDW Standard Deviation 41.8 fL (36.4-46.3); Red Blood Count 4.21 M/uL (4.2-5.4); White Blood Count 6.29 K/uL (4.8-10.8)
[2018-10-23 07:09] LABS: INR 1.1 (0.9-1.1); Prothrombin Time 10.9 Seconds (9.0-12.0)
[2018-10-23 07:31] LABS: BUN Creatinine Ratio 12.6 (10-20); Calcium 8.8 mg/dl (8.5-10.1); Creatinine Clr Calc Pharmacy 70.1 ml/min; Est GFR (African American) 101.3; Est GFR (Non-African American) 87.4; Potassium 3.4 mmol/L (3.5-5.1)
--- NOTE | 2018-10-23 07:31 | CT Scan Report ---
HEAD & NECK CTA HISTORY: aphasia TECHNIQUE: Multiaxial CT images of the head were performed following the intravenous administration o f contrast to evaluate the major cerebral vessels. Multiaxial CT images of the neck were also perform ed following the intravenous administration of contrast to evaluate the major cervical vessels. Maxim um intensity projection images were also obtained. A dose lowering technique was utilized adhering to the principles of ALARA. COMPARISON: Head and neck CTA 09/13/2018. FINDINGS: Hypoplastic distal left vertebral artery. No significant stenosis or occlusion within the basilar art dionne. The left [employer]LL[employer]SEMBLER is fed primarily through the left posterior communicating artery. The right [employer]SEMBLER is fed through the hypoplastic right P1 segment and right posterior communicating artery. This remains u nchanged and is likely developmental. No significant stenosis or occlusion within the bilateral MCA's or ACAs. The superior sagittal sinus is not well opacified resulting in suboptimal evaluation. No de finite thrombosis within the remaining dural venous sinuses. Moderate calcified plaque within the oni ateral carotid siphons without significant stenosis. No aneurysms identified. Calcified plaque at the origins of the great vessels at the aortic arch without significant stenosis . There is approximately 20 % focal stenosis at the origin of the right subclavian artery. There is l ess than 20% stenosis within the mid bilateral common carotid arteries due to the calcified plaque. T here is severe calcified plaque within the bilateral carotid bifurcations. This results in approximat familia 70% narrowing at the origin of the left internal carotid artery and high-grade stenosis of up to 90% narrowing within the origin of the right internal carotid artery. This remains unchanged compared to the prior studies. The left vertebral artery is hypoplastic in comparison to the right. There is mild focal stenosis at the origin of the bilateral vertebral arteries due to the calcified plaque. Th e remaining vertebral arteries are patent. IMPRESSION: 1. Overall, no significant change compared to prior study. 2. No high-grade stenosis, occlusion, or aneurysm within the [place] of Case. 3. High-grade stenosis at the proximal right internal carotid artery of up to 90% due to the calcifie d plaque. 4. Approximately 70% stenosis at the origin of the left internal carotid artery. Electronically signed by: Surjit Cortez M.D. 10/21/2018 10:30 PM
--- NOTE | 2018-10-23 07:46 | Hospitalist Progress Note ---
Date of Service October 23, 2018 Assessment & Plan (1) H/O: CVA (cerebrovascular accident): with encephalopathy Stroke alert commenced in emergency room, no acute findings found on head CT Stable findings on CTA/head and necksignificant carotid stenosis on the right MRI confirms a small stroke on the right side also. In the past patient does not want vascular intervention will have them reengage with the Neurology consulted, appreciate recommendations Patient has been evaluated by both [facility] and [facility] for carotid stenosis in the past, no planned surgical procedure at this time Continuing aspirin, clopidogrel, atorvastatin Holding amlodipine and losartan at this time for permissive hypertension lipids wnl, a1c pending PT/OT, discharge planninglives at home with her son and (2) HLD (hyperlipidemia): continue statin (3) HTN (hypertension): hold blood pressure medicine for now, blood pressure stable (4) Pacemaker: (5) Carotid artery stenosis: IMPRESSION: 1. Overall, no significant change compared to prior study. 2. No high-grade stenosis, occlusion, or aneurysm within the [place] of [place]. 3. High-grade stenosis at the proximal right internal carotid artery of up to 90% due to the calcified plaque. 4. Approximately 70% stenosis at the origin of the left internal carotid artery. Carotid artery stenosis known and in the past patient her providers have opted for conservative treatment rather than surgery. Will defer to neurology on whether to consult with vascular surgery. She sees Dr. Brooks outpatient Subjective Patient is pleasantly confused she is oriented generally to place but not time she difficulty feeding herself this morning but was with some prompting was able to be successful eventual disposition is still unclear Review of Systems Review of Systems: ROS: well nourished well developed. No double vision blurry vision No problems with speech or swallowing No palpitations, chest pain or pressure No Wheezing or breathing issues No abdominal pain nausea vomiting diarrhea No burning urine urine frequency or changes in color No focal joint pain or muscle pain No skin rashes or oral lesions No unusual bruising or bleeding No focused back pain or numbness or weakness to the upper extremities Seemingly has baseline memory loss Physical Exam Physical Exam: The patient appeared well nourished and normally developed. He was easily to see that she had some dementia or mental cognitive impairment during evaluation Vital signs as documented. Head exam is unremarkable. normocephalic, atraumatic Neck is without jugular venous distension, thyromegaly, or lymphademopathy Lungs are clear to auscultation and percussion. Cardiac exam reveals Rhythm is regular. First and second heart sounds normal. Abdominal exam reveals normal bowel sounds, no masses, no organomegaly Extremities are nonedematous and both pedal pulses are present Neurologic exam is A&Ox2, bilateral upper arm weakness left greater than right Psychologically seems neither anxious or depressed Skin is warm Dry Results & Data Vital Signs (Past 12 Hours) Vital Signs Temp Pulse Pulse Resp BP Pulse Ox 10/23/18 07:03 36.4 C L 67 16 146/79 H 97 10/23/18 03:32 36.4 C L 69 16 164/91 H 99 10/22/18 23:07 36.4 C L 71 18 129/91 93 10/22/18 20:00 73 10/22/18 19:49 36.3 C L 76 20 152/84 H 94 PG Care Time/CCT Total # of Minutes Spent Total Time Spent with Patient: Total time spent is greater than 50% in coordination of care (as documented) at patient's floor/unit and/or counseling patient: (1) Carotid artery stenosis Laterality: right Qualified Code(s): I65.21 - Occlusion and stenosis of right carotid artery (2) HLD (hyperlipidemia) Hyperlipidemia type: unspecified Qualified Code(s): E78.5 - Hyperlipidemia, unspecified (3) HTN (hypertension) Hypertension type: essential hypertension Qualified Code(s): I10 - Essential (primary) hypertension
[2018-10-23] MEDS: ENOXAPARIN INJ 40 MG/0.4 ML SYR SQ SCH (08:34)
[2018-10-23] MEDS: CLOPIDOGREL BISULFATE 75 MG TAB PO SCH (08:34)
[2018-10-23] MEDS: ASPIRIN 81 MG ECTAB PO SCH (08:34)
[2018-10-23] MEDS: POTASSIUM CHLORIDE 20 MEQ TABCR PO SCH ×2 (09:22→20:35)
--- NOTE | 2018-10-23 09:54 | Consultation ---
Date of Consultation October 23, 2018 Assessment & Plan (1) Carotid artery stenosis: Pt with noted severe BL ICA stenosis, R 90%, L 80%. Previous discussion in office regarding this resulted in recommendation for R CEA, however, pt and family preferred to discuss with PCP and metallurgical engineer and planned to let us know their decision. Pt MRI brain demonstrates acute/subacute R infarct. Family not present today. Will return tomorrow to discuss again with family, as pt not appropriate to make medical decisions. Patient was seen, examined, and chart reviewed. Agree with exam and treatment plan of the Vascular PA. Laterality: right Qualified Code(s): I65.21 - Occlusion and stenosis of right carotid artery Present on Admission?: Yes (2) Acute cerebrovascular accident (CVA): See above. History of Present Illness Reason for Consultation: R hemispheric CVA, RICAS Attending Physician: Bismark Calvillo MD History of Present Illness 73 yo f with complicated medical hx and multiple medical problems, previously seen by Dr Grier in office approx 1 month ago, admitted after episode of unresponsiveness and found to have R hemispheric CVA, seen in consultation today. Pt seen in office approx 1 month ago after referral from PCP regarding Bl ICA stenosis and was recommended to consider R CEA to prevent R hemispheric event d/t 90% stenosis of R ICA. Pt has hx of L hemispheric CVA in remote past, and mild chronic weakness of RUE and RLE. Pt unable to verbalize accurate hx d/t mild chronic dementia. No family present at this time. Previous provider notes indicate her reason for arrival at [facility] was an episode of unresponsiveness that lasted longer than usual. No recorded LUE or LLE weakness or facial droop and pt denies vision changes during this event. CTA neck indicates 90% stenosis R ICA and 80% stenosis L ICA. MRI brain indicates acute/subacute R hemispheric event. Allergies Allergy/AdvReac Type Severity Reaction Status Date / Time No Known Allergies Allergy Verified 10/21/18 22:23 Home Medications Home Medications Medication Instructions Recorded Confirmed Type aspirin 162 mg PO QAM 06/07/18 10/21/18 History atorvastatin 40 mg PO HS 06/07/18 10/21/18 History clopidogrel 75 mg PO QAM 06/07/18 10/21/18 History losartan 12.5 mg PO QAM 06/07/18 10/21/18 History sennosides-docusate sodium [Senna 1 tab PO BID PRN 06/07/18 10/21/18 History with Docusate Sodium] amlodipine 5 mg PO QAM 07/31/18 10/21/18 History potassium chloride ER 20 mEq 20 meq PO DAILY #90 tab 08/23/18 10/21/18 History tablet,extended release ergocalciferol (vitamin D2) 50,000 50,000 units PO WEEKLY #8 cap 10/04/18 10/21/18 Rx unit capsule Patient History Medical History Difficulty walking Hypokalemia Right sided weakness Vitamin D deficiency Carotid stenosis H/O: CVA (cerebrovascular accident) Weakness (Acute) Orthostatic hypotension (Chronic) Sinus node dysfunction (Chronic) Pacemaker (Chronic) Leukoencephalopathy (Chronic) HLD (hyperlipidemia) (Chronic) HTN (hypertension) (Chronic) Syncope Dizziness CVA (cerebral vascular accident) Surgical History History of appendectomy (Chronic) Hx of tonsillectomy (Chronic) Family History Mother Heart disease Father Heart disease Other Family history non-contributory Social History Preferred Language: Azeri Communication Ability: Impaired Principal Consultant Required: No Beliefs That Will Affect Care: None marital status: Current Living Situation: Spouse and Family Current Living Situation Comment: pt lives with and son Feels Safe at Home: Yes Safety Concerns: Feels Safe At This Time Smoking Status: Former smoker Second Hand Exposure: No Hx Alcohol Use: No Hx Substance Use: No Review of Systems Review of Systems: All systems reviewed & are unremarkable except as noted in HPI & below (Pt denies any complaints presently and states feeling better since arrival. Difficult to obtain d/t cognitive status. ) Physical Exam Constitutional: WD/WN, vitals as above well developed, well nourished, + ill appearing (mild chronic), + disheveled, cooperative and comfortable; not in distress and not combative Eyes: PERRL, conjunctivae normal, anicteric sclerae EOM intact bilaterally ENMT: external ear and nose normal, oropharynx normal Ears: no hearing impairment Nose: no nasal discharge Throat: no posterior oropharynx abnormality Neck: trachea midline, no thyromegaly no tracheal deviation, no neck crepitus and neck nontender Respiratory: able to speak in complete sentences; does not use accessory muscles, no cough and no audible wheezes Auscultation: lungs clear to auscultation bilaterally and + diminished lung sounds; no rhonchi and no wheezes Cardiovascular: RRR, no murmur, no edema Heart Sounds: no gallop Vessels: + carotid bruit, femoral pulses present, posterior tibial pulses present (+1), dorsalis pedis pulses present (+1), brachial pulses present and radial pulses present; no femoral bruit and + abnormal peripheral pulses Extremities: normal capillary refill; no edema and no varicosities Chest (Breasts): Chest: normal inspection of chest Gastrointestinal (Abdomen): normal bowel sounds, soft, nontender, no hepatosplenomegaly Inspection/Auscultation: abdomen normal to inspection and normal bowel sounds; abdomen not distended Percussion/Palpation: abdomen soft; abdomen nontender, no guarding, abdomen not rigid and no abdominal mass Musculoskeletal: Head/Neck/Chest: normocephalic, head atraumatic and neck supple Extremities: extremities normal to inspection, + limited ROM of extremities and + abnormal strength (RUE/RLE 3/5, LUE/LLE 5/5); + abnormal strength, no chronic stasis changes and no clubbing Skin: no rashes, warm and dry normal turgor; no rashes, no lesions, no ulcers, no erythema, no eschar, no excoriations and no mottling Neurologic: moves all extremities and awake; no focal motor deficits and not confused Speech / Cognition: no expressive aphasia and no receptive aphasia Motor/Sensory: no tremor and no sensory deficit Cranial Nerves: EOM intact bilaterally, normal facial strength and tongue midline Psychiatric: Orientation: alert, oriented to person and cooperative Apperance: appropriately dressed and appeared stated age Affect: + flat affect Thought Process: + thought process not goal directed, + thought process not linear or logical and + thought process not clear or coherent Cognition: attention grossly intact and language grossly intact; + recent memory not intact and + remote memory not intact Estimated Intelligence: average estimated intelligence Results & Data Vital Signs (Past 12 Hours) Vital Signs Temp Pulse Pulse Resp BP Pulse Ox 10/23/18 07:03 36.4 C L 67 16 146/79 H 97 10/23/18 06:20 60 10/23/18 03:32 36.4 C L 69 16 164/91 H 99 10/22/18 23:07 36.4 C L 71 18 129/91 93
--- NOTE | 2018-10-23 15:51 | Neurology Progress Note ---
Date of Service October 23, 2018 Assessment & Plan (1) Carotid artery stenosis: 1. MRI brain- acute to subacute lacunar infarct 2. CTA head and neck- right internal carotid artery of up to 90% due to the calcified plaque. 3. continue aspirin 81 mg plavix 75 mg daily for now 4. family will need to have discussion to decide on carotid endarterectomy or medical management 5. PT/OT speech for discharge needs 6. medical management per primary team 7. EEG - no seizure focus seen follow up with neurology 4-6 weeks after discharge Nikia Stokes PAC schedule Supervising Physician Co-Signing Physician Notes I have seen and discussed above patient with Dr Nikia Samayoa, neurology. Pt seen and discussed. Still with mild disorientation. Poss L superior quadrantanopsia. L-R confusion and finger agnosia. Flattened L NLF. Equal UE and LE strength. EEG, no sz Relative unresponsiveness lasting 30 min, question of prior similar episodes in past. Now with new deep white matter acute infarct. HEMANT stenosis 90% is now symptomatic. Discussed with family who would consider R CEA if [facility] felt appropriate. We will reach out to vascular surgery, [facility] for their opinion. In interim, no change in anti-plt tx. Avoid hypotension. MD Berto Ron Weeks is a female with a history of CVA with right-sided deficits, bilateral carotid stenosis (90% occlusion of the right internal carotid, 75% occlusion of the left internal carotid) presents with altered mental status. She was accompanied by her son and who states that during dinner tonight, around 8:30 PM, unresponsive but no LOC. During this time, the patient's eyes were open and there was no signs of focal neuro deficitsno facial droop and no weakness. The episode of unresponsiveness lasted about 30 minutes. She has baseline cognitive dysfunction which includes confusion and speech issues. They do say that she has these unresponsive episodes, but they did not do not norm ally last this long. She was recently seen by [facility] vascular surgery with recommendations for carotid endarterectomy. She sought a second opinion from Elizabeth who recommended more conservative, nonsurgical plan. She is follow by Dr. Brooks, neurology and her buffer inflated pad, Dr. Mckenzie. Today her and son are in the room and state they still having not talked to all the family regarding the recommendations for surgery. They are up in the air as to which to choose at this time. denies CP, SOB, abdominal pain, increase confusion, N, V. She is eating well according to her son and at baseline she has some ambulatory issues. 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 triceps right 4/5, left 5/5 hip flex right 4+/5, left 5/5, plantar flex b/l 5/5 sensation intact to light and cool touch Results & Data Vital Signs (Past 12 Hours) Vital Signs Temp Pulse Pulse Resp BP BP Pulse Ox 10/23/18 11:36 36.8 C 71 20 123/70 93 10/23/18 07:03 36.4 C L 67 16 146/79 H 97 10/23/18 06:20 60 Laboratory Results Abnormal lab results 10/22/18 10/23/18 10/23/18 Range/Units 06:27 06:29 06:29 Hct 36.6 L (37-47) % Eos # (Auto) 0.63 H (0-0.5) K/uL Potassium 3.4 L (3.5-5.1) mmol/L Hemoglobin A1c 5.7 H (4.5-5.6) % Diagnostic Findings MRI brain- There is a 1 cm focus of restricted diffusion identified within the right harper radiata consistent with an acute to subacute lacunar infarct. No additional foci of acute ischemia are identified. There is no hemorrhage or mass effect. Advanced small vessel ischemic change as above. (1) Carotid artery stenosis Laterality: right Qualified Code(s): I65.21 - Occlusion and stenosis of right carotid artery
--- NOTE | 2018-10-23 17:18 | Procedure Note ---
EEG Procedure Note Date of Service October 23, 2018 Start / End Times Start Time: 08:01 End Time: 08:[address] Bismark Calvillo History A 73 year old woman with history of CVA and carotid disease admitted for unresponsive episode. EEG performed for evaluation of epileptiform activity. Home Medication List Home Medications Medication Instructions Recorded Confirmed Type aspirin 162 mg PO QAM 06/07/18 10/21/18 History atorvastatin 40 mg PO HS 06/07/18 10/21/18 History clopidogrel 75 mg PO QAM 06/07/18 10/21/18 History losartan 12.5 mg PO QAM 06/07/18 10/21/18 History sennosides-docusate sodium [Senna 1 tab PO BID PRN 06/07/18 10/21/18 History with Docusate Sodium] amlodipine 5 mg PO QAM 07/31/18 10/21/18 History potassium chloride ER 20 mEq 20 meq PO DAILY #90 tab 08/23/18 10/21/18 History tablet,extended release ergocalciferol (vitamin D2) 50,000 50,000 units PO WEEKLY #8 cap 10/04/18 10/21/18 Rx unit capsule Inpatient Medication List Aspirin (Ecotrin Ectab) 162 mg PO [facility] Stop: 11/21/18 08:59 Last Admin: 10/23/18 08:34 Dose: 162 mg Documented by: [id number] Admin: 10/22/18 09:04 Dose: 162 mg Documented by: [id number] Atorvastatin Calcium (Lipitor) 40 mg PO [facility] Stop: 11/21/18 20:59 Last Admin: 10/22/18 19:37 Dose: 40 mg Documented by: [id number] Clopidogrel Bisulfate (Plavix) 75 mg [facility] [place] Stop: 11/21/18 08:59 Last Admin: 10/23/18 08:34 Dose: 75 mg Documented by: [id number] Admin: 10/22/18 09:04 Dose: 75 mg Documented by: [id number] Enoxaparin Sodium (Lovenox) 40 mg SQ [facility] Stop: 11/21/18 08:59 Last Admin: 10/23/18 08:34 Dose: 40 mg Documented by: [id number] Admin: 10/22/18 09:04 Dose: 40 mg Documented by: [id number] Ioversol (Optiray 320 125ml) 119 ml IV ONCE PRN PRN Reason: Interaction Checking Stop: 10/25/18 22:17 Last Admin: 10/21/18 22:18 Dose: 119 ml Documented by: [id number] Potassium Chloride (Klor-Con M20) 20 meq PO BID [facility] Stop: 10/24/18 09:01 Last Admin: 10/23/18 09:22 Dose: 20 meq Documented by: [id number] Discontinued Medications Sodium Chloride (Nss 1000ml) 500 mls @ 999 mls/hr IV .Q31M ONE Stop: 10/21/18 23:25 Last Infusion: 10/22/18 00:15 Dose: 0 mls/hr Documented by: [id number] Admin: 10/21/18 23:21 Dose: 999 mls/hr Documented by: [id number] Description TECHNICAL REMARKS: This is a 21 electrode EEG with a single channel dedicated to limited EKG. The electrodes were placed in accordance with the International 10-20 system. REPORT: At the onset of the EEG, the patient is awake. The background activity consists of 8-9 Hz, persistent, posteriorly dominant, moderate amplitude, symmetric and rhythmic activity that is reactive to eye opening. Anteriorly, it consists of a mixture of low voltage indeterminate activity and 15-25 Hz, persistent, low amplitude, symmetric and rhythmic activity. Stepwise intermittent photic stimulation does not induce any abnormalities. Drowsiness is characterized by low amplitude mixed frequency activity, roving eye movements, and decreased eye blinking and muscle artifact. IMPRESSION: This is a normal awake and drowsy EEG. There is no evidence of focal slowing or epileptiform activity.
[2018-10-23] MEDS: ATORVASTATIN 40 MG TAB PO SCH (20:35)
[2018-10-24 06:38] LABS: Basophils # (auto) 0.07 K/uL (0-0.2); Basophils % (auto) 0.8 %; Eosinophils % (auto) 7.9 %; Hemoglobin 13.7 g/dL (12.0-16.0); Immature Granulocytes # (auto) 0.02 K/uL (0.00-0.02); Immature Granulocytes % (auto) 0.2 %; Lymphocytes # (auto) 2.34 K/uL (1.2-3.4); Lymphocytes % (auto) 26.5 %; Mean Corpuscular Hgb Conc 34.3 g/dL (32-36); Mean Corpuscular Volume 87.3 fL (80-100); Mean Platelet Volume 9.3 fL (7.4-10.4); Monocytes # (auto) 0.65 K/uL (0.11-0.59); Monocytes % (auto) 7.4 %; Neutrophils # (auto) 5.06 K/uL (1.4-6.5); Neutrophils % (auto) 57.2 %; Platelet Count 194 K/uL (130-400); RDW Coefficient of Variation 13.1 % (11.5-14.5); RDW Standard Deviation 41.7 fL (36.4-46.3); Red Blood Count 4.58 M/uL (4.2-5.4); White Blood Count 8.84 K/uL (4.8-10.8)
[2018-10-24 06:53] LABS: INR 1.1 (0.9-1.1); Prothrombin Time 10.8 Seconds (9.0-12.0)
[2018-10-24 07:12] LABS: BUN Creatinine Ratio 12.6 (10-20); Calcium 9.2 mg/dl (8.5-10.1); Creatinine Clr Calc Pharmacy 69.5 ml/min; Est GFR (African American) 100.8; Potassium 3.6 mmol/L (3.5-5.1)
[2018-10-24] MEDS: CLOPIDOGREL BISULFATE 75 MG TAB PO SCH (08:49)
[2018-10-24] MEDS: POTASSIUM CHLORIDE 20 MEQ TABCR PO SCH (08:49)
[2018-10-24] MEDS: ASPIRIN 81 MG ECTAB PO SCH (08:50)
[2018-10-24] MEDS: ENOXAPARIN INJ 40 MG/0.4 ML SYR SQ SCH (08:50)
--- NOTE | 2018-10-24 14:27 | Neurology Progress Note ---
Date of Service October 24, 2018 Assessment & Plan (1) Carotid artery stenosis: 1. MRI brain- acute to subacute deep white matter infarct 2. CTA head and neck- right internal carotid artery of up to 90% due to the calcified plaque. 3. continue aspirin 81 mg plavix 75 mg daily for now 4. family will need to have discussion to decide on carotid endarterectomy or medical management- [facility] vascular sent MRI brain for further input and recommendations 5. PT/OT speech for discharge needs 6. medical management per primary team 7. EEG - no seizure focus seen follow up with neurology 4-6 weeks after discharge Nikia Stokes PAC schedule Supervising Physician Co-Signing Physician Notes I have seen and discussed above patient with Dr Nikia Samayoa, neurology. Pt seen and discussed. Family not at bedside. Exam essentially unchanged, although no finger agnosia on exam. There is RL confusion, flat L NLF and inconsistent of the Left superior temporal field. This deep white matter infarct is likely related to high grade HEMANT stenosis. [facility] [place] has asked to have images sent to them to eval, which we have done. They will render and opinion and advise. Continue antiplt tx. Will follow with you. SERGEY Samayoa MD Ron Weeks is a female with a history of CVA with right-sided deficits, bilateral carotid stenosis (90% occlusion of the right internal carotid, 75% occlusion of the left internal carotid) presents with altered mental status. She was accompanied by her son and who states that during dinner tonight, around 8:30 PM, unresponsive but no LOC. During this time, the patient's eyes were open and there was no signs of focal neuro deficitsno facial droop and no weakness. The episode of unresponsiveness lasted about 30 minutes. She has baseline cognitive dysfunction which includes confusion and speech issues. They do say that she has these unresponsive episodes, but they did not do not normally last this long. She was recently seen by [facility] vascular surgery with recommendations for carotid endarterectomy. She sought a second opinion from [facility] who recommended more conservative, nonsurgical plan. She is follow by Dr. Brooks, neurology and her marketing outreach coordinator, Dr. Mckenzie. Today the is no family in the room. She is more attentive to questions today. Vascular surgery was contacted in [place] to see if they would recommend surgical intervention since she did have a stroke corresponding to the carotid stenosis. denies CP, SOB, abdominal pain, increase confusion, N, V. 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 triceps 4+/5 right 5/5 left, patellar flex ext 4+/5 right 5/5 left sensation intact to light and cool touch Results & Data Vital Signs (Past 12 Hours) Vital Signs Temp Pulse Resp BP Pulse Ox 10/24/18 11:51 36.9 C 72 18 100/59 L 95 10/24/18 07:53 36.8 C 74 18 124/69 96 10/24/18 04:00 36.4 C L 74 17 132/85 96 Laboratory Results Abnormal lab results 10/24/18 Range/Units 05:41 [place] # (Auto) 0.65 H (0.11-0.59) K/uL Eos # (Auto) 0.70 H (0-0.5) K/uL Diagnostic Findings no new imaging (1) Carotid artery stenosis Laterality: right Qualified Code(s): I65.21 - Occlusion and stenosis of right carotid artery
[2018-10-24] MEDS: ATORVASTATIN 40 MG TAB PO SCH (19:29)
--- NOTE | 2018-10-24 23:36 | Hospitalist Progress Note ---
Date of Service October 24, 2018 Assessment & Plan (1) H/O: CVA (cerebrovascular accident): with encephalopathy Stroke alert commenced in emergency room, no acute findings found on head CT Stable findings on CTA/head and necksignificant carotid stenosis on the right MRI confirms a small stroke on the right side also. In the past patient does not want vascular intervention will have them reengage with the Neurology consulted, appreciate recommendations Patient has been evaluated by both [facility] and [facility] for carotid stenosis in the past, no planned surgical procedure at this time Continuing aspirin, clopidogrel, atorvastatin Holding amlodipine and losartan at this time for permissive hypertension lipids wnl, a1c pending PT/OT, discharge planninglives at home with her son and Plan appears to possibly transfer patient to [facility] for procedure for CEA with in-house vascular surgeon. Family will decide on this. (2) HLD (hyperlipidemia): continue statin (3) HTN (hypertension): hold blood pressure medicine for now, blood pressure stable (4) Pacemaker: (5) Carotid artery stenosis: IMPRESSION: 1. Overall, no significant change compared to prior study. 2. No high-grade stenosis, occlusion, or aneurysm within the [place]. 3. High-grade stenosis at the proximal right internal carotid artery of up to 90% due to the calcified plaque. 4. Approximately 70% stenosis at the origin of the left internal carotid artery. Carotid artery stenosis known and in the past patient her providers have opted for conservative treatment rather than surgery. Will defer to neurology on whether to consult with vascular surgery. She sees Dr. Brooks outpatient Subjective 73 yo female does not provide signifcant history today. No new complaints. Review of Systems Review of Systems: ROS: well nourished well developed. No double vision blurry vision No problems with speech or swallowing No palpitations, chest pain or pressure No Wheezing or breathing issues No abdominal pain nausea vomiting diarrhea No burning urine urine frequency or changes in color No focal joint pain or muscle pain No skin rashes or oral lesions No unusual bruising or bleeding No focused back pain or numbness or weakness to the upper extremities Seemingly has baseline memory loss Physical Exam Physical Exam: The patient appeared well nourished and normally developed. Vital signs as documented. Head exam is unremarkable. normocephalic, atraumatic Neck is without jugular venous distension, thyromegaly, or lymphadenopathy Lungs are clear to auscultation and percussion. Cardiac exam reveals Rhythm is regular. First and second heart sounds normal. Abdominal exam reveals normal bowel sounds, no masses, no organomegaly Extremities are nonedematous and both pedal pulses are present Neurologic exam is A&Ox2, bilateral upper arm weakness left greater than right Psychologically seems neither anxious or depressed Skin is warm Dry Results & Data Vital Signs (Past 12 Hours) Vital Signs Temp Pulse Pulse Resp BP BP Pulse Ox 10/24/18 23:30 37.2 C 86 16 179/90 H 99 10/24/18 19:45 36.9 C 71 18 134/99 98 10/24/18 19:35 70 10/24/18 16:01 36.9 C 72 18 144/79 H 95 10/24/18 11:51 36.9 C 72 18 100/59 L 95 PG Care Time/CCT Total # of Minutes Spent Total Time Spent with Patient: Total time spent is greater than 50% in coordination of care (as documented) at patient's floor/unit and/or counseling patient: (1) Carotid artery stenosis Laterality: right Qualified Code(s): I65.21 - Occlusion and stenosis of right carotid artery (2) HLD (hyperlipidemia) Hyperlipidemia type: unspecified Qualified Code(s): E78.5 - Hyperlipidemia, unspecified (3) HTN (hypertension) Hypertension type: essential hypertension Qualified Code(s): I10 - Essential (primary) hypertension
[2018-10-25] MEDS: ENOXAPARIN INJ 40 MG/0.4 ML SYR SQ SCH (08:21)
[2018-10-25] MEDS: CLOPIDOGREL BISULFATE 75 MG TAB PO SCH (08:21)
[2018-10-25] MEDS: ASPIRIN 81 MG ECTAB PO SCH (08:21)
--- NOTE | 2018-10-25 15:20 | Communication Note ---
Date of Service: October 25, 2018 Discussed carotid endarterectomy with yesterday. He will discuss this with all his sons and get back to us about their wishes.
--- NOTE | 2018-10-25 17:11 | Neurology Progress Note ---
Date of Service October 25, 2018 Assessment & Plan (1) Carotid artery stenosis: 1. MRI brain- acute to subacute deep white matter infarct 2. CTA head and neck- right internal carotid artery of up to 90% due to the calcified plaque. 3. continue aspirin 81 mg plavix 75 mg daily for now 4. family will need to have discussion to decide on carotid endarterectomy or medical management- [facility] reviewed MRI and is still recommending medical management only 5. PT/OT speech for discharge needs 6. medical management per primary team 7. EEG - no seizure focus seen follow up with neurology 4-6 weeks after discharge Nikia Stokes PAC schedule Supervising Physician Co-Signing Physician Notes I have seen and discussed above patient with Dr Nikia Samayoa, neurology,. Pt seen and bedside. Discussed HEMANT stenosis, which appears to be symptomatic. Family has been given two different options, medical mgt. and surgery. Family is unsure which way to go. I recommend that they see [facility] in person to discuss further so all issues and what went into decision making. I will also speak to Dr Brooks who is more familiar with pt. In interim no change in antiplt tx. SERGEY Samayoa MD Ron Weeks is a female with a history of CVA with right-sided deficits, bilateral carotid stenosis (90% occlusion of the right internal carotid, 75% occlusion of the left internal carotid) presents with altered mental status. She was accompanied by her son and who states that during dinner tonight, around 8:30 PM, unresponsive but no LOC. During this time, the patient's eyes were open and there was no signs of focal neuro deficitsno facial droop and no weakness. The episode of unresponsiveness lasted about 30 minutes. She has baseline cognitive dysfunction which includes confusion and speech issues. They do say that she has these unresponsive episodes, but they did not do not normally last this long. She was recently seen by [facility] vascular surgery with recommendations for carotid endarterectomy. She sought a second opinion from rell who recommended more conservative, nonsurgical plan. She is follow by Dr. Brooks, neurology and her financial underwriter, Dr. Mckenzie. Today her is in the room discussed [facility] vascular is still recommending medical management. He will discussed with her son and let team know decision. She is more attentive to questions today. denies CP, SOB, abdominal pain, increase confusion, N, V. 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
[2018-10-25] MEDS: ATORVASTATIN 40 MG TAB PO SCH (20:39)
--- NOTE | 2018-10-25 23:58 | Hospitalist Progress Note ---
Date of Service October 25, 2018 Assessment & Plan (1) H/O: CVA (cerebrovascular accident): with encephalopathy Stroke alert commenced in emergency room, no acute findings found on head CT Stable findings on CTA/head and necksignificant carotid stenosis on the right MRI confirms a small stroke on the right side also. In the past patient does not want vascular intervention will have them reengage with the Neurology consulted, appreciate recommendations Patient has been evaluated by both [facility] and [facility] for carotid stenosis in the past, no planned surgical procedure at this time Continuing aspirin, clopidogrel, atorvastatin Holding amlodipine and losartan at this time for permissive hypertension lipids wnl, a1c pending PT/OT, discharge planninglives at home with her son and Plan appears to possibly transfer patient to [facility] for procedure for CEA with in-house vascular surgeon. Family will decide on this. (2) HLD (hyperlipidemia): continue statin (3) HTN (hypertension): hold blood pressure medicine for now, blood pressure stable (4) Pacemaker: (5) Carotid artery stenosis: IMPRESSION: 1. Overall, no significant change compared to prior study. 2. No high-grade stenosis, occlusion, or aneurysm within the [place]. 3. High-grade stenosis at the proximal right internal carotid artery of up to 90% due to the calcified plaque. 4. Approximately 70% stenosis at the origin of the left internal carotid artery. Carotid artery stenosis known and in the past patient her providers have opted for conservative treatment rather than surgery. Will defer to neurology on whether to consult with vascular surgery. She sees Dr. Brooks outpatient Awaiting input from Dr. Grier. Subjective Patient is a poor historian. Family is at bedside. They state she is having difficluty swallowing. Also discussed with Neuro, [facility] is not interested in doing surgery. Will await input from Dr. Grier. Review of Systems Review of Systems: All systems reviewed & are unremarkable except as noted in HPI & below Physical Exam Physical Exam: The patient appeared well nourished and normally developed. Vital signs as documented. Head exam is unremarkable. normocephalic, atraumatic Neck is without jugular venous distension, thyromegaly, or lymphadenopathy Lungs are clear to auscultation and percussion. Cardiac exam reveals Rhythm is regular. First and second heart sounds normal. Abdominal exam reveals normal bowel sounds, no masses, no organomegaly Extremities are nonedematous and both pedal pulses are present Neurologic exam is A&Ox2, bilateral upper arm weakness left greater than right Psychologically seems neither anxious or depressed Skin is warm Dry Results & Data Vital Signs (Past 12 Hours) Vital Signs Temp Pulse Pulse Resp BP BP Pulse Ox 10/25/18 23:37 36.9 C 88 20 134/83 96 10/25/18 19:53 37.3 C 86 18 150/91 H 96 10/25/18 16:41 77 10/25/18 15:54 37.0 C 77 22 150/88 H 95 PG Care Time/CCT Total # of Minutes Spent Total Time Spent with Patient: Total time spent is greater than 50% in coordination of care (as documented) at patient's floor/unit and/or counseling patient: (1) Carotid artery stenosis Laterality: right Qualified Code(s): I65.21 - Occlusion and stenosis of right carotid artery (2) HLD (hyperlipidemia) Hyperlipidemia type: unspecified Qualified Code(s): E78.5 - Hyperlipidemia, unspecified (3) HTN (hypertension) Hypertension type: essential hypertension Qualified Code(s): I10 - Essential (primary) hypertension
[2018-10-26] MEDS: CLOPIDOGREL BISULFATE 75 MG TAB PO SCH (09:54)
[2018-10-26] MEDS: ENOXAPARIN INJ 40 MG/0.4 ML SYR SQ SCH (09:54)
[2018-10-26] MEDS: ASPIRIN 81 MG ECTAB PO SCH (09:54)
--- NOTE | 2018-10-26 14:27 | Neurology Progress Note ---
Date of Service October 26, 2018 Assessment & Plan (1) Carotid artery stenosis: 1. MRI brain- acute to subacute deep white matter infarct left periventricular 2. CTA head and neck- right internal carotid artery of up to 90% due to the calcified plaque. 3. continue aspirin 81 mg plavix 75 mg daily for now 4. family will need to have discussion to decide on carotid endarterectomy or medical management- [facility] reviewed MRI and is still recommending medical management only 5. PT/OT speech for discharge needs 6. medical management per primary team 7. EEG - no seizure focus seen follow up with neurology 4-6 weeks after discharge Nikia Stokes PAC schedule ok to discharge when medically stable, Deo Webb MD vascular surgery is willing to see patient at [facility] if family wants to discuss medical management further. [facility] and has been reviewed by Dr Webb. will sign off for now but will be available for further input as needed. Supervising Physician Co-Signing Physician Notes I have seen and discussed above patient with Dr Nikia Samayoa, neurology PT seen, less RL confusion and finger agnosia. R periventricular infarct, presumed related to HEMANT 90%, superimposed on vascular dementia. Continue same antiplt tx. Avoid hypotension.Family in process of determining whether they are interested in carotid surgery and Melissa laurel hair will see [facility] in follow-up. Follow-up with Dr. Brooks post fabio Samayoa MD Ron Weeks is a female with a history of CVA with right-sided deficits, bilateral carotid stenosis (90% occlusion of the right internal carotid, 75% occlusion of the left internal carotid) presents with altered mental status. She was accomp anied by her son and who states that during dinner tonight, around 8:30 PM, unresponsive but no LOC. During this time, the patient's eyes were open and there was no signs of focal neuro deficitsno facial droop and no weakness. The episode of unresponsiveness lasted about 30 minutes. She has baseline cognitive dysfunction which includes confusion and speech issues. They do say that she has these unresponsive episodes, but they did not do not normally last this long. She was recently seen by [facility] vascular surgery with recommendations for carotid endarterectomy. She sought a second opinion from [facility] who recommended more conservative, nonsurgical plan. She is follow by Dr. Brooks, neurology and her mobile equipment mechanic, Dr. Mckenzie. Today no family is in room. She is more attentive but not answering questions today. 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
[2018-10-26] MEDS: ATORVASTATIN 40 MG TAB PO SCH (20:26)
--- NOTE | 2018-10-26 23:13 | Hospitalist Progress Note ---
Date of Service October 26, 2018 Assessment & Plan (1) H/O: CVA (cerebrovascular accident): with encephalopathy Stroke alert commenced in emergency room, no acute findings found on head CT Stable findings on CTA/head and necksignificant carotid stenosis on the right MRI confirms a small stroke on the right side also. In the past patient does not want vascular intervention will have them reengage with the Neurology consulted, appreciate recommendations Patient has been evaluated by both [facility] and [facility] for carotid stenosis in the past, no planned surgical procedure at this time Continuing aspirin, clopidogrel, atorvastatin Holding amlodipine and losartan at this time for permissive hypertension; will likely resume at discharge, perhaps at a lower dose. lipids wnl, a1c prediabetic range. will monitor. PT/OT, discharge planninglives at home with her son and Family is deciding on conservative management. [facility] feels that distribution of stroke is not related with carotid stenosis. (2) HLD (hyperlipidemia): continue statin (3) HTN (hypertension): hold blood pressure medicine for now, blood pressure stable (4) Pacemaker: (5) Carotid artery stenosis: IMPRESSION: 1. Overall, no significant change compared to prior study. 2. No high-grade stenosis, occlusion, or aneurysm within the [place] of [place]. 3. High-grade stenosis at the proximal right internal carotid artery of up to 90% due to the calcified plaque. 4. Approximately 70% stenosis at the origin of the left internal carotid artery. Carotid artery stenosis known and in the past patient her providers have opted for conservative treatment rather than surgery. Subjective 73 yo female reports feeeling better. She is swallowing well. She continues to have weakness.. Review of Systems Review of Systems: ROS: well nourished well developed. No double vision blurry vision No problems with speech or swallowing No palpitations, chest pain or pressure No Wheezing or breathing issues No abdominal pain nausea vomiting diarrhea No burning urine urine frequency or changes in color No focal joint pain or muscle pain No skin rashes or oral lesions No unusual bruising or bleeding No focused back pain or numbness or weakness to the upper extremities Seemingly has baseline memory loss Physical Exam Physical Exam: The patient appeared well nourished and normally developed. Vital signs as documented. Head exam is unremarkable. normocephalic, atraumatic Neck is without jugular venous distension, thyromegaly, or lymphadenopathy Lungs are clear to auscultation and percussion. Cardiac exam reveals Rhythm is regular. First and second heart sounds normal. Abdominal exam reveals normal bowel sounds, no masses, no organomegaly Extremities are nonedematous and both pedal pulses are present Neurologic exam is A&Ox2, bilateral upper arm weakness Psychologically seems neither anxious or depressed Skin is warm Dry Results & Data Vital Signs (Past 12 Hours) Vital Signs Temp Pulse Resp BP Pulse Ox 10/26/18 19:15 37.2 C 82 15 144/77 H 94 10/26/18 16:09 36.9 C 76 16 124/82 92 10/26/18 11:51 36.8 C 76 18 138/72 96 PG Care Time/CCT Total # of Minutes Spent Total Time Spent with Patient: Total time spent is greater than 50% in coordination of care (as documented) at patient's floor/unit and/or counseling patient: (1) Carotid artery stenosis Laterality: right Qualified Code(s): I65.21 - Occlusion and stenosis of right carotid artery (2) HLD (hyperlipidemia) Hyperlipidemia type: unspecified Qualified Code(s): E78.5 - Hyperlipidemia, unspecified (3) HTN (hypertension) Hypertension type: essential hypertension Qualified Code(s): I10 - Essential (primary) hypertension
[2018-10-27] MEDS: ENOXAPARIN INJ 40 MG/0.4 ML SYR SQ SCH (08:54)
[2018-10-27] MEDS: CLOPIDOGREL BISULFATE 75 MG TAB PO SCH (08:54)
[2018-10-27] MEDS: ASPIRIN 81 MG ECTAB PO SCH (08:54)
[2018-10-27] MEDS ORDERED: STROKE PATIENT DISCHARGE STA (13:09)
--- NOTE | 2018-11-05 22:19 | Discharge Summary ---
Date of Service October 27, 2018 Admission HPI Per Admitting Provider 73-year-old female with a history of CVA with right-sided deficits, bilateral carotid stenosis (90% occlusion of the right internal carotid, 75% occlusion of the left internal carotid) presents with altered mental status. She is accompanied by her son and who states that during dinner tonight, around 8:30 PM, the patient blanked out and was unresponsive. During this time, the patient's eyes were open and there was no signs of focal neuro deficitsno facial droop and no weakness. The episode of unresponsiveness lasted about 30 minutes. The patient became more alert in the ambulance in route to the [facility]. Family states that she has baseline cognitive dysfunction which includes confusion and speech issues. They do say that she has these unresponsive episodes, but they did not do not normally last this long. The patient was recently seen by [facility] vascular surgery with recommendations for carotid endarterectomy. She sought a second opinion from [facility] who recommended more conservative, nonsurgical plan. Patient is followed by her neurologist, Dr. Brooks and her commercial account officer, Dr. Mckenzie. In the ED, the patient is able to answer my questions and is alert to person and place. Principal Diagnosis CVA Discharge Exam The patient appeared well nourished and normally developed. Vital signs as documented. Head exam is unremarkable. normocephalic, atraumatic Neck is without jugular venous distension, thyromegaly, or lymphadenopathy Lungs are clear to auscultation and percussion. Cardiac exam reveals Rhythm is regular. First and second heart sounds normal. Abdominal exam reveals normal bowel sounds, no masses, no organomegaly Extremities are nonedematous and both pedal pulses are present Neurologic exam is A&Ox2, bilateral upper arm weakness Psychologically seems neither anxious or depressed Skin is warm Dry Discharge Data Allergies Allergy/AdvReac Type Severity Reaction Status Date / Time No Known Allergies Allergy Verified 10/21/18 22:23 Consultations 10/21/18 23:33 ED Decision to Admit Stat 10/22/18 01:56 Consult Case Management - Discharge Planning Routine Consult Neurology Routine 10/23/18 07:49 Consult Vascular Surgery Routine Ordered Studies 10/21/18 22:05 CT angio head w con Stat CT angio neck with con Stat CT head/brain wo con Stat 10/22/18 13:26 MR brain wo con Routine Hospital Course (1) H/O: CVA (cerebrovascular accident): with encephalopathy Stroke alert commenced in emergency room, no acute findings found on head CT Stable findings on CTA/head and necksignificant carotid stenosis on the right MRI confirms a small stroke on the right side also. In the past patient does not want vascular intervention will have them reengage with the Neurology consulted, appreciate recommendations Patient has been evaluated by both [facility] and [facility] for carotid stenosis in the past, no planned surgical procedure at this time Continuing aspirin, clopidogrel, atorvastatin Holding amlodipine and losartan at this time for permissive hypertension; will likely resume at discharge, perhaps at a lower dose. lipids wnl, a1c prediabetic range. will monitor. PT/OT, discharge planninglives at home with her son and Family is deciding on conservative management. [facility] feels that distribution of stroke is not related with carotid stenosis. Patient will be discharged. And family will decide on a gameplan going forward. At the moment, they are leaning towards conservative management. (2) HLD (hyperlipidemia): continue statin (3) HTN (hypertension): hold blood pressure medicine for now, blood pressure stable (4) Pacemaker: (5) Carotid artery stenosis: IMPRESSION: 1. Overall, no significant change compared to prior study. 2. No high-grade stenosis, occlusion, or aneurysm within the [place] of [place]. 3. High-grade stenosis at the proximal right internal carotid artery of up to 90% due to the calcified plaque. 4. Approximately 70% stenosis at the origin of the left internal carotid artery. Carotid artery stenosis known and in the past patient her providers have opted for conservative treatment rather than surgery. Total Time Total Time Spent Total Time Spent (In Minutes): 32 Total Time Includes: Examination of the Patient, Discharge Planning and Medication Reconciliation Discharge Plan Discharge Items Patient Disposition: Transfer Inpatient Rehab Fac Reason For Visit: AMS Discharge Diagnosis: Stroke Discharge Goals: Decrease discomfort Activity: Resume your previous activity Non-emergency contact: Primary Care Provider Call non-emergency contact if: you have any medication questions Follow-up/Referrals: Ignacio Ken MD [Primary Care Provider] - Diet: Low Sodium (2gm) Addtl Provider Instructions: Risk Factors for Stroke: You can reduce your chances of stroke by working with your medical provider to adopt a healthy lifestyle. Some specific ways to lower your chance of stroke are: * If you are a smoker, now is the time to stop smoking cigarettes * If you are diabetic, improve the control of your blood sugars * Avoid excessive amounts of alcohol * Control high blood pressure * Lose weight if you are overweight * Be sure to lead an active lifestyle * Eat a healthy diet low in salt, cholesterol and fat You should know about other risk factors for stroke that you are unable to control. These include: * Age 55 years or older * Male gender * Certain racial groups: , or / * Family History of Stroke, Mini stroke or Heart Attack * Sickle Cell Disease Follow Up: It is important for you to keep your follow up appointments with your medical provider. Who to Call and When: Medical Emergencies: Call 911 immediately if you experience any of the following warning signs and symptoms of Stroke: * Sudden numbness or weakness of the face, arm or leg, especially on one side of the body * Sudden confusion, trouble speaking or understanding * Sudden trouble seeing in one or both eyes * Sudden trouble walking, dizziness, loss of balance or coordination * Sudden severe headache with no cause Do not delay calling 911 if you experience any warning signs or symptoms of a stroke. Delay in seeking medical attention may affect what treatments can be given to you. . If patient is holding food in mouth, then time is not good to encourage oral intake. Patient also requires supervision with meals oral intake. Not able to prepare foods on her tray independently. Keep solid foods cut small. Encourage finger food.s Alt solids and liquid. Give meds in a carrier, pudding, apple sauce Prescriptions: Continued ergocalciferol (vitamin D2) 50,000 unit capsule 50,000 units PO WEEKLY Qty: 8 RF: 4 potassium chloride 20 mEq tablet extended release 20 meq PO DAILY Qty: 90 RF: 0 atorvastatin 40 mg tablet 40 mg PO HS RF: 0 clopidogrel 75 mg tablet 75 mg PO QAM RF: 0 losartan 25 mg tablet 12.5 mg PO QAM RF: 0 sennosides-docusate sodium [Senna with Docusate Sodium] 8.6-50 mg Tablet 1 tab PO BID PRN (Reason: Constipation) RF: 0 Changed amlodipine 5 mg tablet 2.5 mg PO QAM Qty: 0 RF: 0 aspirin 81 mg Tablet,Delayed Release (Dr/Ec) 81 mg PO QAM Qty: 0 RF: 0 Stand-Alone Forms: My [facility] Discharge Orders: Discharge Order (Routine); Ordered 10/27/18 Ordered By: Isidro Strickland Skilled Items Patient informed of condition?: Yes DNR: No Discharge Level of Care: Acute rehab Communicable Disease: No Discharge Prognosis: Improving Admission Data Admit Date/Time: 10/22/18 01:04 Attending Provider: Isidro Strickland Admit Provider: Miguel Angel Vásquez Primary Care Provider: Ignacio Ken Other Providers: Fady Grier Kathleen Service: Telemetry Other Interventions: Discharge Summary Assessment (RN) Last Done: 10/27/18 15:51 DC Date/Time DO NOT enter until pt leaves facility: 10/27/18 16:04
== END 2018-10-27 16:04 | DRG 65 ==
LOC: ED 21:45 → SUATTDRO 10-22 01:04 → 2S 10-22 01:04

== ENCOUNTER 2018-12-09 12:06 | Inpatient (IN) ==
[2018-12-09] MEDS ORDERED: ACETAMINOPHEN 1,000 MG/100 ML VIAL IV STA (12:23)
[2018-12-09] MEDS ORDERED: SODIUM CHLORIDE 0.9% 1000ML 1,000 ML IV SCH (12:30)
[2018-12-09 13:03] LABS: Base Excess VBG 2.9 mEq/L; Oxygen Saturation VBG 87.3 %; pH VBG 7.49 (7.36-7.41)
[2018-12-09 13:05] LABS: Basophils # (auto) 0.01 K/uL (0-0.2); Basophils % (auto) 0.1 %; Hematocrit (blood only) 51.2 % (37-47); Immature Granulocytes # (auto) 0.06 K/uL (0.00-0.02); Immature Granulocytes % (auto) 0.3 %; Lymphocytes # (auto) 1.43 K/uL (1.2-3.4); Lymphocytes % (auto) 7.4 %; Mean Corpuscular Hemoglobin 31.8 pg (25-34); Mean Corpuscular Hgb Conc 33.2 g/dL (32-36); Mean Corpuscular Volume 95.9 fL (80-100); Mean Platelet Volume 10.3 fL (7.4-10.4); Monocytes # (auto) 0.97 K/uL (0.11-0.59); Neutrophils % (auto) 87.2 %; Platelet Count 280 K/uL (130-400); RDW Coefficient of Variation 14.8 % (11.5-14.5); RDW Standard Deviation 51.8 fL (36.4-46.3); Red Blood Count 5.34 M/uL (4.2-5.4); White Blood Count 19.27 K/uL (4.8-10.8)
--- NOTE | 2018-12-09 13:09 | CT Scan Report ---
CT head/brain wo con CLINICAL HISTORY: 73 years-old Female presenting with ams. TECHNIQUE: Multidetector CT imaging of the head was performed without the use of intravenous contrast . IV contrast: None. One or more dose lowering techniques were used consistent with the principles of ALARA (as low as reasonably achievable), including automatic exposure control, mA or kV adjustment t o individual patient size, and/or use of iterative reconstruction. COMPARISON: 10/21/2018. CT DOSE (mGy.cm): The estimated cumulative dose is 537.48 mGy.cm. 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 Proportional ventricular and sulcal prominence, likely age-related parenchymal volume loss. No hemorr jb. Periventricular and subcortical white matter hypoattenuation, nonspecific but likely indicative of chronic small vessel ischemic change. No acute territorial infarct. No mass effect or midline nathaly ft. No extra-axial fluid collection. Paranasal sinuses and mastoid air cells clear. Calvarium intact. IMPRESSION: 1. Chronic small vessel ischemic change. No acute intracranial abnormality. Electronically signed by: Brian Hoyt M.D. 12/09/2018 1:07 PM
[2018-12-09 13:13] LABS: Appearance Urine Cloudy (Clear); Bacteria Urine Automated Negative (Negative); Bilirubin Urine Negative (Negative); Blood Urine 1+ (Negative); Color Urine Yellow; Epithelial Cell Urine Auto >30 /lpf (0-5); Glucose Urine UA Negative (Negative); Ketones Urine Negative (Negative); Leukocyte Esterase Urine Negative (Negative); Nitrite Urine Negative (Negative); Protein Urine Negative (Negative); RBC Urine Automated 0-4 /hpf (0-4); Urobilinogen Urine Negative (Negative)
[2018-12-09 13:18] LABS: INR 1.3 (0.9-1.1); Partial Thromboplastin Time 28.4 Seconds (21.0-31.0); Prothrombin Time 13.1 Seconds (9.0-12.0)
[2018-12-09 13:27] LABS: Albumin Level 3.2 gm/dl (3.4-5.0); BUN Creatinine Ratio 41.6 (10-20); Bilirubin,Total 0.8 mg/dl (0.2-1); Calcium 9.9 mg/dl (8.5-10.1); Creatinine Clr Calc Pharmacy 45.9 ml/min; Est GFR (Non-African American) 56.9; Globulin 4.8 gm/dl (2.5-4.0); Potassium 3.8 mmol/L (3.5-5.1); Troponin I 0.035 ng/ml (0-0.045)
[2018-12-09] MEDS ORDERED: PIPERACILLIN/TAZOBACTAM 4.5 GM/120 ML BAG IV ONE (13:28)
--- NOTE | 2018-12-09 13:35 | XRay Report ---
XR chest 1V portable CLINICAL HISTORY: 73 years-old Female presenting with Sepsis. TECHNIQUE: Portable upright AP view of the chest was obtained. COMPARISON: 10/21/2018. FINDINGS: Left subclavian pacer leads to the right atrium and right ventricular apex. Atherosclerosis of the mi ldly tortuous and prominent thoracic aorta. Mild cardiac silhouette enlargement. Interval development of a right paramediastinal basilar opacity. No large effusion or pneumothorax. Degenerative changes of the thoracic spine. Chronic widening of the left AC joint. Osteopenia may be present. Upper abdome n normal. IMPRESSION: 1. Right basilar infiltrate concerning for pneumonia. PA and lateral views would better depict this. 2. Mild cardiomegaly. Electronically signed by: Brian Hoyt M.D. 12/09/2018 1:33 PM
[2018-12-09] MEDS ORDERED: LACTATED RINGER'S 1,000 ML IV SCH (13:45)
[2018-12-09] MEDS ORDERED: VANCOMYCIN HCL 1,250 MG in SODIUM CHLORIDE 0.9% 500 ML IV ONE (13:47)
[2018-12-09] MEDS ORDERED: VANCOMYCIN CONSULT ACTIVE PRN ×2 (13:47→16:44)
[2018-12-09 14:18] LABS: Magnesium 2.8 mg/dl (1.8-2.4)
[2018-12-09 14:19] LABS: Albumin Globulin Ratio 0.7 (0.9-2)
--- NOTE | 2018-12-09 15:25 | History & Physical Report ---
Date of Service December 09, 2018 Assessment & Plan (1) Altered mental status: Likely early sepsis related to PNA Lactic acid pending IVF Abx as above CT head neg for acute (2) PNA (pneumonia): Possible aspiration PNA CXR noted Vanco/zosyn in the ED, will continue Febrile, WBC elevated UA with blood only, current abx will cover if infection (3) Swallowing difficulty: Possible aspiration Currently on pureed diet but is pocketing per family Working with ST at ST c/s pending (4) Hypernatremia: Likely concentrated given recent lack of PO intake Monitor on lactated ringers (5) Hypokalemia: continue home meds 3.8 in ED, although I think this is likely concentrated given recent low PO intake and other labs Monitor (6) HLD (hyperlipidemia): continue home meds (7) HTN (hypertension): continue home meds (8) Urinary incontinence: continue home meds (9) Carotid artery stenosis: Noted in d/c summary that this is being managed conservatively (10) DVT prophylaxis: Lovenox for DVT proph as at SNF History of Present Illness Primary Care Provider: [facility] 73 y/o F who was transferred to [facility] from [facility] for low O2 sats and decreased responsiveness. Pt is s/p CVA x2 with the most recent event being 10/22/2018. She is mostly nonverbal although family states she does answer yes/no questions appropriately. She does eat a pureed diet. They state that over the last few days pt has been less interactive and has barely eaten anything. They have been helping her with dinner, but states that nursing reports almost no intake during breakfast and lunch. Son states that she will hold food in her mouth for 30-40 minutes before swallowing due to some difficulty swallowing. She has been working with ST at and he reports that they have told him that her swallowing is improving. She does cough after swallowing occasionally, but not with every swallow or even every meal. Son states that pt has no communicated any new issues to him and staff has not mentioned anything new either. No emesis that he is aware of. She does not use O2 at baseline. Family who was with pt at this AM but has since left the ED reported to pt's son that she looked much better than this morning. She is more interactive and sitting up more. She is overall less ill appearing. Son states that she is not as responsive to yes/no questions as she usually is, but that she is now responding s/p high flow O2, IVF, abx in the ED. Allergies Allergy/AdvReac Type Severity Reaction Status Date / Time No Known Allergies Allergy Verified 12/09/18 13:22 Home Medications Home Medications Medication Instructions Recorded Confirmed Type atorvastatin 40 mg PO HS 06/07/18 12/09/18 History clopidogrel 75 mg PO QAM 06/07/18 12/09/18 History losartan 12.5 mg PO QAM 06/07/18 12/09/18 History sennosides-docusate sodium [Senna 1 tab PO BID PRN 06/07/18 12/09/18 History with Docusate Sodium] potassium chloride ER 20 mEq 20 meq PO DAILY #90 tab 08/23/18 12/09/18 History tablet,extended release ergocalciferol (vitamin D2) 50,000 50,000 units PO WEEKLY #8 cap 10/04/18 12/09/18 Rx unit capsule amlodipine 2.5 mg PO QAM #0 tab 10/27/18 12/09/18 Rx aspirin 81 mg PO QAM #0 tab 10/27/18 12/09/18 Rx acetaminophen 650 mg PO Q6H PRN 12/09/18 12/09/18 History bisacodyl 10 mg OH DAILY PRN 12/09/18 12/09/18 History enoxaparin 40 mg SUBCUT DAILY 12/09/18 12/09/18 History magnesium hydroxide [Milk of 30 ml PO DAILY PRN 12/09/18 12/09/18 History Magnesia] oxybutynin chloride 5 mg PO BID 12/09/18 12/09/18 History polyethylene glycol 3350 17 g PO DAILY PRN 12/09/18 12/09/18 History sodium phosphates [Fleet Enema] 118 ml OH DAILY PRN 12/09/18 12/09/18 History Past Med/Surg History Medical History Difficulty walking Hypokalemia Right sided weakness Vitamin D deficiency Carotid stenosis H/O: CVA (cerebrovascular accident) Weakness (Acute) Orthostatic hypotension (Chronic) Sinus node dysfunction (Chronic) Pacemaker (Chronic) Leukoencephalopathy (Chronic) HLD (hyperlipidemia) (Chronic) HTN (hypertension) (Chronic) Syncope Dizziness CVA (cerebral vascular accident) Surgical History History of appendectomy (Chronic) Hx of tonsillectomy (Chronic) Family History Mother Heart disease Father Heart disease Other Family history non-contributory Social History Preferred Language: Uzbek Communication Ability: Impaired Manager Practice Required: No Beliefs That Will Affect Care: None marital status: Current Living Situation: Spouse and Family Current Living Situation Comment: pt lives with and son Feels Safe at Home: Yes Smoking Status: Former smoker Number of Years Since Quit: 15 ; Second Hand Exposure: No ; Hx Alcohol Use: No Hx Substance Use: No Review of Systems Review of Systems: Pertinent positives and negatives reviewed in HPI--all others negative Physical Exam Constitutional: WD/WN, vitals as above Eyes: normal visual levi by confrontation and + anicteric sclerae Neck: normal visual inspection and trachea midline Respiratory: normal respiratory effort, lungs clear to auscultation Cardiovascular: Rate/Rhythm: regular rate and regular rhythm Gastrointestinal (Abdomen): Inspection/Auscultation: abdomen not distended Percussion/Palpation: abdomen soft; abdomen nontender Musculoskeletal: Head/Neck/Chest: normocephalic and head atraumatic negative for edema, peripheral pulses intact Skin: no rashes, warm and dry Neurologic: awake opens eyes to voice, uncertain if confused, no verbal responses given Psychiatric: opens eyes to name, shakes head yes/no minimally to questions Results & Data Vital Signs (Past 12 Hours) Vital Signs Temp Pulse Pulse Resp BP Pulse Ox 12/09/18 14:45 86 18 94 12/09/18 14:31 87 22 118/95 95 12/09/18 14:30 36.8 C 87 23 94 12/09/18 14:16 87 20 104/77 94 12/09/18 14:15 87 23 94 12/09/18 14:00 88 21 116/86 94 12/09/18 13:45 90 23 122/87 94 12/09/18 13:31 94 H 20 93 12/09/18 13:30 93 H 22 135/99 93 12/09/18 13:15 99 H 24 137/92 91 12/09/18 13:10 99 H 27 H 140/99 92 12/09/18 13:04 101 H 53 H 92 12/09/18 12:45 102 H 28 H 90 12/09/18 12:30 101 H 28 H 152/113 H 95 12/09/18 12:22 88 L 12/09/18 12:21 102 H 30 H 95 12/09/18 12:13 101 H 28 H 142/109 H 94 12/09/18 12:10 38.9 C H 101 H 28 H 142/109 H 94 Diagnostic Findings CXR: R basilar PNA CT head: neg for acute Code Status & VTE Plan Code Status Full code per son VTE Prophylaxis Plan VTE Prophylaxis will be ordered: Yes PG Care Time/CCT Total # of Minutes Spent Total Time Spent with Patient: Total time spent is greater than 50% in coordination of care (as documented) at patient's floor/unit and/or counseling patient: (1) Carotid artery stenosis Laterality: right Qualified Code(s): I65.21 - Occlusion and stenosis of right carotid artery (2) HLD (hyperlipidemia) Hyperlipidemia type: unspecified Qualified Code(s): E78.5 - Hyperlipidemia, unspecified (3) HTN (hypertension) Hypertension type: essential hypertension Qualified Code(s): I10 - Essential (primary) hypertension
--- NOTE | 2018-12-09 16:36 | Emergency Department Note ---
Entered by Melissa Baron acting as a scribe for History of Present Illness General Chief complaint: Unresponsive Stated complaint: unresponsive/poss. sepsis Time Seen by Provider: 12/09/18 12:10 Source: EMS Limitations: altered mental status and clinical acuity History of Present Illness Onset (ago): hour(s) less than 1 Associated symptoms: + fever/chills The patient is a 73 year old female who presents to the Emergency Room from [facility] as altered mental status. The patient has a history of stroke, HTN, HLD, hyperkalemia, and aphasia. [facility], the patient was found to be febrile, tachycardic, and hypoxic. She was transported to the hospital and was unable to speak due to altered mental status. There was concern for possible sepsis secondary to aspiration per the staff at the prison. Home Medications Home Medications Medication Instructions Recorded Confirmed Type atorvastatin 40 mg PO HS 06/07/18 12/09/18 History clopidogrel 75 mg PO QAM 06/07/18 12/09/18 History losartan 12.5 mg PO QAM 06/07/18 12/09/18 History sennosides-docusate sodium [Senna 1 tab PO BID PRN 06/07/18 12/09/18 History with Docusate Sodium] potassium chloride ER 20 mEq 20 meq PO DAILY #90 tab 08/23/18 12/09/18 History tablet,extended release ergocalciferol (vitamin D2) 50,000 50,000 units PO WEEKLY #8 cap 10/04/18 12/09/18 Rx unit capsule amlodipine 2.5 mg PO QAM #0 tab 10/27/18 12/09/18 Rx aspirin 81 mg PO QAM #0 tab 10/27/18 12/09/18 Rx acetaminophen 650 mg PO Q6H PRN 12/09/18 12/09/18 History bisacodyl 10 mg NV DAILY PRN 12/09/18 12/09/18 History enoxaparin 40 mg SUBCUT DAILY 12/09/18 12/09/18 History magnesium hydroxide [Milk of 30 ml PO DAILY PRN 12/09/18 12/09/18 History Magnesia] oxybutynin chloride 5 mg PO BID 12/09/18 12/09/18 History polyethylene glycol 3350 17 g PO DAILY PRN 12/09/18 12/09/18 History sodium phosphates [Fleet Enema] 118 ml NV DAILY PRN 12/09/18 12/09/18 History Allergies Allergy/AdvReac Type Severity Reaction Status Date / Time No Known Allergies Allergy Verified 12/09/18 13:22 Past Med/Surg History Medical History Difficulty walking Hypokalemia Right sided weakness Vitamin D deficiency Carotid stenosis H/O: CVA (cerebrovascular accident) Weakness (Acute) Orthostatic hypotension (Chronic) Sinus node dysfunction (Chronic) Pacemaker (Chronic) Leukoencephalopathy (Chronic) HLD (hyperlipidemia) (Chronic) HTN (hypertension) (Chronic) Syncope Dizziness CVA (cerebral vascular accident) Surgical History History of appendectomy (Chronic) Hx of tonsillectomy (Chronic) Family History Mother Heart disease Father Heart disease Other Family history non-contributory Social History Preferred Language: Tristanian Communication Ability: Impaired Visitor Services Information Assistant Required: No Beliefs That Will Affect Care: None marital status: Current Living Situation: Spouse and Family Current Living Situation Comment: pt lives with and son Feels Safe at Home: Yes Smoking Status: Former smoker Second Hand Exposure: No ; Hx Alcohol Use: No Hx Substance Use: No Review of Systems See HPI for pertinent positives & negatives. and A total of 10 systems reviewed and were otherwise negative Physical Exam Vital Signs Vital Signs - 24 hr 12/09/18 12:10 12/09/18 12:13 12/09/18 12:21 Temperature 38.9 C H Temperature Source Rectal Sepsis Recent Fever Within 48 Hours Yes Sepsis New/Unexplained Change in Mental Status Yes Sepsis Action Taken by Nursing Physician Notified Pulse Rate 101 H 101 H 102 H Pulse Rate [Right Finger] Pulse Rate from SpO2 Sensor 103 H 107 H Pulse Rhythm Regular Pulse Strength Normal Respiratory Rate 28 H 28 H 30 H Respiratory Effort / Characteristics Non-Labored Spontaneous Respiratory Depth Normal Respiratory Pattern Tachypnea Blood Pressure 142/109 H 142/109 H Blood Pressure Mean 120 120 Blood Pressure Position Lying Pulse Oximetry 94 94 95 Oxygen Delivery Method Nasal Cannula Nasal Cannula Nasal Cannula Oxygen Flow Rate 6 6 6 Fraction of Inspired Oxygen 12/09/18 12:22 12/09/18 12:30 12/09/18 12:45 Temperature Temperature Source Sepsis Recent Fever Within 48 Hours Sepsis New/Unexplained Change in Mental Status Sepsis Action Taken by Nursing Pulse Rate 101 H 102 H Pulse Rate [Right Finger] Pulse Rate from SpO2 Sensor 101 H 104 H Pulse Rhythm Pulse Strength Respiratory Rate 28 H 28 H Respiratory Effort / Characteristics Respiratory Depth Respiratory Pattern Blood Pressure 152/113 H Blood Pressure Mean 126 Blood Pressure Position Pulse Oximetry 88 L 95 90 Oxygen Delivery Method Room Air Nasal Cannula Oxymask Oxygen Flow Rate 6 6 Fraction of Inspired Oxygen 12/09/18 13:04 12/09/18 13:10 12/09/18 13:15 Temperature Temperature Source Sepsis Recent Fever Within 48 Hours Sepsis New/Unexplained Change in Mental Status Sepsis Action Taken by Nursing Pulse Rate 101 H 99 H 99 H Pulse Rate [Right Finger] Pulse Rate from SpO2 Sensor 101 H 99 H 99 H Pulse Rhythm Pulse Strength Respiratory Rate 53 H 27 H 24 Respiratory Effort / Characteristics Respiratory Depth Respiratory Pattern Blood Pressure 140/99 137/92 Blood Pressure Mean 112 107 Blood Pressure Position Pulse Oximetry 92 92 91 Oxygen Delivery Method High Flow Nasal Cannula High Flow Nasal Cannula High Flow Nasal Cannula Oxygen Flow Rate Fraction of Inspired Oxygen 12/09/18 13:30 12/09/18 13:31 12/09/18 13:45 Temperature Temperature Source Sepsis Recent Fever Within 48 Hours Sepsis New/Unexplained Change in Mental Status Sepsis Action Taken by Nursing Pulse Rate 93 H 90 Pulse Rate [Right Finger] 94 H Pulse Rate from SpO2 Sensor 94 H 90 Pulse Rhythm Pulse Strength Respiratory Rate 22 20 23 Respiratory Effort / Characteristics Non-Labored Spontaneous Respiratory Depth Respiratory Pattern Blood Pressure 135/99 122/87 Blood Pressure Mean 111 98 Blood Pressure Position Pulse Oximetry 93 93 94 Oxygen Delivery Method High Flow Nasal Cannula High Flow Nasal Cannula High Flow Nasal Cannula Oxygen Flow Rate 25 Fraction of Inspired Oxygen 60 12/09/18 14:00 12/09/18 14:15 12/09/18 14:16 Temperature Temperature Source Sepsis Recent Fever Within 48 Hours Sepsis New/Unexplained Change in Mental Status Sepsis Action Taken by Nursing Pulse Rate 88 87 87 Pulse Rate [Right Finger] Pulse Rate from SpO2 Sensor 88 89 88 Pulse Rhythm Pulse Strength Respiratory Rate 21 23 20 Respiratory Effort / Characteristics Respiratory Depth Respiratory Pattern Blood Pressure 116/86 104/77 Blood Pressure Mean 96 86 Blood Pressure Position Pulse Oximetry 94 94 94 Oxygen Delivery Method High Flow Nasal Cannula High Flow Nasal Cannula High Flow Nasal Cannula Oxygen Flow Rate Fraction of Inspired Oxygen 12/09/18 14:30 12/09/18 14:31 12/09/18 14:45 Temperature 36.8 C Temperature Source Sepsis Recent Fever Within 48 Hours Sepsis New/Unexplained Change in Mental Status Sepsis Action Taken by Nursing Pulse Rate 87 87 86 Pulse Rate [Right Finger] Pulse Rate from SpO2 Sensor 87 86 86 Pulse Rhythm Pulse Strength Respiratory Rate 23 22 18 Respiratory Effort / Characteristics Respiratory Depth Respiratory Pattern Blood Pressure 118/95 Blood Pressure Mean 102 Blood Pressure Position Pulse Oximetry 94 95 94 Oxygen Delivery Method High Flow Nasal Cannula High Flow Nasal Cannula High Flow Nasal Cannula Oxygen Flow Rate Fraction of Inspired Oxygen 12/09/18 14:56 12/09/18 15:00 Temperature Temperature Source Sepsis Recent Fever Within 48 Hours Sepsis New/Unexplained Change in Mental Status Sepsis Action Taken by Nursing Pulse Rate 84 85 Pulse Rate [Right Finger] Pulse Rate from SpO2 Sensor 84 77 Pulse Rhythm Pulse Strength Respiratory Rate 18 22 Respiratory Effort / Characteristics Respiratory Depth Respiratory Pattern Blood Pressure 123/94 134/95 Blood Pressure Mean 103 108 Blood Pressure Position Pulse Oximetry 94 94 Oxygen Delivery Method Room Air Room Air Oxygen Flow Rate Fraction of Inspired Oxygen GENERAL: distressed. HENT: Exam performed. Head: Normocephalic and atraumatic. Right Ear: External ear normal. No mastoid tenderness. Left Ear: External ear normal. No mastoid tenderness. Mouth/Throat: Dry mucous membranes. EYES: Conjunctivae and EOM are normal. Pupils are equal, round, and reactive to light. Right eye exhibits no discharge. Left eye exhibits no discharge. No scleral icterus. NECK: Normal range of motion. Neck supple. No JVD present. No spinous process tenderness present. No carotid bruit present. No rigidity. No tracheal deviation and normal range of motion present. No Brudzinski's sign and no Kernig's sign noted. CV: Tachycardic rate, regular rhythm, normal heart sounds and intact distal pulses. There is no peripheral edema. Palpable radial pulses bue. PULM/CHEST: Tachypneic. Diminished breath sounds bilaterally. Rales at bases bilaterally. Rhonchi are present. Chest Wall: She exhibits no tenderness. ABD: The abdomen is soft. Bowel sounds are normal. She has no distension. No mass is present. There is no tenderness. There is no rebound, no guarding, no Logan's sign and no tenderness at McBurney's point. Rovsig negative NEURO: GCS eyes E:4 V:1 M:4. Patient is aphasic at baseline. SKIN: Skin is warm and dry. She is not diaphoretic. Course 1212: Past medical records reviewed. The patient was evaluated in room C10. A complete history and physical exam was performed. The patient was febrile, tachycardic, and hypoxic on room air upon arrival. She was started on 4 L nasal canula and fluid resuscitation begun. Code sepsis was called. IV fluid resuscitation with normal saline was begun. 1324: The patients oxygen saturation is still low, so she was started on Vapotherm. 1330: Sodium is 158 and blood pressure is normal. Normal saline infusion was stopped, and will be switched to lactated ringers for fluid resuscitation and attempt to not contribute to her hypernatremia. Zosyn will be started for presumed aspirated pneumonia sepsis. Chest x-ray showed right-sided pneumonia likely to be aspiration pneumonia. 1400: I spoke to Bella Mittal, [facility] hospitalist, who agreed to take over care of the patient. I updated the the patient, who verbally expressed understanding and agreement of the treatment plan. The patient will be evaluated for further treatment. Administered Medications Piperacillin Sod/Tazobactam Sod (Zosyn) 4.5 gm in 120 mls @ 30 mls/hr IV NOW ONE Stop: 12/09/18 17:27 Last Infusion: 12/09/18 14:26 Dose: 0 mls/hr Documented by: [id number] Admin: 12/09/18 13:41 Dose: 120 mls/hr Documented by: [id number] Lactated Ringer's (Lr) 1,000 mls @ 125 mls/hr IV .Q8H LATOYA Stop: 01/08/19 13:44 Last Admin: 12/09/18 13:41 Dose: 125 mls/hr Documented by: [id number] Discontinued Medications Sodium Chloride (Nss 1000ml) 1,000 mls @ 999 mls/hr IV .Q1H1M LATOYA Stop: 12/09/18 13:30 Last Infusion: 12/09/18 13:30 Dose: 0 mls/hr Documented by: [id number] Admin: 12/09/18 12:40 Dose: 999 mls/hr Documented by: [id number] Acetaminophen (Ofirmev) 1,000 mg in 100 mls @ 400 mls/hr IV NOW STA Stop: 12/09/18 12:37 Last Infusion: 12/09/18 12:55 Dose: 0 mls/hr Documented by: [id number] Admin: 12/09/18 12:40 Dose: 400 mls/hr Documented by: [id number] Vancomycin HCl 1,250 mg/ (Sodium Chloride) 525 mls @ 200 mls/hr IV NOW ONE Stop: 12/09/18 16:24 Last Admin: 12/09/18 14:27 Dose: 200 mls/hr Documented by: [id number] Medical Decision Making Medical Records Attestation: I reviewed the patient's medical records. Home Medications Current Medication List: was personally reviewed by me Laboratory Data Attestation: I reviewed the patient's lab results. Result diagrams: 12/09/18 12:44 12/09/18 12:44 Lab Results 12/09/18 12/09/18 12/09/18 Range/Units 12:20 12:44 12:44 WBC 19.27 H (4.8-10.8) K/uL RBC 5.34 (4.2-5.4) M/uL Hgb 17.0 H (12.0-16.0) g/dL Hct 51.2 H (37-47) % MCV 95.9 (80-100) fL MCH 31.8 (25-34) pg MCHC 33.2 (32-36) g/dL RDW Std Deviation 51.8 H (36.4-46.3) fL RDW Coeff of [place] 14.8 H (11.5-14.5) % Plt Count 280 (130-400) K/uL MPV 10.3 (7.4-10.4) fL Immature Gran % (Auto) 0.3 % Neut % (Auto) 87.2 % Lymph % (Auto) 7.4 % Noble % (Auto) 5.0 % Eos % (Auto) 0.0 % Baso % (Auto) 0.1 % Immature Gran # (Auto) 0.06 H (0.00-0.02) K/uL Neut # (Auto) 16.80 H (1.4-6.5) K/uL Lymph # (Auto) 1.43 (1.2-3.4) K/uL Noble # (Auto) 0.97 H (0.11-0.59) K/uL Eos # (Auto) 0.00 (0-0.5) K/uL Baso # (Auto) 0.01 (0-0.2) K/uL PT 13.1 H (9.0-12.0) Seconds INR 1.3 H (0.9-1.1) APTT 28.4 (21.0-31.0) Seconds PTT Ratio 1.0 VBG pH (7.36-7.41) VBG pCO2 (38-50) mmHg VBG pO2 mmHg VBG HCO3 mmol/L VBG O2 Saturation % VBG Base Excess mEq/L Barometric Pressure mm/Hg Sodium (136-145) mmol/L Potassium (3.5-5.1) mmol/L Chloride (98-107) mmol/L Carbon Dioxide (21-32) mmol/L Anion Gap (3-11) BUN (7-18) mg/dl Creatinine (0.6-1.2) mg/dl Est Cr Clr Drug Dosing ml/min Est GFR ( Amer) Est GFR (Non-Af Amer) BUN/Creatinine Ratio (10-20) Glucose (70-99) mg/dl Lactate (0.4-2.0) mmol/L Calcium (8.5-10.1) mg/dl Magnesium (1.8-2.4) mg/dl Total Bilirubin (0.2-1) mg/dl AST (15-37) U/L ALT (12-78) U/L Alkaline Phosphatase (45-117) U/L Troponin I (0-0.045) ng/ml Total Protein (6.4-8.2) gm/dl Albumin (3.4-5.0) gm/dl Globulin (2.5-4.0) gm/dl Albumin/Globulin Ratio (0.9-2) Procalcitonin (0-0.5) ng/ml Urine Color Yellow Urine Appearance Cloudy A (Clear) Urine pH 5.0 (4.5-7.5) Ur Specific [place] 1.030 (1.000-1.030) Urine Protein Negative (Negative) Urine Glucose (UA) Negative (Negative) Urine Ketones Negative (Negative) Urine Blood 1+ H (Negative) Urine Nitrite Negative (Negative) Urine Bilirubin Negative (Negative) Urine Urobilinogen Negative (Negative) Ur Leukocyte Esterase Negative (Negative) Urine WBC (Auto) 1-5 (0-5) /hpf Urine RBC (Auto) 0-4 (0-4) /hpf U Hyaline Cast (Auto) 5-10 H (0-5) /lpf U Epithel Cells (Auto) >30 H (0-5) /lpf Urine Bacteria (Auto) Negative (Negative) Granular Casts 1-5 H (0) /lpf 12/09/18 12/09/18 12/09/18 Range/Units 12:44 12:44 12:44 WBC (4.8-10.8) K/uL RBC (4.2-5.4) M/uL Hgb (12.0-16.0) g/dL Hct (37-47) % MCV (80-100) fL MCH (25-34) pg MCHC (32-36) g/dL RDW Std Deviation (36.4-46.3) fL RDW Coeff of [place] (11.5-14.5) % Plt Count (130-400) K/uL MPV (7.4-10.4) fL Immature Gran % (Auto) % Neut % (Auto) % Lymph % (Auto) % Noble % (Auto) % Eos % (Auto) % Baso % (Auto) % Immature Gran # (Auto) (0.00-0.02) K/uL Neut # (Auto) (1.4-6.5) K/uL Lymph # (Auto) (1.2-3.4) K/uL Noble # (Auto) (0.11-0.59) K/uL Eos # (Auto) (0-0.5) K/uL Baso # (Auto) (0-0.2) K/uL PT (9.0-12.0) Seconds INR (0.9-1.1) APTT (21.0-31.0) Seconds PTT Ratio VBG pH 7.49 H (7.36-7.41) VBG pCO2 34 L (38-50) mmHg VBG pO2 53 mmHg VBG HCO3 26 mmol/L VBG O2 Saturation 87.3 % VBG Base Excess 2.9 mEq/L Barometric Pressure 737.0 mm/Hg Sodium 158 H* (136-145) mmol/L Potassium 3.8 (3.5-5.1) mmol/L Chloride 125 H (98-107) mmol/L Carbon Dioxide 26 (21-32) mmol/L Anion Gap 6.0 (3-11) BUN 41 H (7-18) mg/dl Creatinine 0.99 (0.6-1.2) mg/dl Est Cr Clr Drug Dosing 45.9 ml/min Est GFR ( Amer) 66.0 Est GFR (Non-Af Amer) 56.9 BUN/Creatinine Ratio 41.6 H (10-20) Glucose 150 H (70-99) mg/dl Lactate (0.4-2.0) mmol/L Calcium 9.9 (8.5-10.1) mg/dl Magnesium 2.8 H (1.8-2.4) mg/dl Total Bilirubin 0.8 (0.2-1) mg/dl AST 24 (15-37) U/L ALT 35 (12-78) U/L Alkaline Phosphatase 87 (45-117) U/L Troponin I 0.035 (0-0.045) ng/ml Total Protein 8.0 (6.4-8.2) gm/dl Albumin 3.2 L (3.4-5.0) gm/dl Globulin 4.8 H (2.5-4.0) gm/dl Albumin/Globulin Ratio 0.7 L (0.9-2) Procalcitonin 0.11 (0-0.5) ng/ml Urine Color Urine Appearance (Clear) Urine pH (4.5-7.5) Ur Specific [place] (1.000-1.030) Urine Protein (Negative) Urine Glucose (UA) (Negative) Urine Ketones (Negative) Urine Blood (Negative) Urine Nitrite (Negative) Urine Bilirubin (Negative) Urine Urobilinogen (Negative) Ur Leukocyte Esterase (Negative) Urine WBC (Auto) (0-5) /hpf Urine RBC (Auto) (0-4) /hpf U Hyaline Cast (Auto) (0-5) /lpf U Epithel Cells (Auto) (0-5) /lpf Urine Bacteria (Auto) (Negative) Granular Casts (0) /lpf 09/14/19 Range/Units 13:20 WBC (4.8-10.8) K/uL RBC (4.2-5.4) M/uL Hgb (12.0-16.0) g/dL Hct (37-47) % MCV (80-100) fL MCH (25-34) pg MCHC (32-36) g/dL RDW Std Deviation (36.4-46.3) fL RDW Coeff of [place] (11.5-14.5) % Plt Count (130-400) K/uL MPV (7.4-10.4) fL Immature Gran % (Auto) % Neut % (Auto) % Lymph % (Auto) % Noble % (Auto) % Eos % (Auto) % Baso % (Auto) % Immature Gran # (Auto) (0.00-0.02) K/uL Neut # (Auto) (1.4-6.5) K/uL Lymph # (Auto) (1.2-3.4) K/uL Noble # (Auto) (0.11-0.59) K/uL Eos # (Auto) (0-0.5) K/uL Baso # (Auto) (0-0.2) K/uL PT (9.0-12.0) Seconds INR (0.9-1.1) APTT (21.0-31.0) Seconds PTT Ratio VBG pH (7.36-7.41) VBG pCO2 (38-50) mmHg VBG pO2 mmHg VBG HCO3 mmol/L VBG O2 Saturation % VBG Base Excess mEq/L Barometric Pressure mm/Hg Sodium (136-145) mmol/L Potassium (3.5-5.1) mmol/L Chloride (98-107) mmol/L Carbon Dioxide (21-32) mmol/L Anion Gap (3-11) BUN (7-18) mg/dl Creatinine (0.6-1.2) mg/dl Est Cr Clr Drug Dosing ml/min Est GFR ( Amer) Est GFR (Non-Af Amer) BUN/Creatinine Ratio (10-20) Glucose (70-99) mg/dl Lactate 1.5 (0.4-2.0) mmol/L Calcium (8.5-10.1) mg/dl Magnesium (1.8-2.4) mg/dl Total Bilirubin (0.2-1) mg/dl AST (15-37) U/L ALT (12-78) U/L Alkaline Phosphatase (45-117) U/L Troponin I (0-0.045) ng/ml Total Protein (6.4-8.2) gm/dl Albumin (3.4-5.0) gm/dl Globulin (2.5-4.0) gm/dl Albumin/Globulin Ratio (0.9-2) Procalcitonin (0-0.5) ng/ml Urine Color Urine Appearance (Clear) Urine pH (4.5-7.5) Ur Specific [place] (1.000-1.030) Urine Protein (Negative) Urine Glucose (UA) (Negative) Urine Ketones (Negative) Urine Blood (Negative) Urine Nitrite (Negative) Urine Bilirubin (Negative) Urine Urobilinogen (Negative) Ur Leukocyte Esterase (Negative) Urine WBC (Auto) (0-5) /hpf Urine RBC (Auto) (0-4) /hpf U Hyaline Cast (Auto) (0-5) /lpf U Epithel Cells (Auto) (0-5) /lpf Urine Bacteria (Auto) (Negative) Granular Casts (0) /lpf Imaging Data Radiologist's Impression: Radiology results as stated below per my review and the radiologist's interpretation: CT head/brain wo con CLINICAL HISTORY: 73 years-old Female presenting with ams. TECHNIQUE: Multidetector CT imaging of the head was performed without the use of intravenous contrast. IV contrast: None. One or more dose lowering techniques were used consistent with the principles of ALARA (as low as reasonably achievable), including automatic exposure control, mA or kV adjustment to individual patient size, and/or use of iterative reconstruction. COMPARISON: 10/21/2018. CT DOSE (mGy.cm): The estimated cumulative dose is 537.48 mGy.cm. FINDINGS: Assurance Senior Manager topogram: Unremarkable. Proportional ventricular and sulcal prominence, likely age-related parenchymal volume loss. No hemorrhage. Periventricular and subcortical white matter hypoattenuation, nonspecific but likely indicative of chronic small vessel ischemic change. No acute territorial infarct. No mass effect or midline shift. No extra-axial fluid collection. Paranasal sinuses and mastoid air cells clear. Calvarium intact. IMPRESSION: 1. Chronic small vessel ischemic change. No acute intracranial abnormality. Electronically signed by: Brian Hoyt M.D. 12/09/2018 1:07 PM XR chest 1V portable CLINICAL HISTORY: 73 years-old Female presenting with Sepsis. TECHNIQUE: Portable upright AP view of the chest was obtained. COMPARISON: 10/21/2018. FINDINGS: Left subclavian pacer leads to the right atrium and right ventricular apex. Atherosclerosis of the mildly tortuous and prominent thoracic aorta. Mild cardiac silhouette enlargement. Interval development of a right paramediastinal basilar opacity. No large effusion or pneumothorax. Degenerative changes of the thoracic spine. Chronic widening of the left AC joint. Osteopenia may be present. Upper abdomen normal. IMPRESSION: 1. Right basilar infiltrate concerning for pneumonia. PA and lateral views would better depict this. 2. Mild cardiomegaly. Electronically signed by: Brian Hoyt M.D. 12/09/2018 1:33 PM ECG Data Attestation: I personally reviewed and interpreted this ECG as follows: Indication: other (unresponsive) Rate (beats per minute): 102 Rhythm: sinus rhythm Findings: + other (NV, QRS, and QTC intervals within normal limits. P wave inversion in leads V2-V6 and AVL); no ST depression and no ST elevation Comparison ECG Date: from (September 2018) Change: no significant change Blood Pressure Blood Pressure Findings: Normal blood pressure Blood Pressure Disposition: did not require urgent referral MDM Narrative 1212: Past medical records reviewed. The patient was evaluated in room C10. A complete history and physical exam was performed. The patient was febrile, tachycardic, and hypoxic on room air upon arrival. She was started on 4 L nasal canula and fluid resuscitation begun. Code sepsis was called. IV fluid resuscitation with normal saline was begun. 1324: The patients oxygen saturation is still low, so she was started on Vapotherm. 1330: Sodium is 158 and blood pressure is normal. Normal saline infusion was stopped, and will be switched to lactated ringers for fluid resuscitation and attempt to not contribute to her hypernatremia. Zosyn will be started for presumed aspirated pneumonia sepsis. Chest x-ray showed right-sided pneumonia likely to be aspiration pneumonia. 1400: I spoke to Bella Mittal, [facility] hospitalist, who agreed to take over care of the patient. I updated the the patient, who verbally expressed understanding and agreement of the treatment plan. The patient will be evaluated for further treatment. Impression & Plan Sepsis, PNA (pneumonia), Hypoxia, Acute hypernatremia Critical Care Time Critical Care Time: Yes Total Critical Care Time: 73 I have personally spent 73 minutes of critical care time in the direct management of this patient. This includes bedside care, interpretation of diagnostic studies, and testing, discussion with consultants, patient, and family members, and other required patient management activities. This 73 minutes is in excess of all separately billable procedures. Discharge Plan Visit Data *Final* Discharge Date/Time: 12/09/18 15:55 Chief Complaint: Unresponsive Stated Complaint: unresponsive/poss. sepsis ED Provider: Favian Rodriguez Discharge Problem: Sepsis, PNA (pneumonia), Hypoxia, Acute hypernatremia Patient Disposition: Admitted As Inpatient Discharge Instructions Interventions: ED Discharge Assessment Last Done: 12/09/18 15:55 The scribe's documentation has been prepared under my direction and personally reviewed by me in its entirety. I confirm that the note above accurately reflects all work, treatment, procedures, and medical decision making performed by me.
[2018-12-09] MEDS ORDERED: DOCUSATE SODIUM/SENNA 50/8.6MG TAB PO PRN (16:44)
[2018-12-09] MEDS ORDERED: ACETAMINOPHEN 325 MG TAB PO PRN ×2 (16:44)
[2018-12-09] MEDS ORDERED: SOD PHOSPHATE/SOD BIPHOSPHATE ENEMA 132 ML BTL PR PRN (16:44)
[2018-12-09] MEDS ORDERED: PIPERACILL/TAZOBAC CONSULT ACTIVE PRN (16:44)
[2018-12-09] MEDS ORDERED: bisacodyL 10 MG SUPP PR PRN (16:44)
[2018-12-09] MEDS ORDERED: POLYETHYLENE (MIRALAX) 17 GM PACK PO PRN (16:44)
[2018-12-09] MEDS ORDERED: ONDANSETRON INJ 2 MG/ML 2 ML VIAL IV PRN (16:44)
[2018-12-09] MEDS ORDERED: MAGNESIUM HYDROXIDE SUSP 30 ML UDC PO PRN ×2 (16:44)
[2018-12-09] MEDS ORDERED: SODIUM CHLORIDE 0.45 % 1,000 ML IV SCH (17:00)
[2018-12-09] MEDS: LACTATED RINGER'S 1,000 ML IV SCH (18:37)
[2018-12-09] MEDS: OXYBUTYNIN CHLORIDE 5 MG TAB PO SCH (20:46)
[2018-12-09] MEDS: PIPERACILLIN/TAZOBACTAM 3.375 GM in DEXTROSE 5% 100 ML IV SCH (20:46)
[2018-12-09] MEDS: ATORVASTATIN 40 MG TAB PO SCH (20:46)
[2018-12-10] MEDS: PIPERACILLIN/TAZOBACTAM 3.375 GM in DEXTROSE 5% 100 ML IV SCH ×3 (04:15→20:31)
[2018-12-10 06:04] LABS: Basophils # (auto) 0.02 K/uL (0-0.2); Basophils % (auto) 0.1 %; Eosinophils # (auto) 0.02 K/uL (0-0.5); Eosinophils % (auto) 0.1 %; Hemoglobin 13.9 g/dL (12.0-16.0); Immature Granulocytes # (auto) 0.08 K/uL (0.00-0.02); Immature Granulocytes % (auto) 0.5 %; Lymphocytes # (auto) 1.21 K/uL (1.2-3.4); Mean Corpuscular Hemoglobin 30.7 pg (25-34); Mean Corpuscular Hgb Conc 31.6 g/dL (32-36); Mean Corpuscular Volume 97.1 fL (80-100); Mean Platelet Volume 10.2 fL (7.4-10.4); Monocytes # (auto) 0.65 K/uL (0.11-0.59); Monocytes % (auto) 3.8 %; Neutrophils # (auto) 15.27 K/uL (1.4-6.5); Neutrophils % (auto) 88.5 %; Platelet Count 217 K/uL (130-400); RDW Coefficient of Variation 14.7 % (11.5-14.5); RDW Standard Deviation 52.6 fL (36.4-46.3); Red Blood Count 4.53 M/uL (4.2-5.4); White Blood Count 17.25 K/uL (4.8-10.8)
[2018-12-10] MEDS: LACTATED RINGER'S 1,000 ML IV SCH (06:19)
[2018-12-10 06:52] LABS: BUN Creatinine Ratio 39.1 (10-20); Calcium 9.3 mg/dl (8.5-10.1); Creatinine Clr Calc Pharmacy 49.5 ml/min; Est GFR (African American) 79.3; Est GFR (Non-African American) 68.5; Magnesium 2.4 mg/dl (1.8-2.4); Potassium 3.4 mmol/L (3.5-5.1)
[2018-12-10] MEDS ORDERED: POTASSIUM CHLORIDE 20 MEQ TABCR PO ONE (08:19)
[2018-12-10] MEDS ORDERED: DEXTROSE 5% 1,000 ML IV SCH (08:30)
[2018-12-10] MEDS: ENOXAPARIN INJ 40 MG/0.4 ML SYR SQ SCH (08:51)
[2018-12-10] MEDS: OXYBUTYNIN CHLORIDE 5 MG TAB PO SCH ×2 (08:51→20:32)
[2018-12-10] MEDS: ASPIRIN 81 MG ECTAB PO SCH (08:52)
[2018-12-10] MEDS: LOSARTAN POTASSIUM 25 MG TAB PO SCH (08:53)
[2018-12-10] MEDS: AMLODIPINE BESYLATE 5 MG TAB PO SCH (08:53)
[2018-12-10] MEDS: CLOPIDOGREL BISULFATE 75 MG TAB PO SCH (08:54)
[2018-12-10] MEDS: POTASSIUM CHLORIDE 20 MEQ TABCR PO SCH (08:55)
[2018-12-10] MEDS ORDERED: VANCOMYCIN HCL 500 MG in SODIUM CHLORIDE 0.9% 250 ML IV SCH (09:00)
[2018-12-10] MEDS: VANCOMYCIN HCL 1,000 MG in SODIUM CHLORIDE 0.9% 250 ML IV SCH (09:52)
--- NOTE | 2018-12-10 12:10 | Hospitalist Progress Note ---
Date of Service December 10, 2018 Assessment & Plan (1) Acute encephalopathy: - Pt. is nonverbal at baseline but has developed worsening confusion at [facility]. - CT head was negative; consider repeat brain MRI -- history of CVA, most recently in September 2018. - Likely related to pneumonia and severe dehydration with hypernatremia; CXR showed right infiltrate. - U/a was negative; Blood cultures are pending. - Continue Zosyn and Vancomycin for empiric coverage. - Na level 160 -- see below; on D5W at 100 cc/hr. (2) PNA (pneumonia): - CXR with right infiltrate; pt. is chronic aspirator at [facility], concern for aspiration PNA. - WBC increased to 19.2 on admission, now trending down. Lactate was WNL. - Please continue Zosyn and Vancomycin for empiric coverage. - No indication for nebs. (3) Acute respiratory failure with hypoxia: - Currently requiring 4L via NC -- likely related to PNA. - Will continue to wean oxygen as tolerated. (4) Swallowing difficulty: - Has been evaluated by speech therapy, approved for pureed diet at [facility]. - Aspirated pills this morning -- will make NPO pending speech therapy consult. (5) Hypernatremia: - Related to dehydration in setting of poor PO intake. - Convert LR to D5W, continue at 100 cc/hr. - Repeat BMP this evening to monitor for improvement. (6) H/O: CVA (cerebrovascular accident): - History of CVA x 2, most recently in September 2018. - Continue ASA, Plavix and statin as prescribed. - Follows with neurology. (7) HLD (hyperlipidemia): - Continue home statin as prescribed. (8) HTN (hypertension): - Continue home Losartan and Amlodipine as prescribed. (9) Carotid artery stenosis: - Managed conservatively per discharge summary from October 2018. - Neck CTA in September showed high grade stenosis at proximal right internal carotid artery with up to 90% calcified plaque, 70% on left - Continue statin, aspirin and plavix as prescribed. (10) Urinary incontinence: - Continue home Oxybutynin as prescribed. (11) Pacemaker: - H/o SA node dysfunction s/p pacemaker placement. - Monitored as outpatient, no indication for pacemaker interrogation as inpt. (12) Hypokalemia: - K level 3.4 -- ordered K 20 mEq PO. (13) DVT prophylaxis: - Lovenox q24hr. Dispo: Med/surg with tele; discharge pending improvement in altered mental status. Supervising Physician Co-Signing Physician Notes PA Supervision Note: I did not personally see or examine the patient today, but I verified all bess points of LESLIE Canela's assessment and plan with the following exceptions/additions: None Subjective Pt. is non verbal. Nurse reports she aspirated most of her pills -- will make NPO, speech therapy evaluation pending. Review of Systems Review of Systems: Unobtainable due to cognitive status Physical Exam Physical Exam: General: Elderly female, no acute distress. HEENT: NC/AT; PERRLA with EOMI; [place] conjunctiva, MMM. No erythema of posterior pharynx Neck: Supple and nontender Cardiac: RRR Lungs: CTA bilaterally Abdomen: Abdomen is mildly distended; Bowel normoactive X 4; Nontender to palpation Extremities: Warm. No edema present Neuro: No focal weakness; does not respond to verbal stimuli. Results & Data Vital Signs (Past 12 Hours) Vital Signs Temp Pulse Pulse Resp BP Pulse Ox 12/10/18 07:20 95 H 20 94 12/10/18 07:18 36.9 C 90 19 121/82 94 12/10/18 07:00 90 12/10/18 03:39 36.4 C L 80 19 116/78 93 12/10/18 00:00 36.4 C L 83 20 123/83 92 Laboratory Results 12/10/18 12/10/18 12/09/18 Range/Units 05:31 05:31 16:35 WBC 17.25 H (4.8-10.8) K/uL RBC 4.53 (4.2-5.4) M/uL Hgb 13.9 D (12.0-16.0) g/dL Hct 44.0 (37-47) % MCV 97.1 (80-100) fL MCH 30.7 (25-34) pg MCHC 31.6 L (32-36) g/dL RDW Std Deviation 52.6 H (36.4-46.3) fL RDW Coeff of [place] 14.7 H (11.5-14.5) % Plt Count 217 (130-400) K/uL MPV 10.2 (7.4-10.4) fL Immature Gran % (Auto) 0.5 % Neut % (Auto) 88.5 % Lymph % (Auto) 7.0 % [place] % (Auto) 3.8 % Eos % (Auto) 0.1 % Baso % (Auto) 0.1 % Immature Gran # (Auto) 0.08 H (0.00-0.02) K/uL Neut # (Auto) 15.27 H (1.4-6.5) K/uL Lymph # (Auto) 1.21 (1.2-3.4) K/uL [place] # (Auto) 0.65 H (0.11-0.59) K/uL Eos # (Auto) 0.02 (0-0.5) K/uL Baso # (Auto) 0.02 (0-0.2) K/uL PT (9.0-12.0) Seconds INR (0.9-1.1) APTT (21.0-31.0) Seconds PTT Ratio VBG pH (7.36-7.41) VBG pCO2 (38-50) mmHg VBG pO2 mmHg VBG HCO3 mmol/L VBG O2 Saturation % VBG Base Excess mEq/L Barometric Pressure mm/Hg Sodium 160 H* (136-145) mmol/L Potassium 3.4 L (3.5-5.1) mmol/L Chloride 127 H (98-107) mmol/L Carbon Dioxide 31 (21-32) mmol/L Anion Gap 2.0 L (3-11) BUN 33 H (7-18) mg/dl Creatinine 0.85 (0.6-1.2) mg/dl Est Cr Clr Drug Dosing 49.5 ml/min Est GFR ( Amer) 79.3 Est GFR (Non-Af Amer) 68.5 BUN/Creatinine Ratio 39.1 H (10-20) Glucose 129 H (70-99) mg/dl Lactate (0.4-2.0) mmol/L Calcium 9.3 (8.5-10.1) mg/dl Magnesium 2.4 (1.8-2.4) mg/dl Total Bilirubin (0.2-1) mg/dl AST (15-37) U/L ALT (12-78) U/L Alkaline Phosphatase (45-117) U/L Troponin I (0-0.045) ng/ml Total Protein (6.4-8.2) gm/dl Albumin (3.4-5.0) gm/dl Globulin (2.5-4.0) gm/dl Albumin/Globulin Ratio (0.9-2) Procalcitonin (0-0.5) ng/ml Urine Color Urine Appearance (Clear) Urine pH (4.5-7.5) Ur Specific [place] (1.000-1.030) Urine Protein (Negative) Urine Glucose (UA) (Negative) Urine Ketones (Negative) Urine Blood (Negative) Urine Nitrite (Negative) Urine Bilirubin (Negative) Urine Urobilinogen (Negative) Ur Leukocyte Esterase (Negative) Urine WBC (Auto) (0-5) /hpf Urine RBC (Auto) (0-4) /hpf U Hyaline Cast (Auto) (0-5) /lpf U Epithel Cells (Auto) (0-5) /lpf Urine Bacteria (Auto) (Negative) Granular Casts (0) /lpf Nasal Screen MRSA (PCR) Negative (Negative) 12/09/18 12/09/18 12/09/18 Range/Units 13:20 12:44 12:44 WBC (4.8-10.8) K/uL RBC (4.2-5.4) M/uL Hgb (12.0-16.0) g/dL Hct (37-47) % MCV (80-100) fL MCH (25-34) pg MCHC (32-36) g/dL RDW Std Deviation (36.4-46.3) fL RDW Coeff of [place] (11.5-14.5) % Plt Count (130-400) K/uL MPV (7.4-10.4) fL Immature Gran % (Auto) % Neut % (Auto) % Lymph % (Auto) % [place] % (Auto) % Eos % (Auto) % Baso % (Auto) % Immature Gran # (Auto) (0.00-0.02) K/uL Neut # (Auto) (1.4-6.5) K/uL Lymph # (Auto) (1.2-3.4) K/uL [place] # (Auto) (0.11-0.59) K/uL Eos # (Auto) (0-0.5) K/uL Baso # (Auto) (0-0.2) K/uL PT (9.0-12.0) Seconds INR (0.9-1.1) APTT (21.0-31.0) Seconds PTT Ratio VBG pH 7.49 H (7.36-7.41) VBG pCO2 34 L (38-50) mmHg VBG pO2 53 mmHg VBG HCO3 26 mmol/L VBG O2 Saturation 87.3 % VBG Base Excess 2.9 mEq/L Barometric Pressure 737.0 mm/Hg Sodium (136-145) mmol/L Potassium (3.5-5.1) mmol/L Chloride (98-107) mmol/L Carbon Dioxide (21-32) mmol/L Anion Gap (3-11) BUN (7-18) mg/dl Creatinine (0.6-1.2) mg/dl Est Cr Clr Drug Dosing ml/min Est GFR ( Amer) Est GFR (Non-Af Amer) BUN/Creatinine Ratio (10-20) Glucose (70-99) mg/dl Lactate 1.5 (0.4-2.0) mmol/L Calcium (8.5-10.1) mg/dl Magnesium (1.8-2.4) mg/dl Total Bilirubin (0.2-1) mg/dl AST (15-37) U/L ALT (12-78) U/L Alkaline Phosphatase (45-117) U/L Troponin I (0-0.045) ng/ml Total Protein (6.4-8.2) gm/dl Albumin (3.4-5.0) gm/dl Globulin (2.5-4.0) gm/dl Albumin/Globulin Ratio (0.9-2) Procalcitonin 0.11 (0-0.5) ng/ml Urine Color Urine Appearance (Clear) Urine pH (4.5-7.5) Ur Specific [place] (1.000-1.030) Urine Protein (Negative) Urine Glucose (UA) (Negative) Urine Ketones (Negative) Urine Blood (Negative) Urine Nitrite (Negative) Urine Bilirubin (Negative) Urine Urobilinogen (Negative) Ur Leukocyte Esterase (Negative) Urine WBC (Auto) (0-5) /hpf Urine RBC (Auto) (0-4) /hpf U Hyaline Cast (Auto) (0-5) /lpf U Epithel Cells (Auto) (0-5) /lpf Urine Bacteria (Auto) (Negative) Granular Casts (0) /lpf Nasal Screen MRSA (PCR) (Negative) 12/09/18 12/09/18 12/09/18 Range/Units 12:44 12:44 12:44 WBC 19.27 H (4.8-10.8) K/uL RBC 5.34 (4.2-5.4) M/uL Hgb 17.0 H (12.0-16.0) g/dL Hct 51.2 H (37-47) % MCV 95.9 (80-100) fL MCH 31.8 (25-34) pg MCHC 33.2 (32-36) g/dL RDW Std Deviation 51.8 H (36.4-46.3) fL RDW Coeff of [place] 14.8 H (11.5-14.5) % Plt Count 280 (130-400) K/uL MPV 10.3 (7.4-10.4) fL Immature Gran % (Auto) 0.3 % Neut % (Auto) 87.2 % Lymph % (Auto) 7.4 % [place] % (Auto) 5.0 % Eos % (Auto) 0.0 % Baso % (Auto) 0.1 % Immature Gran # (Auto) 0.06 H (0.00-0.02) K/uL Neut # (Auto) 16.80 H (1.4-6.5) K/uL Lymph # (Auto) 1.43 (1.2-3.4) K/uL [place] # (Auto) 0.97 H (0.11-0.59) K/uL Eos # (Auto) 0.00 (0-0.5) K/uL Baso # (Auto) 0.01 (0-0.2) K/uL PT 13.1 H (9.0-12.0) Seconds INR 1.3 H (0.9-1.1) APTT 28.4 (21.0-31.0) Seconds PTT Ratio 1.0 VBG pH (7.36-7.41) VBG pCO2 (38-50) mmHg VBG pO2 mmHg VBG HCO3 mmol/L VBG O2 Saturation % VBG Base Excess mEq/L Barometric Pressure mm/Hg Sodium 158 H* (136-145) mmol/L Potassium 3.8 (3.5-5.1) mmol/L Chloride 125 H (98-107) mmol/L Carbon Dioxide 26 (21-32) mmol/L Anion Gap 6.0 (3-11) BUN 41 H (7-18) mg/dl Creatinine 0.99 (0.6-1.2) mg/dl Est Cr Clr Drug Dosing 45.9 ml/min Est GFR ( Amer) 66.0 Est GFR (Non-Af Amer) 56.9 BUN/Creatinine Ratio 41.6 H (10-20) Glucose 150 H (70-99) mg/dl Lactate (0.4-2.0) mmol/L Calcium 9.9 (8.5-10.1) mg/dl Magnesium 2.8 H (1.8-2.4) mg/dl Total Bilirubin 0.8 (0.2-1) mg/dl AST 24 (15-37) U/L ALT 35 (12-78) U/L Alkaline Phosphatase 87 (45-117) U/L Troponin I 0.035 (0-0.045) ng/ml Total Protein 8.0 (6.4-8.2) gm/dl Albumin 3.2 L (3.4-5.0) gm/dl Globulin 4.8 H (2.5-4.0) gm/dl Albumin/Globulin Ratio 0.7 L (0.9-2) Procalcitonin (0-0.5) ng/ml Urine Color Urine Appearance (Clear) Urine pH (4.5-7.5) Ur Specific [place] (1.000-1.030) Urine Protein (Negative) Urine Glucose (UA) (Negative) Urine Ketones (Negative) Urine Blood (Negative) Urine Nitrite (Negative) Urine Bilirubin (Negative) Urine Urobilinogen (Negative) Ur Leukocyte Esterase (Negative) Urine WBC (Auto) (0-5) /hpf Urine RBC (Auto) (0-4) /hpf U Hyaline Cast (Auto) (0-5) /lpf U Epithel Cells (Auto) (0-5) /lpf Urine Bacteria (Auto) (Negative) Granular Casts (0) /lpf Nasal Screen MRSA (PCR) (Negative) 12/09/18 Range/Units 12:20 WBC (4.8-10.8) K/uL RBC (4.2-5.4) M/uL Hgb (12.0-16.0) g/dL Hct (37-47) % MCV (80-100) fL MCH (25-34) pg MCHC (32-36) g/dL RDW Std Deviation (36.4-46.3) fL RDW Coeff of [place] (11.5-14.5) % Plt Count (130-400) K/uL MPV (7.4-10.4) fL Immature Gran % (Auto) % Neut % (Auto) % Lymph % (Auto) % [place] % (Auto) % Eos % (Auto) % Baso % (Auto) % Immature Gran # (Auto) (0.00-0.02) K/uL Neut # (Auto) (1.4-6.5) K/uL Lymph # (Auto) (1.2-3.4) K/uL [place] # (Auto) (0.11-0.59) K/uL Eos # (Auto) (0-0.5) K/uL Baso # (Auto) (0-0.2) K/uL PT (9.0-12.0) Seconds INR (0.9-1.1) APTT (21.0-31.0) Seconds PTT Ratio VBG pH (7.36-7.41) VBG pCO2 (38-50) mmHg VBG pO2 mmHg VBG HCO3 mmol/L VBG O2 Saturation % VBG Base Excess mEq/L Barometric Pressure mm/Hg Sodium (136-145) mmol/L Potassium (3.5-5.1) mmol/L Chloride (98-107) mmol/L Carbon Dioxide (21-32) mmol/L Anion Gap (3-11) BUN (7-18) mg/dl Creatinine (0.6-1.2) mg/dl Est Cr Clr Drug Dosing ml/min Est GFR ( Amer) Est GFR (Non-Af Amer) BUN/Creatinine Ratio (10-20) Glucose (70-99) mg/dl Lactate (0.4-2.0) mmol/L Calcium (8.5-10.1) mg/dl Magnesium (1.8-2.4) mg/dl Total Bilirubin (0.2-1) mg/dl AST (15-37) U/L ALT (12-78) U/L Alkaline Phosphatase (45-117) U/L Troponin I (0-0.045) ng/ml Total Protein (6.4-8.2) gm/dl Albumin (3.4-5.0) gm/dl Globulin (2.5-4.0) gm/dl Albumin/Globulin Ratio (0.9-2) Procalcitonin (0-0.5) ng/ml Urine Color Yellow Urine Appearance Cloudy A (Clear) Urine pH 5.0 (4.5-7.5) Ur Specific [place] 1.030 (1.000-1.030) Urine Protein Negative (Negative) Urine Glucose (UA) Negative (Negative) Urine Ketones Negative (Negative) Urine Blood 1+ H (Negative) Urine Nitrite Negative (Negative) Urine Bilirubin Negative (Negative) Urine Urobilinogen Negative (Negative) Ur Leukocyte Esterase Negative (Negative) Urine WBC (Auto) 1-5 (0-5) /hpf Urine RBC (Auto) 0-4 (0-4) /hpf U Hyaline Cast (Auto) 5-10 H (0-5) /lpf U Epithel Cells (Auto) >30 H (0-5) /lpf Urine Bacteria (Auto) Negative (Negative) Granular Casts 1-5 H (0) /lpf Nasal Screen MRSA (PCR) (Negative) PG Care Time/CCT Total # of Minutes Spent Total Time Spent with Patient: Total time spent is greater than 50% in coordination of care (as documented) at patient's floor/unit and/or counseling patient: (1) Carotid artery stenosis Laterality: right Qualified Code(s): I65.21 - Occlusion and stenosis of right carotid artery (2) HLD (hyperlipidemia) Hyperlipidemia type: unspecified Qualified Code(s): E78.5 - Hyperlipidemia, unspecified (3) HTN (hypertension) Hypertension type: essential hypertension Qualified Code(s): I10 - Essential (primary) hypertension (4) PNA (pneumonia) Aspiration pneumonia type: unspecified Laterality: right Lung location: unspecified part of lung Pneumonia type: aspiration pneumonia Qualified Code(s): J69.0 - Pneumonitis due to inhalation of food and vomit
--- NOTE | 2018-12-10 16:13 | Pharmacy Report ---
Pharmacy Abx Initial Consult - Date of Service December 10, 2018 - Pharmacy Dosing Scope Date of Consult: 12/09/18 Consultation requested by: Dr. Mittal Pharmacy is consulted to initiate vancomycin and Zosyn IV dosing therapy, order appropriate labs and adjust drug dose/frequency. - Subjective The patient is a 73 year old F admitted on 12/09/18 15:08. - Objective Height: 5 ft 3 in Weight: 62 kg Vital Signs (Past 12hrs): Vital Signs Temp Pulse Pulse Resp BP Pulse Ox 12/10/18 15:29 37.2 C 76 16 106/73 97 12/10/18 14:20 80 12/10/18 12:24 37.6 C H 84 16 123/83 94 12/10/18 07:20 95 H 20 94 12/10/18 07:18 36.9 C 90 19 121/82 94 12/10/18 07:00 90 Lab Results (24hrs): Laboratory Tests (24 Hours) 12/10/18 12/10/18 05:31 05:31 WBC 17.25 H Neut # (Auto) 15.27 H Creatinine 0.85 Est Cr Clr Drug Dosing 49.5 Micro Results: 12/09/18 12:32 Anaerobic Blood Culture - Pending Blood - Risk Factors for Resistance * Resident in a [facility] or extended[facility]care facility - Assessment & Plan Assessment * 73 year old F here for acute encephalopathy * CXR showed right infiltrate * Pt started on empiric Vanc and Zosyn * Blood cxs ordered and pending * MRSA nasal swab negative; provider would like vancomycin to be continued for now as pt is improving clinically Plan Vancomycin IV: * Estimated PK Parameters: Vd 0.7 L/kg, Filiberto 0.042 hr-1, t1/2 16.5 hr * Loading dose: 1250 mg (20 mg/kg) * Maintenance dose: 1000 mg IV (16 mg/kg) every 18 hours * Goal trough: 15 to 20 mcg/mL * Trough level ordered for 12/12/18 at 1430 Piperacillin/tazobactam * 4.5 g bolus administered over 30 minutes, then 3.375 g IV extended infusion every 8 hours for CrCl greater than 20 mL/min Pharmacy will continue to follow and will adjust dose/frequency as necessary. Thank you.
[2018-12-10 17:48] LABS: BUN Creatinine Ratio 32.8 (10-20); Calcium 9.3 mg/dl (8.5-10.1); Creatinine Clr Calc Pharmacy 52.6 ml/min; Est GFR (African American) 85.4; Est GFR (Non-African American) 73.7; Potassium 3.2 mmol/L (3.5-5.1)
[2018-12-10] MEDS: POTASSIUM CHLORIDE / WTR 10 MEQ/100 ML PLCT IV SCH ×2 (18:25→19:36)
[2018-12-10] MEDS: POTASSIUM CHLORIDE 40 MEQ in DEXTROSE 5% 1,000 ML IV SCH (18:34)
[2018-12-10] MEDS: ATORVASTATIN 40 MG TAB PO SCH (20:32)
[2018-12-11] MEDS: PIPERACILLIN/TAZOBACTAM 3.375 GM in DEXTROSE 5% 100 ML IV SCH ×3 (04:07→20:26)
[2018-12-11] MEDS: VANCOMYCIN HCL 1,000 MG in SODIUM CHLORIDE 0.9% 250 ML IV SCH (04:08)
[2018-12-11] MEDS: POTASSIUM CHLORIDE 40 MEQ in DEXTROSE 5% 1,000 ML IV SCH ×2 (06:03→16:29)
[2018-12-11 06:23] LABS: Hematocrit (blood only) 42.9 % (37-47); Hemoglobin 13.3 g/dL (12.0-16.0); Mean Corpuscular Hemoglobin 30.2 pg (25-34); Mean Corpuscular Volume 97.3 fL (80-100); Mean Platelet Volume 10.6 fL (7.4-10.4); Platelet Count 184 K/uL (130-400); RDW Coefficient of Variation 14.3 % (11.5-14.5); RDW Standard Deviation 51.1 fL (36.4-46.3); Red Blood Count 4.41 M/uL (4.2-5.4); White Blood Count 14.43 K/uL (4.8-10.8)
[2018-12-11 07:03] LABS: Calcium 9.5 mg/dl (8.5-10.1); Creatinine Clr Calc Pharmacy 56.9 ml/min; Est GFR (African American) 85.4; Est GFR (Non-African American) 73.7; Magnesium 2.3 mg/dl (1.8-2.4); Potassium 3.8 mmol/L (3.5-5.1)
[2018-12-11] MEDS: AMLODIPINE BESYLATE 5 MG TAB PO SCH (09:00)
[2018-12-11] MEDS: POTASSIUM CHLORIDE 20 MEQ TABCR PO SCH (09:00)
[2018-12-11] MEDS: ASPIRIN 81 MG ECTAB PO SCH (09:00)
[2018-12-11] MEDS: LOSARTAN POTASSIUM 25 MG TAB PO SCH (09:00)
[2018-12-11] MEDS: OXYBUTYNIN CHLORIDE 5 MG TAB PO SCH ×2 (09:00→21:03)
[2018-12-11] MEDS: CLOPIDOGREL BISULFATE 75 MG TAB PO SCH (09:00)
[2018-12-11] MEDS: ENOXAPARIN INJ 40 MG/0.4 ML SYR SQ SCH (09:50)
--- NOTE | 2018-12-11 18:56 | Hospitalist Progress Note ---
Date of Service December 11, 2018 Assessment & Plan (1) Acute encephalopathy: - Pt. is nonverbal at baseline but has developed worsening confusion at [facility]. - CT head was negative - Likely related to pneumonia and severe dehydration with hypernatremia; CXR showed right infiltrate. - U/a was negative; Blood cultures show no growth - Continue Zosyn and Vancomycin for empiric coverage. still no improvement, Na trending down to 153, WBC down, vitals stable unclear why she is not improving from mental standpoint agree that we could consider MRI in next 1-2 days if no improvement (2) PNA (pneumonia): - CXR with right infiltrate; pt. is chronic aspirator at [facility], concern for aspiration PNA. - WBC increased to 19.2 on admission, down to 14k, no fever, vitals stable, minimal oxygen requirement continue Zosyn and Vancomycin for empiric coverage. (3) Acute respiratory failure with hypoxia: - Currently requiring 4L via NC -- likely related to PNA. - Will continue to wean oxygen as tolerated. (4) Swallowing difficulty: - Has been evaluated by speech therapy, approved for pureed diet at [facility]. - Aspirated pills on morning of 12/10 will have speech see her again, continue NPO status (5) Hypernatremia: - Related to dehydration in setting of poor PO intake. - continue D5W, at 100 cc/hr. - Na down to 153 (6) H/O: CVA (cerebrovascular accident): - History of CVA x 2, most recently in September 2018. - Continue ASA, Plavix and statin as prescribed once able to take PO - Follows with neurology. (7) HLD (hyperlipidemia): - Continue home statin as prescribed. (8) HTN (hypertension): - Continue home Losartan and Amlodipine as prescribed. (9) Carotid artery stenosis: - Managed conservatively per discharge summary from October 2018. - Neck CTA in September showed high grade stenosis at proximal right internal carotid artery with up to 90% calcified plaque, 70% on left - Continue statin, aspirin and plavix as prescribed. (10) Urinary incontinence: - Continue home Oxybutynin as prescribed. (11) Pacemaker: - H/o SA node dysfunction s/p pacemaker placement. - Monitored as outpatient, no indication for pacemaker interrogation as inpt. (12) Hypokalemia: -resolved (13) DVT prophylaxis: - Lovenox q24hr. Dispo: Med/surg with tele watch for her to wake up more in next few days Subjective patient sleeping all day, could not arouse her to sternal rub, pain, loud noise vitals stable and labs actually showing signs of improvement no fever, WBC down to 14k could not complete ROS due to non verbal status reviewed chart since admission Review of Systems Review of Systems: Unobtainable due to reduced consciousness Physical Exam Constitutional: well nourished and + ill appearing; no acute distress Eyes: PERRL, conjunctivae normal, anicteric sclerae ENMT: external ear and nose normal, oropharynx normal Neck: trachea midline, no thyromegaly Respiratory: normal respiratory effort, lungs clear to auscultation (decreased breath sounds in the base) Cardiovascular: RRR, no murmur, no edema Gastrointestinal (Abdomen): normal bowel sounds, soft, nontender, no hepatosplenomegaly Musculoskeletal: Head/Neck/Chest: normocephalic and head atraumatic Extremities: extremities normal to inspection and + abnormal strength; no cyanosis and no clubbing Skin: no rashes, warm and dry Neurologic: + obtunded; + does not move all extremities Speech / Cognition: + abnormal speech Psychiatric: Orientation: + not alert, + not oriented to person, + not oriented to place and + not oriented to time Lymphatic: no cervical or axillary lymphadenopathy Results & Data Vital Signs (Past 12 Hours) Vital Signs Temp Pulse Pulse Resp BP Pulse Ox 12/11/18 15:49 67 12/11/18 15:32 37.4 C 71 20 109/69 100 12/11/18 11:04 36.8 C 63 20 127/91 98 12/11/18 07:51 36.9 C 88 18 124/75 94 12/11/18 07:00 74 Laboratory Results Laboratory Results - last 24 hr 12/11/18 12/11/18 05:54 05:54 WBC 14.43 H RBC 4.41 Hgb 13.3 Hct 42.9 MCV 97.3 MCH 30.2 MCHC 31.0 L RDW Std Deviation 51.1 H RDW Coeff of [place] 14.3 Plt Count 184 MPV 10.6 H Sodium 153 H Potassium 3.8 D Chloride 119 H Carbon Dioxide 30 Anion Gap 5.0 BUN 23 H Creatinine 0.80 Est Cr Clr Drug Dosing 56.9 Est GFR ( Amer) 85.4 Est GFR (Non-Af Amer) 73.7 BUN/Creatinine Ratio 29.0 H Glucose 132 H Calcium 9.5 Magnesium 2.3 Medications Administered Current Inpatient Medications Acetaminophen (Tylenol) 650 mg PO Q6H PRN PRN Reason: Fever Stop: 01/08/19 16:43 Acetaminophen (Tylenol) 650 mg PO Q4H PRN PRN Reason: Pain or Fever Stop: 01/08/19 16:43 Amlodipine [facility] ([facility]asc) [facility] [place] Stop: 01/09/19 08:59 Last Admin: 12/11/18 09:00 Dose: Not Given Documented by: Aspirin (Ecotrin Ectab) 81 mg [facility] [place] Stop: 01/09/19 08:59 Last Admin: 12/11/18 09:00 Dose: Not Given Documented by: Atorvastatin Calcium (Lipitor) 40 mg PO [facility] Stop: 01/08/19 20:59 Last Admin: 12/11/18 21:03 Dose: Not Given Documented by: Bisacodyl (Dulcolax) 10 mg ID DAILY PRN PRN Reason: Constipation Stop: 01/08/19 16:43 Clopidogrel Bisulfate (Plavix) 75 mg PO [facility] Stop: 01/09/19 08:59 Last Admin: 12/11/18 09:00 Dose: Not Given Documented by: Enoxaparin Sodium (Lovenox) 40 mg SQ DAILY REPLACED BY [facility] Stop: 01/09/19 08:59 Last Admin: 12/11/18 09:50 Dose: 40 mg Documented by: Ergocalciferol (Vitamin D2) 50,000 units PO Q7D REPLACED BY [facility] Stop: 01/12/19 08:59 Piperacillin Sod/Tazobactam (Sod 3.375 gm/ Dextrose) 115 mls @ 28.75 mls/hr IV Q8H REPLACED BY [facility]; Protocol Stop: 12/16/18 19:59 Last Admin: 12/11/18 20:26 Dose: 28.8 mls/hr Documented by: Potassium Chloride 40 meq/ (Dextrose) 1,020 mls @ 100 mls/hr IV .[id number] REPLACED BY [facility] Stop: 01/09/19 18:29 Last Admin: 12/11/18 16:29 Dose: 100 mls/hr Documented by: Losartan Potassium (Cozaar) 12.5 mg PO QAM [facility]OYA Stop: 01/09/19 08:59 Last Admin: 12/11/18 09:00 Dose: Not Given Documented by: Magnesium Hydroxide (Milk Of Magnesia) 30 ml PO Q12H PRN PRN Reason: Constipation Stop: 01/08/19 16:43 Miscellaneous Information (Consult) 1 ea N/A UD PRN PRN Reason: Consult Stop: 01/08/19 16:43 Ondansetron HCl (Zofran) 4 mg IV Q6H PRN PRN Reason: Nausea Stop: 01/08/19 16:43 Oxybutynin Chloride (Ditropan) 5 mg PO BID REPLACED BY [facility] Stop: 01/08/19 20:59 Last Admin: 12/11/18 21:03 Dose: Not Given Documented by: Polyethylene Glycol (Miralax Powder Packet) 17 gm PO DAILY PRN PRN Reason: Constipation Potassium Chloride (Klor-Con M20) 20 meq PO DAILY REPLACED BY [facility] Stop: 01/09/19 08:59 Last Admin: 12/11/18 09:00 Dose: Not Given Documented by: Senna/Docusate Sodium (Senokot S) 1 tab PO BID PRN PRN Reason: Constipation Stop: 01/08/19 16:43 Sodium Biphosphate/Sodium Phosphate (Fleet Enema) 118 ml ID DAILY PRN PRN Reason: Constipation Stop: 01/08/19 16:43 PG Care Time/CCT Total # of Minutes Spent Total Time Spent with Patient: Total time spent is greater than 50% in coordination of care (as documented) at patient's floor/unit and/or counseling patient: (1) Carotid artery stenosis Laterality: right Qualified Code(s): I65.21 - Occlusion and stenosis of right carotid artery (2) HLD (hyperlipidemia) Hyperlipidemia type: unspecified Qualified Code(s): E78.5 - Hyperlipidemia, unspecified (3) HTN (hypertension) Hypertension type: essential hypertension Qualified Code(s): I10 - Essential (primary) hypertension (4) PNA (pneumonia) Aspiration pneumonia type: unspecified Laterality: right Lung location: unspecified part of lung Pneumonia type: aspiration pneumonia Qualified Code(s): J69.0 - Pneumonitis due to inhalation of food and vomit
[2018-12-11] MEDS: ATORVASTATIN 40 MG TAB PO SCH (21:03)
[2018-12-12] MEDS: POTASSIUM CHLORIDE 40 MEQ in DEXTROSE 5% 1,000 ML IV SCH ×3 (02:05→23:03)
[2018-12-12] MEDS: PIPERACILLIN/TAZOBACTAM 3.375 GM in DEXTROSE 5% 100 ML IV SCH ×3 (04:34→20:12)
[2018-12-12 08:21] LABS: Creatinine Clr Calc Pharmacy 71.1 ml/min; Est GFR (African American) 102.8; Est GFR (Non-African American) 88.7
[2018-12-12] MEDS: CLOPIDOGREL BISULFATE 75 MG TAB PO SCH (09:43)
[2018-12-12] MEDS: AMLODIPINE BESYLATE 5 MG TAB PO SCH (09:43)
[2018-12-12] MEDS: POTASSIUM CHLORIDE 20 MEQ TABCR PO SCH (09:43)
[2018-12-12] MEDS: ASPIRIN 81 MG ECTAB PO SCH (09:43)
[2018-12-12] MEDS: OXYBUTYNIN CHLORIDE 5 MG TAB PO SCH ×2 (09:43→21:12)
[2018-12-12] MEDS: LOSARTAN POTASSIUM 25 MG TAB PO SCH (09:43)
[2018-12-12] MEDS: ENOXAPARIN INJ 40 MG/0.4 ML SYR SQ SCH (12:20)
[2018-12-12] MEDS ORDERED: VANCOMYCIN TROUGH ONE (14:30)
[2018-12-12] MEDS: ATORVASTATIN 40 MG TAB PO SCH (21:12)
--- NOTE | 2018-12-12 22:13 | Hospitalist Progress Note ---
Date of Service December 12, 2018 Assessment & Plan (1) Acute encephalopathy: - Pt. is nonverbal at baseline but has developed worsening confusion at [facility] - CT head was negative - Likely related to pneumonia and severe dehydration with hypernatremia; CXR showed right infiltrate. - U/a was negative; Blood cultures show no growth - Continue Zosyn and Vancomycin for empiric coverage. eyes open today but still no meaningful responses, will not answer questions or follow commands unclear why she is not improving from mental standpoint agree that we could consider MRI tomorrow if no improvement (2) PNA (pneumonia): - CXR with right infiltrate; pt. is chronic aspirator at [facility], concern for aspiration PNA. - WBC increased to 19.2 on admission, down to 14k yesterday, no fever, vitals stable, minimal oxygen requirement continue Zosyn and Vancomycin for empiric coverage. repeat CBC tomorrow (3) Acute respiratory failure with hypoxia: - weaned down to 2L NC today (4) Swallowing difficulty: - Had been evaluated by speech therapy, approved for pureed diet at [facility]. - Aspirated pills on morning of 12/10 speech saw today, patient a lot worse since last seen in September, not safe to swallow at all will have them reassess if she wakes up more (5) Hypernatremia: - Related to dehydration in setting of poor PO intake. - continue D5W, at 100 cc/hr. - Na down to 153 on 12/11, repeat tomorrow (6) H/O: CVA (cerebrovascular accident): - History of CVA x 2, most recently in September 2018. - Continue ASA, Plavix and statin as prescribed once able to take PO - Follows with neurology. (7) HLD (hyperlipidemia): - Continue home statin as prescribed. (8) HTN (hypertension): - Continue home Losartan and Amlodipine as prescribed. (9) Carotid artery stenosis: - Managed conservatively per discharge summary from October 2018. - Neck CTA in September showed high grade stenosis at proximal right internal carotid artery with up to 90% calcified plaque, 70% on left - Continue statin, aspirin and plavix as prescribed. (10) Urinary incontinence: - Continue home Oxybutynin as prescribed. (11) Pacemaker: - H/o SA node dysfunction s/p pacemaker placement. - Monitored as outpatient, no indication for pacemaker interrogation as inpt. (12) Hypokalemia: -resolved (13) DVT prophylaxis: - Lovenox q24hr. Dispo: Med/surg with tele watch for her to wake up more in next few days family meeting tomorrow, may consider palliative consult if no improvement Subjective patient awake today, eyes open but still not responding to anything cannot follow simple commands, no verbal response discussed with patient's over the phone he said that last night she was speaking with them which was new discussed prognosis, he said that she has not been doing well over last two months, ever since her most recent stroke in September she was unable to improve at [facility] and went to [facility] not eating or swallowing well discussed that clinically she is responding well to antibiotics plan to meet with him and son tomorrow at the bedside Review of Systems Review of Systems: Unobtainable due to cognitive status Physical Exam Constitutional: well nourished and + ill appearing; no acute distress Eyes: PERRL, conjunctivae normal, anicteric sclerae ENMT: external ear and nose normal, oropharynx normal Neck: trachea midline, no thyromegaly Respiratory: normal respiratory effort, lungs clear to auscultation (decreased breath sounds in the base) Cardiovascular: RRR, no murmur, no edema Gastrointestinal (Abdomen): normal bowel sounds, soft, nontender, no hepatosplenomegaly Musculoskeletal: Head/Neck/Chest: normocephalic and head atraumatic Extremities: extremities normal to inspection and + abnormal strength; no cyanosis and no clubbing Skin: no rashes, warm and dry Neurologic: + obtunded; + does not move all extremities Speech / Cognition: + abnormal speech Psychiatric: Orientation: + not alert, + not oriented to person, + not or iented to place and + not oriented to time Lymphatic: no cervical or axillary lymphadenopathy Results & Data Vital Signs (Past 12 Hours) Vital Signs Temp Pulse Pulse Resp BP Pulse Ox 12/12/18 18:57 36.4 C L 71 20 128/85 94 12/12/18 16:49 68 12/12/18 16:16 36.8 C 65 16 131/86 96 12/12/18 11:00 36.1 C L 63 18 135/84 97 Laboratory Results Laboratory Results - last 24 hr 12/12/18 07:27 Creatinine 0.65 Est Cr Clr Drug Dosing 71.1 Est GFR ( Amer) 102.8 Est GFR (Non-Af Amer) 88.7 Medications Administered Current Inpatient Medications Acetaminophen (Tylenol) 650 mg PO Q6H PRN PRN Reason: Fever Stop: 01/08/19 16:43 Acetaminophen (Tylenol) 650 mg PO Q4H PRN PRN Reason: Pain or Fever Stop: 01/08/19 16:43 Amlodip[facility] Stop: 01/09/19 08:59 Last Admin: 12/12/18 09:43 Dose: Not Given Documented by: Aspirin (Ecotrin Ectab) 81 mg PO QAM [facility] Stop: 01/09/19 08:59 Last Admin: 12/12/18 09:43 Dose: Not Given Documented by: Atorvastatin Calcium (Lipitor) 40 mg PO HS [facility] Stop: 01/08/19 20:59 Last Admin: 12/12/18 21:12 Dose: Not Given Documented by: Bisacodyl (Dulcolax) 10 mg RI DAILY PRN PRN Reason: Constipation Stop: 01/08/19 16:43 Clopidogrel Bisulfate (Plavix) 75 [facility] Stop: 01/09/19 08:59 Last Admin: 12/12/18 09:43 Dose: Not Given Documented by: Enoxaparin Sodium (Lovenox) 40 mg SQ DAILY [facility] Stop: 01/09/19 08:59 Last Admin: 12/12/18 12:20 Dose: 40 mg Documented by: Ergocalciferol (Vitamin D2) 50,000 units PO Q7D [facility] Stop: 01/12/19 08:59 Piperacillin Sod/Tazobactam (Sod 3.375 gm/ Dextrose) 115 mls @ 28.75 mls/hr IV Q8H [facility]; Protocol Stop: 12/16/18 19:59 Last Admin: 12/12/18 20:12 Dose: 28.8 mls/hr Documented by: Potassium Chloride 40 meq/ (Dextrose) 1,020 mls @ 100 mls/hr IV .[id number] [facility] Stop: 01/09/19 18:29 Last Admin: 12/12/18 12:23 Dose: 100 mls/hr Documented by: Losartan Potassium (Cozaar) 12.5 mg [facility] Stop: 01/09/19 08:59 Last Admin: 12/12/18 09:43 Dose: Not Given Documented by: Magnesium Hydroxide (Milk Of Magnesia) 30 ml PO Q12H PRN PRN Reason: Constipation Stop: 01/08/19 16:43 Miscellaneous Information (Consult) 1 ea N/A UD PRN PRN Reason: Consult Stop: 01/08/19 16:43 Ondansetron HCl (Zofran) 4 mg IV Q6H PRN PRN Reason: Nausea Stop: 01/08/19 16:43 Oxybutynin Chloride (Ditropan) 5 mg PO BID [facility] Stop: 01/08/19 20:59 Last Admin: 12/12/18 21:12 Dose: Not Given Documented by: Polyethylene Glycol (Miralax Powder Packet) 17 gm PO DAILY PRN PRN Reason: Constipation Potassium Chloride (Klor-Con M20) 20 meq PO DAILY [facility] Stop: 01/09/19 08:59 Last Admin: 12/12/18 09:43 Dose: Not Given Documented by: Senna/Docusate Sodium (Senokot S) 1 tab PO BID PRN PRN Reason: Constipation Stop: 01/08/19 16:43 Sodium Biphosphate/Sodium Phosphate (Fleet Enema) 118 ml RI DAILY PRN PRN Reason: Constipation Stop: 01/08/19 16:43 PG Care Time/CCT Total # of Minutes Spent Total Time Spent with Patient: Total time spent is greater than 50% in coord ination of care (as documented) at patient's floor/unit and/or counseling patient: (1) PNA (pneumonia) Aspiration pneumonia type: unspecified Laterality: right Lung location: unspecified part of lung Pneumonia type: aspiration pneumonia Qualified Code(s): J69.0 - Pneumonitis due to inhalation of food and vomit (2) HLD (hyperlipidemia) Hyperlipidemia type: unspecified Qualified Code(s): E78.5 - Hyperlipidemia, unspecified (3) HTN (hypertension) Hypertension type: essential hypertension Qualified Code(s): I10 - Essential (primary) hypertension (4) Carotid artery stenosis Laterality: right Qualified Code(s): I65.21 - Occlusion and stenosis of right carotid artery
[2018-12-13] MEDS: PIPERACILLIN/TAZOBACTAM 3.375 GM in DEXTROSE 5% 100 ML IV SCH ×3 (04:23→20:11)
[2018-12-13] MEDS: AMLODIPINE BESYLATE 5 MG TAB PO SCH (07:29)
[2018-12-13] MEDS: ASPIRIN 81 MG ECTAB PO SCH (07:29)
[2018-12-13] MEDS: OXYBUTYNIN CHLORIDE 5 MG TAB PO SCH (07:29)
[2018-12-13] MEDS: LOSARTAN POTASSIUM 25 MG TAB PO SCH (07:29)
[2018-12-13] MEDS: POTASSIUM CHLORIDE 20 MEQ TABCR PO SCH (07:29)
[2018-12-13] MEDS: CLOPIDOGREL BISULFATE 75 MG TAB PO SCH (07:29)
[2018-12-13 07:32] LABS: Basophils # (auto) 0.04 K/uL (0-0.2); Basophils % (auto) 0.3 %; Eosinophils # (auto) 0.54 K/uL (0-0.5); Eosinophils % (auto) 4.5 %; Hematocrit (blood only) 38.2 % (37-47); Hemoglobin 12.6 g/dL (12.0-16.0); Immature Granulocytes # (auto) 0.06 K/uL (0.00-0.02); Immature Granulocytes % (auto) 0.5 %; Lymphocytes # (auto) 1.55 K/uL (1.2-3.4); Mean Corpuscular Hemoglobin 30.1 pg (25-34); Mean Corpuscular Volume 91.4 fL (80-100); Mean Platelet Volume 10.2 fL (7.4-10.4); Neutrophils # (auto) 9.12 K/uL (1.4-6.5); Neutrophils % (auto) 76.7 %; Platelet Count 196 K/uL (130-400); RDW Coefficient of Variation 13.5 % (11.5-14.5); RDW Standard Deviation 44.5 fL (36.4-46.3); Red Blood Count 4.18 M/uL (4.2-5.4); White Blood Count 11.91 K/uL (4.8-10.8)
[2018-12-13] MEDS: ENOXAPARIN INJ 40 MG/0.4 ML SYR SQ SCH (08:42)
[2018-12-13] MEDS: POTASSIUM CHLORIDE 40 MEQ in DEXTROSE 5% 1,000 ML IV SCH (08:42)
[2018-12-13] MEDS ORDERED: ERGOCALCIFEROL 50,000 UNITS CAP PO SCH (09:00)
--- NOTE | 2018-12-13 17:19 | Hospitalist Progress Note ---
Date of Service December 13, 2018 Assessment & Plan (1) Acute encephalopathy: - Pt. is nonverbal at baseline but had developed worsening confusion at [facility] - CT head was negative - Likely related to pneumonia and severe dehydration with hypernatremia; CXR showed right infiltrate. - U/a was negative; Blood cultures show no growth - Continue Zosyn and Vancomycin for empiric coverage. eyes open this morning, following some commands however, no clear verbal responses not safe to swallow fear that she will not recover from encephalopathy and will not be able to maintain hydration (2) PNA (pneumonia): - CXR with right infiltrate; pt. is chronic aspirator at [facility], concern for aspiration PNA. - WBC increased to 19.2 on admission, down to 11k today, no fever, vitals stable, titrated down to room air continue Zosyn and Vancomycin for empiric coverage. clinically improved, but will continue to be extremely high risk for aspiration, even if she had a PEG (3) Acute respiratory failure with hypoxia: - weaned down to room air today, acute hypoxia resolved (4) Swallowing difficulty: - Had been evaluated by speech therapy, approved for pureed diet at [facility]. - Aspirated pills on morning of 12/10 speech saw on 12/12 and 12/13 with poor results will not initiate a swallow at all, just holds the ice chips in her mouth strict NPO discussed with family, explained a PEG would not prevent aspiration, would prolong condition she is in feel that this is terminal condition family will discuss this evening, meet with palliative tomorrow (5) Hypernatremia: - Related to dehydration in setting of poor PO intake. - continue D5W, at 100 cc/hr. - Na down to 153 on 12/11, ordered today but it was cancelled repeat tomorrow (6) H/O: CVA (cerebrovascular accident): - History of CVA x 2, most recently in September 2018. - Continue ASA, Plavix and statin as prescribed once able to take PO - Follows with neurology. poor prognosis, non-verbal, unable to ambulate, poor quality of life (7) HLD (hyperlipidemia): - Continue home statin as prescribed. (8) HTN (hypertension): - Continue home Losartan and Amlodipine as prescribed. (9) Carotid artery stenosis: - Managed conservatively per discharge summary from October 2018. - Neck CTA in September showed high grade stenosis at proximal right internal carotid artery with up to 90% calcified plaque, 70% on left - Continue statin, aspirin and plavix as prescribed. (10) Urinary incontinence: morrissey catheter (11) Pacemaker: - H/o SA node dysfunction s/p pacemaker placement. - Monitored as outpatient, no indication for pacemaker interrogation as inpt. (12) Hypokalemia: -resolved (13) DVT prophylaxis: - Lovenox q24hr. Dispo: palliative care consult tomorrow Subjective patient alert this morning, she had her eyes open she closed her eyes on command but could do little else mumbled a response but otherwise nothing reviewed labs, WBC down to 11k had speech therapy re-evaluate her, again she would not initiate a swallow with an ice chip continue to be strict NPO for food and medications discussed situation with patient's son and at the bedside today son said that she has been deteriorating since she left [facility] and went to [facility] she no longer participated in therapy, she has been eating very little, she shows signs of coughing and choking she requires family to feed her both and son agree that she has declined in her functional status explained that the pneumonia has improved on IV antibiotics however, the main issue is that she is not safe to eat or drink or take medications the son said that they never discussed feeding tube with the patient so unsure of what her wishes would be there is no designated POA, the patient has her and three sons I asked them to discuss as a family what they think the patient would want in terms of PEG tube as well as code status as she is still a full code explained that a PEG tube would not prevent further aspiration essentially a PEG would prolong the condition that she is in currently they agree with speaking with palliative care tomorrow, will consult them officially Review of Systems Review of Systems: Unobtainable due to cognitive status Physical Exam Constitutional: well nourished and + ill appearing; no acute distress Eyes: PERRL, conjunctivae normal, anicteric sclerae ENMT: external ear and nose normal, oropharynx normal Neck: trachea midline, no thyromegaly Respiratory: normal respiratory effort, lungs clear to auscultation (decreased breath sounds in the base) Cardiovascular: RRR, no murmur, no edema Gastrointestinal (Abdomen): normal bowel sounds, soft, nontender, no hepatosplenomegaly Musculoskeletal: Head/Neck/Chest: normocephalic and head atraumatic Extremities: extremities normal to inspection and + abnormal strength; no cyanosis and no clubbing Skin: no rashes, warm and dry Neurologic: + obtunded; + does not move all extremities Speech / Cognition: + abnormal speech Psychiatric: Orientation: + not alert, + not oriented to person, + not oriented to place and + not oriented to time Lymphatic: no cervical or axillary lymphadenopathy Results & Data Vital Signs (Past 12 Hours) Vital Signs Temp Pulse Pulse Resp BP Pulse Ox 12/13/18 15:20 63 12/13/18 15:13 36.9 C 60 22 107/81 92 12/13/18 11:09 36.8 C 98 H 16 128/81 93 12/13/18 08:15 72 12/13/18 07:33 37.1 C 97 H 16 110/75 93 Laboratory Results Laboratory Results - last 24 hr 12/13/18 12/13/18 07:01 07:01 WBC 11.91 H RBC 4.18 L Hgb 12.6 Hct 38.2 MCV 91.4 MCH 30.1 MCHC 33.0 RDW Std Deviation 44.5 RDW Coeff of [place] 13.5 Plt Count 196 MPV 10.2 Immature Gran % (Auto) 0.5 Neut % (Auto) 76.7 Lymph % (Auto) 13.0 [place] % (Auto) 5.0 Eos % (Auto) 4.5 Baso % (Auto) 0.3 Immature Gran # (Auto) 0.06 H Neut # (Auto) 9.12 H Lymph # (Auto) 1.55 [place] # (Auto) 0.60 H Eos # (Auto) 0.54 H Baso # (Auto) 0.04 Sodium Cancelled Potassium Cancelled Chloride Cancelled Carbon Dioxide Cancelled Anion Gap Cancelled BUN Cancelled Creatinine Cancelled Est Cr Clr Drug Dosing Cancelled Est GFR ( Amer) Cancelled Est GFR (Non-Af Amer) Cancelled BUN/Creatinine Ratio Cancelled Glucose Cancelled Calcium Cancelled Medications Administered Current Inpatient Medications Acetaminophen (Tylenol) 650 mg PO Q6H PRN PRN Reason: Fever Stop: 01/08/19 16:43 Acetaminophen (Tylenol) 650 mg PO Q4H PRN PRN Reason: Pain or Fever Stop: 01/08/19 16:43 Amlodipine Besylate (Norvasc) 2.5 mg PO QAM [facility] Stop: 01/09/19 08:59 Last Admin: 12/13/18 07:29 Dose: Not Given Documented by: Aspirin (Ecotrin Ectab) 81 mg PO QAM [facility] Stop: 01/09/19 08:59 Last Admin: 12/13/18 07:29 Dose: Not Given Documented by: Atorvastatin Calcium (Lipitor) 40 mg PO HS [facility] Stop: 01/08/19 20:59 Last Admin: 12/12/18 21:12 Dose: Not Given Documented by: Bisacodyl (Dulcolax) 10 mg [place] DAILY PRN PRN Reason: Constipation Stop: 01/08/19 16:43 Clopidogrel Bisulfate (Plavix) 75 mg PO QAM [facility] Stop: 01/09/19 08:59 Last Admin: 12/13/18 07:29 Dose: Not Given Documented by: Enoxaparin Sodium (Lovenox) 40 mg SQ DAILY [facility] Stop: 01/09/19 08:59 Last Admin: 12/13/18 08:42 Dose: 40 mg Documented by: Ergocalciferol (Vitamin D2) 50,000 units PO Q7D [facility] Stop: 01/12/19 08:59 Last Admin: 12/13/18 07:29 Dose: Not Given Documented by: Piperacillin Sod/Tazobactam (Sod 3.375 gm/ Dextrose) 115 mls @ 28.75 mls/hr IV Q8H [facility]; Protocol Stop: 12/16/18 19:59 Last Infusion: 12/13/18 16:11 Dose: Infused Documented by: Potassium Chloride 40 meq/ (Dextrose) 1,020 mls @ 100 mls/hr IV .[id number] [facility] Stop: 01/09/19 18:29 Last Admin: 12/13/18 08:42 Dose: 100 mls/hr Documented by: Losartan Potassium (Cozaar) 12.5 mg PO QAM [facility] Stop: 01/09/19 08:59 Last Admin: 12/13/18 07:29 Dose: Not Given Documented by: Magnesium Hydroxide (Milk Of Magnesia) 30 ml PO Q12H PRN PRN Reason: Constipation Stop: 01/08/19 16:43 Miscellaneous Information (Consult) 1 ea N/A UD PRN PRN Reason: Consult Stop: 01/08/19 16:43 Ondansetron HCl (Zofran) 4 mg IV Q6H PRN PRN Reason: Nausea Stop: 01/08/19 16:43 Oxybutynin Chloride (Ditropan) 5 mg PO BID [facility] Stop: 01/08/19 20:59 Last Admin: 12/13/18 07:29 Dose: Not Given Documented by: Polyethylene Glycol (Miralax Powder Packet) 17 gm PO DAILY PRN PRN Reason: Constipation Potassium Chloride (Klor-Con M20) 20 meq PO DAILY [facility] Stop: 01/09/19 08:59 Last Admin: 12/13/18 07:29 Dose: Not Given Documented by: Senna/Docusate Sodium (Senokot S) 1 tab PO BID PRN PRN Reason: Constipation Stop: 01/08/19 16:43 Sodium Biphosphate/Sodium Phosphate (Fleet Enema) 118 ml [place] DAILY PRN PRN Reason: Constipation Stop: 01/08/19 16:43 PG Care Time/CCT Total # of Minutes Spent Total Time Spent with Patient: Total time spent is greater than 50% in coordination of care (as documented) at patient's floor/unit and/or counseling patient: (1) PNA (pneumonia) Aspiration pneumonia type: unspecified Laterality: right Lung location: unspecified part of lung Pneumonia type: aspiration pneumonia Qualified Code(s): J69.0 - Pneumonitis due to inhalation of food and vomit (2) HLD (hyperlipidemia) Hyperlipidemia type: unspecified Qualified Code(s): E78.5 - Hyperlipidemia, unspecified (3) HTN (hypertension) Hypertension type: essential hypertension Qualified Code(s): I10 - Essential (primary) hypertension (4) Carotid artery stenosis Laterality: right Qualified Code(s): I65.21 - Occlusion and stenosis of right carotid artery
[2018-12-13] MEDS: SODIUM CHLORIDE 0.9% 1000ML 1,000 ML IV SCH (17:51)
[2018-12-14] MEDS: PIPERACILLIN/TAZOBACTAM 3.375 GM in DEXTROSE 5% 100 ML IV SCH ×3 (03:57→21:03)
[2018-12-14] MEDS: SODIUM CHLORIDE 0.9% 1000ML 1,000 ML IV SCH ×2 (05:47→18:07)
[2018-12-14] MEDS: ENOXAPARIN INJ 40 MG/0.4 ML SYR SQ SCH (07:42)
[2018-12-14 08:05] LABS: Basophils # (auto) 0.03 K/uL (0-0.2); Basophils % (auto) 0.3 %; Eosinophils # (auto) 0.42 K/uL (0-0.5); Eosinophils % (auto) 4.1 %; Hematocrit (blood only) 37.2 % (37-47); Hemoglobin 12.6 g/dL (12.0-16.0); Lymphocytes # (auto) 1.37 K/uL (1.2-3.4); Lymphocytes % (auto) 13.5 %; Mean Corpuscular Hemoglobin 30.7 pg (25-34); Mean Corpuscular Hgb Conc 33.9 g/dL (32-36); Mean Corpuscular Volume 90.7 fL (80-100); Mean Platelet Volume 10.1 fL (7.4-10.4); Monocytes # (auto) 0.53 K/uL (0.11-0.59); Monocytes % (auto) 5.2 %; Neutrophils # (auto) 7.72 K/uL (1.4-6.5); Neutrophils % (auto) 75.9 %; Platelet Count 189 K/uL (130-400); RDW Coefficient of Variation 13.6 % (11.5-14.5); White Blood Count 10.17 K/uL (4.8-10.8)
[2018-12-14 08:19] LABS: BUN Creatinine Ratio 14.1 (10-20); Calcium 8.7 mg/dl (8.5-10.1); Creatinine Clr Calc Pharmacy 67.9 ml/min; Est GFR (African American) 101.3; Est GFR (Non-African American) 87.4; Potassium 3.8 mmol/L (3.5-5.1)
--- NOTE | 2018-12-14 10:26 | Palliative Care Consultation ---
Date of Consultation December 14, 2018 Assessment & Plan (1) Goals of care, counseling/discussion: This is a 73 year old female who presented to the [facility] from [facility] as she was experiencing worsening mental status and confusion with decrease oxygen saturation. Patient has experienced two CVA's over the past year with the most recent being October 22, 2018. The patient is mostly non-verbal but is able to communicate slightly by answering yes and no questions. The patient has had an extensive medical journey with multiple inpatient rehabilitation stays with little improvement. Now she is being treated for pneumonia that is improving WBC 19.27--> now 10.17, with hopes that she will be able to return to her baseline mental status and eventually return to [facility]. Regardless of her improvement, unfortunately, she will be unable to be a decision maker with regards to her goals of care. Palliative Care consulted to discuss goals further with family. -I met with patient in her room, 257. No family at bedside. -Patient did open her eyes on command and did say 'no' when I asked if she was in any pain. -Pt. is nonverbal at baseline but had developed worsening confusion at SNF -Patient being treated for Pneumonia, but overall, long-term condition is poor. It would be helpful to have a family meeting to determine goals of care, including code status as patient remains a full code, and goals of care overall. -Patient continues to be aspiration risk relative to her pneumonia, being a confined nursing facility and decreased mobility due to condition. -It is very well likely that the patient may not recover overall from condition. -I reached out to patients son, Deo as listed in the contacts tab . I talked with him briefly about her code status. Code status to remain Full Code at this time. -There is NOT an established POA and her , Eldon father, may need assistance with decision making per Deo. Deo expressed there are 3 sons total, one lives in [place]. -I suggested he contact them and establish a time for a family meeting to discuss goals of care, including code status feeding tube wishes etc. Additionally may be helpful to discuss and explain Hospice. -Expressed that even if all sons can not be present, we can discuss over speaker phone if needed. -Should the patient be discharged back to [facility], the Palliative Care team can follow there also if needed. -Plan agreed upon to call Deo again tomorrow (Tuesday) to establish a time for a family meeting after he speaks with his family. -No symptom management needs at this time. Palliative care will follow. -PPS: 20% (2) Acute encephalopathy: (3) Acute respiratory failure with hypoxia: (4) Acute cerebrovascular accident (CVA): History of Present Illness Reason for Consultation: goals of care Requesting Physician: Dr. Sofia Attending Physician: hNan Sofia, DO History of Present Illness This is a 73 year old female who presented to the [facility] from [facility] as she was experiencing worsening mental status and confusion with decrease oxygen saturation. Patient has experienced two CVA's over the past year with the most recent being October 22, 2018. The patient is mostly non-verbal but is able to communicate slightly by answering yes and no questions. The patient has had an extensive medical journey with multiple inpatient rehabilitation stays with little improvement. Now she is being treated for pneumonia with hopes that she will be able to return to her baseline mental status. Regardless of her improvement, unfortunately, she will be unable to be a decision maker with regards to her goals of care. Palliative Care consulted to discuss goals further with family. Please see A/P for further details. Thank you kindly for involving the palliative care team with this unfortunate patient. Allergies Allergy/AdvReac Type Severity Reaction Status Date / Time No Known Allergies Allergy Verified 12/09/18 13:22 Home Medications Home Medications Medication Instructions Recorded Confirmed Type atorvastatin 40 mg PO HS 06/07/18 12/09/18 History clopidogrel 75 mg PO QAM 06/07/18 12/09/18 History losartan 12.5 mg PO QAM 06/07/18 12/09/18 History sennosides-docusate sodium [Senna 1 tab PO BID PRN 06/07/18 12/09/18 History with Docusate Sodium] potassium chloride ER 20 mEq 20 meq PO DAILY #90 tab 08/23/18 12/09/18 History tablet,extended release ergocalciferol (vitamin D2) 50,000 50,000 units PO WEEKLY #8 cap 10/04/18 12/09/18 Rx unit capsule amlodipine 2.5 mg PO QAM #0 tab 10/27/18 12/09/18 Rx aspirin 81 mg PO QAM #0 tab 10/27/18 12/09/18 Rx acetaminophen 650 mg PO Q6H PRN 12/09/18 12/09/18 History bisacodyl 10 mg [place] DAILY PRN 12/09/18 12/09/18 History enoxaparin 40 mg SUBCUT DAILY 12/09/18 12/09/18 History magnesium hydroxide [Milk of 30 ml PO DAILY PRN 12/09/18 12/09/18 History Magnesia] oxybutynin chloride 5 mg PO BID 12/09/18 12/09/18 History polyethylene glycol 3350 17 g PO DAILY PRN 12/09/18 12/09/18 History sodium phosphates [Fleet Enema] 118 ml NH DAILY PRN 12/09/18 12/09/18 History Patient History Medical History Difficulty walking Hypokalemia Right sided weakness Vitamin D deficiency Carotid stenosis H/O: CVA (cerebrovascular accident) Weakness (Acute) Orthostatic hypotension (Chronic) Sinus node dysfunction (Chronic) Pacemaker (Chronic) Leukoencephalopathy (Chronic) HLD (hyperlipidemia) (Chronic) HTN (hypertension) (Chronic) Syncope Dizziness CVA (cerebral vascular accident) Surgical History History of appendectomy (Chronic) Hx of tonsillectomy (Chronic) Family History Mother Heart disease Father Heart disease Other Family history non-contributory Social History Preferred Language: Arabic Communication Ability: Unable Community Advocate Required: No Beliefs That Will Affect Care: None marital status: Current Living Situation: Retirement Current Living Situation Comment: pt lives with and son Feels Safe at Home: Yes Smoking Status: Former smoker Number of Years Since Quit: 15 ; Second Hand Exposure: No ; Hx Alcohol Use: No Hx Substance Use: No Review of Systems Review of Systems: Unobtainable due to cognitive status Physical Exam Constitutional: + ill appearing and + frail appearing Eyes: PERRL, conjunctivae normal, anicteric sclerae Respiratory: normal respiratory effort Auscultation: + diminished lung sounds Cardiovascular: Rate/Rhythm: regular rate and regular rhythm Heart Sounds: normal S1 and normal S2 Extremities: normal capillary refill and + edema Gastrointestinal (Abdomen): normal bowel sounds, soft, nontender, no hepatosplenomegaly Skin: no rashes, warm and dry Psychiatric: obtunded. opens eyes intermittently. some verbal yes and no, unsure if meaningful response. Results & Data Vital Signs (Past 12 Hours) Vital Signs Temp Pulse Resp BP Pulse Ox 12/14/18 07:16 37.2 C 67 18 138/79 94 12/13/18 22:50 37.4 C 60 22 113/77 92 PG Care Time/CCT Total # of Minutes Spent Total Time Spent with Patient: Total time spent is greater than 50% in coordination of care (as documented) at patient's floor/unit and/or counseling patient: 70 Time Spent Midlevel total time spent 70 minutes with > 50% of that time spent assessing the patient, discussing goals of care with family and arranging a family meeting.
--- NOTE | 2018-12-14 22:10 | Hospitalist Progress Note ---
Date of Service December 14, 2018 Assessment & Plan (1) Acute encephalopathy: - Pt. is nonverbal at baseline but had developed worsening confusion at [facility] - CT head was negative - Likely related to pneumonia and severe dehydration with hypernatremia; CXR showed right infiltrate. - U/a was negative; Blood cultures show no growth - Continue Zosyn and Vancomycin for empiric coverage. eyes open but minimal response not safe to swallow fear that she will not recover from encephalopathy and will not be able to maintain hydration (2) PNA (pneumonia): - CXR with right infiltrate; pt. is chronic aspirator at [facility], concern for aspiration PNA. - WBC increased to 19.2 on admission, down to 10k today, no fever, vitals stable, titrated down to room air continue Zosyn and Vancomycin for empiric coverage. complete 7 days of treatment in hospital, admitted on 12/09 so 12/15 in afternoon would be 7 days clinically improved, but will continue to be extremely high risk for aspiration, even if she had a PEG (3) Acute respiratory failure with hypoxia: - weaned down to room air acute hypoxia resolved (4) Swallowing difficulty: - Had been evaluated by speech therapy, approved for pureed diet at [facility]. - Aspirated pills on morning of 12/10 speech saw on 12/12 and 12/13 with poor results will not initiate a swallow at all, just holds the ice chips in her mouth strict NPO discussed with family, explained a PEG would not prevent aspiration, would prolong condition she is in feel that this is terminal condition family will set up family meeting with palliative care, possibly tomorrow (5) Hypernatremia: - Related to dehydration in setting of poor PO intake. - treated with D5W, at 100 cc/hr. - Na down to 140 today change fluids to NSS (6) H/O: CVA (cerebrovascular accident): - History of CVA x 2, most recently in September 2018. - Continue ASA, Plavix and statin as prescribed once able to take PO - Follows with neurology. poor prognosis, non-verbal, unable to ambulate, poor quality of life (7) HLD (hyperlipidemia): - Continue home statin as prescribed. (8) HTN (hypertension): - Continue home Losartan and Amlodipine as prescribed. (9) Carotid artery stenosis: - Managed conservatively per discharge summary from October 2018. - Neck CTA in September showed high grade stenosis at proximal right internal carotid artery with up to 90% calcified plaque, 70% on left - Continue statin, aspirin and plavix as prescribed. (10) Urinary incontinence: morrissey catheter (11) Pacemaker: - H/o SA node dysfunction s/p pacemaker placement. - Monitored as outpatient, no indication for pacemaker interrogation as inpt. (12) Hypokalemia: -resolved, K is 3.8 (13) DVT prophylaxis: - Lovenox q24hr. Dispo: palliative care consult, hopeful for family meeting tomorrow patient is to remain level 1 according to patient's son Deo Subjective patient remains non verbal, vitals stable labs show WBC down to 10k, BMP normal d/w palliative care, they reached out to son Deo he will try to set up a time for family meeting to discuss PEG tube, code status palliative care will reach out to him tomorrow for further discussion Review of Systems Review of Systems: Unobtainable due to cognitive status Physical Exam 2 Constitutional: well nourished and + ill appearing; no acute distress Eyes: PERRL, conjunctivae normal, anicteric sclerae ENMT: external ear and nose normal, oropharynx normal Neck: trachea midline, no thyromegaly Respiratory: normal respiratory effort, lungs clear to auscultation (decreased breath sounds in the base) Cardiovascular: RRR, no murmur, no edema Gastrointestinal (Abdomen): normal bowel sounds, soft, nontender, no hepatosplenomegaly Musculoskeletal: Head/Neck/Chest: normocephalic and head atraumatic Extremities: extremities normal to inspection and + abnormal strength; no cyanosis and no clubbing Skin: no rashes, warm and dry Neurologic: + obtunded; + does not move all extremities Speech / Cognition: + abnormal speech Psychiatric: Orientation: + not alert, + not oriented to person, + not oriented to place and + not oriented to time Lymphatic: no cervical or axillary lymphadenopathy Results & Data Vital Signs (Past 12 Hours) Vital Signs Temp Pulse Resp BP Pulse Ox 12/14/18 14:46 37.1 C 65 20 142/84 H 94 Laboratory Results Laboratory Results - last 24 hr 12/14/18 12/14/18 07:17 07:17 WBC 10.17 RBC 4.10 L Hgb 12.6 Hct 37.2 MCV 90.7 MCH 30.7 MCHC 33.9 RDW Std Deviation 45.0 RDW Coeff of [place] 13.6 Plt Count 189 MPV 10.1 Immature Gran % (Auto) 1.0 Neut % (Auto) 75.9 Lymph % (Auto) 13.5 Tucker % (Auto) 5.2 Eos % (Auto) 4.1 Baso % (Auto) 0.3 Immature Gran # (Auto) 0.10 H Neut # (Auto) 7.72 H Lymph # (Auto) 1.37 Tucker # (Auto) 0.53 Eos # (Auto) 0.42 Baso # (Auto) 0.03 Sodium 140 Potassium 3.8 Chloride 107 Carbon Dioxide 25 Anion Gap 8.0 BUN 10 Creatinine 0.68 Est Cr Clr Drug Dosing 67.9 Est GFR ( Amer) 101.3 Est GFR (Non-Af Amer) 87.4 BUN/Creatinine Ratio 14.1 Glucose 98 Calcium 8.7 Medications Administered Current Inpatient Medications Bisacodyl (Dulcolax) 10 mg [place] DAILY PRN PRN Reason: Constipation Stop: 01/08/19 16:43 Enoxaparin Sodium (Lovenox) 40 mg SQ DAILY [facility] Stop: 01/09/19 08:59 Last Admin: 12/14/18 07:42 Dose: 40 mg Documented by: Piperacillin Sod/Tazobactam (Sod 3.375 gm/ Dextrose) 115 mls @ 28.75 mls/hr IV Q8H [facility]; Protocol Stop: 12/16/18 19:59 Last Admin: 12/14/18 21:03 Dose: 30 mls/hr Documented by: Sodium Chloride (Nss 1000ml) 1,000 mls @ 80 mls/hr IV .[id number] [facility] Stop: 01/12/19 17:35 Last Admin: 12/14/18 18:07 Dose: 80 mls/hr Documented by: Miscellaneous Information (Consult) 1 ea N/A UD PRN PRN Reason: Consult Stop: 12/16/18 19:59 Ondansetron HCl (Zofran) 4 mg IV Q6H PRN PRN Reason: Nausea Stop: 01/08/19 16:43 PG Care Time/CCT Total # of Minutes Spent Total Time Spent with Patient: Total time spent is greater than 50% in coordination of care (as documented) at patient's floor/unit and/or counseling patient: (1) PNA (pneumonia) Aspiration pneumonia type: unspecified Laterality: right Lung location: unspecified part of lung Pneumonia type: aspiration pneumonia Qualified Code(s): J69.0 - Pneumonitis due to inhalation of food and vomit (2) HLD (hyperlipidemia) Hyperlipidemia type: unspecified Qualified Code(s): E78.5 - Hyperlipidemia, unspecified (3) HTN (hypertension) Hypertension type: essential hypertension Qualified Code(s): I10 - Essential (primary) hypertension (4) Carotid artery stenosis Laterality: right Qualified Code(s): I65.21 - Occlusion and stenosis of right carotid artery
[2018-12-15] MEDS: PIPERACILLIN/TAZOBACTAM 3.375 GM in DEXTROSE 5% 100 ML IV SCH ×3 (04:02→21:03)
[2018-12-15] MEDS: SODIUM CHLORIDE 0.9% 1000ML 1,000 ML IV SCH ×2 (06:03→19:08)
[2018-12-15] MEDS: ENOXAPARIN INJ 40 MG/0.4 ML SYR SQ SCH (08:34)
--- NOTE | 2018-12-15 12:59 | Palliative Care Progress Note ---
Date of Service December 15, 2018 Assessment & Plan (1) Goals of care, counseling/discussion: -Patient continues to be mostly nonverbal. Weak and unable to ambulate. -Unable to swallow. Is on continuous IVF at 80ml/hr. -Spoke with patient's on phone. He stated that his son, Deo Jack, worked camp nurse and is sleeping, but he was to talk to patient's other children about coming up with a family meeting time. -Called Deo Velasco and left a voicemail. -Patient's really could not elaborate on goals of care and we did not get into detail over the phone. -Patient's prognosis is poor. Feeding tube not indicated for comfort or quality of life in this situation. Family needs to make decision on code status, feeding tube, discharge plan, etc. -Palliative will follow up. (2) Acute encephalopathy: (3) Acute respiratory failure with hypoxia: (4) Acute cerebrovascular accident (CVA): Subjective Patient awake, but mostly nonverbal. She did say "fine" when asked how she was. Review of Systems Review of Systems: Unobtainable due to cognitive status Physical Exam Constitutional: comfortable; no acute distress ENMT: external ear and nose normal, oropharynx normal Respiratory: normal respiratory effort, lungs clear to auscultation Auscultation: + diminished lung sounds Cardiovascular: RRR, no murmur, no edema Gastrointestinal (Abdomen): Inspection/Auscultation: abdomen normal to inspection and normal bowel sounds Percussion/Palpation: abdomen soft Neurologic: awake (moves right arm and both feet) Psychiatric: Orientation: alert (but mostly nonverbal) Results & Data Vital Signs (Past 12 Hours) Vital Signs Temp Pulse Resp BP Pulse Ox 12/15/18 07:18 36.7 C 84 19 169/86 H 92 Supervising Physician Co-Signing Physician Notes Patient seen and examined, collaborated with YADIEL Pearson No family at bedtime at the time of my exam. Patient did open her eyes in response to voice/touch-patient did not attempt to speak or nod to any simple questions. Patient unable to follow simple commands. PE: No acute distress H EENT: Patient did open her eyes briefly, EOMI Respiratory: Unlabored CV: Regular rate Extremities: No edema Skin: Feet cool to touch, no mottling Agree with above note, assessment and plan as per YADIEL Pearson -will continue to follow and assist family with medical decision making. Time Spent Midlevel 25 minutes with >50% of the time spent at bedside with patient and on phone with family discussing plan of care.
--- NOTE | 2018-12-15 19:48 | Hospitalist Progress Note ---
Date of Service December 15, 2018 Assessment & Plan (1) Acute encephalopathy: - Pt. is nonverbal at baseline but had developed worsening confusion at [facility] - CT head was negative - Likely related to pneumonia and severe dehydration with hypernatremia; CXR showed right infiltrate. - U/a was negative; Blood cultures show no growth - Continue Zosyn and Vancomycin for empiric coverage. eyes open but minimal response not safe to swallow this is her condition now, no hope of meaningful recovery family to decide on goals of care, code status patient needs hospice (2) PNA (pneumonia): - CXR with right infiltrate; pt. is chronic aspirator at [facility], concern for aspiration PNA. - WBC increased to 19.2 on admission, down to 10k today, no fever, vitals stable, titrated down to room air continue Zosyn and Vancomycin for empiric coverage. complete 7 days of treatment in hospital, admitted on 12/09 so today is 7 days clinically improved, but will continue to be extremely high risk for aspiration, even if she had a PEG (3) Acute respiratory failure with hypoxia: - weaned down to room air acute hypoxia resolved (4) Swallowing difficulty: - Had been evaluated by speech therapy, approved for pureed diet at [facility]. - Aspirated pills on morning of 12/10 speech saw on 12/12 and 12/13 with poor results will not initiate a swallow at all, just holds the ice chips in her mouth strict NPO discussed with family, explained a PEG would not prevent aspiration, would prolong condition she is in feel that this is terminal condition family will set up family meeting with palliative care, possibly tomorrow (5) Hypernatremia: - Related to dehydration in setting of poor PO intake. - treated with D5W, at 100 cc/hr. - Na down to 140 yesterday change fluids to NSS (6) H/O: CVA (cerebrovascular accident): - History of CVA x 2, most recently in September 2018. - Continue ASA, Plavix and statin as prescribed once able to take PO - Follows with neurology. poor prognosis, non-verbal, unable to ambulate, poor quality of life patient needs hospice care family still needs to make decision (7) HLD (hyperlipidemia): - Continue home statin as prescribed. (8) HTN (hypertension): - Continue home Losartan and Amlodipine as prescribed. (9) Carotid artery stenosis: - Managed conservatively per discharge summary from October 2018. - Neck CTA in September showed high grade stenosis at proximal right internal carotid artery with up to 90% calcified plaque, 70% on left - Continue statin, aspirin and plavix as prescribed. (10) Urinary incontinence: morrissey catheter (11) Pacemaker: - H/o SA node dysfunction s/p pacemaker placement. - Monitored as outpatient, no indication for pacemaker interrogation as inpt. (12) Hypokalemia: -resolved, K is 3.8 (13) DVT prophylaxis: - Lovenox q24hr. Dispo: palliative care consult, hopeful for family meeting over the weekend if I can arrange it patient is to remain level 1 according to patient's son Deo Subjective patient is the same as yesterday eyes open, no response, not safe to eat d/w palliative care, no luck in getting family together for meeting to discuss goals of care, code status I can attempt over the or Tuesday with palliative Review of Systems Review of Systems: Unobtainable due to cognitive status Physical Exam Constitutional: well nourished and + ill appearing; no acute distress Eyes: PERRL, conjunctivae normal, anicteric sclerae ENMT: external ear and nose normal, oropharynx normal Neck: trachea midline, no thyromegaly Respiratory: normal respiratory effort, lungs clear to auscultation (decreased breath sounds in the base) Cardiovascular: RRR, no murmur, no edema Gastrointestinal (Abdomen): normal bowel sounds, soft, nontender, no hepatosplenomegaly Musculoskeletal: Head/Neck/Chest: normocephalic and head atraumatic Extremities: extremities normal to inspection and + abnormal strength; no cyanosis and no clubbing Skin: no rashes, warm and dry Neurologic: + obtunded; + does not move all extremities Speech / Cognition: + abnormal speech Psychiatric: Orientation: + not alert, + not oriented to person, + not oriented to place and + not oriented to time Lymphatic: no cervical or axillary lymphadenopathy Results & Data Vital Signs (Past 12 Hours) Vital Signs Temp Pulse Resp BP Pulse Ox 12/15/18 15:14 36.8 C 75 16 119/81 94 Medications Administered Current Inpatient Medications Bisacodyl (Dulcolax) 10 mg IN DAILY PRN PRN Reason: Constipation Stop: 01/08/19 16:43 Enoxaparin Sodium (Lovenox) 40 mg SQ DAILY [facility] Stop: 01/09/19 08:59 Last Admin: 12/15/18 08:34 Dose: 40 mg Documented by: Piperacillin Sod/Tazobactam (Sod 3.375 gm/ Dextrose) 115 mls @ 28.75 mls/hr IV Q8H [facility]; Protocol Stop: 12/16/18 19:59 Last Infusion: 12/15/18 16:35 Dose: Infused Documented by: Sodium Chloride (Nss 1000ml) 1,000 mls @ 80 mls/hr IV .[id number] [facility] Stop: 01/12/19 17:35 Last Admin: 12/15/18 19:08 Dose: 80 mls/hr Documented by: Miscellaneous Information (Consult) 1 ea N/A UD PRN PRN Reason: Consult Stop: 12/16/18 19:59 Ondansetron HCl (Zofran) 4 mg IV Q6H PRN PRN Reason: Nausea Stop: 01/08/19 16:43 PG Care Time/CCT Total # of Minutes Spent Total Time Spent with Patient: Total time spent is greater than 50% in coordination of care (as documented) at patient's floor/unit and/or counseling patient: (1) PNA (pneumonia) Aspiration pneumonia type: unspecified Laterality: right Lung location: unspecified part of lung Pneumonia type: aspiration pneumonia Qualified Code(s): J69.0 - Pneumonitis due to inhalation of food and vomit (2) HLD (hyperlipidemia) Hyperlipidemia type: unspecified Qualified Code(s): E78.5 - Hyperlipidemia, unspecified (3) HTN (hypertension) Hypertension type: essential hypertension Qualified Code(s): I10 - Essential (primary) hypertension (4) Carotid artery stenosis Laterality: right Qualified Code(s): I65.21 - Occlusion and stenosis of right carotid artery
[2018-12-16] MEDS: PIPERACILLIN/TAZOBACTAM 3.375 GM in DEXTROSE 5% 100 ML IV SCH ×2 (04:46→12:57)
[2018-12-16] MEDS: SODIUM CHLORIDE 0.9% 1000ML 1,000 ML IV SCH ×2 (07:56→19:52)
[2018-12-16] MEDS: ENOXAPARIN INJ 40 MG/0.4 ML SYR SQ SCH (07:56)
--- NOTE | 2018-12-16 11:28 | Hospitalist Progress Note ---
Date of Service December 16, 2018 Assessment & Plan (1) Acute encephalopathy: - Pt. is nonverbal at baseline but had developed worsening confusion at SNF - CT head was negative - Likely related to pneumonia and severe dehydration with hypernatremia; CXR showed right infiltrate. - U/a was negative; Blood cultures show no growth - Continue Zosyn and Vancomycin for empiric coverage. eyes open but minimal response not safe to swallow this is her condition now, no hope of meaningful recovery family to decide on goals of care, code status patient needs hospice spoke with patient's son today, he plans to set up family meeting on Tuesday morning with palliative relayed message to palliative (2) PNA (pneumonia): - CXR with right infiltrate; pt. is chronic aspirator at [facility], concern for aspiration PNA. - WBC increased to 19.2 on admission, down to 10k today, no fever, vitals stable, titrated down to room air continue Zosyn and Vancomycin for empiric coverage. completed 7 days of treatment in hospital, no further antibiotics needed clinically improved, but will continue to be extremely high risk for aspiration, even if she had a PEG (3) Acute respiratory failure with hypoxia: - weaned down to room air acute hypoxia resolved (4) Swallowing difficulty: - Had been evaluated by speech therapy, approved for pureed diet at [facility]. - Aspirated pills on morning of 12/10 speech saw on 12/12 and 12/13 with poor results will not initiate a swallow at all, just holds the ice chips in her mouth strict NPO discussed with family, explained a PEG would not prevent aspiration, would prolong condition she is in feel that this is terminal condition family will set up family meeting with palliative care Tuesday (5) Hypernatremia: - Related to dehydration in setting of poor PO intake. - treated with D5W, at 100 cc/hr. - Na down to 140 when last checked continue NSS (6) H/O: CVA (cerebrovascular accident): - History of CVA x 2, most recently in September 2018. - Continue ASA, Plavix and statin as prescribed once able to take PO - Follows with neurology. poor prognosis, non-verbal, unable to ambulate, poor quality of life patient needs hospice care family still needs to make decision (7) HLD (hyperlipidemia): - Continue home statin as prescribed. (8) HTN (hypertension): - Continue home Losartan and Amlodipine as prescribed. (9) Carotid artery stenosis: - Managed conservatively per discharge summary from October 2018. - Neck CTA in September showed high grade stenosis at proximal right internal carotid artery with up to 90% calcified plaque, 70% on left - Continue statin, aspirin and plavix as prescribed. (10) Urinary incontinence: morrissey catheter (11) Pacemaker: - H/o SA node dysfunction s/p pacemaker placement. - Monitored as outpatient, no indication for pacemaker interrogation as inpt. (12) Hypokalemia: -resolved, K is 3.8 (13) DVT prophylaxis: - Lovenox q24hr. Dispo: palliative care consult, hopeful for family meeting over the weekend if I can arrange it patient is to remain level 1 according to patient's son Deo Velasquez patient remains unresponsive, eyes open unsafe to eat or drink spoke with patient's son over the phone, he plans to call palliative first thing on Tuesday to set up meeting that day relayed message to palliative Review of Systems Review of Systems: Unobtainable due to cognitive status Physical Exam Constitutional: well nourished and + ill appearing; no acute distress Eyes: PERRL, conjunctivae normal, anicteric sclerae ENMT: external ear and nose normal, oropharynx normal Neck: trachea midline, no thyromegaly Respiratory: normal respiratory effort, lungs clear to auscultation (decreased breath sounds in the base) Cardiovascular: RRR, no murmur, no edema Gastrointestinal (Abdomen): normal bowel sounds, soft, nontender, no hepatosplenomegaly Musculoskeletal: Head/Neck/Chest: normocephalic and head atraumatic Extremities: extremities normal to inspection and + abnormal strength; no cyanosis and no clubbing Skin: no rashes, warm and dry Neurologic: + obtunded; + does not move all extremities Speech / Cognition: + abnormal speech Psychiatric: Orientation: + not alert, + not oriented to person, + not oriented to place and + not oriented to time Lymphatic: no cervical or axillary lymphadenopathy Results & Data Vital Signs (Past 12 Hours) Vital Signs Temp Pulse Resp BP Pulse Ox 12/16/18 07:56 36.8 C 70 18 141/124 H 92 Medications Administered Current Inpatient Medications Bisacodyl (Dulcolax) 10 mg MN DAILY PRN PRN Reason: Constipation Stop: 01/08/19 16:43 Enoxaparin Sodium (Lovenox) 40 mg SQ DAILY LATOYA Stop: 01/09/19 08:59 Last Admin: 12/16/18 07:56 Dose: 40 mg Documented by: Piperacillin Sod/Tazobactam (Sod 3.375 gm/ Dextrose) 115 mls @ 28.75 mls/hr IV Q8H LATOYA; Protocol Stop: 12/16/18 19:59 Last Infusion: 12/16/18 09:06 Dose: Infused Documented by: Sodium Chloride (Nss 1000ml) 1,000 mls @ 80 mls/hr IV .[id number] LATOYA Stop: 01/12/19 17:35 Last Admin: 12/16/18 07:56 Dose: 80 mls/hr Documented by: Miscellaneous Information (Consult) 1 ea N/A UD PRN PRN Reason: Consult Stop: 12/16/18 19:59 Ondansetron HCl (Zofran) 4 mg IV Q6H PRN PRN Reason: Nausea Stop: 01/08/19 16:43 PG Care Time/CCT Total # of Minutes Spent Total Time Spent with Patient: Total time spent is greater than 50% in coordination of care (as documented) at patient's floor/unit and/or counseling patient: (1) PNA (pneumonia) Aspiration pneumonia type: unspecified Laterality: right Lung location: unspecified part of lung Pneumonia type: aspiration pneumonia Qualified Code(s): J69.0 - Pneumonitis due to inhalation of food and vomit (2) HLD (hyperlipidemia) Hyperlipidemia type: unspecified Qualified Code(s): E78.5 - Hyperlipidemia, unspecified (3) HTN (hypertension) Hypertension type: essential hypertension Qualified Code(s): I10 - Essential (primary) hypertension (4) Carotid artery stenosis Laterality: right Qualified Code(s): I65.21 - Occlusion and stenosis of right carotid artery
[2018-12-17] MEDS: SODIUM CHLORIDE 0.9% 1000ML 1,000 ML IV SCH ×2 (08:23→21:06)
[2018-12-17] MEDS: ENOXAPARIN INJ 40 MG/0.4 ML SYR SQ SCH (08:23)
[2018-12-17] MEDS ORDERED: MICONAZOLE NITRATE POWDER 43 GM EXT PRN (09:59)
--- NOTE | 2018-12-17 15:37 | Hospitalist Progress Note ---
Date of Service December 17, 2018 Assessment & Plan (1) Acute encephalopathy: - Pt. is nonverbal at baseline but had developed worsening confusion at [facility] - CT head was negative - Likely related to pneumonia and severe dehydration with hypernatremia; CXR showed right infiltrate. - U/a was negative; Blood cultures show no growth - Continue Zosyn and Vancomycin for empiric coverage. eyes open but minimal response not safe to swallow this is her condition now, no hope of meaningful recovery family to decide on goals of care, code status patient needs hospice spoke with patient's son 12/16, he plans to set up family meeting on Tuesday with palliative relayed message to palliative (2) PNA (pneumonia): - CXR with right infiltrate; pt. is chronic aspirator at [facility], concern for aspiration PNA. - WBC increased to 19.2 on admission, down to 10k today, no fever, vitals stable, titrated down to room air continue Zosyn and Vancomycin for empiric coverage. completed 7 days of treatment in hospital, no further antibiotics needed clinically improved, but will continue to be extremely high risk for aspiration, even if she had a PEG (3) Acute respiratory failure with hypoxia: - weaned down to room air acute hypoxia resolved (4) Swallowing difficulty: - Had been evaluated by speech therapy, approved for pureed diet at [facility]. - Aspirated pills on morning of 12/10 speech saw on 12/12 and 12/13 with poor results will not initiate a swallow at all, just holds the ice chips in her mouth strict NPO discussed with family, explained a PEG would not prevent aspiration, would prolong condition she is in feel that this is terminal condition family will set up family meeting with palliative care Tuesday (5) Hypernatremia: - Related to dehydration in setting of poor PO intake. - treated with D5W, at 100 cc/hr. - Na down to 140 when last checked continue NSS (6) H/O: CVA (cerebrovascular accident): - History of CVA x 2, most recently in September 2018. - Continue ASA, Plavix and statin as prescribed once able to take PO - Follows with neurology. poor prognosis, non-verbal, unable to ambulate, poor quality of life patient needs hospice care family still needs to make decision (7) HLD (hyperlipidemia): - Continue home statin as prescribed. (8) HTN (hypertension): - Continue home Losartan and Amlodipine as prescribed. (9) Carotid artery stenosis: - Managed conservatively per discharge summary from October 2018. - Neck CTA in September showed high grade stenosis at proximal right internal carotid artery with up to 90% calcified plaque, 70% on left - Continue statin, aspirin and plavix as prescribed. (10) Urinary incontinence: morrissey catheter (11) Pacemaker: - H/o SA node dysfunction s/p pacemaker placement. - Monitored as outpatient, no indication for pacemaker interrogation as inpt. (12) Hypokalemia: -resolved, K is 3.8 (13) DVT prophylaxis: - Lovenox q24hr. Dispo: palliative care consult, hopeful for family meeting over the weekend if I can arrange it patient is to remain level 1 according to patient's son Deo Subjective no change today plan for family meeting tomorrow with palliative care Review of Systems Review of Systems: Unobtainable due to cognitive status Physical Exam Constitutional: well nourished and + ill appearing; no acute distress Eyes: PERRL, conjunctivae normal, anicteric sclerae ENMT: external ear and nose normal, oropharynx normal Neck: trachea midline, no thyromegaly Respiratory: normal respiratory effort, lungs clear to auscultation (decreased breath sounds in the base) Cardiovascular: RRR, no murmur, no edema Gastrointestinal (Abdomen): normal bowel sounds, soft, nontender, no hepatosplenomegaly Musculoskeletal: Head/Neck/Chest: normocephalic and head atraumatic Extremities: extremities normal to inspection and + abnormal strength; no cyanosis and no clubbing Skin: no rashes, warm and dry Neurologic: + obtunded; + does not move all extremities Speech / Cognition: + abnormal speech Psychiatric: Orientation: + not alert, + not oriented to person, + not oriented to place and + not oriented to time Lymphatic: no cervical or axillary lymphadenopathy Results & Data Vital Signs (Past 12 Hours) Vital Signs Temp Pulse Resp BP Pulse Ox 12/17/18 15:28 36.5 C 67 18 117/69 91 12/17/18 08:00 36.6 C 68 20 139/85 93 Medications Administered Current Inpatient Medications Bisacodyl (Dulcolax) 10 mg SC DAILY PRN PRN Reason: Constipation Stop: 01/08/19 16:43 Enoxaparin Sodium (Lovenox) 40 mg SQ DAILY LATOYA Stop: 01/09/19 08:59 Last Admin: 12/17/18 08:23 Dose: 40 mg Documented by: Sodium Chloride (Nss 1000ml) 1,000 mls @ 80 mls/hr IV .[id number] LATOYA Stop: 01/12/19 17:35 Last Admin: 12/17/18 08:23 Dose: 80 mls/hr Documented by: Miconazole Nitrate (Desenex) 1 appln EXT PRN PRN PRN Reason: Affected Skin Folds Stop: 01/16/19 09:58 Ondansetron HCl (Zofran) 4 mg IV Q6H PRN PRN Reason: Nausea Stop: 01/08/19 16:43 PG Care Time/CCT Total # of Minutes Spent Total Time Spent with Patient: Total time spent is greater than 50% in coordination of care (as documented) at patient's floor/unit and/or counseling patient: (1) Carotid artery stenosis Laterality: right Qualified Code(s): I65.21 - Occlusion and stenosis of right carotid artery (2) HLD (hyperlipidemia) Hyperlipidemia type: unspecified Qualified Code(s): E78.5 - Hyperlipidemia, unspecified (3) HTN (hypertension) Hypertension type: essential hypertension Qualified Code(s): I10 - Essential (primary) hypertension (4) PNA (pneumonia) Aspiration pneumonia type: unspecified Laterality: right Lung location: unspecified part of lung Pneumonia type: aspiration pneumonia Qualified Code(s): J69.0 - Pneumonitis due to inhalation of food and vomit
[2018-12-18] MEDS: SODIUM CHLORIDE 0.9% 1000ML 1,000 ML IV SCH ×2 (09:21→20:11)
[2018-12-18] MEDS: ENOXAPARIN INJ 40 MG/0.4 ML SYR SQ SCH (09:21)
--- NOTE | 2018-12-18 11:59 | Palliative Care Progress Note ---
Date of Service December 18, 2018 Assessment & Plan (1) Goals of care, counseling/discussion: -Lengthy family discussion today with patient's Deo, sons Deo Jr, Blaine and Walter, as well as Blaine's , Surya. -Discussed quality of life, feeding tube vs. no feeding tube, hospice care, and CODE STATUS. -Long talk about the implications of feeding tube including potential risks associated. If a surgeon would even agree to placing a feeding tube, would risk infection, skin irritation, continued aspiration of tube feeds, dislodged tube, etc. I'm of course not a GI surgeon, but was speaking in generalities. Discussed how feeding tubes are not shown to improve condition or quality of life in this situation, just simply prolong quantity of time. -Discussed the option of focusing on comfort/palliation by not placing feeding tube-- could give sips and small bits of soft foods as tolerated. However, family aware that patient really is not even initiating a swallow. Asked what the patient would want in this situation, family really uncertain. They state that patient never spoke of her wishes in this scenario. -CODE STATUS to remain full code at this time until family is able to discuss further amongst themselves. -Updated case management and attending physician. Palliative will follow up to see if decision has been made. -Family did state that they would prefer to keep patient at home, so we discussed hospice care in the home if they decide to go that route. Also disc ussed that placing a feeding tube could potentially mean a SNF stay, at least temporarily. (2) Acute encephalopathy: (3) Acute respiratory failure with hypoxia: (4) Acute cerebrovascular accident (CVA): Subjective Patient did not verbally respond to me today. Did not track with eyes. Family reports she was tracking and saying a word or two. Review of Systems Review of Systems: Unobtainable due to cognitive status Physical Exam Constitutional: comfortable; no acute distress ENMT: external ear and nose normal, oropharynx normal Respiratory: normal respiratory effort, lungs clear to auscultation Auscultation: + diminished lung sounds Cardiovascular: RRR, no murmur, no edema Gastrointestinal (Abdomen): Inspection/Auscultation: abdomen normal to inspection and normal bowel sounds Percussion/Palpation: abdomen soft Neurologic: awake (moves right arm and both feet) Psychiatric: Orientation: alert (but mostly nonverbal) Results & Data Vital Signs (Past 12 Hours) Vital Signs Temp Pulse Resp BP Pulse Ox 12/18/18 11:53 36.6 C 78 15 148/86 H 95 12/18/18 07:07 36.5 C 64 17 161/89 H 96 PG Care Time/CCT Prolonged Care Time Prolonged Care Time: Yes Total Prolonged Care Time: 70 Time Spent Midlevel 70 minutes with >50% of time spent at bedside with patient and family discussing GOC, EOL issues, CODE STATUS, and advance care planning.
--- NOTE | 2018-12-18 19:19 | Hospitalist Progress Note ---
Date of Service December 18, 2018 Assessment & Plan (1) Acute encephalopathy: ongoing. suspect she has baseline vascular dementia from prior strokes and may have superimposed encephalopathy. either way she is nonverbal and prognosis is quite poor. recent head CT w/o acute findings. for completeness sake recheck bmp in am. also obtain ammonia. recent TSH, b12 wnl. recent hypernatremia had resolved. recent infectious issues had been treated. (2) PNA (pneumonia): completed 7 days of IV antibiotics for right-sided pneumonia - either aspiration or gram negative etiology. abx discontinued. stable in RA. (3) Acute respiratory failure with hypoxia: resolved. likely was due to pneumonia. (4) Swallowing difficulty: Had been on pureed diet at SNF. By report she aspirated pills on the AM of 12/10. speech evaluated her earlier this stay - she did poorly. pocketing and holding boluses of food/etc. son wants speech to reevaulate. will speak with speech therapy in am about this. agree with prior physicians that patient is poor PEG candidate and would not advise placement of such; will not improve her quality of life. (5) Hypernatremia: resolved (6) H/O: CVA (cerebrovascular accident): History of CVA x 2, most recently in September 2018. Had been on ASA, Plavix and statin for secondary prevention now unable to take meds due to dysphagia. Appears to have a vascular dementia process. (7) HLD (hyperlipidemia): statin on hold due to dysphagia (8) HTN (hypertension): BPs high due to inability to take PO BP meds Consider nitro patch, etc (9) Carotid artery stenosis: Neck CTA in September 2018 showed high grade stenosis at proximal right internal carotid artery with up to 90% calcified plaque, 70% on left No Rx Not a candidate for intervention (10) Urinary incontinence: morrissey catheter in place continue (11) Pacemaker: H/o SA node dysfunction s/p pacemaker placement. no issues (12) DVT prophylaxis: Lovenox q24hr. appreciate palliative care consult spoke with pt's son Deo Velasco by phone this evening family is struggling w/ end of life decisions will re-attempt swallow eval tomorrow but doubt any improvement; this is at family's request would not advise PEG agree w/ hospice recommendations will try to update pt's tomorrow Subjective patient with no meaningful interaction during the visit. when I called her name she opened her eyes but didn't follow any commands. she had a right-macdonald gaze preference. she squeezed my hand reflexively only. no issues per staff. just sleeping all day. spoke with son by phone - he wants to try oral nutrition. Review of Systems Review of Systems: Unobtainable due to cognitive status Physical Exam Constitutional: + altered mental status; no acute distress ENMT: Mouth: + dry oral mucous membranes Respiratory: normal respiratory effort, lungs clear to auscultation Cardiovascular: Rate/Rhythm: regular rate and regular rhythm Heart Sounds: normal S1 and normal S2; no murmur Vessels: posterior tibial pulses present and dorsalis pedis pulses present; no JVD Extremities: no edema Gastrointestinal (Abdomen): normal bowel sounds, soft, nontender, no hepatosplenomegaly Psychiatric: eyes open but doesn't follow commands no obvious seizure activity Results & Data Vital Signs (Past 12 Hours) Vital Signs Temp Pulse Resp BP Pulse Ox 12/18/18 16:12 36.4 C L 72 17 148/90 H 94 12/18/18 14:46 36.7 C 74 18 147/88 H 94 12/18/18 11:53 36.6 C 78 15 148/86 H 95 PG Care Time/CCT Total # of Minutes Spent Total Time Spent with Patient: Total time spent is greater than 50% in coordination of care (as documented) at patient's floor/unit and/or counseling patient: (1) Carotid artery stenosis Laterality: right Qualified Code(s): I65.21 - Occlusion and stenosis of right carotid artery (2) Urinary incontinence Urinary Incontinence type: unspecified incontinence Qualified Code(s): R32 - Unspecified urinary incontinence (3) Swallowing difficulty Dysphagia type: other dysphagia Qualified Code(s): R13.19 - Other dysphagia (4) HLD (hyperlipidemia) Hyperlipidemia type: unspecified Qualified Code(s): E78.5 - Hyperlipidemia, unspecified (5) HTN (hypertension) Hypertension type: essential hypertension Qualified Code(s): I10 - Essential (primary) hypertension (6) PNA (pneumonia) Aspiration pneumonia type: unspecified Laterality: right Lung location: unspecified part of lung Pneumonia type: aspiration pneumonia Qualified Code(s): J69.0 - Pneumonitis due to inhalation of food and vomit
[2018-12-19 06:42] LABS: Basophils # (auto) 0.01 K/uL (0-0.2); Basophils % (auto) 0.1 %; Eosinophils # (auto) 0.34 K/uL (0-0.5); Eosinophils % (auto) 4.2 %; Hematocrit (blood only) 37.4 % (37-47); Immature Granulocytes # (auto) 0.03 K/uL (0.00-0.02); Immature Granulocytes % (auto) 0.4 %; Lymphocytes # (auto) 1.09 K/uL (1.2-3.4); Lymphocytes % (auto) 13.4 %; Mean Corpuscular Hemoglobin 30.2 pg (25-34); Mean Corpuscular Hgb Conc 34.8 g/dL (32-36); Mean Platelet Volume 9.1 fL (7.4-10.4); Monocytes # (auto) 0.38 K/uL (0.11-0.59); Monocytes % (auto) 4.7 %; Neutrophils % (auto) 77.2 %; Platelet Count 246 K/uL (130-400); RDW Coefficient of Variation 14.1 % (11.5-14.5); White Blood Count 8.15 K/uL (4.8-10.8)
[2018-12-19 07:09] LABS: Creatinine Clr Calc Pharmacy 128.3 ml/min; Est GFR (African American) 124.9; Est GFR (Non-African American) 107.7; Potassium 3.1 mmol/L (3.5-5.1)
[2018-12-19] MEDS: ENOXAPARIN INJ 40 MG/0.4 ML SYR SQ SCH (08:52)
[2018-12-19] MEDS: SODIUM CHLORIDE 0.9% 1000ML 1,000 ML IV SCH (08:52)
[2018-12-19] MEDS: D5NSS + 20MEQ KCL 20 MEQ/1,000 ML BAG IV SCH ×2 (09:49→18:42)
--- NOTE | 2018-12-19 11:08 | Palliative Care Progress Note ---
Date of Service December 19, 2018 Assessment & Plan (1) Goals of care, counseling/discussion: Patient's mental status remains the same today. She did not verbally respond to me. Was seen again by MACHINE CUTTER at the request of family. They are struggling with end of life decisions. Patient was not able to produce a functional swallow, is not safe to take PO. Family still has yet to make decision on whether or not they'd want to proceed with feeding tube, or at least obtaining consult to see if placement is even possible. It has been discussed with patient's family that feeding tube will not improve comfort or quality of life. No family at bedside during my visit today. Will follow up. (2) Acute encephalopathy: (3) Acute respiratory failure with hypoxia: (4) Acute cerebrovascular accident (CVA): Subjective Patient's mental status remains the same today. She did not verbally respond to me. Was seen again by MACHINE CUTTER at the request of family. They are struggling with end of life decisions. Patient was not able to produce a functional swallow, is not safe to take PO. Review of Systems Review of Systems: Unobtainable due to cognitive status Physical Exam Constitutional: comfortable; no acute distress ENMT: external ear and nose normal, oropharynx normal Respiratory: normal respiratory effort, lungs clear to auscultation Auscultation: + diminished lung sounds Cardiovascular: RRR, no murmur, no edema Gastrointestinal (Abdomen): Inspection/Auscultation: abdomen normal to inspection and normal bowel sounds Percussion/Palpation: abdomen soft Neurologic: awake (moves right arm and both feet) Psychiatric: Orientation: alert (but mostly nonverbal) Results & Data Vital Signs (Past 12 Hours) Vital Signs Temp Pulse Resp BP BP Pulse Ox 12/19/18 07:25 36.7 C 79 18 171/105 H 95 12/18/18 23:37 83 168/96 H 12/18/18 23:24 36.9 C 82 18 166/109 H 94 Time Spent Midlevel 25 minutes with >50% of the time spent at bedside with patient and IDT discussing plan of care.
--- NOTE | 2018-12-19 20:51 | Hospitalist Progress Note ---
Date of Service December 19, 2018 Assessment & Plan (1) Acute encephalopathy: I suspect that her current mental status is actually baseline for her. She has had multiple prior strokes and thus likely has vascular dementia. If she had acute delirium earlier this stay then it is likely resolved and she is back at baseline. recent head CT w/o acute findings. ammonia today wnl. recent TSH, b12 wnl. recent hypernatremia resolved. recent infectious issues resolved. (2) PNA (pneumonia): completed 7 days of IV antibiotics for right-sided pneumonia - either aspiration or gram negative etiology. abx discontinued. stable in RA. (3) Acute respiratory failure with hypoxia: resolved. likely was due to pneumonia. (4) Swallowing difficulty: severe dysphagia. Had been on pureed diet at SNF. By report she aspirated pills on the AM of 12/10. speech evaluated her earlier this stay - she did poorly. pocketing and holding boluses of food/etc. son wanted speech to reevaulate today - this was completed - did VERY POORLY. NOT SAFE to take anything PO. agree with prior physicians that patient is poor PEG candidate and would not advise placement of such; will not improve her quality of life. spoke with Surya, daughter in law; will attempt to gather multiple family members tomorrow to discuss plan of care. (5) Hypernatremia: resolved (6) H/O: CVA (cerebrovascular accident): History of CVA x 2, most recently in September 2018. Had been on ASA, Plavix and statin for secondary prevention now unable to take meds due to dysphagia. Appears to have a vascular dementia process. (7) HLD (hyperlipidemia): statin on hold due to dysphagia (8) HTN (hypertension): BPs high due to inability to take PO BP meds Will start nitropatch. (9) Carotid artery stenosis: Neck CTA in September 2018 showed high grade stenosis at proximal right internal carotid artery with up to 90% calcified plaque, 70% on left No Rx Not a candidate for intervention (10) Urinary incontinence: morrissey catheter in place continue (11) Pacemaker: H/o SA node dysfunction s/p pacemaker placement. no issues (12) DVT prophylaxis: Lovenox q24hr. appreciate palliative care consult arrange family meeting for tomorrow AM to refine goals of care Subjective patient just staring at me during the visit did not follow commands nonverbal no changes per staff speech attempted swallow eval again today - took 1 ice chip, held it in mouth for 60+ seconds before attempting to swallow other liquids - patient could not swallow such updated Surya Olmos (daughter in law) today Review of Systems Review of Systems: Unobtainable due to cognitive status Physical Exam Constitutional: + altered mental status; no acute distress ENMT: Mouth: + dry oral mucous membranes Respiratory: normal respiratory effort, lungs clear to auscultation Cardiovascular: Rate/Rhythm: regular rate and regular rhythm Heart Sounds: normal S1 and normal S2; no murmur Vessels: posterior tibial pulses present and dorsalis pedis pulses present; no JVD Extremities: no edema Gastrointestinal (Abdomen): normal bowel sounds, soft, nontender, no hepatosplenomegaly Psychiatric: Orientation: + not alert and + not oriented x 3 Results & Data Vital Signs (Past 12 Hours) Vital Signs Temp Pulse Resp BP Pulse Ox 12/19/18 15:07 37.3 C 64 20 153/92 H 96 12/19/18 11:26 35.6 C L 75 16 161/89 H 94 Laboratory Results Laboratory Results - last 24 hr 12/19/18 12/19/18 12/19/18 06:29 06:29 06:29 WBC 8.15 RBC 4.30 Hgb 13.0 Hct 37.4 MCV 87.0 MCH 30.2 MCHC 34.8 RDW Std Deviation 44.0 RDW Coeff of [place] 14.1 Plt Count 246 MPV 9.1 Immature Gran % (Auto) 0.4 Neut % (Auto) 77.2 Lymph % (Auto) 13.4 [place] % (Auto) 4.7 Eos % (Auto) 4.2 Baso % (Auto) 0.1 Immature Gran # (Auto) 0.03 H Neut # (Auto) 6.30 Lymph # (Auto) 1.09 L [place] # (Auto) 0.38 Eos # (Auto) 0.34 Baso # (Auto) 0.01 Sodium 141 Potassium 3.1 L Chloride 109 H Carbon Dioxide 24 Anion Gap 8.0 BUN 6 L Creatinine 0.36 L Est Cr Clr Drug Dosing 128.3 Est GFR ( Amer) 124.9 Est GFR (Non-Af Amer) 107.7 BUN/Creatinine Ratio 16.0 Glucose 65 L Calcium 8.0 L Ammonia 24.5 PG Care Time/CCT Total # of Minutes Spent Total Time Spent with Patient: Total time spent is greater than 50% in coordination of care (as documented) at patient's floor/unit and/or counseling patient: (1) Carotid artery stenosis Laterality: right Qualified Code(s): I65.21 - Occlusion and stenosis of right carotid artery (2) Urinary incontinence Urinary Incontinence type: unspecified incontinence Qualified Code(s): R32 - Unspecified urinary incontinence (3) Swallowing difficulty Dysphagia type: other dysphagia Qualified Code(s): R13.19 - Other dysphagia (4) HLD (hyperlipidemia) Hyperlipidemia type: unspecified Qualified Code(s): E78.5 - Hyperlipidemia, unspecified (5) HTN (hypertension) Hypertension type: essential hypertension Qualified Code(s): I10 - Essential (primary) hypertension (6) PNA (pneumonia) Aspiration pneumonia type: unspecified Laterality: right Lung location: unspecified part of lung Pneumonia type: aspiration pneumonia Qualified Code(s): J69.0 - Pneumonitis due to inhalation of food and vomit
[2018-12-20] MEDS: D5NSS + 20MEQ KCL 20 MEQ/1,000 ML BAG IV SCH ×2 (03:49→13:59)
[2018-12-20] MEDS: NITROGLYCERIN 0.1 MG/HR PATCH TD SCH (08:35)
[2018-12-20] MEDS: ENOXAPARIN INJ 40 MG/0.4 ML SYR SQ SCH (10:22)
--- NOTE | 2018-12-20 20:21 | Hospitalist Progress Note ---
Date of Service December 20, 2018 Assessment & Plan (1) Acute encephalopathy: Altered MS is resolved. She is at neurocognitive baseline. She has had multiple prior strokes and thus likely has advanced, severe vascular dementia. recent head CT w/o acute findings. ammonia wnl. recent TSH, b12 wnl. recent hypernatremia resolved. recent infectious issues resolved. (2) PNA (pneumonia): completed 7 days of IV antibiotics for right-sided pneumonia - either aspiration or gram negative etiology. abx discontinued. stable in RA. (3) Acute respiratory failure with hypoxia: resolved. likely was due to pneumonia. (4) Swallowing difficulty: severe dysphagia. Had been on pureed diet at SNF. By report she aspirated pills on the AM of 12/10. speech evaluated her earlier this stay - she did poorly. pocketing and holding boluses of food/etc. son wanted speech to reevaulate - this was completed yesterday- did VERY POORLY. Essentially there is no mastication ability. NOT SAFE to take anything PO. agree with prior physicians that patient is poor PEG candidate and would not advise placement of such; will not improve her quality of life. (5) Hypernatremia: resolved (6) H/O: CVA (cerebrovascular accident): History of CVA x 2, most recently in September 2018. Had been on ASA, Plavix and statin for secondary prevention now unable to take meds due to dysphagia. Appears to have a vascular dementia process. (7) HLD (hyperlipidemia): statin on hold due to dysphagia (8) HTN (hypertension): BPs high due to inability to take PO BP meds Will start nitropatch. (9) Carotid artery stenosis: Neck CTA in September 2018 showed high grade stenosis at proximal right internal carotid artery with up to 90% calcified plaque, 70% on left No Rx Not a candidate for intervention (10) Urinary incontinence: morrissey catheter in place leave as is (11) Pacemaker: H/o SA node dysfunction s/p pacemaker placement. (12) DVT prophylaxis: Lovenox q24hr. appreciate palliative care consult 60 minute family meeting held with pt's , 2 sons, and a 3rd son who had called into the meeting by phone. Surya Olmos, daughter in law, also present. reviewed all medical events, poor prognosis, recent speech re-eval, inability to take PO food/meds/liquids, etc. we spent large portion of meeting discussing PEG tubes, pros/cons, risks/benefits, candidacy, etc. advised AGAINST PEG tube placement - will not improve her quality of life in the face of end-stage, severe dementia. gave handouts and book on end-of-life care and decision making. encouraged them to involve their equal opportunity specialist in helping them with these very difficult decisions. at conclusion of meeting there was no concensus about plan of care. she remains full code. cont fluids for now. total visit time today 75 minutes Subjective no change in pt's status. staring to the right during the visit. +palmar grasp like previous. some cough noted by family/staff but no distress. Review of Systems Review of Systems: Unobtainable due to mental health condition and Unobtainable due to cognitive status Physical Exam Constitutional: + altered mental status; no acute distress ENMT: external ear and nose normal, oropharynx normal Respiratory: normal respiratory effort, lungs clear to auscultation Cardiovascular: Rate/Rhythm: regular rate and regular rhythm Heart Sounds: normal S1 and normal S2; no murmur Vessels: posterior tibial pulses present and dorsalis pedis pulses present; no JVD Extremities: no edema Gastrointestinal (Abdomen): normal bowel sounds, soft, nontender, no hepatosplenomegaly Psychiatric: Orientation: + not alert and + not oriented x 3 Results & Data Vital Signs (Past 12 Hours) Vital Signs Temp Pulse Resp BP Pulse Ox 12/20/18 15:00 36.7 C 70 16 149/83 H 94 PG Care Time/CCT Total # of Minutes Spent Total Time Spent with Patient: Total time spent is greater than 50% in coordination of care (as documented) at patient's floor/unit and/or counseling patient: (1) Carotid artery stenosis Laterality: right Qualified Code(s): I65.21 - Occlusion and stenosis of right carotid artery (2) Urinary incontinence Urinary Incontinence type: unspecified incontinence Qualified Code(s): R32 - Unspecified urinary incontinence (3) Swallowing difficulty Dysphagia type: other dysphagia Qualified Code(s): R13.19 - Other dysphagia (4) HLD (hyperlipidemia) Hyperlipidemia type: unspecified Qualified Code(s): E78.5 - Hyperlipidemia, unspecified (5) HTN (hypertension) Hypertension type: essential hypertension Qualified Code(s): I10 - Essential (primary) hypertension (6) PNA (pneumonia) Aspiration pneumonia type: unspecified Laterality: right Lung location: unspecified part of lung Pneumonia type: aspiration pneumonia Qualified Code(s): J69.0 - Pneumonitis due to inhalation of food and vomit
[2018-12-21] MEDS: D5NSS + 20MEQ KCL 20 MEQ/1,000 ML BAG IV SCH ×3 (00:05→20:34)
[2018-12-21 07:50] LABS: BUN Creatinine Ratio 2.8 (10-20); Creatinine Clr Calc Pharmacy 87.1 ml/min; Est GFR (African American) 109.9; Est GFR (Non-African American) 94.9; Potassium 3.7 mmol/L (3.5-5.1)
[2018-12-21] MEDS: ENOXAPARIN INJ 40 MG/0.4 ML SYR SQ SCH (07:59)
[2018-12-21] MEDS: NITROGLYCERIN 0.1 MG/HR PATCH TD SCH (08:00)
--- NOTE | 2018-12-21 15:33 | Palliative Care Progress Note ---
Date of Service December 21, 2018 Assessment & Plan (1) Goals of care, counseling/discussion: -Patient did not look at me or verbally respond. -IVF continue to infuse at 100ml/hr. -Dr. Israel had family meeting yesterday. Still no decisions made. Handouts given to family about feeding tube vs. no feeding tube, booklet about decision making given as well. -Waiting to hear from family. Palliative care following peripherally at this time. (2) Acute encephalopathy: (3) Acute respiratory failure with hypoxia: (4) Acute cerebrovascular accident (CVA): Subjective No family at bedside. Collaborated with CM and MD to discuss plan of care. [place] remains stable and the same. Review of Systems Review of Systems: Unobtainable due to cognitive status Physical Exam Constitutional: comfortable; no acute distress ENMT: external ear and nose normal, oropharynx normal Respiratory: normal respiratory effort, lungs clear to auscultation Auscultation: + diminished lung sounds Cardiovascular: RRR, no murmur, no edema Gastrointestinal (Abdomen): Inspection/Auscultation: abdomen normal to inspection and normal bowel sounds Percussion/Palpation: abdomen soft Neurologic: awake (moves right arm and both feet) Psychiatric: Orientation: alert (but mostly nonverbal) Results & Data Vital Signs (Past 12 Hours) Vital Signs Temp Pulse Resp BP Pulse Ox 12/21/18 15:21 36.5 C 69 18 160/93 H 93 12/21/18 10:30 163/90 H 12/21/18 07:22 37.3 C 68 16 159/97 H 95 Time Spent Midlevel 25 minutes with >50% of the time spent at bedside and on patient's unit collaborating with case management and attending physician discussing plan of care.
--- NOTE | 2018-12-21 19:07 | XRay Report ---
XR chest 1V portable CLINICAL HISTORY: recent R pneumonia, increased work of breathing COMPARISON STUDY: Chest CT September 13, 2018. Chest radiograph December 09, 2018. FINDINGS: Dual-lead left subclavian pacemaker is in place. Chronic deformity of the right humerus is noted. Right lower lung airspace opacity has progressed. There is no evidence for pulmonary edema. Niharika ng volumes are mildly diminished. IMPRESSION: Increase in right lower lung opacity which favors pneumonia. Radiographic follow-up to e nsure resolution is recommended. Electronically signed by: Sreedhar Salas M.D. 12/21/2018 7:06 PM
--- NOTE | 2018-12-21 20:31 | Hospitalist Progress Note ---
Date of Service December 21, 2018 Assessment & Plan (1) PNA (pneumonia): previously completed 7 days of IV antibiotics for right-sided pneumonia - either aspiration or gram negative etiology. suspect aspiration. abx discontinued. has been stable in RA. now with mild increased work of breathing. cxr today with worsening right sided pneumonia. the last x-ray was 10+ days ago - suspect she could have another episode of pneumonia on top of previous one. family to make decision regarding care plan by am. if comfort care is pursued will hold off on antibiotics. if family wishing to pursue ongoing care will resume abx. (2) Acute encephalopathy: Altered MS is resolved. She is at neurocognitive baseline. She has had multiple prior strokes and thus likely has advanced, severe vascular dementia. recent head CT w/o acute findings. ammonia wnl. recent TSH, b12 wnl. recent hypernatremia resolved. (3) Acute respiratory failure with hypoxia: resolved. 2nd to pneumonia. (4) Swallowing difficulty: severe dysphagia. Had been on pureed diet at SNF. By report she aspirated pills on the AM of 12/10. speech evaluated her earlier this stay - she did poorly. pocketing and holding boluses of food/etc. son wanted speech to reevaulate - this was completed 2 days ago - did VERY POORLY. Essentially there is no mastication ability. NOT SAFE to take anything PO. agree with prior physicians that patient is poor PEG candidate and would not advise placement of such; will not improve her quality of life. (5) Hypernatremia: resolved (6) H/O: CVA (cerebrovascular accident): History of CVA x 2, most recently in September 2018. Had been on ASA, Plavix and statin for secondary prevention now unable to take meds due to dysphagia. Appears to have a vascular dementia process. (7) HLD (hyperlipidemia): statin on hold due to dysphagia (8) HTN (hypertension): BPs high due to inability to take PO BP meds. started nitropatch. consider titration. (9) Carotid artery stenosis: Neck CTA in September 2018 showed high grade stenosis at proximal right internal carotid artery with up to 90% calcified plaque, 70% on left No Rx Not a candidate for intervention (10) Urinary incontinence: morrissey catheter in place leave as is (11) Pacemaker: H/o SA node dysfunction s/p pacemaker placement. (12) DVT prophylaxis: Lovenox q24hr. appreciate palliative care consult son/ at bedside today stated they are still debating the options. they have read the palliative care book and handouts. I asked them to tell us by tomorrow what their wishes are, if possible, as she has had a prolonged stay and she seems to be getting worse from pulmonary standpoint. Subjective son, at bedside no change in pt's status starting to right w/ eyes open reports no verbalization/talking today staff report no issues or concerns Review of Systems Review of Systems: Unobtainable due to cognitive status Physical Exam Constitutional: + acute distress (see respiratory below) and + altered mental status ENMT: external ear and nose normal, oropharynx normal Respiratory: + labored breathing (mild retractions), + retractions and + tachypneic Auscultation: + diminished lung sounds (right base) and + crackles (right base) Cardiovascular: Rate/Rhythm: regular rate and regular rhythm Heart Sounds: normal S1 and normal S2; no murmur Vessels: posterior tibial pulses present and dorsalis pedis pulses present; no JVD Extremities: no edema Gastrointestinal (Abdomen): normal bowel sounds, soft, nontender, no hepatosplenomegaly Psychiatric: Orientation: + not alert and + not oriented x 3 starting/gaze preference to right Results & Data Vital Signs (Past 12 Hours) Vital Signs Temp Pulse Resp BP Pulse Ox 12/21/18 15:21 36.5 C 69 18 160/93 H 93 12/21/18 10:30 163/90 H Laboratory Results Laboratory Results - last 24 hr 12/21/18 06:53 Sodium 141 Potassium 3.7 Chloride 110 H Carbon Dioxide 25 Anion Gap 6.0 BUN 1 L Creatinine 0.53 L Est Cr Clr Drug Dosing 87.1 Est GFR ( Amer) 109.9 Est GFR (Non-Af Amer) 94.9 BUN/Creatinine Ratio 2.8 L Glucose 175 H Calcium 8.0 L Diagnostic Findings cxr - worsening right sided pneumonia PG Care Time/CCT Total # of Minutes Spent Total Time Spent with Patient: Total time spent is greater than 50% in coordination of care (as documented) at patient's floor/unit and/or counseling patient: (1) Carotid artery stenosis Laterality: right Qualified Code(s): I65.21 - Occlusion and stenosis of right carotid artery (2) Urinary incontinence Urinary Incontinence type: unspecified incontinence Qualified Code(s): R32 - Unspecified urinary incontinence (3) Swallowing difficulty Dysphagia type: other dysphagia Qualified Code(s): R13.19 - Other dysphagia (4) HLD (hyperlipidemia) Hyperlipidemia type: unspecified Qualified Code(s): E78.5 - Hyperlipidemia, unspecified (5) HTN (hypertension) Hypertension type: essential hypertension Qualified Code(s): I10 - Essential (primary) hypertension (6) PNA (pneumonia) Aspiration pneumonia type: unspecified Laterality: right Lung location: unspecified part of lung Pneumonia type: aspiration pneumonia Qualified Code(s): J69.0 - Pneumonitis due to inhalation of food and vomit
[2018-12-22] MEDS: D5NSS + 20MEQ KCL 20 MEQ/1,000 ML BAG IV SCH ×2 (06:05→16:13)
[2018-12-22] MEDS: ENOXAPARIN INJ 40 MG/0.4 ML SYR SQ SCH (09:19)
[2018-12-22] MEDS: NITROGLYCERIN 0.1 MG/HR PATCH TD SCH (09:21)
--- NOTE | 2018-12-22 14:15 | Palliative Care Progress Note ---
Date of Service December 22, 2018 Assessment & Plan (1) Goals of care, counseling/discussion: Our service is met with family on several occasions as well as the attending has met with family-still awaiting decisions. Patient is slowly declining to end-of-life. Would not recommend aggressive measures to prolong her current state. -Acute respiratory failure with hypoxia-most likely due to aspiration PNA. Patient is n.p.o., hydration with IV fluids-patient is starting to show evidence of fluid overload -Dysphasia-patient known to aspirate since before her previous admission-would recommend comfort care -CVA-patient has had multiple CVAs in the past several months with persistent de ficits and continued decline in function. Patient now minimally responsive, cannot follow simple commands. Patient is now bedbound, she had previously been chair bound. Will continue to follow and assist family with medical decision making (2) Acute respiratory failure with hypoxia: -Improving, patient n.p.o. Likely aspiration PNA. Patient with frequent recurrent aspiration. Continue IV fluids for hydration (3) Acute encephalopathy: -Multifactorial likely due to PNA on top of severe cognitive deficits due to multiple CVAs (4) Swallowing difficulty: Patient with recurrent aspiration (5) Acute cerebrovascular accident (CVA): Patient has had multiple CVAs in the past few months. Continues to decline Subjective Patient seen and examined along with Dr. Poole -patient did open her eyes briefly. Was not able to follow simple commands. Did respond during exam with a one word "no" when examining abdomen for pain. No family at bedside-they were supposed to make a decision regarding goals of care and discussed with Dr. Poole this morning -have not yet heard from family. Review of Systems Review of Systems: Unobtainable due to cognitive status Physical Exam Physical Exam: PE: Patient awake, appears comfortable HEENT: Right gaze preference Respiratory: Unlabored, adequate sats on room air CV: Regular rate Abdomen: Soft, nontender Extremities: Pale and cool to touch, early mottling right knee Neuro: Severe cognitive deficits due to recurrent CVAs Results & Data Vital Signs (Past 12 Hours) Vital Signs Temp Pulse Resp BP Pulse Ox 12/22/18 07:18 97.7 F 67 20 161/82 H 95 PG Care Time/CCT Total # of Minutes Spent Total Time Spent with Patient: Total time spent is greater than 50% in coordination of care (as documented) at patient's floor/unit and/or counseling patient: Time Spent Attending Total time spent 25 minutes with greater than 50% of the time at bedside assessing patient's current status and collaborating with attending physician at bedside (1) Swallowing difficulty Dysphagia type: other dysphagia Qualified Code(s): R13.19 - Other dysphagia
--- NOTE | 2018-12-22 21:50 | Hospitalist Progress Note ---
Date of Service December 22, 2018 Assessment & Plan (1) PNA (pneumonia): previously completed 7 days of IV antibiotics for right-sided pneumonia - either aspiration or gram negative etiology. suspect aspiration. abx discontinued. recent cxr with worsening RLL infiltrates likely due to ongoing aspiration of oral secretions. transitioning to hospice - no Rx. (2) Acute encephalopathy: Altered MS is resolved. She is at neurocognitive baseline. She has had multiple prior strokes and thus likely has advanced, severe vascular dementia. recent head CT w/o acute findings. ammonia wnl. recent TSH, b12 wnl. recent hypernatremia resolved. NO improvement in mental status during this protracted hospitalization. (3) Acute respiratory failure with hypoxia: resolved. 2nd to pneumonia. (4) Swallowing difficulty: severe dysphagia. Had been on pureed diet at SNF. By report she aspirated pills on the AM of 12/10. speech evaluated her earlier this stay - she did poorly. pocketing and holding boluses of food/etc. son wanted speech to reevaulate - this was completed several days ago - did VERY POORLY. Essentially there is no mastication ability. NOT SAFE to take anything PO. family has decided NOT to pursue PEG tube placement. (5) Hypernatremia: resolved (6) H/O: CVA (cerebrovascular accident): History of CVA x 2, most recently in September 2018. Had been on ASA, Plavix and statin for secondary prevention now unable to take meds due to dysphagia. Appears to have a vascular dementia process. (7) HLD (hyperlipidemia): statin d/c (8) HTN (hypertension): cont nitropatch for now. would d/c at discharge. (9) Carotid artery stenosis: Neck CTA in September 2018 showed high grade stenosis at proximal right internal carotid artery with up to 90% calcified plaque, 70% on left (10) Urinary incontinence: morrissey leave for palliative purposes (11) Pacemaker: H/o SA node dysfunction s/p pacemaker placement. (12) DVT prophylaxis: stop lovenox appreciate palliative care assistance son/ confirm they will NOT pursue PEG wish for DNR/DNI status likely home with hospice will inform social work Subjective no changes overnight met with pt's , son, and pt's sister in lobby to discuss plan of care and son confirm they will NOT pursue PEG and want her to be DNR/DNI after much discussion family to take patient home on hospice Review of Systems Review of Systems: Unobtainable due to cognitive status and Unobtainable due to reduced consciousness Physical Exam Constitutional: + ill appearing and + altered mental status; no acute distress ENMT: external ear and nose normal, oropharynx normal Mouth: + dry oral mucous membranes Respiratory: normal respiratory effort, lungs clear to auscultation + labored breathing (mild retractions), + retractions and + tachypneic Auscultation: + diminished lung sounds (right base) Cardiovascular: Rate/Rhythm: regular rate and regular rhythm Heart Sounds: normal S1 and normal S2; no murmur Vessels: posterior tibial pulses present and dorsalis pedis pulses present; no JVD Extremities: no edema Gastrointestinal (Abdomen): normal bowel sounds, soft, nontender, no hepatosplenomegaly Psychiatric: Orientation: + not alert and + not oriented x 3 Results & Data Vital Signs (Past 12 Hours) Vital Signs Temp Pulse Resp BP Pulse Ox 12/22/18 15:31 36.6 C 65 20 136/74 98 PG Care Time/CCT Total # of Minutes Spent Total Time Spent with Patient: Total time spent is greater than 50% in coordination of care (as documented) at patient's floor/unit and/or counseling patient: (1) Carotid artery stenosis Laterality: right Qualified Code(s): I65.21 - Occlusion and stenosis of right carotid artery (2) Urinary incontinence Urinary Incontinence type: unspecified incontinence Qualified Code(s): R32 - Unspecified urinary incontinence (3) Swallowing difficulty Dysphagia type: other dysphagia Qualified Code(s): R13.19 - Other dysphagia (4) HLD (hyperlipidemia) Hyperlipidemia type: unspecified Qualified Code(s): E78.5 - Hyperlipidemia, unspecified (5) HTN (hypertension) Hypertension type: essential hypertension Qualified Code(s): I10 - Essential (primary) hypertension (6) PNA (pneumonia) Aspiration pneumonia type: unspecified Laterality: right Lung location: unspecified part of lung Pneumonia type: aspiration pneumonia Qualified Code(s): J69.0 - Pneumonitis due to inhalation of food and vomit
[2018-12-23] MEDS: D5NSS + 20MEQ KCL 20 MEQ/1,000 ML BAG IV SCH (05:04)
[2018-12-23] MEDS: NITROGLYCERIN 0.1 MG/HR PATCH TD SCH (09:14)
[2018-12-23] MEDS: ENOXAPARIN INJ 40 MG/0.4 ML SYR SQ SCH (09:14)
--- NOTE | 2018-12-23 20:21 | Hospitalist Progress Note ---
Date of Service December 23, 2018 Assessment & Plan (1) Palliative care patient: confirms ongoing desire to take his home with hospice. she will return home with hospice tomorrow AM. d/c all fluids. d/c all labs. d/c all vital signs. transition to comfort measures. no apparent pain or agitation. leave morrissey. O2 prn. appreciate social work consultation and assistance. (2) Vascular dementia: advanced (3) Acute respiratory failure with hypoxia: (4) PNA (pneumonia): (5) H/O: CVA (cerebrovascular accident): Subjective at bedside I confirmed with that indeed they wish to take patient home on hospice social work aware - they have made arrangements for such - will go home with [facility] on Tuesday am no issues per staff Review of Systems Review of Systems: Unobtainable due to cognitive status Physical Exam Physical Exam: gen - NAD; eyes open, rightward gaze preference; does not follow commands; nonverbal; just stares mouth - MM dry heart - RRR, s1 s2, no murmur lungs - decreased BS right base, mild tachypnea, mild subcostal retractions abd - soft NT BS+ ext - mild edema especially LUE and both legs musculo - podagra left great toe? however, with palpation, she has no apparent pain or tenderness (mild warmth/swelling of first MTP joint) PG Care Time/CCT Total # of Minutes Spent Total Time Spent with Patient: Total time spent is greater than 50% in coordination of care (as documented) at patient's floor/unit and/or counseling patient: (1) Vascular dementia Dementia behavioral disturbance: without behavioral disturbance Qualified Code(s): F01.50 - Vascular dementia without behavioral disturbance (2) PNA (pneumonia) Aspiration pneumonia type: unspecified Laterality: right Lung location: unspecified part of lung Pneumonia type: aspiration pneumonia Qualified Code(s): J69.0 - Pneumonitis due to inhalation of food and vomit
--- NOTE | 2018-12-24 09:27 | Discharge Summary ---
Date of Service date of admission - December 09, 2018 date of discharge - December 24, 2018 Admission HPI Per Admitting Provider 73 y/o F who was transferred to [facility] from [facility] for low O2 sats and decreased responsiveness. Pt is s/p CVA x2 with the most recent event being 10/22/2018. She is mostly nonverbal although family states she does answer yes/no questions appropriately at times. She does eat a pureed diet. They state that over the last few days pt has been less interactive and has barely eaten anything. They have been helping her with dinner, but states that nursing reports almost no intake during breakfast and lunch. Son states that she will hold food in her mouth for 30-40 minutes before swallowing due to some difficulty swallowing. She has been working with Speech therapy at the group home. She does cough after swallowing occasionally, but not with every swallow or even every meal. Son states that pt has not communicated any new issues to him and staff has not mentioned anything new either. No emesis that he is aware of. She does not use O2 at baseline. Principal Diagnosis acute hypoxic respiratory failure 2nd to RLL pneumonia Discharge Exam Constitutional + ill appearing and + altered mental status; no acute distress ENMT external ear and nose normal, oropharynx normal Mouth: + dry oral mucous membranes Respiratory normal respiratory effort, lungs clear to auscultation + labored breathing (mild retractions (at times)), + retractions (at times) and + tachypneic Auscultation: + diminished lung sounds (right base) and + crackles (focal - right base) Cardiovascular Rate/Rhythm: regular rate and regular rhythm Heart Sounds: normal S1 and normal S2; no murmur Vessels: posterior tibial pulses present and dorsalis pedis pulses present; no JVD Extremities: no edema Gastrointestinal (Abdomen) normal bowel sounds, soft, nontender, no hepatosplenomegaly Neurologic right-macdonald gaze preference Psychiatric Orientation: + not alert and + not oriented x 3 Discharge Data Allergies Allergy/AdvReac Type Severity Reaction Status Date / Time No Known Allergies Allergy Verified 12/09/18 13:22 Consultations palliative care speech therapy Ordered Studies CT head Hospital Course (1) Palliative care patient: Patient had a protracted hospitalization 2nd to acute hypoxic respiratory failure 2nd to RLL pneumonia, likely from aspiration. She received in total 7 days of IV antibiotic therapy for her pneumonia. The patient overall did poorly with inability to masticate and then swallow food/beverage. She was bed-bound her entire hospitalization, and had a right- macdonald gaze preference. She occasionally said yes/no to questions, and occasionally uttered some other words, but on many days she simply stared. She often did not follow commands. She was seen several times by speech therapy over the course of her stay and she had no improvement in her ability to swallow. Mrs Olmos's family was seen by the palliative care team to address goals of care in light of her very poor prognosis, inability to masticate/swallow, etc. Her family struggled with decisions regarding artificial nutrition, whether to place a permanent PEG tube, whether to rehospitalize if she were to become sick again in the future, etc. After numerous discussions with the palliative care team and the hospitalist team Mrs Olmos's family ultimately decided to initiate comfort care. Further they desired that she return home with hospice. Social work was heavily involved in discharge planning, and at time of discharge the patient will return home with hospice in place. All medications were discontinued except for those needed to treat end-of-life symptoms. (2) Vascular dementia: advanced h/o multiple strokes in the past (3) Acute respiratory failure with hypoxia: resolved. 2nd to RLL pneumonia - likely from aspiration. (4) PNA (pneumonia): completed 7 days of IV antibiotics for right-sided pneumonia - either aspiration or gram negative etiology. suspect aspiration. (5) H/O: CVA (cerebrovascular accident): History of CVA x 2, most recently in September 2018. Had been on ASA, Plavix and statin for secondary prevention now unable to take meds due to dysphagia/inability to masticate & swallow. Transitioning to hospice at discharge. Total Time Total Time Spent Total Time Spent (In Minutes): 25 Total Time Includes: Examination of the Patient, Discharge Planning, Medication Reconciliation and Communication With Other Providers Discharge Plan Discharge Items Patient Disposition: Hospice - Home Reason For Visit: Pneumonia Discharge Diagnosis: 1. right lower lobe pneumonia 2. aspiration due to severe dysphagia (inability to safely swallow) 3. severe dementia 4. recurrent strokes in the past Activity: As commented below Activity Comment: bedrest Non-emergency contact: Primary Care Provider Call non-emergency contact if: you have any medication questions, your symptoms worsen, your pain is not controlled, your pain is worsening, your pain is unusual for you and your pain is concerning for you Diet: Regular Addtl Attending Provider Instructions: Upon arrival home please contact the hospice company for any questions, concerns, problems, needs, or uncontrolled symptoms. Always call the hospice agency FIRST as they will be able to address the vast majority of your needs over the phone or in person. It is not necessary to call your family doctor -- again always call the hospice agency first. Medications - 1. for any pain or difficulty breathing - * roxanol (morphine) liquid - 5mg (1.25ml) every 3 hours as needed 2. for anxiety, agitation or difficulty sleeping - * ativan (lorazepam) 0.5mg every 6 hours under the tongue as needed 3. for nausea or vomiting - * zofran (ondansetron) 4mg disintegrating tablet every 6 hours as needed (place under the tongue - it will dissolve) The morrissey catheter will remain in place; drain as needed. If there is any breathing difficulty hospice can bring oxygen to the house. It was my pleasure caring for Mrs Olmos. God bless you and your family, -Dr Israel Pending Studies at Discharge: No Stand-Alone Forms: My [facility] Medications and DC Order Prescriptions: New ondansetron 4 mg tablet,disintegrating 4 mg PO Q6H PRN (Reason: nausea and vomiting) Qty: 10 RF: 0 morphine 20 mg/5 mL (4 mg/mL) solution 5 mg PO Q3H PRN (Reason: pain or difficulty breathing) Qty: 100 RF: 0 lorazepam [Ativan] 0.5 mg tablet 0.5 mg sublingual Q6H PRN (Reason: anxiety, agitation, or sleep) Qty: 14 RF: 0 Discontinued ergocalciferol (vitamin D2) 50,000 unit capsule 50,000 units PO WEEKLY Qty: 8 RF: 4 potassium chloride 20 mEq tablet extended release 20 meq PO DAILY Qty: 90 RF: 0 atorvastatin 40 mg tablet 40 mg PO HS RF: 0 clopidogrel 75 mg tablet 75 mg PO QAM RF: 0 losartan 25 mg tablet 12.5 mg PO QAM RF: 0 sennosides-docusate sodium [Senna with Docusate Sodium] 8.6-50 mg Tablet 1 tab PO BID PRN (Reason: Constipation) RF: 0 amlodipine 5 mg tablet 2.5 mg PO QAM Qty: 0 RF: 0 aspirin 81 mg Tablet,Delayed Release (Dr/Ec) 81 mg PO QAM Qty: 0 RF: 0 acetaminophen 325 mg Tablet 650 mg PO Q6H PRN (Reason: Fever) RF: 0 magnesium hydroxide [Milk of Magnesia] 400 mg/5 mL Suspension 30 ml PO DAILY PRN (Reason: Constipation) RF: 0 bisacodyl 10 mg Suppository 10 mg LA DAILY PRN (Reason: Constipation) RF: 0 Fleet Enema 19-7 gram/118 mL Enema 118 ml LA DAILY PRN (Reason: Constipation) RF: 0 polyethylene glycol 3350 17 gram/dose Powder 17 g PO DAILY PRN (Reason: Constipation) RF: 0 oxybutynin chloride 5 mg Tablet 5 mg PO BID RF: 0 enoxaparin 40 mg/0.4 mL Syringe 40 mg SUBCUT DAILY RF: 0 Discharge Orders: Discharge Order (Routine); Ordered 12/24/18 Ordered By: Mitchel Israel Admission Data Admit Date/Time: 12/09/18 15:08 Attending Provider: Mitchel Israel Admit Provider: Bella Mittal Primary Care Provider: Sheeba Galvan Other Providers: Bella Mittal ; Socorro Barton Other Interventions: Discharge Summary Assessment (RN) Last Done: 12/24/18 09:59 DC Date/Time DO NOT enter until pt leaves facility: 12/24/18 11:13
[2018-12-24] MEDS: NITROGLYCERIN 0.1 MG/HR PATCH TD SCH (09:46)
== END 2018-12-24 11:13 | disposition hospice, home (50) | DRG 871 ==
LOC: ED 12:06 → 2W 15:08 → SUATTDRO 15:08 → 2W 15:55 → 4W 12-19 21:23